=== PATIENT | male | born 1990 | race Caucasian/White ===

== ENCOUNTER 2017-05-20 14:39 | Emergency (ER) | payer OTHER, SELFPAY ==
--- NOTE | 2017-05-20 10:00 | XR_ITS ---
XR chest 2V HISTORY: ITS.REASON: COUGH, CONGESTION X COUPLE OF DAYS ORDERING PHYSICIAN: Patrick Gerardo MD PATIENT AGE: 26 years COMPARISON: 06/05/2008 FINDINGS: The cardiomediastinal silhouette and pulmonary vascularity are within normal limits. No lobar consolidation or collapse. There is a vague 6 mm nodular opacity overlying the left midlung at the third rib anteriorly and may be due to summation artifact. Cannot exclude developing nodule. Density is also present in the posterior costophrenic sulcus measuring 6 mm. The remaining lungs are clear.. No acute bony abnormalities. IMPRESSION: Nonspecific left upper lobe and posterior basilar nodular opacities. Developing nodules are consideration versus summation artifact. Follow-up suggested. If this persists then CT may be of further value.
[2017-05-20 14:40] VITALS: BP 138/74; PULSE 108; RESP 18; TEMP 37.9; O2SAT 97; BMI 28.3
[2017-05-20 17:00] VITALS: BP 135/76; PULSE 78; RESP 20; TEMP 37.3; O2SAT 97
[2017-05-20 22:16] LABS: Adenovirus,PCR Not Detected (NotDetected); Coronavirus 229E Not Detected (NotDetected); Coronavirus NL63 Not Detected (NotDetected); Coronavirus OC43 Not Detected (NotDetected); Coronovirus HKU1,PCR Not Detected (NotDetected); Human Metapneumovirus Not Detected (NotDetected); Influenza A, PCR Not Detected (NotDetected); Influenza AH1, 2009 Not Detected (NotDetected); Influenza AH1, PCR Not Detected (NotDetected); Influenza B, PCR Not Detected (NotDetected); Microscopic, Urine URINE MICROSCOPIC (MICROSCOPIC); Parainfluenza 1, PCR Not Detected (NotDetected); Parainfluenza 2, PCR Not Detected (NotDetected); Parainfluenza 3, PCR Not Detected (NotDetected); Parainfluenza 4, PCR Not Detected (NotDetected); Respiratory Syncytial Virus Not Detected (NotDetected); Rhinovirus/Enterovirus Not Detected (NotDetected)
[2017-05-20 23:31] LABS: Appearance,Urine CLEAR (Clear); Blood, Urine Negative (Negative); Color,Urine YELLOW (Yellow); Glucose,Urine (UA) Negative (Negative); Ketones,Urine TRACE (Negative); Leukocyte Esterase,Urine Negative (Negative); Nitrate,Urine Negative (Negative); PH,Urine 5.5 (5.0-8.5); Protein,Urine Negative (Negative); Specific Gravity, Urine >= 1.030 (1.005-1.030); Urobilinogen,Urine 0.2 EU/dl (0.2)
[2017-05-20 23:36] LABS: Bilirubin,Urine Negative (Negative)
[2017-05-20 23:40] LABS: Amorphous Sediment,Urine 1+ /lpf; Mucus,Urine 2+ /lpf; Squamous Epithelial Cell,Urine Occasional #/hpf (0-5)
[2017-05-20 23:42] VITALS: BP 138/81; PULSE 89; RESP 20; TEMP 37.1; O2SAT 97
[2017-05-20 23:57] LABS: Influenza AH3,PCR Detected (NotDetected)
[2017-05-21] LABS: Alanine Aminotransferase 64 U/L (12-78); Albumin Level 3.4 gm/dL (3.4-5.0); Alkaline Phosphatase 106 U/L (46-116); Anion Gap 11.4 mEq/L (5-15); Aspartate Amino Transferase 30 U/L (15-37); Bilirubin,Total 0.8 mg/dL (0.2-1.0); Blood Urea Nitrogen 10 mg/dL (7-18); Calcium 8.2 mg/dL (8.5-10.1); Carbon Dioxide 26 mmol/L (21.0-32.0); Chloride 105 mmol/L (98-107); Creatinine,Serum 1.03 mg/dL (0.70-1.30); Estimated Glomerular Filt Rate > 60 ml/min (>60); GFR (African American) > 60 ML/MIN (>60); Globulin 3.4 gm/dl (1.3-3.2); Glucose 113 mg/dL (74-106); Potassium 3.4 mmoL/L (3.5-5.1); Sodium 139 mmol/L (136-145); Total Protein,Serum 6.8 gm/dL (6.4-8.2)
[2017-05-21 00:55] LABS: Basophils % 0.3 % (0.1-2.0); Eosinophils % 0.7 % (0.1-12.0); Hematocrit 42.6 % (42.0-52.0); Hemoglobin 14.2 g/dL (14.1-18.0); Lymphocytes # 0.3 K/mm3 (0.7-4.5); Lymphocytes % 4.9 K/mm3 (10-50); Mean Corpuscular HGB Conc 33.4 g/dL (31.8-35.4); Mean Corpuscular Volume 86.7 fl (80-94); Mean Platelet Volume 7.4 fl (7.4-10.4); Monocytes # 0.3 K/mm3 (0.1-1.0); Monocytes % 5.3 % (1.7-9.3); Neutrophils # 5.5 K/mm3 (1.8-7.8); Neutrophils % 88.9 % (37.0-80.0); Platelet Count 195 K/mm3 (142-424); Red Blood Count 4.91 M/mm3 (4.60-6.20); Red Cell Distribution Width 12.9 % (11.5-17.5); White Blood Count 6.2 K/mm3 (4.8-10.8)
[2017-05-21 00:56] LABS: MANUAL DIFFERENTIAL MANUAL DIFFERENTIAL (MANUAL DIFF)
[2017-05-21 01:12] LABS: Platelet Estimate Normal; RBC Morphology Normal
[2017-05-21 01:13] LABS: Band Neutrophils % 14 (0-8); Lymphocytes % 8 % (10-50); Monocytes % 5 % (2-9); Neutrophils % 73 % (42-76); Toxic Granulation 1+
[2017-05-21 01:14] LABS: Total Cells Counted 100
[2017-05-21 15:33] LABS: Bordetella Pertussis Not Detected (NotDetected); Chlamydophila Pneumoniae, PCR Not Detected (NotDetected); Mycoplasma Pneumoniae, PCR Not Detected (NotDected)
== END 2017-05-20 17:50 | disposition home or self-care (01) ==
LOC: ER 22:14
PROVIDERS: Emergency Provider Emergency Medicine; Family Provider Family Medicine
DX: J10.1 Influenza due to other identified influenza virus with other respiratory manifestations (principal); J20.9 Acute bronchitis, unspecified; N39.0 Urinary tract infection, site not specified
CPT/HCPCS: 71046; 80053; 81001; 85007; 85025; 87486; 87581; 87633; 87798; 96360; 96365; 96372; 96375; 99282; 99284

== ENCOUNTER → 2018-04-24 14:59 | Outpatient (CLI) | payer OTHER, SELFPAY ==
--- NOTE | 2018-04-24 15:10 | MR_ITS ---
MR head/brain wo con HISTORY: None disintegrating remaining extremities with dizziness and headache ITS.REASON: DECREASED SENSATION, DIZZINESS, PRIMARY STABBING HEADACHE ORDERING PHYSICIAN: Chantelle Perez PATIENT AGE: 27 years Comparison: 04/23/2018, 09/01/2010 TECHNIQUE: Standard multiplanar multiecho sequences are performed without contrast. FINDINGS: No evidence of acute infarction. The cerebellopontine angles, cerebellum, and brainstem are unremarkable. No midline shift, mass effect, intracranial hemorrhage, or hydrocephalus is evident. There is normal lal-white matter differentiation with no abnormal white matter signal intensity apparent. No pituitary enlargement. The corpus callosum, cerebral peduncles, and optic diazepam are unremarkable. The hippocampal gyri are unremarkable and the temporal horns are symmetric. No mastoid effusion or sinus air-fluid level. IMPRESSION: Negative MRI of the brain without contrast No evidence of acute infarction or other acute anomaly
== END ==
PROVIDERS: PCP Nurse Practitioner; Visit Provider Nurse Practitioner
DX: F32.9 Major depressive disorder, single episode, unspecified (principal); F20.81 Schizophreniform disorder; R42 Dizziness and giddiness; G44.85 Primary stabbing headache; Z82.0 Family history of epilepsy and other diseases of the nervous system
CPT/HCPCS: 70551

== ENCOUNTER → 2018-05-17 14:55 | Outpatient (CLI) | payer OTHER, SELFPAY ==
--- NOTE | 2018-05-17 17:11 | CT_ITS ---
CT abdomen pelvis w con CLINICAL INDICATION: ITS.REASON: LUQ PAIN, ABDOMINAL DISTENSION, FEVER AND CHILLS ORDERING PHYSICIAN: Lilian Gabriel PATIENT AGE: 27 years COMPARISON: 02/10/2011 TECHNIQUE: Axial images obtained with sagittal and coronal reformats. All CT scans at the facility use one or more dose reduction, viz: automated exposure control, ma/kV adjustment per patient size (including targeted exams where dose is matched to indication, i.e. head), or iterative reconstruction technique. PROCEDURE: Oral Contrast: Redicat IV Contrast: 75 mL of Isovue-370. FINDINGS: The lung bases are clear. Probable fatty infiltration along the fissure for the ligamentum teres within the left lobe of the liver. Unremarkable appearing spleen. The pancreas and adrenal glands are unremarkable. No renal or ureteral calculi. 5 mm cortical cyst noted in the lower pole the left kidney. No hydronephrosis. No intestinal obstruction or free air. Prior appendectomy. No pelvic mass abnormal fluid collection or focal inflammatory change of the pelvis. No evidence of diverticulitis. No acute bony anomalies. IMPRESSION: No acute abdominal or pelvic findings
== END ==
PROVIDERS: PCP Nurse Practitioner Family; Visit Provider Nurse Practitioner Family
DX: R10.12 Left upper quadrant pain (principal); R50.9 Fever, unspecified; R14.0 Abdominal distension (gaseous)
CPT/HCPCS: 74177; Q9967

== ENCOUNTER 2019-10-06 17:46 | Emergency (ER) | payer OTHER, SELFPAY ==
[2019-10-06 17:48] VITALS: BP 137/69; PULSE 78; RESP 12; TEMP 36.6; O2SAT 100; BMI 29.0
[2019-10-06 18:09] LABS: Microscopic, Urine URINE MICROSCOPIC (MICROSCOPIC)
[2019-10-06 18:11] LABS: Appearance,Urine CLEAR (Clear); Bilirubin,Urine Negative (Negative); Blood, Urine Negative (Negative); Color,Urine YELLOW (Yellow); Glucose,Urine (UA) Negative (Negative); Ketones,Urine Negative (Negative); Leukocyte Esterase,Urine Negative (Negative); Nitrate,Urine Negative (Negative); PH,Urine 5.5 (5.0-8.5); Protein,Urine Negative (Negative); Specific Gravity, Urine >= 1.030 (1.005-1.030); Urobilinogen,Urine 0.2 EU/dl (0.2)
[2019-10-06 18:18] LABS: Basophils % 0.5 % (0.1-2.0); Eosinophils # 0.1 K/mm3 (0.0-0.4); Eosinophils % 1.6 % (0.1-12.0); Hematocrit 44.1 % (42.0-52.0); Hemoglobin 15.3 g/dL (14.1-18.0); Lymphocytes # 1.5 K/mm3 (0.7-4.5); Lymphocytes % 19.1 % (10-50); Mean Corpuscular HGB Conc 34.6 g/dL (31.8-35.4); Mean Corpuscular Hemoglobin 29.2 pg (27.0-31.2); Mean Corpuscular Volume 84.4 fl (80-94); Mean Platelet Volume 7.6 fl (7.4-10.4); Monocytes # 0.3 K/mm3 (0.1-1.0); Monocytes % 3.5 % (1.7-9.3); Neutrophils % 75.4 % (37.0-80.0); Platelet Count 241 K/mm3 (142-424); Red Blood Count 5.23 M/mm3 (4.60-6.20); Red Cell Distribution Width 14.2 % (11.5-17.5)
[2019-10-06 18:21] LABS: Bacteria,Urine Trace /lpf; WBC,Urine Occasional #/hpf (0-3)
[2019-10-06 18:21] LABS: Chloride 103 mmol/L (98-107)
[2019-10-06 18:22] LABS: Potassium 3.6 mmoL/L (3.5-5.1); Sodium 140 mmol/L (136-145)
[2019-10-06 18:24] LABS: Alanine Aminotransferase 32 U/L (12-78); Alkaline Phosphatase 99 U/L (38-126); Anion Gap 13.6 mEq/L (5-15); Aspartate Amino Transferase 27 U/L (17-59); Blood Urea Nitrogen 15 mg/dl (9-20); Carbon Dioxide 27 mmol/L (22.0-30.0); Creatinine Clearance Estimated 172 mL/min (50-200); Estimated Glomerular Filt Rate 100 ml/min (>60); GFR (African American) 122 ML/MIN (>60)
[2019-10-06 18:25] LABS: Albumin Level 4.7 g/dl (3.5-5.0); Albumin/Globulin Ratio 1.5 (1.1-1.8); Calcium 9.6 mg/dl (8.4-10.2); Globulin 3.1 g/dL (1.3-3.2); Glucose 120 mg/dl (74-100); Total Protein,Serum 7.8 g/dl (6.3-8.2)
--- NOTE | 2019-10-06 18:58 | CT_ITS ---
PROCEDURE: CT ABDOMEN PELVIS WO CON CLINICAL INDICATION: abd pain COMPARISON: ABDPELW CT abdomen pelvis w con from 05/17/2018 TECHNIQUE: Axial images obtained with sagittal and coronal reformats. All CT scans at the facility use one or more dose reduction, viz: automated exposure control, ma/kV adjustment per patient size (including targeted exams where dose is matched to indication, i.e. head), or iterative reconstruction technique. FINDINGS: Lower thorax: The lower lung roque are clear and there is no pleural fluid. ABDOMEN: Liver: The liver is normal size, there is mild stable fatty infiltration involving the ligamentum teres and left lobe of the liver. There are no focal lesions. Gallbladder: Nondistended. No radio opaque stones. Pancreas: No masses or peripancreatic fluid collections. Spleen: unremarkable Adrenals: unremarkable Kidneys/ureters: The kidneys are normal in size and no calculi and there is no obstructive uropathy. ABDOMEN & PELVIS: Stomach bowel: The stomach is moderately distended with ingested food particles but otherwise appears normal. The duodenal sweep and small bowel appear normal. There has been a previous appendectomy. There is large amount stool in the cecum and ascending colon and hepatic flexure. There is scattered stool and gas seen through the remainder of the colon. Peritoneum: No abnormal fluid collections. No obvious inflammatory changes. No free air. Lymph nodes: No enlarged lymph nodes apparent. Vasculature: No evidence of abdominal aortic aneurysm. No retroperitoneal hemorrhage evident. Bones: No acute fracture, lower thoracic and lumbar spine appearing entirely normal. PELVIS: Reproductive: unremarkable Bladder: Mildly distended with urine and appearing normal. Prostate is normal in size. Appendix: Surgical clips adjacent to the cecum from prior appendectomy IMPRESSION: Large amount right-sided stool, no acute abdominal or pelvic pathology identified Dictated by: Dr. Jean Pierre Morton MD 10/06/2019 19:[address] Jean Pierre Morton MD in [place] 10/06/2019 19:47
[2019-10-06 19:14] LABS: Amylase 87 U/L (30-110); Lipase 34 U/L (23-300)
--- NOTE | 2019-10-06 19:15 | PC.NURSE ---
RECEIVED REPORT FROM ALBERT YOUNG AND ALBERT RIZZO
[2019-10-06 19:22] VITALS: BP 132/75; PULSE 72; RESP 19; O2SAT 98
--- NOTE | 2019-10-06 19:42 | HMH.EDDIZZ ---
ED Disposition Clinical Impression: Dizziness, Hypertension, Constipation Disposition: Still a Patient Condition on Discharge: Good Instructions: Dizziness, Nonvertigo Prescriptions: Losartan Potassium 50 mg PO DAILY 30 Days #30 tab Transmission Status: Sent to [facility] #[id number] Ondansetron [Zofran 4mg ODT] 4 mg PO TID PRN 4 Days #15 tab.rapdis PRN Reason: Nausea Transmission Status: Pending to [facility] #[id number] Referrals: Lilian Gabriel APRN [Primary Care Provider] - - Critical Care Critical Care Time: No Attestation: On 10/06/19, the high probability of a clinically significant, sudden or life threatening deterioration of the following system(s) required my full and direct attention, intervention and personal management. The time I documented below is in addition to time spent performing reported procedures but includes the following listed in this critical care notation. Medical Decision Making - Medical Records Medical records reviewed: Yes: I reviewed the patient's medical records. - Yordy Inquiry Pt receiving controlled substance: No Vital Signs: 10/06/19 17:48 Temperature 98 F Temperature Source Oral Pulse Rate [Right] 78 Respiratory Rate 12 Blood Pressure [Right Arm] 137/69 Blood Pressure Mean [Right Arm] 91 02 Sat by Pulse Oximetry 100 - Lab Data Lab results reviewed: Yes: I reviewed the patient's lab results. Lab Results 10/06/19 18:01: Urine Color Yellow, Urine Appearance Clear, Urine pH 5.5, Ur Specific [place] >= 1.030, Urine Protein Negative, Urine Glucose (UA) Negative, Urine Ketones Negative, Urine Blood Negative, Urine Nitrate Negative, Urine Bilirubin Negative, Urine Urobilinogen 0.2, Ur Leukocyte Esterase Negative, Urine WBC Occasional, Urine Bacteria Trace 10/06/19 18:10: WBC 8.0, RBC 5.23, Hgb 15.3, Hct 44.1, MCV 84.4, MCH 29.2, MCHC 34.6, RDW 14.2, Plt Count 241, MPV 7.6, Neut % (Auto) 75.4, Lymph % (Auto) 19.1, [place] % (Auto) 3.5, Eos % (Auto) 1.6, Baso % (Auto) 0.5, Neut # (Auto) 6.0, Lymph # (Auto) 1.5, [place] # (Auto) 0.3, Eos # (Auto) 0.1, Baso # (Auto) 0.0 10/06/19 18:10: Sodium 140, Potassium 3.6, Chloride 103, Carbon Dioxide 27, Anion Gap 13.6, BUN 15, Creatinine 0.90, Estimated Creat Clear 172, Estimated GFR 100, Est GFR ( Amer) 122, Glucose 120 H, Calcium 9.6, Total Bilirubin 1.0, AST 27, ALT 32, Alkaline Phosphatase 99, Total Protein 7.8, Albumin 4.7, Globulin 3.1, Albumin/Globulin Ratio 1.5 10/06/19 18:10: Amylase 87 10/06/19 18:10: Lipase 34 Result diagrams: 10/06/19 18:10 10/06/19 18:10 - CT Data CT Scan: Abdomen, Pelvis Time Received: 19:[address] Reviewed: Yes: I have viewed the radiologist's interpretation Preliminary Findings: Abnormal (Large amount of stool at the hepatic flexure) Dizzy HPI - General Chief Complaint: Dizziness Stated Complaint: BP/R Shoulder Pain,Feels bad Time Seen by Provider: 10/06/19 19:20 Mode of Arrival: Ambulatory Source of Information: Patient Limitations: No Limitations Description of Symptoms (Recalled from ER Triage Doc. by RN): C/O dizziness and nausea with right shoulder pain after he eats. Pt also states he has htn and hus bp has been high today with a ROSAS and lightheadedness. - History of Present Illness HPI Narrative: 21-year-old male presents the ED complaining of some lightheadedness dizziness and pain in his right shoulder after he eats meals. He also states his blood pressure has been elevated at home. He also states that he thinks his stated that it could be his gallbladder. Patient does not complain of any abdominal pain. Patient stated that his blood pressure at home was 183/101. Here in the ED it is within normal limits and he takes lisinopril daily. Otherwise patient denies any recent fever shakes or chills. Patient denies any vomiting but does have nausea. Patient denies any subjective or objective fevers. Patient denies any cough or shortness of breath. - Related
[2019-10-06 20:01] VITALS: BP 152/74; PULSE 71; RESP 16; O2SAT 99
[2019-10-06 20:29] VITALS: BP 128/62; PULSE 72; RESP 12; TEMP 36.7; O2SAT 100
== END 2019-10-06 20:30 | disposition home or self-care (01) ==
PROVIDERS: Emergency Provider Family Medicine; PCP Nurse Practitioner Family
DX: R42 Dizziness and giddiness (principal); I10 Essential (primary) hypertension; K59.00 Constipation, unspecified; F41.9 Anxiety disorder, unspecified; F12.10 Cannabis abuse, uncomplicated; Z90.09 Acquired absence of other part of head and neck; Z90.49 Acquired absence of other specified parts of digestive tract
CPT/HCPCS: 74176; 80053; 81001; 82150; 83690; 85025; 99284

== ENCOUNTER → 2019-10-13 08:47 | Outpatient (CLI) | payer OTHER, SELFPAY ==
--- NOTE | 2019-10-13 08:54 | US_ITS ---
PROCEDURE: US ABDOMEN LIMITED CLINICAL INDICATION: ABD PAIN Right upper quadrant pain COMPARISON: RUQ US RUQ-(ABD LTD)1ORGAN/QUAD/FU from 11/07/2012 FINDINGS: PANCREAS: Unremarkable. No obvious mass or abnormal fluid collection. No ductal dilatation LIVER: No focal liver lesions demonstrated. Homogeneous echogenicity. No intrahepatic biliary ductal dilatation evident. There is appropriate direction of blood flow within a non dilated portal vein RIGHT KIDNEY: Unremarkable. Normal size and echogenicity. No hydronephrosis GALLBLADDER: No gallstones, gallbladder wall thickening, pericholecystic fluid, or biliary dilatation. IMPRESSION: Unremarkable limited abdominal ultrasound as detailed above disc Dictated by: Harpreet Del Rosario MD 10/13/2019 14:33 Electronically signed by Harpreet Del Rosario MD in [place] 10/13/2019 14:33
== END ==
PROVIDERS: PCP Nurse Practitioner Family; Visit Provider Nurse Practitioner Family
DX: R10.11 Right upper quadrant pain (principal)
CPT/HCPCS: 76705

== ENCOUNTER → 2019-11-06 09:16 | Outpatient (CLI) | payer OTHER, SELFPAY ==
--- NOTE | 2019-11-06 09:20 | NM_ITS ---
PROCEDURE: NM HEPATOBILIARY W PHARM CLINICAL INDICATION: RUQ PAIN COMPARISON: Ultrasound 10/13/2019 TECHNIQUE: 8.48 mCi technetium Choletec 2 mcg of CCK FINDINGS: Homogeneous activity is present within the hepatic parenchyma. Activity is present in the gallbladder by 7 minutes. Activity is present in the small bowel by 23 minutes. The gallbladder ejection fraction is calculated to be 92 percent. CCK-The patient did not report pain or other symptoms during CCK infusion. IMPRESSION: Unremarkable hepatobiliary scan and normal gallbladder ejection fraction Dictated by: Harpreet Del Rosario MD 11/07/2019 09:39 Electronically signed by Harpreet Del Rosario MD in [place] 11/07/2019 09:39
--- NOTE | 2019-11-06 10:12 | HMH.ITSHM ---
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 [] zoloft losartan
== END ==
PROVIDERS: PCP Nurse Practitioner Family; Visit Provider Nurse Practitioner Family
DX: R10.11 Right upper quadrant pain (principal)
CPT/HCPCS: 78227; A9537; J2805

== ENCOUNTER → 2019-11-26 19:24 | Outpatient (CLI) | payer OTHER, SELFPAY | PROVIDERS: PCP Family Medicine; Visit Provider Family Medicine | DX: R29.818 Other symptoms and signs involving the nervous system (principal) | CPT/HCPCS: G0399 ==

== ENCOUNTER → 2020-04-15 15:24 | Outpatient (CLI) | payer OTHER, SELFPAY ==
[2020-04-17 17:52] LABS: Covid-19 Nasal PCR Sendout Lex Not Detected
== END ==
PROVIDERS: PCP Nurse Practitioner Family; Visit Provider Nurse Practitioner Family
DX: Z03.818 Encounter for observation for suspected exposure to other biological agents ruled out (principal)
CPT/HCPCS: U0004

== ENCOUNTER → 2020-04-23 15:29 | Outpatient (CLI) | payer OTHER, SELFPAY ==
[2020-04-26 08:26] LABS: Covid-19 Nasal PCR Sendout UK DETECTED
== END ==
PROVIDERS: PCP Nurse Practitioner Family; Visit Provider Nurse Practitioner Family
DX: Z20.828 Contact with and (suspected) exposure to other viral communicable diseases (principal); U07.1 COVID-19
CPT/HCPCS: U0003

== ENCOUNTER → 2020-06-19 09:38 | Outpatient (CLI) | payer OTHER, SELFPAY ==
[2020-06-19 09:51] LABS: Basophils % 0.4 % (0.1-2.0); Eosinophils # 0.1 K/mm3 (0.0-0.4); Eosinophils % 1.1 % (0.1-12.0); Hematocrit 50.1 % (42.0-52.0); Hemoglobin 16.5 g/dL (14.1-18.0); Lymphocytes # 1.5 K/mm3 (0.7-4.5); Lymphocytes % 26.1 % (10-50); Mean Corpuscular HGB Conc 32.9 g/dL (31.8-35.4); Mean Corpuscular Hemoglobin 27.7 pg (27.0-31.2); Mean Corpuscular Volume 84.2 fl (80-94); Mean Platelet Volume 7.5 fl (7.4-10.4); Monocytes # 0.2 K/mm3 (0.1-1.0); Neutrophils # 3.8 K/mm3 (1.8-7.8); Neutrophils % 68.4 % (37.0-80.0); Platelet Count 283 K/mm3 (142-424); Red Blood Count 5.95 M/mm3 (4.60-6.20); Red Cell Distribution Width 14.4 % (11.5-17.5); White Blood Count 5.6 K/mm3 (4.8-10.8)
[2020-06-19 10:29] LABS: Alanine Aminotransferase 52 U/L (12-78); Albumin Level 4.4 g/dl (3.5-5.0); Albumin/Globulin Ratio 1.6 (1.1-1.8); Alkaline Phosphatase 97 U/L (38-126); Anion Gap 11.1 mEq/L (5-15); Aspartate Amino Transferase 37 U/L (17-59); Bilirubin,Total 0.7 mg/dl (0.2-1.3); Blood Urea Nitrogen 13 mg/dl (9-20); Calcium 9.5 mg/dl (8.4-10.2); Carbon Dioxide 29 mmol/L (22.0-30.0); Chloride 107 mmol/L (98-107); Estimated Glomerular Filt Rate 100 ml/min (>60); GFR (African American) 122 ML/MIN (>60); Globulin 2.8 g/dL (1.3-3.2); Glucose 103 mg/dl (74-100); Magnesium 1.9 mg/dl (1.6-2.3); Potassium 4.1 mmoL/L (3.5-5.1); Sodium 143 mmol/L (136-145); Total Protein,Serum 7.2 g/dl (6.3-8.2)
[2020-06-19 10:43] LABS: Free T4 (Free Thyroxine) 0.69 ng/dl (0.78-2.19)
[2020-06-19 10:58] LABS: Thyroid Stimulating Hormone 3.77 uIU/mL (0.465-4.68)
[2020-06-26 15:55] LABS: Testosterone, Total, LC/MS 311.4 ng/dL (264.0-916.0); Testosterone,Free 8.2 pg/mL (9.3-26.5)
== END ==
PROVIDERS: Visit Provider Nurse Practitioner Family
DX: Z79.899 Other long term (current) drug therapy (principal)
CPT/HCPCS: 36415; 80053; 83735; 84402; 84403; 84439; 84443; 85025; 86140

== ENCOUNTER → 2020-06-19 09:51 | Outpatient (CLI) | payer OTHER, SELFPAY ==
--- NOTE | 2020-06-19 09:59 | XR_ITS ---
PROCEDURE: XR CERVICAL SPINE 5V CLINICAL INDICATION: CERVICALGIA COMPARISON: No exams were available for comparison FINDINGS: No fracture or dislocation. No lytic or blastic change. There is normal mineralization. There is normal alignment. The C7 vertebral body is not well delineated on the lateral view. A faint outline is noted and appears to be normal and alignment. The foramina are widely patent. The disc spaces are well-preserved. No significant degenerative/arthritic changes. No erosive changes evident. Other findings:There is straightening/reversal of the normal lordosis which may be due to patient positioning or muscle spasm. IMPRESSION: Straightening of cervical lordosis which could be due to patient positioning or muscle spasm. Incomplete visualization of C7. Dictated by: Harpreet Del Rosario MD 06/19/2020 10:25 Harpreet Del Rosario MD in [place] 06/19/2020 10:25
== END ==
PROVIDERS: PCP Nurse Practitioner Family; Visit Provider Nurse Practitioner Family
DX: M54.2 Cervicalgia (principal)
CPT/HCPCS: 72050

== ENCOUNTER 2020-06-21 18:20 | Emergency (ER) | payer OTHER, SELFPAY ==
[2020-06-21 18:21] VITALS: BP 133/74; PULSE 65; RESP 16; TEMP 36.6; O2SAT 99; BMI 32.3
--- NOTE | 2020-06-21 18:21 | HMH.EDGENADL ---
ED Disposition Clinical Impression: Headache Qualifiers: Headache type: unspecified Headache chronicity pattern: unspecified pattern Intractability: not intractable Qualified Code(s): R51.9 - Headache, unspecified Disposition: Home, Self-Care Condition on Discharge: Good Additional Instructions: Please continue taking yhvx-nos-vengyrm medications such as Tylenol/ibuprofen and other prescribed medications by her PCP as prescribed. Return immediately if any change in quality/character of headache, neurologic symptoms, fever/chills, neck pain/stiffness, or other new concerning symptoms. - Critical Care Critical Care Time: No Attestation: On , the high probability of a clinically significant, sudden or life threatening deterioration of the following system(s) required my full and direct attention, intervention and personal management. The time I documented below is in addition to time spent performing reported procedures but includes the following listed in this critical care notation. Medical Decision Making - Medical Records Medical records reviewed: Yes: I reviewed the patient's medical records. - Yordy Inquiry Pt receiving controlled substance: No Vital Signs: 06/21/20 18:21 Temperature 98 F Temperature Source Oral Pulse Rate [Radial] 65 Respiratory Rate 16 Blood Pressure [Right Arm] 133/74 Blood Pressure Mean [Right Arm] 93 Blood Pressure Position [Right Arm] Sitting 02 Sat by Pulse Oximetry 99 Oxygen Delivery Method Room Air - Lab Data Lab Results 06/21/20 18:50: WBC 7.9 D, RBC 5.77, Hgb 16.0, Hct 48.9, MCV 84.8, MCH 27.8, MCHC 32.8, RDW 14.2, Plt Count 310, MPV 7.5, Neut % (Auto) 65.1, Lymph % (Auto) 29.1, [place] % (Auto) 4.5, Eos % (Auto) 0.9, Baso % (Auto) 0.4, Neut # (Auto) 5.1, Lymph # (Auto) 2.3, [place] # (Auto) 0.4, Eos # (Auto) 0.1, Baso # (Auto) 0.0 06/21/20 18:50: Sodium 140, Potassium 4.1, Chloride 101, Carbon Dioxide 31 H, Anion Gap 12.1, BUN 13, Creatinine 0.90, Estimated Creat Clear 192, Estimated GFR 100, Est GFR ( Amer) 122, Glucose 133 H, Calcium 9.8 Result diagrams: 06/21/20 18:50 06/21/20 18:50 Orders (Tests/Meds): ED MEDICATIONS Generic Name Dose Route Start Last Admin Trade Name Justyn PRN Reason Stop Dose Admin Lactated Ringer's 1,000 mls @ 999 mls/hr 06/21/20 18:45 06/21/20 18:39 Lactated Ringer's 1000 Ml Bag IV 06/21/20 19:45 999 mls/hr .Q1H1M PHYLLIS Administration Discontinued Medications Generic Name Dose Route Start Last Admin Trade Name Justyn PRN Reason Stop Dose Admin Diphenhydramine HCl 25 mg 06/21/20 18:35 06/21/20 18:40 Diphenhydramine 50mg/Ml Vial IV 06/21/20 18:36 25 mg ONCE ONE Administration Ketorolac Tromethamine 15 mg 06/21/20 19:25 Ketorolac 30mg/Ml Vial IV 06/21/20 19:26 ONCE ONE Prochlorperazine Edisylate 10 mg 06/21/20 18:35 06/21/20 18:40 Prochlorperazine 10mg/2ml Vial IV 06/21/20 18:36 10 mg ONCE ONE Administration ORDERS Category Date Time Status CT head/brain wo con Stat Cat Scan 06/21/20 18:35 Taken Medical Decision Narrative: Patient 29-year-old male presenting with headache. On arrival, he ambulates without difficulty with no focal neurologic deficits. Neck is supple without meningismus with normal vital signs on examination. At this time, differential diagnosis does include ICH/mass versus cluster headache versus migraine with aura versus tension headache. Compazine, Benadryl, and IV fluid bolus given basic lab work will be checked. I do believe CT head is indicated as this is a change in patient's usual headache with frontal pressure he describes. No specific morning/night pain or constitutional symptoms. Labs unremarkable. I personally reviewed CT imaging and also uremarkable. Patient given IV toradol. Headache resolved. Pt ambulates w/o difficulty. Discharged home with strict return precautions and close followup. Assessment: headache hypertension Disposition:
--- NOTE | 2020-06-21 18:35 | CT_ITS ---
PROCEDURE: CT HEAD/BRAIN WO CON CLINICAL INDICATION: new onset frontal headache Headache with blurred vision COMPARISON: CT HEADWO CT head/brain wo con from 04/23/2018 TECHNIQUE: Axial images obtained. All CT scans at the facility use one or more dose reduction, viz: automated exposure control, ma/kV adjustment per patient size (including targeted exams where dose is matched to indication, i.e. head), or iterative reconstruction technique. FINDINGS: No midline shift, mass effect, intracranial hemorrhage, hydrocephalus, or extra-axial fluid collection is evident. The calvarium has an unremarkable appearance. No mastoid effusion. No sinus air-fluid level. IMPRESSION: No acute intracranial finding Dictated by: Harpreet Del Rosario MD 06/22/2020 06:20 Harpreet Del Rosario MD in [place] 06/22/2020 06:20
[2020-06-21 19:02] LABS: Basophils % 0.4 % (0.1-2.0); Eosinophils # 0.1 K/mm3 (0.0-0.4); Eosinophils % 0.9 % (0.1-12.0); Hematocrit 48.9 % (42.0-52.0); Lymphocytes # 2.3 K/mm3 (0.7-4.5); Lymphocytes % 29.1 % (10-50); Mean Corpuscular HGB Conc 32.8 g/dL (31.8-35.4); Mean Corpuscular Hemoglobin 27.8 pg (27.0-31.2); Mean Corpuscular Volume 84.8 fl (80-94); Mean Platelet Volume 7.5 fl (7.4-10.4); Monocytes # 0.4 K/mm3 (0.1-1.0); Monocytes % 4.5 % (1.7-9.3); Neutrophils # 5.1 K/mm3 (1.8-7.8); Neutrophils % 65.1 % (37.0-80.0); Platelet Count 310 K/mm3 (142-424); Red Blood Count 5.77 M/mm3 (4.60-6.20); Red Cell Distribution Width 14.2 % (11.5-17.5); White Blood Count 7.9 K/mm3 (4.8-10.8)
[2020-06-21 19:03] LABS: Chloride 101 mmol/L (98-107); Potassium 4.1 mmoL/L (3.5-5.1); Sodium 140 mmol/L (136-145)
[2020-06-21 19:06] LABS: Anion Gap 12.1 mEq/L (5-15); Blood Urea Nitrogen 13 mg/dl (9-20); Calcium 9.8 mg/dl (8.4-10.2); Carbon Dioxide 31 mmol/L (22.0-30.0); Creatinine Clearance Estimated 192 mL/min (50-200); Estimated Glomerular Filt Rate 100 ml/min (>60); GFR (African American) 122 ML/MIN (>60); Glucose 133 mg/dl (74-100)
[2020-06-21 20:14] VITALS: BP 101/54; PULSE 62; RESP 14; TEMP 36.6; O2SAT 98
== END 2020-06-21 20:17 | disposition home or self-care (01) ==
PROVIDERS: Emergency Provider Emergency Medicine; PCP Nurse Practitioner Family
DX: G43.109 Migraine with aura, not intractable, without status migrainosus (principal); I10 Essential (primary) hypertension; F41.9 Anxiety disorder, unspecified
CPT/HCPCS: 70450; 80048; 85025; 96365; 96375; 99282

== ENCOUNTER → 2020-06-25 10:16 | Outpatient (CLI) | payer OTHER, SELFPAY ==
--- NOTE | 2020-06-25 10:22 | MR_ITS ---
PROCEDURE: MR HEAD/BRAIN WO CON CLINICAL INDICATION: HEADACHES Severe frontal headaches progressing COMPARISON: CT CT HEAD/BRAIN WO CON from 06/21/2020 TECHNIQUE: Routine multiplanar multi echo sequences are performed without gadolinium enhancement. FINDINGS: No midline shift or mass effect. No evidence acute infarction. The cerebellopontine angles, cerebellum, and brainstem and mid brain have an unremarkable appearance. The basal ganglia and deep white matter appears unremarkable. No evidence of intracranial hemorrhage. The pituitary, optic chiasm, corpus callosum, and craniocervical junction have an unremarkable appearance. No mastoid effusion or sinus air-fluid level. IMPRESSION: Negative MRI of the brain without contrast, no acute intracranial findings. Dictated by: Harpreet Del Rosario MD 06/25/2020 12:13 Harpreet Del Rosario MD in [place] 06/25/2020 12:13
== END ==
PROVIDERS: PCP Nurse Practitioner Family; Visit Provider Nurse Practitioner Family
DX: R51.9 Headache, unspecified (principal)
CPT/HCPCS: 70551

== ENCOUNTER → 2020-08-11 15:53 | Outpatient (CLI) | payer OTHER, SELFPAY | PROVIDERS: PCP Family Medicine; Visit Provider Family Medicine | DX: Z20.822 Contact with and (suspected) exposure to COVID-19 (principal) | CPT/HCPCS: U0003 ==

== ENCOUNTER 2020-11-01 20:02 | Emergency (ER) | payer OTHER, SELFPAY ==
[2020-11-01 20:05] VITALS: BP 137/76; PULSE 63; RESP 18; TEMP 36.8; O2SAT 98; BMI 33.0
--- NOTE | 2020-11-01 20:07 | XR_ITS ---
PROCEDURE INFORMATION: Exam: XR Left Ankle Exam date and time: 11/01/2020 8:07 PM Age: 30 years old Clinical indication: Patient HX: Left ankle pain no new injury TECHNIQUE: Imaging protocol: XR Left ankle. Views: 3 or more views. COMPARISON: No relevant prior studies available. FINDINGS: Bones/joints: Normal. Soft tissues: Normal. IMPRESSION: No acute findings.
--- NOTE | 2020-11-01 20:07 | XR_ITS ---
PROCEDURE INFORMATION: Exam: XR Left Foot Exam date and time: 11/01/2020 8:07 PM Age: 30 years old Clinical indication: Patient HX: Left foot pain no new injury TECHNIQUE: Imaging protocol: XR Left foot. Views: 3 or more views. COMPARISON: No relevant prior studies available. FINDINGS: Bones/joints: Normal. Soft tissues: Normal. IMPRESSION: No acute findings.
--- NOTE | 2020-11-01 20:21 | HMH.EDUTC ---
[facility] [place] Disposition Clinical Impression: Foot pain, left Disposition: Home, Self-Care Condition on Discharge: Good Instructions: DI for Pseudogout, DI for Foot Pain Additional Instructions: *weight bearing as tolerated *RICE, Rest the extremity, Ice 15-20 minutes 3-4 times daily, Compress- wear the [place] wrap as discussed as much as possible to help reduce swelling and pain, Elevate the extremity when at rest *[place] wrap is for support and help control swelling, use it except in the shower. Be sure that is not to tight but not to loose either *Elevate when resting *Ibuprofen 600-800mg every 6-8 hours as needed for pain an inflammation. If need something more can take Tylenol in between doses of Ibuprofen to help Immediately follow up with your family doctor for new or worsening of symptoms, or no noticeable improvement over the next 3-5 days Call back to the [facility] tomorrow for the official reading of your xray Follow up with Family Doctor or Dr Bruno if no improvement or any worsening of symptoms Referrals: Lilian Gabriel APRN [Primary Care Provider] - As needed Forms: Work/School Release Time of Disposition: 21:22 Medical Decision Making - Yordy Inquiry Pt receiving controlled substance: No Yordy was queried for this patient: No Vital Signs: 11/01/20 20:05 11/01/20 21:36 Temperature 98.2 F 98.2 F Temperature Source Oral Pulse Rate 63 Pulse Rate [Right Brachial] 63 Respiratory Rate 18 18 Blood Pressure 137/76 Blood Pressure [Right Arm] 137/76 Blood Pressure Mean [Right Arm] 96 Blood Pressure Source [Right Arm] Automatic Cuff Blood Pressure Position [Right Arm] Sitting 02 Sat by Pulse Oximetry 98 Oxygen Delivery Method Room Air - Lab Data Lab Results 11/01/20 20:25: Uric Acid 6.1 Orders (Tests/Meds): ED MEDICATIONS Discontinued Medications Generic Name Dose Route Start Last Admin Trade Name Freq PRN Reason Stop Dose Admin Methylprednisolone Sodium Succinate 125 mg 11/01/20 21:25 11/01/20 21:28 Methylprednisolone Sod Succ 125mg Vial IM 11/01/20 21:26 125 mg ONCE ONE Administration - Radiology Data #1 Image(s): Foot/Toes Image Reviewed: Yes I reviewed the patient's radiology image Preliminary Findings: No Fracture Seen #2 Image(s): Ankle Image Reviewed: Yes I reviewed the patient's radiology image Preliminary Findings: No Fracture Seen [facility] [place] HPI - General Stated complaint: lt ankle and foot injury Time Seen by Provider: 11/01/20 20:22 Mode of Arrival: Ambulatory Source of Information: Patient, Spouse Limitations: No Limitations Description of Symptoms (Recalled from Triage Doc. by RN): PATIENT C/O PAIN AND SWELLING TO LEFT FOOT AND ANKLE FOR APPROX 2 WEEKS. STATES HE INJURED IT ABOUT 5 YEARS AGO, BUT NEVER GOT IT CHECKED AND HAS NEVER HAD PROBLEMS WITH IT UNTIL RECENTLY. NO KNOWN RECENT INJURY HEENT Symptoms (Recalled from RN notes): No Resp Symptoms (Recalled from RN notes): No Skin Symptoms (Recalled from RN notes): No MS Symptoms (Recalled from RN notes): Yes Functional Status (Recalled from RN notes): WNL - History of Present Illness Provider Complaint: Patient state that he injuried his left foot about 5yrs ago when he dropped something on it State that he never got it checked States that for the last 2 weeks on and off he has been having pain in top of his left foot and ankle with some swelling on and off but for last couple of days it has hurt worse State that he doesnt recall doing anything to hurt it but unsure so he came in to get it checked - Related Data Home Medications Medication Instructions Recorded Confirmed Sertraline HCl [Zoloft 50mg tablet] 100 mg PO DAILY 03/23/18 11/01/20 Cariprazine HCl [Vraylar] 1.5 mg PO DAILY 11/01/20 11/01/20 Losartan Potassium 50 mg PO DAILY 11/01/20 11/01/20 Allergies Allergy/AdvReac Type Severity Reaction Status Date / Time No Known Allergies Allergy Verified 07/13/19 15:31 - Worker'
[2020-11-01 20:50] LABS: Uric Acid 6.1 mg/dl (3.5-8.5)
[2020-11-01 21:36] VITALS: BP 137/76; PULSE 63; RESP 18; TEMP 36.8; O2SAT 98
== END 2020-11-01 21:41 | disposition home or self-care (01) ==
PROVIDERS: Emergency Provider Nurse Practitioner; PCP Nurse Practitioner Family
DX: M79.672 Pain in left foot (principal); F41.9 Anxiety disorder, unspecified; F12.10 Cannabis abuse, uncomplicated; Z79.899 Other long term (current) drug therapy
CPT/HCPCS: 73610; 73630; 84550; 96372; 99202; G0463

== ENCOUNTER → 2020-11-03 09:37 | Outpatient (CLI) | payer OTHER, SELFPAY ==
[2020-11-03 10:13] LABS: Erythrocyte Sedimentation Rate 1 mm/hr (0-15)
[2020-11-03 10:48] LABS: Basophils % 0.3 % (0.1-2.0); Eosinophils % 0.2 % (0.1-12.0); Hematocrit 43.2 % (42.0-52.0); Hemoglobin 14.8 g/dL (14.1-18.0); Lymphocytes # 2.4 K/mm3 (0.7-4.5); Lymphocytes % 23.8 % (10-50); Mean Corpuscular HGB Conc 34.2 g/dL (31.8-35.4); Mean Corpuscular Hemoglobin 28.1 pg (27.0-31.2); Mean Corpuscular Volume 82.3 fl (80-94); Mean Platelet Volume 7.6 fl (7.4-10.4); Monocytes # 0.4 K/mm3 (0.1-1.0); Neutrophils # 7.1 K/mm3 (1.8-7.8); Neutrophils % 71.8 % (37.0-80.0); Platelet Count 259 K/mm3 (142-424); Red Blood Count 5.24 M/mm3 (4.60-6.20); Red Cell Distribution Width 14.4 % (11.5-17.5); White Blood Count 9.9 K/mm3 (4.8-10.8)
[2020-11-03 10:49] LABS: C-Reactive Protein 1.2 mg/L (0-4)
[2020-11-03 11:02] LABS: Chol/HDL Ratio 5.8 (1-3.5); Cholesterol 207 mg/dl (140-200); HDL Cholesterol 36 mg/dl (40-60); Triglycerides 128 mg/dl (30-150); VLDL Cholesterol 26 mg/dL (0-40)
[2020-11-03 11:13] LABS: Direct LDL Cholesterol 150.98 mg/dL (100-129)
[2020-11-04 08:32] LABS: RA Latex Turbid. <10.0 IU/mL (0.0-13.9)
[2020-11-05 15:59] LABS: Antinuclear Antibodies, IFA Negative (.)
== END ==
PROVIDERS: Visit Provider Nurse Practitioner Family
DX: M79.89 Other specified soft tissue disorders (principal); E78.5 Hyperlipidemia, unspecified
CPT/HCPCS: 36415; 80061; 84550; 85025; 85651; 86038; 86140; 86431

== ENCOUNTER 2021-05-12 15:57 | Emergency (ER) | payer OTHER, SELFPAY ==
[2021-05-12 15:58] VITALS: BP 148/86; PULSE 61; RESP 16; TEMP 36.8; O2SAT 98; BMI 33.2
[2021-05-12 16:09] VITALS: BP 135/81; PULSE 63; RESP 16; O2SAT 100; BMI 25.7
[2021-05-12 16:29] LABS: Microscopic, Urine URINE MICROSCOPIC (MICROSCOPIC)
[2021-05-12 16:49] LABS: Appearance,Urine CLEAR (Clear); Bilirubin,Urine Negative (Negative); Blood, Urine Negative (Negative); Color,Urine YELLOW (Yellow); Glucose,Urine (UA) Negative (Negative); Ketones,Urine Negative (Negative); Leukocyte Esterase,Urine Negative (Negative); Nitrate,Urine Negative (Negative); Protein,Urine Negative (Negative); Urobilinogen,Urine 0.2 EU/dl (0.2)
--- NOTE | 2021-05-12 16:53 | CT_ITS ---
PROCEDURE INFORMATION: Exam: CT Abdomen And Pelvis Without Contrast Exam date and time: 05/12/2021 4:53 PM Age: 30 years old Clinical indication: Abdominal pain; Flank; Left; Additional info: Stone protocol TECHNIQUE: Imaging protocol: Computed tomography of the abdomen and pelvis without contrast. Radiation optimization: All CT scans at this facility use at least one of these dose optimization techniques: automated exposure control; mA and/or kV adjustment per patient size (includes targeted exams where dose is matched to clinical indication); or iterative reconstruction. COMPARISON: CT ABDOMEN PELVIS WO CON 10/06/2019 7:19 PM FINDINGS: Liver: Normal. No mass. Gallbladder and bile ducts: Normal. No calcified stones. No ductal dilation. Pancreas: Normal. No ductal dilation. Spleen: Normal. No splenomegaly. Adrenal glands: Normal. No mass. Kidneys and ureters: No stones. No hydronephrosis. The left collecting system may be partially duplicated. Stomach and bowel: Unremarkable. No obstruction. No mucosal thickening. Appendix: No evidence of appendicitis. Intraperitoneal space: Unremarkable. No free air. No significant fluid collection. Vasculature: Unremarkable. No abdominal aortic aneurysm. Lymph nodes: Unremarkable. No enlarged lymph nodes. Urinary bladder: Unremarkable as visualized. Reproductive: Unremarkable as visualized. Bones/joints: Unremarkable. No acute fracture. Soft tissues: Unremarkable. IMPRESSION: No stones or hydronephrosis. No acute disease.
[2021-05-12 17:13] LABS: Basophils # 0.1 K/mm3 (0-0.2); Basophils % 1.1 % (0.1-2.0); Eosinophils # 0.1 K/mm3 (0.0-0.4); Eosinophils % 0.9 % (0.1-12.0); Hematocrit 44.5 % (42.0-52.0); Hemoglobin 14.6 g/dL (14.1-18.0); Lymphocytes # 2.2 K/mm3 (0.7-4.5); Lymphocytes % 26.1 % (10-50); Mean Corpuscular HGB Conc 32.8 g/dL (31.8-35.4); Mean Corpuscular Hemoglobin 27.9 pg (27.0-31.2); Mean Platelet Volume 8.1 fl (7.4-10.4); Monocytes # 0.4 K/mm3 (0.1-1.0); Monocytes % 4.7 % (1.7-9.3); Neutrophils # 5.6 K/mm3 (1.8-7.8); Neutrophils % 67.2 % (37.0-80.0); Platelet Count 277 K/mm3 (142-424); Red Blood Count 5.24 M/mm3 (4.60-6.20); Red Cell Distribution Width 14.5 % (11.5-17.5); White Blood Count 8.3 K/mm3 (4.8-10.8)
[2021-05-12 17:16] LABS: Chloride 104 mmol/L (98-107); Potassium 4.1 mmoL/L (3.5-5.1); Sodium 142 mmol/L (136-145)
[2021-05-12 17:18] LABS: Alanine Aminotransferase 53 U/L (12-78); Alkaline Phosphatase 115 U/L (38-126); Aspartate Amino Transferase 41 U/L (17-59); Bilirubin,Total 0.3 mg/dl (0.2-1.3); Blood Urea Nitrogen 17 mg/dl (9-20); Creatinine Clearance Estimated 133 mL/min (50-200); Estimated Glomerular Filt Rate 88 ml/min (>60); GFR (African American) 107 ML/MIN (>60)
[2021-05-12 17:19] LABS: Albumin Level 4.5 g/dl (3.5-5.0); Albumin/Globulin Ratio 1.6 (1.1-1.8); Anion Gap 13.1 mEq/L (5-15); Calcium 9.3 mg/dl (8.4-10.2); Carbon Dioxide 29 mmol/L (22.0-30.0); Globulin 2.8 g/dL (1.3-3.2); Glucose 102 mg/dl (74-100); Lactic Acid 0.8 mmol/L (0.7-2.1); Lipase 50 U/L (23-300); Total Protein,Serum 7.3 g/dl (6.3-8.2)
--- NOTE | 2021-05-12 18:35 | HMH.EDGENADL ---
ED Disposition Clinical Impression: Abdominal pain Disposition: Home, Self-Care Condition on Discharge: Good Instructions: Acute Abdominal Pain Additional Instructions: Please follow up with your primary care physician in 2-3 days for further management. Please continue to take tylenol and ibuprofen for pain control. Please return for worsening symptoms such as difficulty breathing, chest pain, or any other concerning symptoms. Prescriptions: Ketorolac Tromethamine [Toradol 10mg tablet] 10 mg PO Q4HP PRN #14 tab MDD 40mg/day PRN Reason: Severe Pain Transmission Status: Received by [facility] #[id number] Referrals: Lilian Gabriel APRN [Primary Care Provider] - Time of Disposition: 19:50 - Critical Care Critical Care Time: No Attestation: On 05/12/21, the high probability of a clinically significant, sudden or life threatening deterioration of the following system(s) required my full and direct attention, intervention and personal management. The time I documented below is in addition to time spent performing reported procedures but includes the following listed in this critical care notation. Medical Decision Making - Medical Records Medical records reviewed: Yes: I reviewed the patient's medical records. - Yordy Inquiry Pt receiving controlled substance: No Vital Signs: 05/12/21 15:58 05/12/21 16:09 05/12/21 18:58 Temperature 98.3 F 98.3 F Temperature Source Oral Oral Pulse Rate 66 Pulse Rate [Left] 61 63 Respiratory Rate 16 16 16 Blood Pressure 150/75 H Blood Pressure [Right Arm] 148/86 H 135/81 Blood Pressure Mean [Right Arm] 106 99 Blood Pressure Source [Right Arm] Automatic Cuff Blood Pressure Position [Right Arm] Sitting 02 Sat by Pulse Oximetry 98 100 Oxygen Delivery Method Room Air Room Air - Lab Data Lab results reviewed: Yes: I reviewed the patient's lab results. Lab Results 05/12/21 16:23: Urine Color Yellow, Urine Appearance Clear, Urine pH 7.0, Ur Specific [place] 1.020, Urine Protein Negative, Urine Glucose (UA) Negative, Urine Ketones Negative, Urine Blood Negative, Urine Nitrate Negative, Urine Bilirubin Negative, Urine Urobilinogen 0.2, Ur Leukocyte Esterase Negative, Urine RBC None, Urine WBC None, Ur Squamous Epith Cells None, Urine Bacteria None 05/12/21 17:00: WBC 8.3, RBC 5.24, Hgb 14.6, Hct 44.5, MCV 85.0, MCH 27.9, MCHC 32.8, RDW 14.5, Plt Count 277, MPV 8.1, Neut % (Auto) 67.2, Lymph % (Auto) 26.1, [place] % (Auto) 4.7, Eos % (Auto) 0.9, Baso % (Auto) 1.1, Neut # (Auto) 5.6, Lymph # (Auto) 2.2, [place] # (Auto) 0.4, Eos # (Auto) 0.1, Baso # (Auto) 0.1 05/12/21 17:00: Sodium 142, Potassium 4.1, Chloride 104, Carbon Dioxide 29, Anion Gap 13.1, BUN 17, Creatinine 1.00, Estimated Creat Clear 133, Estimated GFR 88, Est GFR ( Amer) 107, Glucose 102 H, Calcium 9.3, Total Bilirubin 0.3, AST 41, ALT 53, Alkaline Phosphatase 115, Total Protein 7.3, Albumin 4.5, Globulin 2.8, Albumin/Globulin Ratio 1.6, Lipase 50 05/12/21 17:00: Lactate 0.8 Result diagrams: 05/12/21 17:00 05/12/21 17:00 Orders (Tests/Meds): ED MEDICATIONS Discontinued Medications Generic Name Dose Route Start Last Admin Trade Name Freq PRN Reason Stop Dose Admin Ketorolac Tromethamine 30 mg 05/12/21 18:38 05/12/21 18:40 Ketorolac 30mg/Ml Vial IV 05/12/21 18:39 30 mg ONCE ONE Administration Medical Decision Narrative: Mr. Orellana is a 30 yo male w/ no significant PMH who presents to the ED for (L) flank pain for 1 d. Patient is afebrile and hemodynamically stable on arrival, non toxic appearing. Abdomen non tender on exam. Patient denies any penile discharge or testicular pain. No urinary sx or bowel changes. No blood in urine or stool. Differentials to consider but not limited to include: UTI/pyelonephritis, nephrolithiasis, MSK. Patient is given toradol for symptomatic relief IV 30mg. Basic labs, UA, CT stone are obtained for further evaluation results are non action
[2021-05-12 18:58] VITALS: BP 150/75; PULSE 66; RESP 16; TEMP 36.8; O2SAT 97
== END 2021-05-12 19:01 | disposition home or self-care (01) ==
PROVIDERS: Emergency Provider Student in an Organized Health Care Education/Training Program; PCP Nurse Practitioner Family
DX: R10.32 Left lower quadrant pain (principal); F41.9 Anxiety disorder, unspecified
CPT/HCPCS: 74176; 80053; 81001; 83605; 83690; 85025; 96375; 99282

== ENCOUNTER → 2021-05-16 16:20 | Outpatient (CLI) | payer BC, SELFPAY ==
--- NOTE | 2021-05-16 16:26 | XR_ITS ---
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 Views: 4 or 5 views. COMPARISON: CT ABDOMEN PELVIS WO CON 05/12/2021 5:02 PM FINDINGS: Bones/joints: Normal anatomic alignment. Vertebral body heights are well preserved. There is no significant disc space narrowing. No aggressive osseous lesions. The spinal canal is patent. No pars interarticularis defects are appreciated. Soft tissues: There is no significant soft tissue swelling. Intraperitoneal space: Surgical clips in the right lower quadrant. Gastrointestinal tract: Nonobstructive bowel gas pattern. Other findings: There is no evidence of acutely displaced fractures. There is no evidence of joint dislocation. IMPRESSION: 1. No discrete findings to explain the patient's symptoms. 2. Unremarkable lumbar spine films.
[2021-05-18 14:31] LABS: H. pylori Breath Test Positive (Negative)
== END ==
PROVIDERS: PCP Nurse Practitioner Family; Visit Provider Nurse Practitioner Family
DX: M54.50 Low back pain, unspecified (principal); A04.8 Other specified bacterial intestinal infections
CPT/HCPCS: 72110; 83013

== ENCOUNTER → 2021-06-15 13:55 | Outpatient (CLI) | payer BC, SELFPAY ==
--- NOTE | 2021-06-15 14:11 | CA_ITS ---
FINAL REPORT TECHNIQUE: Grayscale, color Doppler and duplex Doppler ultrasound of the kidneys, aorta and renal arteries was performed. Multiple velocities were measured. CLINICAL HISTORY: .HTN, Lt flank pain FINDINGS: Aorta velocity: 166 cm/sec Right kidney: 11.9 cm. No evidence of hydronephrosis or mass. Right intrarenal RI: 0.64 Right renal artery velocity: 202 cm/sec. Right RAR (Renal artery-Aortic Ratio): 1.2 Left Kidney: 11.9 cm. No evidence of hydronephrosis or mass. Left intrarenal RI: 0.69 Left renal artery velocity: 266 cm/sec. Left RAR (Renal Artery-Aortic Ratio): 1.6 IMPRESSION: Less than 60% bilateral renal artery stenosis. CT angiogram or postcontrast MR angiogram would be more sensitive for evaluation of possible renal artery stenosis. Reviewed, Interpreted and Dictated by Geraldo Fontaine III, MD Transcribed by Bo Ventura Authenticated by Geraldo Fontaine III, MD on 06/15/2021 04:06:48 PM [facility]
== END ==
PROVIDERS: PCP Nurse Practitioner Family; Visit Provider Nurse Practitioner Family
DX: I10 Essential (primary) hypertension (principal)
CPT/HCPCS: 93976

== ENCOUNTER 2021-07-10 09:53 | Emergency (ER) | payer BC, SELFPAY ==
[2021-07-10 10:02] VITALS: BP 142/92; PULSE 112; RESP 19; TEMP 36.7; O2SAT 97; BMI 33.0
--- NOTE | 2021-07-10 10:26 | HMH.EDUTC ---
[facility] [place] Clinical Impression: Strep throat Disposition: Home, Self-Care Condition on Discharge: Good Instructions: Strep Throat, DI for Strep Throat Additional Instructions: Drink plenty of fluids. Take tylenol or ibuprofen for pain or fever. Take the medications as directed. Follow up with your regular doctor. GO TO THE ER FOR ANY WORSENING SYMPTOMS Throw your tooth brush away and get a new one. Don't start the oral steroids until tomorrow, since you had the shot here today. Prescriptions: Amoxicillin/Potassium Clav [Augmentin 875-125 Tablet] 1 tab PO Q12H 10 Days #20 tab Transmission Status: Received by [facility] # methylPREDNISolone [Medrol] 4 mg PO DIRECTED 6 Days #21 packet Transmission Status: Received by [facility] # Referrals: Lilian Gabriel APRN [Primary Care Provider] - Time of Disposition: 12:00 Medical Decision Making - Medical Records Medical records reviewed: No: I reviewed the patient's medical records. - Yordy Inquiry Pt receiving controlled substance: No Vital Signs: 07/10/21 10:02 07/10/21 12:03 Temperature 98.1 F 98.1 F Temperature Source Temporal Artery Scan Pulse Rate 112 H Pulse Rate [Left] 112 H Respiratory Rate 19 19 Blood Pressure 142/92 H Blood Pressure [Right Arm] 142/92 H Blood Pressure Mean [Right Arm] 108 02 Sat by Pulse Oximetry 97 - Lab Data Lab Results 07/10/21 11:19: Influenza Type A Ag Negative, Influenza Type B Ag Negative 07/10/21 11:19: Strep Scn Rapid [facility] Positive A Orders (Tests/Meds): ED MEDICATIONS Discontinued Medications Generic Name Dose Route Start Last Admin Trade Name Ulicesq PRN Reason Stop Dose Admin Ceftriaxone Sodium 1 gm 07/10/21 11:41 07/10/21 11:51 Ceftriaxone 1gm Vial IM 07/10/21 11:42 1 gm ONCE ONE Administration Lidocaine HCl 0 ml 07/10/21 11:41 07/10/21 11:51 Lidocaine 1% 5ml Pf Vial IM 07/10/21 11:42 2 ml ONCE ONE Administration Methylprednisolone Sodium Succinate 125 mg 07/10/21 11:41 07/10/21 11:50 Methylprednisolone Sod Succ 125mg Vial IM 07/10/21 11:42 125 mg ONCE ONE Administration [facility] [place] - General Stated complaint: sinus pressure and congestion Time Seen by Provider: 07/10/21 10:26 Mode of Arrival: Ambulatory Source of Information: Patient Limitations: No Limitations Description of Symptoms (Recalled from Triage Doc. by RN): pt c/o sinus pressure/congestion and bilateral ear aches. HEENT Symptoms (Recalled from RN notes): Yes Resp Symptoms (Recalled from RN notes): No Skin Symptoms (Recalled from RN notes): No MS Symptoms (Recalled from RN notes): No Functional Status (Recalled from RN notes): wnl - History of Present Illness Provider Complaint: He c/o bilateral ear pain and sinus congestion for the past 2 day. - Related Data Home Medications Medication Instructions Recorded Confirmed Sertraline HCl [Zoloft 50mg tablet] 100 mg PO DAILY 03/23/18 11/01/20 Cariprazine HCl [Vraylar] 1.5 mg PO DAILY 11/01/20 11/01/20 Losartan Potassium 50 mg PO DAILY 11/01/20 11/01/20 Previous Rx's Medication Instructions Recorded Ketorolac Tromethamine [Toradol 10 mg PO Q4HP PRN #14 tab MDD 05/12/21 10mg tablet] 40mg/day Amoxicillin/Potassium Clav 1 tab PO Q12H 10 Days #20 tab 07/10/21 [Augmentin 875-125 Tablet] methylPREDNISolone [Medrol] 4 mg PO DIRECTED 6 Days #21 07/10/21 packet Allergies Allergy/AdvReac Type Severity Reaction Status Date / Time No Known Allergies Allergy Verified 07/13/19 15:31 - Worker's Comp Is this a Worker's Comp case?: No [facility] History - Hepatitis A Screen Drug use history?: No High risk sexual behaviors?: No History of sexually transmitted infection?: No Currently employed?: No Childcare worker?: No Do you have indoor plumbing?: Yes Do you have electricity?: Yes Attestation statement:: This patient has been screened for Hepatitis A
[2021-07-10 11:44] LABS: UTC Influenza A Antigen Negative (Negative); UTC Strep Screen (Rapid) Positive (Negative)
[2021-07-10 11:45] LABS: UTC Influenza B Antigen Negative (Negative)
[2021-07-10 12:03] VITALS: BP 142/92; PULSE 112; RESP 19; TEMP 36.7
== END 2021-07-10 12:06 | disposition home or self-care (01) ==
PROVIDERS: Emergency Provider Nurse Practitioner Family; PCP Nurse Practitioner Family
DX: J02.0 Streptococcal pharyngitis (principal); F41.9 Anxiety disorder, unspecified
CPT/HCPCS: 87804; 87880; 96372; 99202; C9803; G0463; J0696; U0003; U0005

== ENCOUNTER 2022-02-21 17:19 | Emergency (ER) | payer BC, SELFPAY ==
[2022-02-21 18:30] VITALS: BP 128/72; PULSE 78; RESP 18; TEMP 36.9; O2SAT 98; BMI 34.2
[2022-02-21 18:51] LABS: UTC Strep Screen (Rapid) Positive (Negative)
[2022-02-21 18:52] VITALS: BP 128/72; PULSE 78; RESP 18; TEMP 36.9; O2SAT 98
--- NOTE | 2022-02-21 19:29 | EXP.UTC ---
Discharge Plan Disposition Patient Disposition: Home, Self-Care Condition: Good Prescriptions Prescriptions: New amoxicillin 875 mg tablet 875 mg PO BID 10 Days Qty: 20 0RF No Action sertraline 50 MG tablet 100 mg PO DAILY losartan 50 mg tablet 50 mg PO DAILY Label Comments: TAKE ONE TABLET BY MOUTH EVERY DAY famotidine 40 mg tablet 40 mg PO DAILY Label Comments: TAKE ONE TABLET BY MOUTH EVERY DAY Vraylar 1.5 mg capsule 1.5 mg PO DAILY Referrals Follow up/Referrals: Lilian Gabriel APRN [Primary Care Provider] - See instructions Clinical Impressions Clinical Impression: Acute streptococcal pharyngitis Instructions Patient Instructions: DI for Strep Throat Discharge ED Provider: Anabelle Rodriguez [facility] [place] HPI General Stated complaint: sore throat Mode of Arrival: Ambulatory Source of Information: Patient Limitations: No Limitations Time Seen by Provider: 02/21/22 19:29 Description of Symptoms (Recalled from Triage Doc. by RN): PATIENT C/O SORE THROAT SINCE YESTERDAY HEENT Symptoms (Recalled from RN notes): Yes Resp Symptoms (Recalled from RN notes): No Skin Symptoms (Recalled from RN notes): No MS Symptoms (Recalled from RN notes): No Functional Status (Recalled from RN notes): WNL Related Data Home Medications Medication Instructions Recorded Confirmed sertraline 50 mg tablet 100 mg PO DAILY Anxiety 03/23/18 02/21/22 cariprazine 1.5 mg capsule 1.5 mg PO DAILY Anxiety 02/21/22 02/21/22 (Vraylar) famotidine 40 mg tablet 40 mg PO DAILY GERD 02/21/22 02/21/22 losartan 50 mg tablet 50 mg PO DAILY Hypertension 02/21/22 02/21/22 Previous Rx's Medication Instructions Recorded amoxicillin 875 mg tablet 875 mg PO BID 10 days #20 tabs 02/21/22 Allergies Allergy/AdvReac Type Severity Reaction Status Date / Time No Known Allergies Allergy Verified 01/17/22 10:08 Worker's Comp Is this a Worker's Comp case?: No PFSH PFS Medical History (Updated 02/21/22 @ 19:35 by Anabelle Rodriguez APRN) Anxiety Bipolar II disorder Depression Hyperlipidemia Hypertension Surgical History (Updated 02/21/22 @ 18:39 by Kenna Rodríguez RN) History of appendectomy Social History (Updated 02/21/22 @ 18:39 by Kenna Rodríguez RN) Smoking Status: Never smoker alcohol intake: never substance use type: denies use current occupational status: unemployed and other Travel in the last 8 weeks: None number of children: 1 ROS Obtained: Yes All systems reviewed & no additional complaints except as documented Constitutional Constitutional: Reports as per HPI and Reports fever(s) Eyes Eyes: Reports system reviewed and no additional complaints, except as documented ENT Ears, Nose, Mouth, and Throat: Reports as per HPI, Reports odynophagia and Reports sore throat Cardiovascular Cardiovascular: Reports system reviewed and no additional complaints, except as documented Respiratory Respiratory: Reports system reviewed and no additional complaints, except as documented Gastrointestinal Gastrointestingal: Reports odynophagia Genitourinary Male Genitourinary: Reports system reviewed and no additional complaints, except as documented Musculoskeletal Musculoskeletal: Reports system reviewed and no additional complaints, except as documented Integumentary/Breasts Skin/Breast: Reports system reviewed and no additional complaints, except as documented Neurologic Neurologic: Reports system reviewed and no additional complaints, except as documented Endocrine Endocrine: Reports system reviewed and no additional complaints, except as documented Hematologic/Lymphatic Henatologic/Lymphatic: Reports system reviewed and no additional complaints, except as documented Allergic/Immunologic Allergic/Immunologic: Reports system reviewed and no additional complaints, except as documented Physical Exam General General appearance: alert and in no apparent distress Head
== END 2022-02-21 19:41 | disposition home or self-care (01) ==
PROVIDERS: Emergency Provider Nurse Practitioner Family; PCP Nurse Practitioner Family
DX: J02.0 Streptococcal pharyngitis (principal)
CPT/HCPCS: 87880; 99212; G0463

== ENCOUNTER → 2022-05-01 15:46 | Outpatient (CLI) | payer BC, SELFPAY ==
--- NOTE | 2022-05-01 15:50 | XR_ITS ---
FINAL REPORT CLINICAL HISTORY: CERVICALGIA COMPARISON: 06/19/2020 FINDINGS: CERVICAL SPINE 5 views were obtained. There is no acute fracture. There is straightening of the normal cervical curvature which could be due to positioning or muscle spasm. The disc spaces are preserved. There is no soft tissue abnormality. IMPRESSION: No acute bony abnormality. Straightening of the normal cervical curvature which could be due to positioning or muscle spasm. Reviewed, Interpreted and Dictated by Geraldo Fontaine III, MD Transcribed by Melania Ramirez Authenticated and [facility]
--- NOTE | 2022-05-01 15:50 | XR_ITS ---
FINAL REPORT CLINICAL HISTORY: Right shoulder pain FINDINGS: RIGHT SHOULDER Two views demonstrate no acute fracture or dislocation. The joint spaces appear normal. The visualized bony structures are well aligned. No soft tissue abnormality is seen. IMPRESSION: No acute process. Reviewed, Interpreted and Dictated by Geraldo Fontaine III, MD Transcribed by Melania Ramirez Authenticated and [facility]
== END ==
PROVIDERS: PCP Nurse Practitioner Family; Visit Provider Nurse Practitioner Family
DX: M54.2 Cervicalgia (principal); M25.511 Pain in right shoulder
CPT/HCPCS: 72050; 73030

== ENCOUNTER → 2022-05-09 13:27 | Outpatient (CLI) | payer BC, SELFPAY ==
--- NOTE | 2022-05-09 13:34 | MR_ITS ---
FINAL REPORT CLINICAL HISTORY: acute right shoulder pain numbness and tingling in right arm x 2-3 weeks FINDINGS: Multiplanar MR imaging of the right shoulder was performed without contrast. There is a very small intrasubstance tear of the distal supraspinatus tendon involving less than 50% of tendon thickness. There is no full-thickness rotator cuff tendon tear. There is mild AC joint degenerative change. A small amount of fluid is seen in the subacromial/subdeltoid bursa. The glenoid labrum is intact. The long head of the biceps tendon is intact. A small glenohumeral joint effusion is seen. There are small subchondral cysts in the posterior humeral head. There is no evidence of fracture or dislocation. The musculature is intact. There is no evidence of soft tissue mass. IMPRESSION: Very small intrasubstance tear of the supraspinatus tendon, less than 50%. Mild AC joint degenerative change. Small joint effusion. Reviewed, Interpreted and Dictated by Geraldo Fontaine III, MD Transcribed by Bo Ventura Authenticated and [facility]
--- NOTE | 2022-05-09 13:34 | MR_ITS ---
FINAL REPORT CLINICAL HISTORY: CERVICALGIA FINDINGS: Multiplanar MR imaging of the cervical spine was performed without contrast. On the sagittal T2-weighted images, disc degeneration is seen at several levels. There is no evidence of fracture. The vertebral alignment is normal. The cervical spinal cord has an unremarkable appearance without evidence of mass, edema or syrinx. The cervicomedullary junction is normal. C2-3: There is no significant canal stenosis or neural foraminal narrowing. C3-4: Small central disc protrusion is present. There is no significant canal stenosis or neural foraminal narrowing. C4-5: There is no significant canal stenosis or neural foraminal narrowing. C5-6: Central disc protrusion is present which indents the thecal sac. There is mild central canal stenosis with an AP diameter of the thecal sac of 8 mm. C6-7: An annular bulge is present. There is a small central disc protrusion. There is no significant canal stenosis or neural foraminal narrowing. C7-T1: There is no significant canal stenosis or neural foraminal narrowing. IMPRESSION: Central disc protrusions at C3-4, C5-6, and C6-7 with mild central canal stenosis at C5-6. Reviewed, Interpreted and Dictated by Geraldo Fontaine III, MD Transcribed by Tyra Newby Authenticated and [facility]
== END ==
PROVIDERS: PCP Nurse Practitioner Family; Visit Provider Nurse Practitioner Family
DX: M54.2 Cervicalgia (principal); M25.511 Pain in right shoulder
CPT/HCPCS: 72141; 73221; 76376

== ENCOUNTER 2022-09-27 18:26 | Emergency (ER) | payer BC, SELFPAY ==
[2022-09-27 18:43] VITALS: BP 128/78; PULSE 78; RESP 18; TEMP 36.9; O2SAT 98; BMI 32.7
--- NOTE | 2022-09-27 19:23 | EXP.UTC ---
Discharge Plan Disposition Patient Disposition: Home, Self-Care Condition: Good Prescriptions Prescriptions: New erythromycin 5 mg/gram (0.5 %) ointment 0.5 inch ophthalmic (eye) QID 7 Days Qty: 7 0RF Rx Instructions: apply 1cm ribbon to left eye every 6hrs for 7 days No Action sertraline 50 MG tablet 100 mg PO DAILY losartan 50 mg tablet 50 mg PO DAILY Label Comments: TAKE ONE TABLET BY MOUTH EVERY DAY famotidine 40 mg tablet 40 mg PO DAILY Label Comments: TAKE ONE TABLET BY MOUTH EVERY DAY Vraylar 1.5 mg capsule 1.5 mg PO DAILY amoxicillin 875 mg tablet 875 mg PO BID 10 Days Qty: 20 0RF Referrals Follow up/Referrals: Lilian Gabriel APRN [Primary Care Provider] - See instructions Activity Restrictions/Add. Instructions Additional Instructions/Restrictions: Use Erythromycin as prescribed apply to eye every 4hrs tonight and as directed for the next 7 days Follow up with Eye Doctor if no improvment or any worsening of symptoms Return if needed Straight to ER if any life threatening symptoms Clinical Impressions Clinical Impression: Corneal abrasion Stand Alone Forms Stand Alone Forms: Work/School Release Instructions Patient Instructions: Corneal Abrasion, DI for Corneal Abrasion, Erythromycin Ophthalmic Discharge ED Provider: Tuyet Rogers [facility] [place] HPI General Stated complaint: LT eye irritated Mode of Arrival: Ambulatory Source of Information: Patient Limitations: No Limitations Time Seen by Provider: 09/27/22 19:23 Description of Symptoms (Recalled from Triage Doc. by RN): pt states his toddler accidentally scratched his L eye a few hours ago HEENT Symptoms (Recalled from RN notes): Yes Resp Symptoms (Recalled from RN notes): No Skin Symptoms (Recalled from RN notes): No MS Symptoms (Recalled from RN notes): No Functional Status (Recalled from RN notes): wnl History of Present Illness Provider Complaint: Patient states that he was playing with his child earlier and child accidently poked him in the eye States that his eye has been watery and hurts when he blinks thinks child may have scratched his eye Related Data Home Medications Medication Instructions Recorded Confirmed sertraline 50 mg tablet 100 mg PO DAILY Anxiety 03/23/18 02/21/22 cariprazine 1.5 mg capsule 1.5 mg PO DAILY Anxiety 10/11/22 10/11/22 (Vraylar) famotidine 40 mg tablet 40 mg PO DAILY GERD 02/21/22 02/21/22 losartan 50 mg tablet 50 mg PO DAILY Hypertension 02/21/22 02/21/22 Previous Rx's Medication Instructions Recorded amoxicillin 875 mg tablet 875 mg PO BID 10 days #20 tabs 02/21/22 erythromycin 5 mg/gram (0.5 %) eye 0.5 inch ophthalmic (eye) QID 7 09/27/22 ointment days #7 grams Allergies Allergy/AdvReac Type Severity Reaction Status Date / Time No Known Allergies Allergy Verified 09/27/22 18:45 Worker's Comp Is this a Worker's Comp case?: No [facility] Disclaimer: The information contained in this section may have been updated after the patient was seen, as this information can be updated by other users. Medical History (Updated 09/27/22 @ 20:05 by Tuyet Rogers APRN) Anxiety Bipolar II disorder Depression Hyperlipidemia Hypertension Surgical History (Updated 02/21/22 @ 18:39 by Kenna oRdríguez RN) History of appendectomy Social History (Updated 02/21/22 @ 18:39 by Kenna Rodríguez RN) Smoking Status: Never smoker alcohol intake: never substance use type: denies use current occupational status: unemployed and other Travel in the last 8 weeks: None number of children: 1 ROS Obtained: Yes All systems reviewed & no additional complaints except as documented and Yes Systems reviewed as appropriate & no additional complaints except as documented Constitutional Constitutional: Reports system reviewed and no additional complaints, except as documented and Reports as per HPI Eyes Eyes: Reports system reviewed a
[2022-09-27 20:12] VITALS: BP 128/78; PULSE 78; RESP 18; TEMP 36.9
== END 2022-09-27 20:13 | disposition home or self-care (01) ==
PROVIDERS: Emergency Provider Nurse Practitioner; PCP Nurse Practitioner Family
DX: S05.02XA Injury of conjunctiva and corneal abrasion without foreign body, left eye, initial encounter (principal); I10 Essential (primary) hypertension; E78.5 Hyperlipidemia, unspecified; F41.9 Anxiety disorder, unspecified; W50.4XXA Accidental scratch by another person, initial encounter; F31.81 Bipolar II disorder; K21.9 Gastro-esophageal reflux disease without esophagitis
CPT/HCPCS: 65222; 99212; 99214; G0463

== ENCOUNTER 2022-10-13 19:53 | Emergency (ER) | payer BC, SELFPAY ==
[2022-10-13 19:55] VITALS: BP 123/72; PULSE 62; RESP 22; TEMP 36.6; O2SAT 98; BMI 35.2
--- NOTE | 2022-10-13 20:08 | EXP.UTC ---
Discharge Plan Disposition Patient Disposition: Home, Self-Care Condition: Good Prescriptions Prescriptions: New benzonatate 100 mg capsule 100 mg PO TID PRN (Reason: cough) Qty: 30 0RF No Action sertraline 50 MG tablet 100 mg PO DAILY losartan 50 mg tablet 50 mg PO DAILY Label Comments: TAKE ONE TABLET BY MOUTH EVERY DAY famotidine 40 mg tablet 40 mg PO DAILY Label Comments: TAKE ONE TABLET BY MOUTH EVERY DAY Vraylar 1.5 mg capsule 1.5 mg PO DAILY levothyroxine [Synthroid] 125 mcg Tablet 125 mcg PO DAILY Referrals Follow up/Referrals: Lilian Gabriel APRN [Primary Care Provider] - See instructions Clinical Impressions Clinical Impression: URI (upper respiratory infection) Instructions Patient Instructions: DI for Cough -- Adult Discharge ED Provider: Anabelle Rodriguez [facility] General Stated complaint: cough Mode of Arrival: Ambulatory Source of Information: Patient and Significant Other Limitations: No Limitations Time Seen by Provider: 10/13/22 20:07 Description of Symptoms (Recalled from Triage Doc. by RN): PATIENT C/O COUGH X 2 WEEKS HEENT Symptoms (Recalled from RN notes): No Resp Symptoms (Recalled from RN notes): Yes Skin Symptoms (Recalled from RN notes): No MS Symptoms (Recalled from RN notes): No Functional Status (Recalled from RN notes): WNL History of Present Illness Provider Complaint: Pt states that he has been coughing for 2 weeks. He has had a round of steroids and a round of Augmentin. He states that he has been taking Promethazine DM for the cough but he is running out and it is not working for him. He reports that after he finished his antibiotic his symptoms started back even worse. Related Data Home Medications Medication Instructions Recorded Confirmed sertraline 50 mg tablet 100 mg PO DAILY Anxiety 03/23/18 10/13/22 cariprazine 1.5 mg capsule 1.5 mg PO DAILY Anxiety 02/21/22 10/13/22 (Vraylar) famotidine 40 mg tablet 40 mg PO DAILY GERD 02/21/22 10/13/22 losartan 50 mg tablet 50 mg PO DAILY Hypertension 02/21/22 10/13/22 levothyroxine 125 mcg tablet 125 mcg PO DAILY Supplement 10/13/22 10/13/22 (Synthroid) Previous Rx's Medication Instructions Recorded benzonatate 100 mg capsule 100 mg PO TID PRN cough #30 caps 10/13/22 Allergies Allergy/AdvReac Type Severity Reaction Status Date / Time No Known Allergies Allergy Verified 09/27/22 18:45 Worker's Comp Is this a Worker's Comp case?: No [facility] Disclaimer: The information contained in this section may have been updated after the patient was seen, as this information can be updated by other users. Medical History (Updated 10/13/22 @ 20:09 by Anabelle Rodriguez APRN) Anxiety Bipolar II disorder Depression Hyperlipidemia Hypertension Surgical History (Updated 02/21/22 @ 18:39 by Kenna Rodríguez RN) History of appendectomy Social History (Updated 02/21/22 @ 18:39 by Kenna Rodríguez RN) Smoking Status: Never smoker alcohol intake: never substance use type: denies use current occupational status: unemployed and other Travel in the last 8 weeks: None number of children: 1 ROS Obtained: Yes All systems reviewed & no additional complaints except as documented Constitutional Constitutional: Reports system reviewed and no additional complaints, except as documented and Reports malaise Eyes Eyes: Reports system reviewed and no additional complaints, except as documented ENT Ears, Nose, Mouth, and Throat: Reports system reviewed and no additional complaints, except as documented and Reports nasal discharge Cardiovascular Cardiovascular: Reports system reviewed and no additional complaints, except as documented Respiratory Respiratory: Reports system reviewed and no additional complaints, except as documented and Reports non-productive cough Gastrointestinal Gastrointestingal: Reports system reviewed and no additional compl
[2022-10-13 20:11] VITALS: BP 123/72; PULSE 62; RESP 22; TEMP 36.6; O2SAT 98
== END 2022-10-13 20:14 | disposition home or self-care (01) ==
PROVIDERS: Emergency Provider Nurse Practitioner Family; PCP Nurse Practitioner Family
DX: J06.9 Acute upper respiratory infection, unspecified; I10 Essential (primary) hypertension; E78.5 Hyperlipidemia, unspecified; F41.9 Anxiety disorder, unspecified; F31.81 Bipolar II disorder
CPT/HCPCS: 99212; 99214; G0463

== ENCOUNTER 2022-12-11 19:47 | Emergency (ER) | payer BC, SELFPAY ==
[2022-12-11 19:50] VITALS: BP 126/78; PULSE 104; RESP 22; TEMP 37.6; O2SAT 100; BMI 37.8
[2022-12-11 20:08] LABS: UTC Influenza A Antigen Negative (Negative)
--- NOTE | 2022-12-11 20:08 | EXP.UTC ---
Discharge Plan Disposition Patient Disposition: Home, Self-Care Condition: Good Prescriptions Prescriptions: New meclizine 25 mg tablet 25 mg PO TID PRN (Reason: dizziness) Qty: 12 0RF No Action sertraline 50 MG tablet 100 mg PO DAILY losartan 50 mg tablet 50 mg PO DAILY Patient Comments: TAKE ONE TABLET BY MOUTH EVERY DAY famotidine 40 mg tablet 40 mg PO DAILY Patient Comments: TAKE ONE TABLET BY MOUTH EVERY DAY Vraylar 1.5 mg capsule 1.5 mg PO DAILY levothyroxine [Synthroid] 125 mcg Tablet 125 mcg PO DAILY benzonatate 100 mg capsule 100 mg PO TID PRN (Reason: cough) Qty: 30 0RF Referrals Follow up/Referrals: Lilian Gabriel APRN [Primary Care Provider] - See instructions Activity Restrictions/Add. Instructions Additional Instructions/Restrictions: *Monitor Temp, Over the counter Motrin or Tylenol as directed/as needed Tylenol every 4 hours and Motrin every 6 hours (as long as your family doctor has told you that you can take it) for fever or pain. and straight to ER if unable to lower temp less than 101.0 after medication given *Warm salt water gargles may help to soothe the throat *Throat Lozenges? *Warm fluids like tea with honey may help to soothe the throat? *Sleep elevated *Humidifier/Vaporizer *Flonase 2 sprays in each nostril daily but be aware that it may take 2-3 days before you notice improvement *Bromfed may cause drowsiness. Know how it effects you (your child) before driving, caring for small child, or sending your child to school. Not other antihistamines/allergy medications while taking bromfed Your throat swab was sent for culture. Those results are typically sent to your primary care. Be sure to follow up in 2-3 days with your family doctor/primary care physician if no improvement so they can review those result and treat if necessary. If you don?t have a primary care doctor, I recommend you get one but in the mean time, you will have to return to a walk in clinic Follow up IMMEDIATELY for new or worsening symptoms or no Noticeable improvement over the next 48-72 hours. 911 for difficulty breathing or swallowing You were tested for today for ?Upper Respiratory Panel with COVID19 your test result should be back in the next 24 You may check your results on the [facility] My Health Portal Clinical Impressions Clinical Impression: Viral syndrome Stand Alone Forms Stand Alone Forms: Work/School Release Instructions Patient Instructions: DI for Fever (Symptom) -- Adult, DI for Viral Syndrome, DI for Headache, DI for COVID-19 (Suspected or Confirmed ) Discharge ED Provider: Tuyet Rogers [facility] HPI General Stated complaint: fever, ROSAS Mode of Arrival: Ambulatory Source of Information: Patient Limitations: No Limitations Time Seen by Provider: 12/11/22 20:09 Description of Symptoms (Recalled from Triage Doc. by RN): PATIENT C/O NAUSEA, STOMACH ACHE, HEADACHE, FEVER, BODY ACHES, FEVER AND CHILLS THAT STARTED TODAY HEENT Symptoms (Recalled from RN notes): Yes Resp Symptoms (Recalled from RN notes): No Skin Symptoms (Recalled from RN notes): No MS Symptoms (Recalled from RN notes): No Functional Status (Recalled from RN notes): WNL History of Present Illness Provider Complaint: Patient states that he started feeling bad this morning States that he was having headache, sinus congestion, body aches, fever, chills and dizzy at times when he moves that makes him feel nauseous States that he feels like he did when he had COVID States that this evening when he got home his fever was 101.0 so he came in wanting to get tested Related Data Home Medications Medication Instructions Recorded Confirmed sertraline 50 mg tablet 100 mg PO DAILY Anxiety 03/23/18 10/13/22 cariprazine 1.5 mg capsule 1.5 mg PO DAILY Anxiety 02/21/22 10/13/22 (Vraylar) famotidine 40 mg tablet 40 mg PO DAILY GERD 02/21/22 10/13/22 lo
[2022-12-11 20:09] LABS: UTC Influenza B Antigen Negative (Negative)
[2022-12-11 20:11] VITALS: BP 126/78; PULSE 104; RESP 22; TEMP 37.6; O2SAT 100
== END 2022-12-11 20:48 | disposition home or self-care (01) ==
PROVIDERS: Emergency Provider Nurse Practitioner; PCP Nurse Practitioner Family
DX: B34.9 Viral infection, unspecified (principal); R50.9 Fever, unspecified; R51.9 Headache, unspecified; R42 Dizziness and giddiness; R11.0 Nausea; I10 Essential (primary) hypertension; E78.5 Hyperlipidemia, unspecified; F31.81 Bipolar II disorder; F41.9 Anxiety disorder, unspecified
CPT/HCPCS: 87804; 99212; 99214; G0463

== ENCOUNTER 2023-04-04 13:01 | Emergency (ER) | payer BC, SELFPAY ==
[2023-04-04 13:02] VITALS: BP 125/77; PULSE 99; RESP 18; TEMP 37.2; O2SAT 97; BMI 34.9
--- NOTE | 2023-04-04 13:26 | EXP.UTC ---
Discharge Plan Disposition Patient Disposition: Home, Self-Care Condition: Good Prescriptions Prescriptions: New azithromycin [Zithromax] 250 mg tablet 250 mg PO UD DOSE PK Qty: 6 0RF Rx Instructions: Take two (2) tablets today, then one (1) tablet days #2 thru #5 methylprednisolone 4 mg Tablets,Dose Pack 4 mg PO DIRECTED Qty: 21 0RF [id number] [Bromfed DM] 2-30-10 mg/5 mL Syrup 5 ml PO Q6H PRN (Reason: Cough) Qty: 240 0RF ondansetron 4 mg Tablet,Disintegrating 4 mg PO Q8H PRN (Reason: Nausea) Qty: 12 0RF No Action sertraline 100 mg tablet 100 mg PO DAILY Patient Comments: TAKE ONE TABLET BY MOUTH EVERY DAY Vraylar 3 mg capsule 3 mg PO ONCE levothyroxine 50 mcg tablet 50 mcg PO DAILY gabapentin 300 mg capsule 300 mg PO TID 30 Days Qty: 90 0RF losartan-hydrochlorothiazide 50-12.5 mg tablet 1 tab PO DAILY Qty: 30 2RF famotidine 40 mg tablet 40 mg PO DAILY Patient Comments: TAKE ONE TABLET BY MOUTH EVERY DAY Referrals Follow up/Referrals: Lilian Gabriel APRN [Primary Care Provider] - See instructions Activity Restrictions/Add. Instructions Additional Instructions/Restrictions: Drink plenty of fluids. Take tylenol or ibuprofen for pain or fever. Take the medications as directed. Follow up with your regular doctor. GO TO THE ER FOR ANY WORSENING SYMPTOMS Clinical Impressions Clinical Impression: Acute viral syndrome, Bronchitis Instructions Patient Instructions: DI for Viral Syndrome Discharge ED Provider: Julio Cesar Mckee [facility] General Stated complaint: FLU LIKE SYMPTOMS Time Seen by Provider: 04/04/23 13:26 History of Present Illness Provider Complaint: He states that for the past 1 day he has had cough, fever, body aches and fever up to 102. Related Data Home Medications Medication Instructions Recorded Confirmed famotidine 40 mg tablet 40 mg PO DAILY GERD 02/21/22 03/12/23 cariprazine 3 mg capsule (Vraylar) 3 mg PO ONCE 02/05/23 03/12/23 levothyroxine 50 mcg tablet 50 mcg PO DAILY 02/05/23 03/12/23 sertraline 100 mg tablet 100 mg PO DAILY 02/05/23 03/12/23 Previous Rx's Medication Instructions Recorded gabapentin 300 mg capsule 300 mg PO TID 30 days #90 caps 03/12/23 losartan 50 mg-hydrochlorothiazide 1 tab PO DAILY #30 tabs 03/12/23 12.5 mg tablet azithromycin 250 mg tablet 250 mg PO UD DOSE PK #6 tabs 04/04/23 (Zithromax) [id number] 5 ml PO Q6H PRN Cough #240 mL 04/04/23 2 mg-30 mg-10 mg/5 mL oral syrup (Bromfed DM) methylprednisolone 4 mg tablets in 4 mg PO DIRECTED #21 tabs 04/04/23 a dose pack ondansetron 4 mg disintegrating 4 mg PO Q8H PRN Nausea #12 tabs 04/04/23 tablet Allergies Allergy/AdvReac Type Severity Reaction Status Date / Time No Known Allergies Allergy Verified 03/12/23 08:29 [facility] Disclaimer: The information contained in this section may have been updated after the patient was seen, as this information can be updated by other users. Medical History Anxiety Bipolar II disorder Depression Hyperlipidemia Hypertension Surgical History H/O hernia repair History of appendectomy Family History Father Cancer Social History Smoking Status: Never smoker alcohol intake: never substance use type: denies use current occupational status: unemployed and other Travel in the last 8 weeks: None number of children: 1 ROS Obtained: Yes All systems reviewed & no additional complaints except as documented Constitutional Constitutional: Reports chills and Reports fever(s) Eyes Eyes: Denies eye discharge ENT Ears, Nose, Mouth, and Throat: Reports as per HPI Cardiovascular Card
[2023-04-04 13:28] LABS: UTC Influenza A Antigen Negative (Negative); UTC Influenza B Antigen Negative (Negative); UTC Strep Screen (Rapid) Negative (Negative)
[2023-04-04 14:10] VITALS: BP 125/77; PULSE 99; RESP 15; TEMP 37.2; O2SAT 97
== END 2023-04-04 14:17 | disposition home or self-care (01) ==
PROVIDERS: Emergency Provider Nurse Practitioner Family; PCP Nurse Practitioner Family
DX: J20.9 Acute bronchitis, unspecified (principal); B34.9 Viral infection, unspecified; R50.9 Fever, unspecified; R05.9 Cough, unspecified; I10 Essential (primary) hypertension; E78.5 Hyperlipidemia, unspecified
CPT/HCPCS: 87635; 87804; 87880; 99212; 99214; G0463

== ENCOUNTER 2023-04-07 15:26 | Emergency (ER) | payer BC, SELFPAY ==
[2023-04-07 15:50] VITALS: BP 127/70; PULSE 88; RESP 21; TEMP 37.2; O2SAT 100; BMI 33.5
--- NOTE | 2023-04-07 16:22 | EXP.UTC ---
Discharge Plan Disposition Patient Disposition: Home, Self-Care Condition: Good Prescriptions Prescriptions: New albuterol sulfate [Proventil HFA] 90 mcg/actuation HFA aerosol inhaler 1 - 2 inh inhalation Q6H PRN (Reason: shortness of breath or wheezing) Qty: 8.5 0RF fluticasone propionate [Flonase Allergy Relief] 50 mcg/actuation spray,suspension 1 spray intranasal DAILY Qty: 16 0RF Rx Instructions: administer into each nostril daily guaifenesin [Mucinex] 600 mg tablet extended release 12hr 1,200 mg PO BID PRN (Reason: cough) Qty: 20 0RF meclizine 12.5 mg tablet 12.5 mg PO TID PRN (Reason: dizziness) Qty: 12 0RF No Action sertraline 100 mg tablet 100 mg PO DAILY Patient Comments: TAKE ONE TABLET BY MOUTH EVERY DAY Vraylar 3 mg capsule 3 mg PO ONCE levothyroxine 50 mcg tablet 50 mcg PO DAILY gabapentin 300 mg capsule 300 mg PO TID 30 Days Qty: 90 0RF losartan-hydrochlorothiazide 50-12.5 mg tablet 1 tab PO DAILY Qty: 30 2RF famotidine 40 mg tablet 40 mg PO DAILY Patient Comments: TAKE ONE TABLET BY MOUTH EVERY DAY Referrals Follow up/Referrals: Lilian Gabriel APRN [Primary Care Provider] - See instructions Activity Restrictions/Add. Instructions Additional Instructions/Restrictions: *Monitor Temp, Over the counter Motrin or Tylenol as directed/as needed Tylenol every 4 hours and Motrin every 6 hours (as long as your family doctor has told you that you can take it) for fever or pain. and straight to ER if unable to lower temp less than 101.0 after medication given *Warm salt water gargles may help to soothe the throat *Throat Lozenges? *Warm fluids like tea with honey may help to soothe the throat? *Sleep elevated *Humidifier/Vaporizer *Flonase 2 sprays in each nostril daily but be aware that it may take 2-3 days before you notice improvement Follow up IMMEDIATELY for new or worsening symptoms or no Noticeable improvement over the next 48-72 hours. 911 for difficulty breathing or swallowing You were tested for today for Upper Respiratory Panel with COVID19 your test result should be back in the next 24hours you may check your results on the [facility]? My Health Portal if you are positive you must Quarantine for 5 days Clinical Impressions Clinical Impression: Bronchitis Instructions Patient Instructions: Cough, Vertigo Discharge ED Provider: Tuyet Rogers [facility] [place] General Stated complaint: SOA Mode of Arrival: Ambulatory Source of Information: Patient Limitations: No Limitations Time Seen by Provider: 04/07/23 16:22 Description of Symptoms (Recalled from Triage Doc. by RN): PATIENT C/O TROUBLE BREATHING AND DIZZINESS X 3 DAYS HEENT Symptoms (Recalled from RN notes): Yes Resp Symptoms (Recalled from RN notes): Yes Skin Symptoms (Recalled from RN notes): No MS Symptoms (Recalled from RN notes): No Functional Status (Recalled from RN notes): WNL History of Present Illness Provider Complaint: Patient states that he has been sick since Sun States that he was seen and started on azithromycin and Medrol but states that he isnt feeling any better States that his lungs will burn and hurt when he coughs, and makes him feel SOA worried he may have pneumonia States that his flu and COVID was negative that day States that also his ears feel full Related Data Home Medications Medication Instructions Recorded Confirmed famotidine 40 mg tablet 40 mg PO DAILY GERD 02/21/22 04/07/23 cariprazine 3 mg capsule (Vraylar) 3 mg PO ONCE 02/05/23 04/07/23 levothyroxine 50 mcg tablet 50 mcg PO DAILY 02/05/23 04/07/23 sertraline 100 mg tablet 100 mg PO DAILY 02/05/23 04/07/23 Previous Rx's Medication Instructions Recorded gabapentin 300 mg capsule 300 mg PO TID 30 days #90 caps 03/12/23 losartan 50 mg-hydrochlorothiazide 1 tab PO DAILY #30 tabs 03/12/23 12.5 mg tablet albuterol sulfate 90 mcg/actuati
--- NOTE | 2023-04-07 16:26 | XR_ITS ---
PROCEDURE INFORMATION: Exam: XR Chest Exam date and time: 04/07/2023 4:35 PM Age: 32 years old Clinical indication: Cough; Additional info: Cough, congestion, SOA TECHNIQUE: Imaging protocol: Radiologic exam of the chest. Views: 2 views. COMPARISON: CR CXR2V XR chest 2V 03/23/2018 11:46 PM FINDINGS: Lungs: No lobar consolidation, pleural effusion or pulmonary edema. Pleural spaces: See Lungs finding. Heart/Mediastinum: Unremarkable. No cardiomegaly. Bones/joints: Unremarkable. IMPRESSION: No lobar consolidation, pleural effusion or pulmonary edema.
[2023-04-07 17:24] VITALS: BP 127/70; PULSE 88; RESP 21; TEMP 37.2; O2SAT 100
[2023-04-07 17:52] LABS: Adenovirus,PCR Not Detected (NotDetected); Coronavirus 19, PCR Not Detected (NotDetected); Coronavirus 229E Not Detected (NotDetected); Coronavirus NL63 Not Detected (NotDetected); Coronavirus OC43 Not Detected (NotDetected); Coronovirus HKU1,PCR Not Detected (NotDetected); Human Metapneumovirus Not Detected (NotDetected); Influenza A, PCR Not Detected (NotDetected); Influenza AH1, 2009 Not Detected (NotDetected); Influenza AH1, PCR Not Detected (NotDetected); Influenza B, PCR Not Detected (NotDetected); Parainfluenza 1, PCR Not Detected (NotDetected); Parainfluenza 2, PCR Not Detected (NotDetected); Parainfluenza 3, PCR Not Detected (NotDetected); Parainfluenza 4, PCR Not Detected (NotDetected); Respiratory Syncytial Virus Not Detected (NotDetected); Rhinovirus/Enterovirus Not Detected (NotDetected)
[2023-04-07 19:19] LABS: Influenza AH3,PCR Detected (NotDetected)
== END 2023-04-07 17:37 | disposition home or self-care (01) ==
PROVIDERS: Emergency Provider Nurse Practitioner; PCP Nurse Practitioner Family
DX: J10.1 Influenza due to other identified influenza virus with other respiratory manifestations (principal); R06.02 Shortness of breath; J20.9 Acute bronchitis, unspecified; R05.9 Cough, unspecified; H92.03 Otalgia, bilateral; R51.9 Headache, unspecified; R09.81 Nasal congestion; R42 Dizziness and giddiness; I10 Essential (primary) hypertension; E78.5 Hyperlipidemia, unspecified
CPT/HCPCS: 71046; 87632; 87635; 99212; 99214; G0463

== ENCOUNTER → 2023-04-13 16:49 | Outpatient (CLI) | payer BC, SELFPAY ==
[2023-04-13 17:15] LABS: Chloride 101 mmol/L (98-107); Potassium 4.3 mmoL/L (3.5-5.1); Sodium 140 mmol/L (136-145)
[2023-04-13 17:18] LABS: Alanine Aminotransferase 59 U/L (12-78); Albumin Level 4.8 g/dl (3.5-5.0); Albumin/Globulin Ratio 1.5 (1.1-1.8); Alkaline Phosphatase 131 U/L (38-126); Anion Gap 14.3 mEq/L (5-15); Aspartate Amino Transferase 43 U/L (17-59); Bilirubin,Total 0.5 mg/dl (0.2-1.3); Blood Urea Nitrogen 16 mg/dl (9-20); Carbon Dioxide 29 mmol/L (22.0-30.0); Estimated Glomerular Filt Rate 87 ml/min (>60); GFR (African American) 105 ML/MIN (>60); Globulin 3.1 g/dL (1.3-3.2); Total Protein,Serum 7.9 g/dl (6.3-8.2)
[2023-04-13 17:19] LABS: Calcium 8.9 mg/dl (8.4-10.2); Glucose 87 mg/dl (74-100)
== END ==
PROVIDERS: PCP Nurse Practitioner Family; Visit Provider Nurse Practitioner Family
DX: R10.9 Unspecified abdominal pain (principal); R74.8 Abnormal levels of other serum enzymes
CPT/HCPCS: 80053

== ENCOUNTER 2023-05-15 13:50 | Outpatient (CLI) | payer OTHER, SELFPAY ==
[2023-05-15 14:04] LABS: Alanine Aminotransferase 59 U/L (12-78); Albumin Level 4.1 g/dl (3.5-5.0); Albumin/Globulin Ratio 1.5 (1.1-1.8); Alkaline Phosphatase 112 U/L (38-126); Aspartate Amino Transferase 44 U/L (17-59); Bilirubin,Total 0.6 mg/dl (0.2-1.3); Blood Urea Nitrogen 13 mg/dl (9-20); Calcium 8.2 mg/dl (8.4-10.2); Chloride 104 mmol/L (98-107); Cholesterol 206 mg/dl (140-200); Estimated Glomerular Filt Rate 98 ml/min (>60); GFR (African American) 119 ML/MIN (>60); Globulin 2.8 g/dL (1.3-3.2); Glucose 81 mg/dl (74-100); Total Protein,Serum 6.9 g/dl (6.3-8.2); Triglycerides 225 mg/dl (30-150); VLDL Cholesterol 45 mg/dL (0-40)
[2023-05-15 14:09] LABS: HDL Cholesterol 24 mg/dl (40-60); Sodium 137 mmol/L (136-145)
[2023-05-15 14:12] LABS: Chol/HDL Ratio 8.6 (1-3.5)
[2023-05-15 14:35] LABS: Thyroid Stimulating Hormone 2.25 uIU/mL (0.465-4.68)
[2023-05-15 14:57] LABS: Vitamin B12 313 pg/mL (239-931)
[2023-05-15 16:32] LABS: Carbon Dioxide 28 mmol/L (22.0-30.0)
[2023-05-15 16:58] LABS: 25-OH Vitamin D, Total 30.5 ng/mL (30-100)
[2023-05-16 07:11] LABS: Triiodothyronine (T3) Free 3.5 pg/mL (2.0-4.4)
[2023-05-16 14:19] LABS: Alkaline Phosphatase 115 IU/L (44-121); Bone Fraction: 34 % (12-68); Intestinal Frac.: 9 % (0-18); Liver Fraction: 57 % (13-88)
== END 2023-05-15 23:59 ==
LOC: LAB.DROPOF 13:51
PROVIDERS: PCP Nurse Practitioner Family; Visit Provider Nurse Practitioner Family
DX: E03.9 Hypothyroidism, unspecified (principal); R79.89 Other specified abnormal findings of blood chemistry; R74.8 Abnormal levels of other serum enzymes; E78.5 Hyperlipidemia, unspecified; I10 Essential (primary) hypertension; E66.9 Obesity, unspecified; Z68.34 Body mass index [BMI] 34.0-34.9, adult; Z13.0 Encounter for screening for diseases of the blood and blood-forming organs and certain disorders involving the immune mechanism; Z79.899 Other long term (current) drug therapy
CPT/HCPCS: 80053; 80061; 82306; 82607; 84075; 84080; 84436; 84443; 84481

== ENCOUNTER 2023-07-17 18:45 | Emergency (ER) | payer OTHER, SELFPAY ==
[2023-07-17 18:55] VITALS: BP 117/72; PULSE 61; RESP 18; TEMP 36.8; O2SAT 97; BMI 35.2
--- NOTE | 2023-07-17 18:57 | XR_ITS ---
PROCEDURE INFORMATION: Exam: XR Ribs with PA Chest Exam date and time: 07/17/2023 7:00 PM Age: 32 years old Clinical indication: Chest wall pain; Left TECHNIQUE: Imaging protocol: Radiologic exam of the bilateral ribs with PA chest. Views: 4 views COMPARISON: CR XR CHEST 2V 04/07/2023 4:35 PM FINDINGS: Lungs: Normal. Pleural spaces: Normal No pleural effusion. No pneumothorax. Heart/Mediastinum: Normal. No cardiomegaly. Bones/joints: Unremarkable. IMPRESSION: No acute findings.
--- NOTE | 2023-07-17 19:16 | ED_ITS ---
Discharge Plan Disposition Patient Disposition: Home, Self-Care Condition: Good Prescriptions Prescriptions: New ibuprofen [IBU] 800 mg tablet 800 mg PO Q8HP PRN (Reason: Moderate Pain) Qty: 30 0RF cyclobenzaprine 10 mg Tablet 10 mg PO BID PRN (Reason: Muscle Spasm) Qty: 20 0RF No Action Vraylar 3 mg capsule 3 mg PO ONCE 30 Days Qty: 30 2RF gabapentin 300 mg capsule 300 mg PO TID 30 Days Qty: 90 2RF sertraline 100 mg tablet 100 mg PO DAILY Patient Comments: TAKE ONE TABLET BY MOUTH EVERY DAY levothyroxine 50 mcg tablet 50 mcg PO DAILY pravastatin 10 mg tablet 10 mg PO DAILY Qty: 30 2RF losartan-hydrochlorothiazide 50-12.5 mg tablet See Rx Instructions .ROUTE .COMPLEX Qty: 30 2RF Dose Instruction: TAKE ONE TABLET BY MOUTH EVERY DAY Rx Instructions: TAKE ONE TABLET BY MOUTH EVERY DAY famotidine 40 mg tablet 40 mg PO DAILY Patient Comments: TAKE ONE TABLET BY MOUTH EVERY DAY albuterol sulfate [Proventil HFA] 90 mcg/actuation HFA aerosol inhaler 1 - 2 inh inhalation Q6H PRN (Reason: shortness of breath or wheezing) Qty: 8.5 0RF fluticasone propionate [Flonase Allergy Relief] 50 mcg/actuation spray,suspension 1 spray intranasal DAILY Qty: 16 0RF Rx Instructions: administer into each nostril daily Referrals Follow up/Referrals: Lilian Gabriel APRN [Primary Care Provider] - See instructions Activity Restrictions/Add. Instructions Additional Instructions/Restrictions: Go home and rest. It would be best if you rested tomorrow too. No heavy lifting. No twisting for the next few days. Take ibuprofen for pain if you can take this. I sent in a prescription for ibuprofen 800 mg to your pharmacy. The muscle relaxer (cyclobenzaprine--Flexeril) won't help much with the rib pain, but it might help you get comfortable to sleep. It will make you drowsy, so don't drive or operate heavy machinery after taking it. Follow up with your regular doctor. GO TO THE ER FOR ANY WORSENING SYMPTOMS OR CONCERN, ESPECIALLY BOWEL OR BLADDER ISSUES, SADDLE AREA NUMBNESS, FEVER, ETC Clinical Impressions Clinical Impression: Contusion of rib on left side Instructions Patient Instructions: DI for Rib Contusion Discharge ED Provider: Julio Cesar Mckee [facility] [place] General Stated complaint: AO03/01 LT side rib inj Mode of Arrival: Ambulatory Source of Information: Patient Limitations: No Limitations Time Seen by Provider: 07/17/23 19:16 Description of Symptoms (Recalled from Triage Doc. by RN): Pt was holding a tray and ran into a door on sunday. He is complaing of left rib pain. HEENT Symptoms (Recalled from RN notes): No Resp Symptoms (Recalled from RN notes): No Skin Symptoms (Recalled from RN notes): No MS Symptoms (Recalled from RN notes): Yes Functional Status (Recalled from RN notes): n/a History of Present Illness Provider Complaint: He states that 5 days ago he was moving stuff in his mother's kitchen to paint the wall when he ran into the wall while carrying a large cooking pain. This caused the cooking rich to jab him in his left ribs area. Since then he has had left rib pain that is worse with coughing, deep breathing and moving. He denies any other injury. He denies shortness of breath. Related Data Home Medications Medication Instructions Recorded Confirmed famotidine 40 mg tablet 40 mg PO DAILY GERD 02/21/22 07/17/23 levothyroxine 50 mcg tablet 50 mcg PO DAILY 02/05/23 07/17/23 sertraline 100 mg tablet 100 mg PO DAILY 02/05/23 07/17/23 Previous Rx's Medication Instructions Recorded albuterol sulfate 90 mcg/actuation 1 - 2 inh inhalation Q6H PRN 04/07/23 aerosol inhaler (Proventil HFA) shortness of breath or wheezing #8.5 grams fluticasone propionate 50 1 spray intranasal DAILY #16 grams 04/07/23 mcg/actuation nasal spray,suspension (Flonase Allergy Relief) cariprazine 3 mg capsule (Vraylar) 3 mg PO ONCE 30 days #30 caps 05/15/23 gabapentin 300 mg capsule 300 mg PO TID 30 days #90 caps 05/15/23 pravastatin 10 mg tablet 10 mg PO DAILY #30 tabs 05/21/23 losartan 50 mg-hydrochlorothiazide See Rx Instructions .Route 06/06/23 12.5 mg tablet .COMPLEX #30 tabs cyclobenzaprine 10 mg tablet 10 mg PO BID PRN Muscle Spasm #20 03/05/24 tabs ibuprofen 800 mg tablet (IBU) 800 mg PO Q8HP PRN Moderate Pain 07/17/23 #30 tabs Allergies Allergy/AdvReac Type Severity Reaction Status Date / Time No Known Allergies Allergy Verified 07/17/23 19:04 Worker's Comp Is this a Worker's Comp case?: No [facility] Disclaimer: The information contained in this section may have been updated after the patient was seen, as this information can be updated by other users. Medical History (Updated 07/17/23 @ 19:34 by Julio Cesar Mckee APRN) Depression Anxiety Hyperlipidemia Hypertension Bipolar II disorder Surgical History H/O hernia repair History of appendectomy Family History Father Cancer Social History Smoking Status: Never smoker alcohol intake: never substance use type: denies use current occupational status: unemployed and other Travel in the last 8 weeks: None number of children: 1 ROS Obtained: Yes All systems reviewed & no additional complaints except as documented Constitutional Constitutional: Denies chills and Denies fever(s) Eyes Eyes: Denies eye discharge ENT Ears, Nose, Mouth, and Throat: Denies dizziness, Denies otalgia and Denies sore throat Cardiovascular Cardiovascular: Reports as per HPI, Reports chest pain, Denies chest pain at rest and Denies dyspnea Respiratory Respiratory: Reports as per HPI, Denies shortness of breath, Denies chest congestion, Denies cough, Denies dyspnea, Denies stridor and Denies wheezing Gastrointestinal Gastrointestingal: Denies nausea or vomiting Musculoskeletal Musculoskeletal: Reports system reviewed and no additional complaints, except as documented, Reports as per HPI and Denies arthralgias Integumentary/Breasts Skin/Breast: Denies rash Neurologic Neurologic: Denies dizziness and Denies paresthesias Allergic/Immunologic Allergic/Immunologic: Denies wheezing Physical Exam General General appearance: alert and in no apparent distress Head Head exam: atraumatic, normocephalic and normal inspection Eye Eye exam: Present normal appearance, PERRL and EOMI ENT ENT exam: Present normal exam, normal oropharynx, mucous membranes moist, TM's normal bilaterally and normal external ear exam Neck Neck exam: Present normal inspection, full ROM and trachea midline; Absent meningismus or lymphadenopathy Chest Chest inspection: Present symmetric chest wall rise and tenderness Respiratory Respiratory exam: Present normal lung sounds bilaterally; Absent respiratory distress Cardiovascular Cardiovascular exam: Present regular rate and normal rhythm; Absent bradycardia, tachycardia or JVD Abdominal Exam Abdominal exam: Present soft and normal bowel sounds; Absent distention, tenderness or guarding Extremities Exam Extremities exam: Present normal inspection, full ROM and normal capillary refill; Absent calf tenderness Back Exam Back exam: Present normal inspection; Absent tenderness Neurological Exam Neurological exam: Present alert and oriented X3 Psychiatric Psychiatric exam: Present normal affect and normal mood Skin Skin exam: Present warm, dry, intact and normal color Lymphatic Lymphatic Findings: no adenopathy Medical Decision Making Medical Records Medical records reviewed: No I reviewed the patient's medical records. Yordy Inquiry Pt receiving controlled substance: No Vital Signs: 07/17/23 18:55 Temperature 98.3 F Temperature Source Oral Pulse Rate [Right Radial] 61 Respiratory Rate 18 Blood Pressure [Right Arm] 117/72 Blood Pressure Mean [Right Arm] 87 Blood Pressure Source [Right Arm] Automatic Cuff Blood Pressure Position [Right Arm] Sitting 02 Sat by Pulse Oximetry 97 Oxygen Delivery Method Room Air Orders (Tests/Meds): ORDERS Category Date Time Status XR ribs BI min 4V w CXR1V Stat Exams 07/17/23 18:57 Ordered Radiology Data #1: Image(s): Chest Image Reviewed: Yes I reviewed the patient's radiology image and Yes I have reviewed radiologist's interpretation Preliminary Findings: No Fracture Seen Ordering Physician: Julio Cesar Mckee APRN Date of Service: 07/17/23 Procedure(s): XR ribs BI min 4V w CXR1V Accession Number(s): [id number] cc: Lilian Gabreil APRN; Fito Mccarty MD~ PROCEDURE INFORMATION: Exam: XR Ribs with PA Chest Exam date and time: 07/17/2023 7:00 PM Age: 32 years old Clinical indication: Chest wall pain; Left TECHNIQUE: Imaging protocol: Radiologic exam of the bilateral ribs with PA chest. Views: 4 views COMPARISON: CR XR CHEST 2V 04/07/2023 4:35 PM FINDINGS: Lungs: Normal. Pleural spaces: Normal No pleural effusion. No pneumothorax. Heart/Mediastinum: Normal. No cardiomegaly. Bones/joints: Unremarkable. IMPRESSION: No acute findings.
[2023-07-17 20:02] VITALS: BP 117/72; PULSE 61; RESP 18; TEMP 36.8; O2SAT 97
== END 2023-07-17 20:02 | disposition home or self-care (01) ==
PROVIDERS: Emergency Provider Nurse Practitioner Family; PCP Nurse Practitioner Family
DX: S20.212A Contusion of left front wall of thorax, initial encounter (principal); R07.1 Chest pain on breathing; E78.5 Hyperlipidemia, unspecified; I10 Essential (primary) hypertension; W22.8XXA Striking against or struck by other objects, initial encounter
CPT/HCPCS: 71111; 99212; 99214; G0463

== ENCOUNTER 2023-08-07 15:01 | Outpatient (CLI) | payer OTHER, SELFPAY ==
[2023-08-07 19:04] LABS: Chloride 100 mmol/L (98-107); Potassium 3.9 mmoL/L (3.5-5.1); Sodium 139 mmol/L (136-145)
[2023-08-07 19:06] LABS: Alanine Aminotransferase 71 U/L (12-78); Alkaline Phosphatase 134 U/L (38-126); Anion Gap 12.9 mEq/L (5-15); Aspartate Amino Transferase 47 U/L (17-59); Bilirubin,Total 0.4 mg/dl (0.2-1.3); Blood Urea Nitrogen 13 mg/dl (9-20); Carbon Dioxide 30 mmol/L (22.0-30.0); Estimated Glomerular Filt Rate 98 ml/min (>60); GFR (African American) 119 ML/MIN (>60)
[2023-08-07 19:07] LABS: Albumin Level 4.6 g/dl (3.5-5.0); Albumin/Globulin Ratio 1.7 (1.1-1.8); Calcium 9.6 mg/dl (8.4-10.2); Chol/HDL Ratio 6.5 (1-3.5); Cholesterol 213 mg/dl (140-200); Globulin 2.7 g/dL (1.3-3.2); Glucose 83 mg/dl (74-100); HDL Cholesterol 33 mg/dl (40-60); Magnesium 2.1 mg/dl (1.6-2.3); Total Protein,Serum 7.3 g/dl (6.3-8.2); Triglycerides 218 mg/dl (30-150); VLDL Cholesterol 44 mg/dL (0-40)
[2023-08-07 19:18] LABS: Direct LDL Cholesterol 121.67 mg/dL (100-129)
[2023-08-07 19:37] LABS: Thyroid Stimulating Hormone 2.75 uIU/mL (0.465-4.68)
[2023-08-07 19:42] LABS: Hemoglobin A1C 5.5 % (4.0-6.0)
== END 2023-08-07 23:59 ==
LOC: RT 15:02
PROVIDERS: PCP Nurse Practitioner Family; Visit Provider Nurse Practitioner Family
DX: R00.2 Palpitations (principal); R35.0 Frequency of micturition; E03.9 Hypothyroidism, unspecified; E78.5 Hyperlipidemia, unspecified; I10 Essential (primary) hypertension
CPT/HCPCS: 80053; 80061; 83036; 83735; 84443; 93225

== ENCOUNTER 2023-08-29 07:16 | Emergency (ER) | payer OTHER, SELFPAY ==
--- NOTE | 2023-08-29 07:15 | ECG_ITS ---
APPROVED REPORT Exam: Resting ECG HR:71 bpm ECG Measurements Heart Rate 71 AXES VA 138 P 28 QRSd 102 QRS 37 QT 389 T 48 QTc 411 Conclusion SINUS RHYTHM WITH SINUS ARRHYTHMIA POSSIBLE RIGHT VENTRICULAR CONDUCTION DELAY [RSR (QR) IN V1/V2] Electronically signed by : LULU CAR, 08/29/2023 14:47:09
[2023-08-29 07:17] VITALS: BP 143/92; PULSE 78; RESP 16; TEMP 36.6; O2SAT 99; BMI 35.2
--- NOTE | 2023-08-29 07:29 | XR_ITS ---
FINAL REPORT CLINICAL HISTORY: chest pain COMPARISON: 07/17/2023 FINDINGS: SINGLE-VIEW CHEST The heart size is normal. The mediastinum is normal. The lungs are clear. There is no pneumothorax. IMPRESSION: No acute cardiopulmonary process. Reviewed, Interpreted and Dictated by Alan Oscar MD Transcribed by Tyra Newby Authenticated and [facility]
[2023-08-29 07:37] LABS: MANUAL DIFFERENTIAL MANUAL DIFFERENTIAL (MANUAL DIFF)
--- NOTE | 2023-08-29 07:42 | HMH.EDCP ---
Discharge Plan Disposition Patient Disposition: Home, Self-Care Condition: Good Prescriptions Prescriptions: New ondansetron 4 mg tablet,disintegrating 4 mg PO Q8H PRN (Reason: nausea and vomiting) 4 Days Qty: 12 0RF No Action Vraylar 3 mg capsule 3 mg PO ONCE 30 Days Qty: 30 2RF losartan 50 mg tablet 50 mg PO BID 90 Days Qty: 180 3RF levothyroxine 50 mcg tablet 50 mcg PO DAILY pravastatin 10 mg tablet 10 mg PO DAILY Qty: 30 2RF gabapentin 300 mg capsule See Rx Instructions .ROUTE .COMPLEX Qty: 90 0RF Dose Instruction: TAKE ONE CAPSULE BY MOUTH THREE TIMES DAILY MAY CAUSE DROWSINESS Rx Instructions: TAKE ONE CAPSULE BY MOUTH THREE TIMES DAILY MAY CAUSE DROWSINESS sertraline 100 mg tablet See Rx Instructions .ROUTE .COMPLEX Qty: 30 5RF Dose Instruction: TAKE ONE TABLET BY MOUTH EVERY DAY Rx Instructions: TAKE ONE TABLET BY MOUTH EVERY DAY famotidine 40 mg tablet 40 mg PO DAILY Patient Comments: TAKE ONE TABLET BY MOUTH EVERY DAY ibuprofen [IBU] 800 mg tablet 800 mg PO Q8HP PRN (Reason: Moderate Pain) Qty: 30 0RF Referrals Follow up/Referrals: John Schulte MD [Staff Physician] - See instructions Provider,MD Rosita [Referring] - See instructions Sammy Reyes MD [Staff Physician] - See instructions Activity Restrictions/Add. Instructions Additional Instructions/Restrictions: You were evaluated in the emergency department today. 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 Continue taking your omeprazole and Pepcid at home. Please follow-up very closely with cardiology. Contact their office to schedule an appointment. We have provided you with information for Dr. Schulte and Dr. Reyes. Return to the emergency department for new or worsening symptoms. Clinical Impressions Clinical Impression: Chest pain Stand Alone Forms Stand Alone Forms: Work/School Release Instructions Patient Instructions: DI for Atypical Chest Pain, DI for Chest Pain Discharge ED Provider: Mena Pepper General Chief Complaint: Chest Pain Stated Complaint: cp Time Seen by Provider: 08/29/23 07:20 Mode of Arrival: Ambulatory Source of Information: Patient and Spouse Limitations: No Limitations Description of Symptoms (Recalled from ER Triage Doc. by RN): Patient reports left sided chest pain that radiates down his left arm with nausea for a couple of days. States he has had some extra stress with his dad passing away and having to take care of a bunch of things. History of Present Illness HPI narrative: This patient is a 33-year-old male with a history of hypertension, hyperlipidemia, and bipolar 1 disorder presenting to the emergency department for evaluation with concern for intermittent chest pains. He states is been going on for the last couple of days, but his significant other notes that it has been going on for weeks. She notes that they started him on omeprazole as well as Pepcid and GI cocktails. He notes that despite these medications, he has still had symptoms. He does state that he has forgotten to take them for the last several days. He describes the chest pain as being a burning fire in the middle of his chest, but is started going down his left arm for the last couple of days. He does not have any history of cardiac disorders himself, however he does have extensive past family history of early cardiac . Nothing seems to trigger or bring it on, and nothing seems to truly make it go away. He notes that on the way to work this morning, he experienced this pain as well as significant nausea. He called into work given the severity of his symptoms, and decision was made to come to the ED at that time. He states the right now, he is feeling a little bit better and is not as nauseated, but he is still having some pain that goes across his left chest. No history of blood clots, clotting disorders, or calf pain or swelling. Related Data Home Medications Medication Instructions Recorded Confirmed famotidine 40 mg tablet 40 mg PO DAILY GERD 02/21/22 08/07/23 levothyroxine 50 mcg tablet 50 mcg PO DAILY 02/05/23 08/07/23 Previous Rx's Medication Instructions Recorded cariprazine 3 mg capsule (Vraylar) 3 mg PO ONCE 30 days #30 caps 05/15/23 pravastatin 10 mg tablet 10 mg PO DAILY #30 tabs 05/21/23 ibuprofen 800 mg tablet (IBU) 800 mg PO Q8HP PRN Moderate Pain 07/17/23 #30 tabs losartan 50 mg tablet 50 mg PO BID 90 days #180 tabs 08/07/23 gabapentin 300 mg capsule See Rx Instructions .Route 08/11/23 .COMPLEX #90 caps sertraline 100 mg tablet See Rx Instructions .Route 08/13/23 .COMPLEX #30 tabs ondansetron 4 mg disintegrating 4 mg PO Q8H PRN nausea and 08/29/23 tablet vomiting 4 days #12 tabs Allergies Allergy/AdvReac Type Severity Reaction Status Date / Time No Known Allergies Allergy Verified 08/07/23 13:54 [facility] Disclaimer: The information contained in this section may have been updated after the patient was seen, as this information can be updated by other users. Medical History Depression Anxiety Hyperlipidemia Hypertension Bipolar II disorder Surgical History H/O hernia repair History of appendectomy Family History Father Cancer Social History Smoking Status: Unknown if ever smoked alcohol intake: never substance use type: denies use current occupational status: unemployed and other Travel in the last 8 weeks: None number of children: 1 ROS Obtained: Yes All systems reviewed & no additional complaints except as documented Physical Exam General General appearance: alert, in no apparent distress and obese Head Head exam: atraumatic and normocephalic Eye Eye exam: Present normal appearance, PERRL and EOMI ENT ENT exam: Present normal exam, normal oropharynx, mucous membranes moist and normal external ear exam Neck Neck exam: Present normal inspection, full ROM and trachea midline; Absent tenderness Chest Chest inspection: Present normal inspection and symmetric chest wall rise; Absent tenderness Respiratory Respiratory exam: Present normal lung sounds bilaterally; Absent respiratory distress, wheezes, stridor or accessory muscle use Cardiovascular Cardiovascular exam: Present regular rate, normal rhythm, normal heart sounds and other (2+ radial pulses bilaterally) Abdominal Exam Abdominal exam: Present soft, tenderness (Epigastric, mild) and normal bowel sounds; Absent distention, guarding, rebound or rigidity Extremities Exam Extremities exam: Present normal inspection, full ROM and normal capillary refill; Absent tenderness or edema Back Exam Back exam: Present normal inspection and full ROM; Absent tenderness Neurological Exam Neurological exam: Present alert, oriented X3, CN II-XII intact and normal gait; Absent motor sensory deficit Psychiatric Psychiatric exam: Present normal affect and normal mood Skin Skin exam: Present warm and dry HEART Score HEART Score HEART Score assessment performed?: Yes History (anamnesis): Moderately suspicious ECG: Normal Age: <45 years Risk factors: 1-2 risk factors Troponin: </= normal limit HEART Score: 2 Procedures Limited Ultrasound Findings:: Limited cardiac ultrasound Indication: chest pain Identified cardiac views: [-Cardiac parasternal long axis] [-Cardiac parasternal short axis] [-Cardiac apical four-chamber] Findings: [-Cardiac activity present -Gross wall motion normal -Pericardial effusion absent -Right heart strain absent] Impression: -[From above] Images [were saved] to permanent archive The study [was] technically adequate CPT: 21475 This study was performed by me, and I personally interpreted all images/videos. Based on my clinical judgement, these images were [adequate] and [did not] necessitate further imaging. Critical Care Critical Care Time Critical Care Time: No Medical Decision Making Medical Records Medical records reviewed: Yes I reviewed the patient's medical records. Yordy Inquiry Pt receiving controlled substance: No Vital Signs Vital Signs: 08/29/23 07:17 08/29/23 08:00 08/29/23 08:30 Temperature 97.9 F Temperature Source Oral Pulse Rate 86 79 Pulse Rate [Radial] 78 Respiratory Rate 16 15 13 Blood Pressure 135/80 134/81 Blood Pressure [Right Arm] 143/92 H Blood Pressure Mean [Right Arm] 109 Blood Pressure Source [Right Arm] Automatic Cuff Blood Pressure Position [Right Arm] Sitting 02 Sat by Pulse Oximetry 99 98 98 Oxygen Delivery Method Room Air Room Air Room Air 08/29/23 09:00 08/29/23 09:30 Temperature Temperature Source Pulse Rate 67 69 Pulse Rate [Radial] Respiratory Rate 12 13 Blood Pressure 132/78 132/84 Blood Pressure [Right Arm] Blood Pressure Mean [Right Arm] Blood Pressure Source [Right Arm] Blood Pressure Position [Right Arm] 02 Sat by Pulse Oximetry 99 98 Oxygen Delivery Method Room Air Room Air Lab Data Labs: Lab Results 08/29/23 07:26: WBC 7.5, RBC 5.41, Hgb 15.6, Hct 47.1, MCV 87.1, MCH 28.9, MCHC 33.1, RDW 14.2, Plt Count 256, MPV 7.7, Neut % (Auto) 63.9, Lymph % (Auto) 28.1, Granite % (Auto) 6.3, Eos % (Auto) 1.1, Baso % (Auto) 0.6, Neut # (Auto) 4.8, Lymph # (Auto) 2.1, Granite # (Auto) 0.5, Eos # (Auto) 0.1, Baso # (Auto) 0.1, Total Counted 100, Neutrophils % (Manual) 62, Band Neutrophils % 2.0, Lymphocytes % (Manual) 27, Monocytes % (Manual) 9, Platelet Estimate Normal, RBC Morphology Normal, Sodium 142, Potassium 3.8, Chloride 109 H, Carbon Dioxide 29, Anion Gap 7.8, BUN 12, Creatinine 0.90, Estimated Creat Clear 197, Estimated GFR 98, Est GFR ( Amer) 118, Glucose 102 H, Calcium 9.4, Total Bilirubin 0.5, AST 41, ALT 71, Alkaline Phosphatase 105, Troponin I < 0.01, Total Protein 7.0, Albumin 4.2, Globulin 2.8, Albumin/Globulin Ratio 1.5, Lipase 57 08/29/23 09:10: Troponin I < 0.01 08/29/23 07:26 08/29/23 07:26 Response Orders (Tests/Meds): ED MEDICATIONS Generic Name Dose Route Start Last Admin Trade Name Freq PRN Reason Stop Dose Admin Sodium Chloride 10 ml 08/29/23 07:29 Sodium Chloride 0.9% 10ml Flush Syringe IV 09/28/23 07:28 NEEDED PRN Maintain IV Site ORDERS Category Date Time Status POCUS Point of Care (ER Only) Stat Exams 08/29/23 07:41 Completed XR chest portable Stat Exams 08/29/23 07:29 Completed Complete Blood Count Man Dif Stat Lab 08/29/23 07:26 Completed Comprehensive Metabolic Panel Stat Lab 08/29/23 07:26 Completed Lipase Stat Lab 08/29/23 07:26 Completed Troponin I Q3H Lab 08/29/23 09:10 Completed Troponin I Q3H Lab 08/29/23 13:30 Ordered Troponin I Stat Lab 08/29/23 07:26 Completed ECG Data Tracing #1: Attestation: I reviewed this ECG and interpreted as documented below: ECG Narrative: Normal sinus rhythm with sinus arrhythmia. No acute ST changes concerning for ischemia. Normal axis. Possible right ventricular conduction delay. ECG initial impression date: 08/29/23 ECG initial impression time: 07:17 MDM Narrative Medical Decision Narrative: In summary, this patient is a 33-year-old male presenting to the Emergency Department for evaluation of intermittent chest pains. Differential diagnoses considered include but are not limited to ACS, unstable angina, GERD, esophagitis, pancreatitis, pleurisy. Ruling out the most morbid conditions drove assessment. On exam, the patient is well-appearing with reassuring vital signs on cardiac telemetry. He is PERC negative for pulmonary embolus. He has equal pulses and no significant hypertension or tachycardia, so I feel aortic dissection is unlikely. Workup included CBC, CMP, lipase, troponin chest x-ray, EKG, and bedside cardiac ultrasound. Patient declines need for medications at this time. I independently interpreted x-ray prior to the radiologist read and noted no focal consolidation, pneumothorax, or cardiomegaly. Please see their read for final interpretation. Labs were obtained that demonstrated no acutely concerning abnormalities, including negative initial troponin. At 0820, patient was placed in ED observation status pending second troponin to determine whether or not the patient would be appropriate for discharge versus admission. The patient was provided serial reevaluations and cardiac monitoring while awaiting ultimate disposition. Second troponin resulted and came back undetectable as well. Labs are overall reassuring. On multiple subsequent reassessments, patient is feeling better and has no significant concerns or complaints. Vitals are reassuring on cardiac telemetry. Given reassuring workup and exam, it is felt that the patient is appropriate for discharge at 10 AM. Total ED observation time was 1 hour and 40 minutes. Patient was given instructions for close follow-up with cardiology given his extensive family history, strict return precautions, and instructions for supportive management. Patient was discharged after all questions were answered.
[2023-08-29 07:43] LABS: Basophils # 0.1 K/mm3 (0-0.2); Basophils % 0.6 % (0.1-2.0); Eosinophils # 0.1 K/mm3 (0.0-0.4); Eosinophils % 1.1 % (0.1-12.0); Hematocrit 47.1 % (42.0-52.0); Hemoglobin 15.6 g/dL (14.1-18.0); Lymphocytes # 2.1 K/mm3 (0.7-4.5); Lymphocytes % 28.1 % (10-50); Mean Corpuscular HGB Conc 33.1 g/dL (31.8-35.4); Mean Corpuscular Hemoglobin 28.9 pg (27.0-31.2); Mean Corpuscular Volume 87.1 fl (80-94); Mean Platelet Volume 7.7 fl (7.4-10.4); Monocytes # 0.5 K/mm3 (0.1-1.0); Monocytes % 6.3 % (1.7-9.3); Neutrophils # 4.8 K/mm3 (1.8-7.8); Neutrophils % 63.9 % (37.0-80.0); Platelet Count 256 K/mm3 (142-424); Red Blood Count 5.41 M/mm3 (4.60-6.20); Red Cell Distribution Width 14.2 % (11.5-17.5); White Blood Count 7.5 K/mm3 (4.8-10.8)
[2023-08-29 07:45] LABS: Chloride 109 mmol/L (98-107)
[2023-08-29 07:46] LABS: Potassium 3.8 mmoL/L (3.5-5.1); Sodium 142 mmol/L (136-145)
[2023-08-29 07:48] LABS: Alanine Aminotransferase 71 U/L (12-78); Aspartate Amino Transferase 41 U/L (17-59); Blood Urea Nitrogen 12 mg/dl (9-20); Creatinine Clearance Estimated 197 mL/min (50-200); Estimated Glomerular Filt Rate 98 ml/min (>60); GFR (African American) 118 ML/MIN (>60)
[2023-08-29 07:49] LABS: Albumin Level 4.2 g/dl (3.5-5.0); Albumin/Globulin Ratio 1.5 (1.1-1.8); Alkaline Phosphatase 105 U/L (38-126); Anion Gap 7.8 mEq/L (5-15); Bilirubin,Total 0.5 mg/dl (0.2-1.3); Calcium 9.4 mg/dl (8.4-10.2); Carbon Dioxide 29 mmol/L (22.0-30.0); Globulin 2.8 g/dL (1.3-3.2); Glucose 102 mg/dl (74-100)
[2023-08-29 08:00] VITALS: BP 135/80; PULSE 86; RESP 15; O2SAT 98
--- NOTE | 2023-08-29 08:03 | PC.NURSE ---
at bedside with US at this time.
[2023-08-29 08:07] LABS: Troponin I < 0.01 ng/ml (0.00-0.034)
[2023-08-29 08:30] VITALS: BP 134/81; PULSE 79; RESP 13; O2SAT 98
[2023-08-29 08:52] LABS: Lipase 57 U/L (23-300)
[2023-08-29 08:58] LABS: Lymphocytes % 27 % (10-50); Monocytes % 9 % (2-9); Neutrophils % 62 % (42-76); Total Cells Counted 100
[2023-08-29 09:00] VITALS: BP 132/78; PULSE 67; RESP 12; O2SAT 99
[2023-08-29 09:00] LABS: Platelet Estimate Normal; RBC Morphology Normal
[2023-08-29 09:30] VITALS: BP 132/84; PULSE 69; RESP 13; O2SAT 98
--- NOTE | 2023-08-29 09:52 | PC.NURSE ---
ROUNDED ON PT, UPDATED ON POC. NO NEEDS AT THIS TIME. CALL LIGHT WITHIN REACH
[2023-08-29 09:54] LABS: Troponin I < 0.01 ng/ml (0.00-0.034)
--- NOTE | 2023-08-29 09:59 | PC.NURSE ---
DR CAR AT BEDSIDE TO UPDATE PT AND FAMILY
[2023-08-29 10:12] VITALS: BP 139/86; PULSE 89; RESP 16; TEMP 36.6; O2SAT 97
== END 2023-08-29 10:13 | disposition home or self-care (01) ==
PROVIDERS: Emergency Provider Emergency Medicine; PCP Nurse Practitioner Family
DX: R07.9 Chest pain, unspecified (principal); I49.9 Cardiac arrhythmia, unspecified; R11.0 Nausea; E78.5 Hyperlipidemia, unspecified; I10 Essential (primary) hypertension
CPT/HCPCS: 71045; 80053; 83690; 84484; 85007; 85014; 85018; 85048; 85049; 93005; 99285

== ENCOUNTER 2023-08-29 11:31 | Observation (INO) | payer OTHER, SELFPAY ==
[2023-08-29] VITALS (14 sets, daily range): BP systolic 108–146; BP diastolic 55–84; PULSE 66–93; RESP 14–20; TEMP 36.1–36.7; O2SAT 91–99; BMI 34.9
--- NOTE | 2023-08-29 11:41 | PC.NURSE ---
patient arrived by w/c from cardiology office
--- NOTE | 2023-08-29 11:43 | HMH.PHAINT1 ---
Pharmacy Intervention Comments: HOME MEDICATION LIST VERIFIED VIA OUTSIDE PHARMACY AND PHYSICAN NOTE
--- NOTE | 2023-08-29 11:46 | IR_ITS ---
APPROVED REPORT Patient Location: Inpatient Multimedia Programmer: WILLY Ghotra RT (R) PROCEDURES Left heart catheterization Left ventriculogram Selective coronary angiogram INDICATION Unstable angina Informed consent was obtained prior to the procedure. COMPLICATIONS NONE Estimated Blood Loss: LESS THAN 10 ML TECHNIQUE One percent lidocaine used to anesthetize the right anterior aspect of the wrist. The right radial artery was accessed via the Seldinger technique. A 6 [place] sheath was placed in the right radial artery. 2.5 mg of Verapamil, 800 mcg of nitroglycerin, 1mg Lidocaine and 5000 U Heparin were given through the arterial sheath. The papa catheter was also used to perform left heart catheterization, left ventriculogram and selective coronary angiogram. At the end of the procedure the sheath was removed good hemostasis was achieved using Traclet band, patient was transferred to the postop holding area in stable condition. ANGIOGRAPHIC RESULTS The left main artery Normal The left anterior descending artery Proximally normal and has a mid vessel 20% systolic myocardial bridge The circumflex artery Normal The right coronary artery Dominant normal The LEIVA ventriculogram reveals Normal 65% The left ventricular end-diastolic pressure 15 mmHg IMPRESSION Normal coronary arteries Inconsequential mid LAD myocardial bridge Normal ejection fraction Normal left ventricular end-diastolic pressure PLAN 1. Recommend additional workup for chest pain 2. Consider CAT scan with contrast 3. Beta-blockers for tachycardia 4. Check thyroid function tests Electronically signed by : John Schulte MD 08/30/2023 15:22:41
[2023-08-29 11:56] LABS: Basophils # 0.1 K/mm3 (0-0.2); Basophils % 0.7 % (0.1-2.0); Eosinophils # 0.1 K/mm3 (0.0-0.4); Eosinophils % 0.7 % (0.1-12.0); Hematocrit 49.6 % (42.0-52.0); Hemoglobin 16.1 g/dL (14.1-18.0); Lymphocytes # 1.7 K/mm3 (0.7-4.5); Lymphocytes % 22.8 % (10-50); Mean Corpuscular HGB Conc 32.5 g/dL (31.8-35.4); Mean Corpuscular Volume 86.2 fl (80-94); Mean Platelet Volume 7.9 fl (7.4-10.4); Monocytes # 0.3 K/mm3 (0.1-1.0); Neutrophils # 5.4 K/mm3 (1.8-7.8); Neutrophils % 71.7 % (37.0-80.0); Platelet Count 279 K/mm3 (142-424); Red Blood Count 5.76 M/mm3 (4.60-6.20); Red Cell Distribution Width 14.1 % (11.5-17.5); White Blood Count 7.5 K/mm3 (4.8-10.8)
[2023-08-29 12:14] LABS: Chloride 107 mmol/L (98-107); Sodium 142 mmol/L (136-145)
[2023-08-29] MEDS: HEPARIN 1,000 UNITS/500ML NS (CATH LAB) 3000 UNIT IV (12:14)
[2023-08-29] MEDS: HEPARIN 1,000 UNITS/ML 10ML VIAL (CATH LAB) 10000 UNIT IV (12:14)
[2023-08-29] MEDS: LIDOCAINE 1% 10ML MDV 20 ML IJ (12:14)
[2023-08-29] MEDS: VERAPAMIL 2.5MG/ML 2ML VIAL 2.5 MG IV (12:14)
[2023-08-29] MEDS: NITROGLYCERIN 800MCG/8ML SYR (CATH LAB) 800 MCG IA (12:14)
[2023-08-29] MEDS: 0.9 % SODIUM CHLORIDE 500 ML 25 ML IV (12:14)
[2023-08-29] MEDS: diphenhydrAMINE 50MG/ML VIAL 50 MG IV (12:14)
[2023-08-29 12:17] LABS: Blood Urea Nitrogen 12 mg/dl (9-20); Creatinine Clearance Estimated 219 mL/min (50-200); Estimated Glomerular Filt Rate 112 ml/min (>60); GFR (African American) 136 ML/MIN (>60)
[2023-08-29 12:18] LABS: Calcium 9.6 mg/dl (8.4-10.2); Glucose 115 mg/dl (74-100)
[2023-08-29] MEDS: METOPROLOL TARTRATE 5MG/5ML VIAL 5 MG IV ×2 (12:51→12:59)
[2023-08-29] MEDS: MIDAZOLAM HCL 1MG/1ML 5ML VIAL 1 MG IV (12:51)
[2023-08-29] MEDS: FENTANYL 100MCG/2ML VIAL 50 MCG IV (12:51)
--- NOTE | 2023-08-29 13:07 | CT_ITS ---
PROCEDURE INFORMATION: Exam: CTA Chest With Contrast Exam date and time: 08/29/2023 3:22 PM Age: 33 years old Clinical indication: Chest wall pain; Additional info: Chest pain, tachycardia TECHNIQUE: Imaging protocol: Computed tomographic angiography of the chest with contrast. Exam focused on the arteries. 3D rendering (Not supervised by radiologist): MIP and/or 3D reconstructed images were created by the technologist. Radiation optimization: All CT scans at this facility use at least one of these dose optimization techniques: automated exposure control; mA and/or kV adjustment per patient size (includes targeted exams where dose is matched to clinical indication); or iterative reconstruction. Contrast material: ISOVUE; Contrast volume: 100 ml; Contrast route: INTRAVENOUS (IV); COMPARISON: 1. CR XR CHEST PORTABLE 08/29/2023 7:35 AM 2. CR XR RIBS BI MIN 4V W CXR1V 07/17/2023 7:00 PM 3. CR XR CHEST 2V 04/07/2023 4:35 PM FINDINGS: Pulmonary arteries: There is fair opacification of the pulmonary arterial tree. No central pulmonary arterial filling defect is seen. Aorta: Unremarkable. No aortic aneurysm. No aortic dissection. Other arteries: Subsegmental vessels are not well evaluated due to technical factors. Lungs: Scattered areas of bronchial wall thickening which are likely chronic inflammatory. A few areas of subpleural reticulation are noted, nonspecific. Pleural spaces: Unremarkable. No pneumothorax. No pleural effusion. Heart: Trace pericardial fluid which is likely physiologic. Lymph nodes: There are mildly prominent mediastinal lymph nodes which are nonenlarged. Bones/joints: Unremarkable. No acute fracture. Soft tissues: Unremarkable. IMPRESSION: 1. No central pulmonary arterial filling defect is seen. Subsegmental vessels are not well evaluated due to technical factors. 2. No dense parenchymal consolidation, pleural effusion, or pneumothorax.
--- NOTE | 2023-08-29 13:07 | CA_ITS ---
APPROVED REPORT EXAM: Comprehensive 2D, Doppler, and color-flow Echocardiogram Data Processing Control Clerk: Patricia Gallegos RVT Ht: 6 ft 0 in Wt: 257lbs BSA: 2.37 BP: 128/69 mmHg Indications: ANGINA,ABN EKG,HTN,HLD M-Mode Dimensions RVDd 2.33 cm (0.9-2.6) LA Diam 3.96 cm (1.9-4.0) LVDd 4.01 cm (3.5-5.7) LVDs 2.97 cm (3.5-5.7) IVSd 1.00 cm (0.6-1.1) PWd 0.60 cm (0.6-1.1) EF (Teich) 51.40% FS 25.90% EDV (Teich) 70.40 mL ESV (Teich) 34.20 mL LV Diastology E Decel Time 267 (160-240 msec) E/A Ratio 1.5 Aortic Valve AO Peak GR. 3.00 mmHg Mitral Valve MV E Max Nishant. 73.0 (40-130 cm/s) MV A Velocity 50.0 (40-130 cm/s) E/A Ratio 1.46 MV PHT 78.0 ms Pulmonary Valve PV Peak Velocity 79.0 (50-150 cm/s) Tricuspid Valve TR P. Velocity 200.00 cm/s RAP Estimate 10.00 mmHg RVSP 25.90 mmHg Left Ventricle The left ventricle is normal size. The left ventricular systolic function is normal. The left ventricular ejection fraction is within the normal range. There is increased LV wall thickness. There is normal LV segmental wall motion. The left ventricular diastolic function is normal. LVEF is 55%. Right Ventricle Right ventricle is moderately dilated. Right ventricle is mildly to moderately hypokinetic. Atria The left atrium size is normal. The right atrium size is normal. There is no Doppler evidence of interatrial shunt. Aortic Valve The aortic valve opens well. Trace aortic regurgitation. There is no aortic valvular stenosis. Mitral Valve The mitral valve is normal in structure. No evidence of mitral valve stenosis. Trace mitral regurgitation. Tricuspid Valve The tricuspid valve leaflets are thin and pliable. Trace tricuspid regurgitation. There is insufficient TR jet to estimate RVSP. Pulmonic Valve The pulmonary valve is normal in structure. Trace pulmonic regurgitation. Great Vessels The aortic root is normal in size. The ascending aorta is normal in size. The IVC is not well-visualized. Pericardium There is no pericardial effusion. Other Information Study Quality: Technically Difficult Conclusion Difficult study due to poor acoustic windows. Normal LV systolic function. Moderate RV dilation with mild to moderate reduction in RV function. No significant valvular stenosis or regurgitation. Further evaluation for RV dilation with outpatient cardiac MRI ([facility] protocol) is recommended. Electronically signed by : Joan Reyes MD 08/31/2023 01:40:33
[2023-08-29 13:29] LABS: Free Thyroxine Index 2.4 ug/dL (5.93-13.13); T4 (Thyroxine) 7.5 ug/dl (5.53-11.0); Triiodothryronine (T3) Uptake 32 % (23.5-40.5)
[2023-08-29] MEDS: IOPAMIDOL-370 (76%);100ML BOTTLE 50 ML IV (13:36)
[2023-08-29 13:43] LABS: Thyroid Stimulating Hormone 3.43 uIU/mL (0.465-4.68)
--- NOTE | 2023-08-29 14:39 | P.HP_ITS ---
History of Present Illness *Admission Date: 08/29/23 *Reason for visit:: Chest pain *History of present illness: Patient is a 33-year-old male with past medical history of family history of early CAD, chest pains, hypertension hyperlipidemia hypothyroidism who presents to the hospital from cardiology office for possible unstable angina. Patient mentions he is concerned about his heart given his family history of heart disease. He has been having recurrent chest pains associated with exertion, his EKG was fine negative for acute AL. He was admitted for cardiac cath. Patient otherwise denies chest pain at time of my evaluation, nausea vomiting diarrhea constipation dysuria fevers chills. [facility] Disclaimer: The information contained in this section may have been updated after the patient was seen, as this information can be updated by other users. Medical History Depression Anxiety Hyperlipidemia Hypertension Bipolar II disorder Surgical History H/O hernia repair History of appendectomy Family History (Updated 08/29/23 @ 10:32 by Michelle Willis) Father Cancer Other Coronary artery disease Heart attack Social History (Updated 08/29/23 @ 10:33 by Michelle Willis) Smoking Status: Never smoker alcohol intake: never substance use type: denies use current occupational status: employed and other Travel in the last 8 weeks: None number of children: 1 Review of Systems Review of Systems Review of systems:: pertinent systems reviewed and negative unless documented below Meds Home Medications and Allergies Home Medications Medication Instructions Recorded Confirmed Type famotidine 40 mg tablet 40 mg PO DAILY 02/21/22 08/29/23 History levothyroxine 50 mcg tablet 50 mcg PO DAILY 02/05/23 08/29/23 History pravastatin 10 mg tablet 10 mg PO DAILY #30 tabs 05/21/23 08/29/23 Rx ibuprofen 800 mg tablet (IBU) 800 mg PO Q8HP PRN Moderate Pain 07/17/23 08/29/23 Rx #30 tabs losartan 50 mg tablet 50 mg PO BID 90 days #180 tabs 08/07/23 08/29/23 Rx cariprazine 3 mg capsule (Vraylar) 3 mg PO DAILY 08/29/23 08/29/23 History gabapentin 300 mg capsule 300 mg PO TID 08/29/23 08/29/23 History omega 8-xer-max-fish oil 100 1,000 cap PO DAILY 08/29/23 08/29/23 History mg-160 mg-1,000 mg capsule (Fish Oil) omeprazole 40 mg capsule,delayed 40 mg PO DAILY 08/29/23 08/29/23 History release ondansetron 4 mg disintegrating 4 mg PO Q8H PRN nausea and 08/29/23 08/29/23 Rx tablet vomiting 4 days #12 tabs sertraline 100 mg tablet 100 mg PO DAILY 08/29/23 08/29/23 History New Prescriptions to Start Prescriptions: Allergies Allergy/AdvReac Type Severity Reaction Status Date / Time No Known Allergies Allergy Verified 08/29/23 10:30 Exam Data for Last 24 hours Vital signs and Labs for Last 24 Hours: Pulse Resp BP Pulse Ox O2 Del Method 77 20 133/71 95 Room Air 08/29/23 13:28 08/29/23 13:28 08/29/23 13:28 08/29/23 13:28 08/29/23 13:28 Laboratory Results - last 24 hr 08/29/23 11:45: WBC 7.5, RBC 5.76, Hgb 16.1, Hct 49.6, MCV 86.2, MCH 28.0, MCHC 32.5, RDW 14.1, Plt Count 279, MPV 7.9, Neut % (Auto) 71.7, Lymph % (Auto) 22.8, [place] % (Auto) 4.0, Eos % (Auto) 0.7, Baso % (Auto) 0.7, Neut # (Auto) 5.4, Lymph # (Auto) 1.7, [place] # (Auto) 0.3, Eos # (Auto) 0.1, Baso # (Auto) 0.1, Sodium 142, Potassium 4.0, Chloride 107, Carbon Dioxide 28, BUN 12, Creatinine 0.80, Estimated Creat Clear 219, Estimated GFR 112, Est GFR ( Amer) 136, Glucose 115 H, Calcium 9.6, TSH 3.43, Free T4 Index 2.4 L, Thyroxine (T4) 7.5, T3 Uptake 32 I & O for Last 24 hours: Intake & Output 08/26/23 08/27/23 08/28/23 08/29/23 23:59 23:59 23:59 23:59 Weight 117.1 kg Constitutional Constitutional: no acute distress *Routine HEENT Exam Head: Present normocephalic Eye: Present EOMI and PERRL ENT: Present mucous membranes moist *Routine Neck Exam Neck: Present supple; Absent lymphadenopathy *Routine Respiratory Exam Respiratory: Present CTA bilaterally *Routine Cardiovascular Exam Cardiovascular: Present RRR *Routine Abdominal Exam Abdominal: Present soft and normoactive bowel sounds; Absent tenderness *Routine Rectal Exam Rectal:: deferred *Routine Genitalia Exam Genitalia:: deferred *Routine Extremities Exam Extremities: Absent cyanosis, clubbing or edema *Routine Skin Exam Skin: Present warm; Absent rash *Routine Neurological Exam Neurological: Present alert and oriented X3 Assessment and Plan *Assessment and plan (1) Unstable angina: Status: Acute Category: Medical Code(s): I20.0 - Unstable angina (2) Chest pain: Status: Acute Qualifiers: Chest pain type: unspecified Qualified Code(s): R07.9 - Chest pain, unspecified Category: Medical Code(s): R07.9 - Chest pain, unspecified (3) Hypertension: Status: Acute Qualifiers: Hypertension type: unspecified Qualified Code(s): I10 - Essential (primary) hypertension Category: Medical Code(s): I10 - Essential (primary) hypertension (4) Hyperlipidemia: Status: Acute Qualifiers: Hyperlipidemia type: unspecified Qualified Code(s): E78.5 - Hyperlipidemia, unspecified Category: Medical Code(s): E78.5 - Hyperlipidemia, unspecified (5) Hypothyroidism: Status: Acute Category: Medical Code(s): E03.9 - Hypothyroidism, unspecified Plan Patient is a 33-year-old male with past medical history of family history of early CAD, chest pains, hypertension hyperlipidemia hypothyroidism who presents to the hospital from cardiology office for possible unstable angina. Patient mentions he is concerned about his heart given his family history of heart disease. He has been having recurrent chest pains associated with exertion, his EKG was fine negative for acute AL. He was admitted for cardiac cath. Patient otherwise denies chest pain at time of my evaluation, nausea vomiting diarrhea constipation dysuria fevers chills. Assessment and plan Chest pain suspected unstable angina S/p cardiac cath, no coronary artery stenosis noticed, no stenting performed CTA chest has been ordered Echocardiogram Monitor on cardiac telemetry Tachycardia during cardiac cath Check TSH Continue home levothyroxine Chronic medical conditions Hypertension Hyperlipidemia Hypothyroidism -Continue home levothyroxine, metoprolol, statin, sertraline DVT prophylaxis- Lovenox
[2023-08-29 15:06] LABS: Carbon Dioxide 28 mmol/L (22.0-30.0)
[2023-08-29] MEDS: 0.9 % SODIUM CHLORIDE 50 ML VIAL IV (15:42)
[2023-08-29] MEDS: SODIUM CHLORIDE 0.9% 10ML SYR (RAD ONLY) 10 ML IV (15:42)
[2023-08-29] MEDS: IOPAMIDOL-370 (76%);100ML BOTTLE 100 ML IV (15:42)
[2023-08-29] MEDS: ACETAMINOPHEN 325MG TAB 650 MG PO (16:35)
[2023-08-29] MEDS: GABAPENTIN 300MG CAPSULE 300 MG PO (20:11)
[2023-08-29] MEDS: PANTOPRAZOLE 40MG TABLET 40 MG PO (20:11)
[2023-08-29] MEDS: PRAVASTATIN 20MG TAB 10 MG PO (21:00)
[2023-08-29] MEDS: CARIPRAZINE 3 MG 3 EACH PO (21:04)
[2023-08-30] VITALS: BP 121/59; PULSE 61; PULSE 76; RESP 16; TEMP 36.6; O2SAT 94
[2023-08-30 04:00] VITALS: BP 109/56; PULSE 56; PULSE 73; RESP 16; TEMP 36.6; O2SAT 98; BMI 34.9
--- NOTE | 2023-08-30 05:15 | PC.NURSE ---
Pt has rested well through the night. No complaints. Right radial site drsg c/d/i. No bleeding noted. VSS.
[2023-08-30] MEDS: LEVOTHYROXINE 50MCG (0.05MG) TAB 50 MCG PO (06:01)
[2023-08-30 06:02] LABS: Basophils % 0.6 % (0.1-2.0); Eosinophils # 0.1 K/mm3 (0.0-0.4); Eosinophils % 0.8 % (0.1-12.0); Hematocrit 44.4 % (42.0-52.0); Hemoglobin 14.5 g/dL (14.1-18.0); Lymphocytes # 1.7 K/mm3 (0.7-4.5); Lymphocytes % 26.6 % (10-50); Mean Corpuscular HGB Conc 32.6 g/dL (31.8-35.4); Mean Corpuscular Volume 85.8 fl (80-94); Mean Platelet Volume 8.1 fl (7.4-10.4); Monocytes # 0.3 K/mm3 (0.1-1.0); Monocytes % 4.7 % (1.7-9.3); Neutrophils # 4.2 K/mm3 (1.8-7.8); Neutrophils % 67.4 % (37.0-80.0); Platelet Count 242 K/mm3 (142-424); Red Blood Count 5.18 M/mm3 (4.60-6.20); Red Cell Distribution Width 14.7 % (11.5-17.5); White Blood Count 6.3 K/mm3 (4.8-10.8)
[2023-08-30 06:06] LABS: Chloride 110 mmol/L (98-107); Sodium 140 mmol/L (136-145)
[2023-08-30 06:07] LABS: Potassium 4.1 mmoL/L (3.5-5.1)
[2023-08-30 06:09] LABS: Blood Urea Nitrogen 13 mg/dl (9-20); Creatinine Clearance Estimated 220 mL/min (50-200); Estimated Glomerular Filt Rate 112 ml/min (>60); GFR (African American) 136 ML/MIN (>60)
[2023-08-30 06:10] LABS: Anion Gap 7.1 mEq/L (5-15); Calcium 8.8 mg/dl (8.4-10.2); Carbon Dioxide 27 mmol/L (22.0-30.0); Glucose 109 mg/dl (74-100)
[2023-08-30 08:00] VITALS: BP 130/81; PULSE 60; RESP 18; TEMP 36.9; O2SAT 97
[2023-08-30] MEDS: SERTRALINE 100MG TABLET 100 MG PO (08:36)
[2023-08-30] MEDS: FAMOTIDINE 20MG TABLET 40 MG PO (08:36)
[2023-08-30] MEDS: IRBESARTAN 75MG TABLET 75 MG PO (08:37)
[2023-08-30] MEDS: GABAPENTIN 300MG CAPSULE 300 MG PO (08:37)
--- NOTE | 2023-08-30 10:10 | EXP.DC.SUM ---
General Admission date:: 08/29/23 Discharge date: 08/30/23 HPI HPI HPI: Patient is a 33-year-old male with past medical history of family history of early CAD, chest pains, hypertension hyperlipidemia hypothyroidism who presents to the hospital from cardiology office for possible unstable angina. Patient mentions he is concerned about his heart given his family history of heart disease. He has been having recurrent chest pains associated with exertion, his EKG was fine negative for acute NV. He was admitted for cardiac cath. Patient otherwise denies chest pain at time of my evaluation, nausea vomiting diarrhea constipation dysuria fevers chills. Hospital Course Hospital Course Hospital Course: Patient was seen and evaluated at the bedside on the day of discharge. Patient wishes to be discharged. All patient questions were answered and patient was given time to ask questions. Patient was discharged in stable condition. Patient understands that she can return to ER in case of any sudden changes in health. Total time spent on DC - 38 mins Patient is a 33-year-old male with past medical history of family history of early CAD, chest pains, hypertension hyperlipidemia hypothyroidism who presents to the hospital from cardiology office for possible unstable angina. Patient mentions he is concerned about his heart given his family history of heart disease. He has been having recurrent chest pains associated with exertion, his EKG was fine negative for acute NV. He was admitted for cardiac cath. Patient otherwise denies chest pain at time of my evaluation, nausea vomiting diarrhea constipation dysuria fevers chills. Assessment and plan Chest pain suspected unstable angina - ACS ruled out S/p cardiac cath, no coronary artery stenosis noticed, no stenting performed CTA chest has been ordered - negative for acute pathology, Echocardiogram - pending result, caardiology to follow up, stable for discharge per cardiology, discussed Tachycardia during cardiac cath - resolved, likely due to anxiety Check TSH - WNL Continue home levothyroxine Chronic medical conditions Hypertension Hyperlipidemia Hypothyroidism -Continue home levothyroxine, metoprolol, statin, sertraline Exam Data for Last 24 hours Vital signs and Labs for Last 24 Hours: Temp Pulse Resp BP Pulse Ox O2 Del Method 98.4 F 60 18 130/81 97 Room Air 08/30/23 08:00 08/30/23 08:00 08/30/23 08:00 08/30/23 08:00 08/30/23 08:00 08/30/23 09:00 Laboratory Results - last 24 hr 08/29/23 11:45: WBC 7.5, RBC 5.76, Hgb 16.1, Hct 49.6, MCV 86.2, MCH 28.0, MCHC 32.5, RDW 14.1, Plt Count 279, MPV 7.9, Neut % (Auto) 71.7, Lymph % (Auto) 22.8, [place] % (Auto) 4.0, Eos % (Auto) 0.7, Baso % (Auto) 0.7, Neut # (Auto) 5.4, Lymph # (Auto) 1.7, [place] # (Auto) 0.3, Eos # (Auto) 0.1, Baso # (Auto) 0.1, Sodium 142, Potassium 4.0, Chloride 107, Carbon Dioxide 28, Anion Gap 11.0, BUN 12, Creatinine 0.80, Estimated Creat Clear 219, Estimated GFR 112, Est GFR ( Amer) 136, Glucose 115 H, Calcium 9.6, TSH 3.43, Free T4 Index 2.4 L, Thyroxine (T4) 7.5, T3 Uptake 32 08/30/23 05:27: WBC 6.3, RBC 5.18, Hgb 14.5, Hct 44.4, MCV 85.8, MCH 28.0, MCHC 32.6, RDW 14.7, Plt Count 242, MPV 8.1, Neut % (Auto) 67.4, Lymph % (Auto) 26.6, [place] % (Auto) 4.7, Eos % (Auto) 0.8, Baso % (Auto) 0.6, Neut # (Auto) 4.2, Lymph # (Auto) 1.7, [place] # (Auto) 0.3, Eos # (Auto) 0.1, Baso # (Auto) 0.0, Sodium 140, Potassium 4.1, Chloride 110 H, Carbon Dioxide 27, Anion Gap 7.1, BUN 13, Creatinine 0.80, Estimated Creat Clear 220, Estimated GFR 112, Est GFR ( Amer) 136, Glucose 109 H, Calcium 8.8 I & O for Last 24 hours: Intake & Output 08/27/23 08/28/23 08/29/23 08/30/23 23:59 23:59 23:59 23:59 Intake Total 480 / 780 1212 / 1212 Output Total 0 / 0 Balance 480 / 780 1211 / 1212 Weight 117.1 kg 117.1 kg Constitutional Constitutional: no acute distress *Routine HEENT Exam Head: Present normocephalic Eye: Present EOMI and PERRL ENT: Present mucous membranes moist *Routine Neck Exam Neck: Present supple; Absent lymphadenopathy *Routine Respiratory Exam Respiratory: Present CTA bilaterally *Routine Cardiovascular Exam Cardiovascular: Present RRR *Routine Abdominal Exam Abdominal: Present soft and normoactive bowel sounds; Absent tenderness *Routine Extremities Exam Extremities: Absent cyanosis, clubbing or edema *Routine Skin Exam Skin: Present warm; Absent rash *Routine Neurological Exam Neurological: Present alert and oriented X3 Results Data Completed and Pending Labs on day of discharge: Labs from last 24 hours 08/30/23 08/29/23 05:27 11:45 WBC 6.3 7.5 RBC 5.18 5.76 Hgb 14.5 16.1 Hct 44.4 49.6 MCV 85.8 86.2 MCH 28.0 28.0 MCHC 32.6 32.5 RDW 14.7 14.1 Plt Count 242 279 MPV 8.1 7.9 Neut % (Auto) 67.4 71.7 Lymph % (Auto) 26.6 22.8 [place] % (Auto) 4.7 4.0 Eos % (Auto) 0.8 0.7 Baso % (Auto) 0.6 0.7 Neut # (Auto) 4.2 5.4 Lymph # (Auto) 1.7 1.7 [place] # (Auto) 0.3 0.3 Eos # (Auto) 0.1 0.1 Baso # (Auto) 0.0 0.1 Sodium 140 142 Potassium 4.1 4.0 Chloride 110 H 107 Carbon Dioxide 27 28 Anion Gap 7.1 11.0 BUN 13 12 Creatinine 0.80 0.80 Estimated Creat Clear 220 219 Estimated GFR 112 112 Est GFR ( Amer) 136 136 Glucose 109 H 115 H Calcium 8.8 9.6 TSH 3.43 Free T4 Index 2.4 L Thyroxine (T4) 7.5 T3 Uptake 32 DS: Diagnosis Discharge Diagnosis (1) Unstable angina: Status: Acute Code(s): I20.0 - Unstable angina (2) Chest pain: Status: Acute Code(s): R07.9 - Chest pain, unspecified Qualifiers: Chest pain type: unspecified Qualified Code(s): R07.9 - Chest pain, unspecified (3) Hypertension: Status: Acute Code(s): I10 - Essential (primary) hypertension Qualifiers: Hypertension type: unspecified Qualified Code(s): I10 - Essential (primary) hypertension (4) Hyperlipidemia: Status: Acute Code(s): E78.5 - Hyperlipidemia, unspecified Qualifiers: Hyperlipidemia type: unspecified Qualified Code(s): E78.5 - Hyperlipidemia, unspecified (5) Hypothyroidism: Status: Acute Code(s): E03.9 - Hypothyroidism, unspecified Meds Home Medications and Allergies Home Medications Medication Instructions Recorded Confirmed Type famotidine 40 mg tablet 40 mg PO DAILY 02/21/22 08/29/23 History levothyroxine 50 mcg tablet 50 mcg PO DAILY 02/05/23 08/29/23 History pravastatin 10 mg tablet 10 mg PO DAILY #30 tabs 05/21/23 08/29/23 Rx ibuprofen 800 mg tablet (IBU) 800 mg PO Q8HP PRN Moderate Pain 07/17/23 08/29/23 Rx #30 tabs losartan 50 mg tablet 50 mg PO BID 90 days #180 tabs 08/07/23 08/29/23 Rx cariprazine 3 mg capsule (Vraylar) 3 mg PO DAILY 08/29/23 08/29/23 History gabapentin 300 mg capsule 300 mg PO TID 08/29/23 08/29/23 History omega 6-msc-lxv-fish oil 100 1,000 cap PO DAILY 08/29/23 08/29/23 History mg-160 mg-1,000 mg capsule (Fish Oil) omeprazole 40 mg capsule,delayed 40 mg PO DAILY 08/29/23 08/29/23 History release ondansetron 4 mg disintegrating 4 mg PO Q8H PRN nausea and 08/29/23 08/29/23 Rx tablet vomiting 4 days #12 tabs sertraline 100 mg tablet 100 mg PO DAILY 08/29/23 08/29/23 History New Prescriptions to Start Prescriptions: Allergies Allergy/AdvReac Type Severity Reaction Status Date / Time No Known Allergies Allergy Verified 08/29/23 10:30 Discharge Plan Disposition Patient Disposition: Home, Self-Care Condition: Good Follow up Plan Follow up with: Lilian Gabriel APRN [Primary Care Provider] - 09/05/23 11:00 am John Schulte MD [Staff Physician] - 09/05/23 9:30 am Prescriptions/Medication Reconciliation: Continued losartan 50 mg tablet 50 mg PO BID 90 Days Qty: 180 3RF omeprazole 40 mg capsule,delayed release(DR/EC) 40 mg PO DAILY levothyroxine 50 mcg tablet 50 mcg PO DAILY pravastatin 10 mg tablet 10 mg PO DAILY Qty: 30 2RF famotidine 40 mg tablet 40 mg PO DAILY Patient Comments: TAKE ONE TABLET BY MOUTH EVERY DAY sertraline 100 mg tablet 100 mg PO DAILY gabapentin 300 mg capsule 300 mg PO TID Vraylar 3 mg capsule 3 mg PO DAILY Fish Oil 100-160-1,000 mg Capsule 1,000 cap PO DAILY ibuprofen [IBU] 800 mg tablet 800 mg PO Q8HP PRN (Reason: Moderate Pain) Qty: 30 0RF ondansetron 4 mg tablet,disintegrating 4 mg PO Q8H PRN (Reason: nausea and vomiting) 4 Days Qty: 12 0RF Problem Reconciliation Problems Reviewed?: Yes Patient Discharge Instructions ACTIVITY: Ambulate as tolerated DIET: continue same diet Patient Instructions: Cardiac Catheterization, DI for Chest Pain, Surgical Site Infection Providers Primary Care Provider: Lilian Gabriel Admit Provider: Emmanuelle Earl Attending Provider: Emmanuelle Earl
--- NOTE | 2023-08-30 10:25 | P.CONCA_ITS ---
History of Present Illness History of Present Illness Consult date: 08/30/23 Requesting physician: Emmanuelle Earl Consult reason: chest pain Chief complaint: Chest pain History of present illness: 33-year-old white male without known cardiovascular disease. Has had several weeks of episodic chest discomfort which seems to be worse after eating. 2 days ago ate [employer] and developed severe chest and epigastric discomfort radiating to his left arm associated with nausea. He was seen in the emergency room with ACS ruled out but referred to our office for evaluation. He and his girlfriend reports symptoms were worsening and they are very concerned. We discussed the option of outpatient testing versus admission with heart cath and they preferred admission with heart cath. Left heart cath performed yesterday showed normal coronaries. While sedated his heart rate was still 130s that he was kept overnight for further workup. CTA negative, 2D echo is pending. His labs are largely unremarkable and vitals are normal. Reports he has seen GI in the past but has had little improvement with Pepcid and omeprazole. States he has history of H. pylori in the past and his GI tract has not been the same sin ce. 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 [facility] Disclaimer: The information contained in this section may have been updated after the patient was seen, as this information can be updated by other users. Medical History Depression Anxiety Hyperlipidemia Hypertension Bipolar II disorder Surgical History H/O hernia repair History of appendectomy Family History Father Cancer Other Coronary artery disease Heart attack Social History Smoking Status: Never smoker alcohol intake: never substance use type: denies use current occupational status: employed and other Travel in the last 8 weeks: None number of children: 1 Review of Systems Constitutional Constitutional: Denies fatigue and Denies weakness Eyes Eyes: Denies loss of vision ENT Ears, Nose, Mouth, and Throat: Denies hearing loss and Denies vertigo *Cardiovascular Cardiovascular: Reports chest pain, Denies dyspnea and Denies syncope *Respiratory Respiratory: Denies cough and Denies dyspnea *Gastrointestinal Gastrointestinal: Reports abdominal pain, Denies change in stool character, Reports nausea and Denies vomiting *Genitourinary Genitourinary: Denies difficulty urinating *Musculoskeletal Musculoskeletal: Denies muscle weakness Integumentary/Breasts Skin/Breast: Denies changing lesions *Neurologic Neurologic: Denies loss of vision, Denies syncope, Denies vertigo and Denies weakness Endocrine Endocrine: Denies fatigue Exam Data for Last 24 hours Vital signs and Labs for Last 24 Hours: Temp Pulse Resp BP Pulse Ox O2 Del Method 98.4 F 60 18 130/81 97 Room Air 08/30/23 08:00 08/30/23 08:00 08/30/23 08:00 08/30/23 08:00 08/30/23 08:00 08/30/23 09:00 Laboratory Results - last 24 hr 08/29/23 11:45: WBC 7.5, RBC 5.76, Hgb 16.1, Hct 49.6, MCV 86.2, MCH 28.0, MCHC 32.5, RDW 14.1, Plt Count 279, MPV 7.9, Neut % (Auto) 71.7, Lymph % (Auto) 22.8, [place] % (Auto) 4.0, Eos % (Auto) 0.7, Baso % (Auto) 0.7, Neut # (Auto) 5.4, Lymph # (Auto) 1.7, [place] # (Auto) 0.3, Eos # (Auto) 0.1, Baso # (Auto) 0.1, Sodium 142, Potassium 4.0, Chloride 107, Carbon Dioxide 28, Anion Gap 11.0, BUN 12, Creatinine 0.80, Estimated Creat Clear 219, Estimated GFR 112, Est GFR ( Amer) 136, Glucose 115 H, Calcium 9.6, TSH 3.43, Free T4 Index 2.4 L, Thyroxine (T4) 7.5, T3 Uptake 32 08/30/23 05:27: WBC 6.3, RBC 5.18, Hgb 14.5, Hct 44.4, MCV 85.8, MCH 28.0, MCHC 32.6, RDW 14.7, Plt Count 242, MPV 8.1, Neut % (Auto) 67.4, Lymph % (Auto) 26.6, [place] % (Auto) 4.7, Eos % (Auto) 0.8, Baso % (Auto) 0.6, Neut # (Auto) 4.2, Lymph # (Auto) 1.7, [place] # (Auto) 0.3, Eos # (Auto) 0.1, Baso # (Auto) 0.0, Sodium 140, Potassium 4.1, Chloride 110 H, Carbon Dioxide 27, Anion Gap 7.1, BUN 13, Creatinine 0.80, Estimated Creat Clear 220, Estimated GFR 112, Est GFR ( Amer) 136, Glucose 109 H, Calcium 8.8 I & O for Last 24 hours: Intake & Output 08/27/23 08/28/23 08/29/23 08/30/23 23:59 23:59 23:59 23:59 Intake Total 480 / 780 1212 / 1212 Output Total 0 / 0 Balance 480 / 780 1212 / 1212 Weight 258 lb 2.581 oz 258 lb 2.581 oz Constitutional Constitutional: no acute distress and cooperative *Routine HEENT Exam Eye: Present PERRL *Routine Respiratory Exam Respiratory: Present CTA bilaterally; Absent accessory muscle use, wheezes or crackles *Routine Cardiovascular Exam Cardiovascular: Present RRR, Normal S1 and Normal S2; Absent murmur, gallop or rubs *Routine Abdominal Exam Abdominal: Present soft; Absent tenderness Comments: Mild right upper quadrant pain on palpation *Routine Extremities Exam Extremities: Present pulses intact; Absent cyanosis or edema *Routine Skin Exam Skin: Present intact; Absent erythema or wounds *Routine Neurological Exam Neurological: Present alert and oriented X3 Routine Psychiatric Exam Psychiatric: Present cooperative Meds Home Medications and Allergies Home Medications Medication Instructions Recorded Confirmed Type famotidine 40 mg tablet 40 mg PO DAILY 02/21/22 08/29/23 History levothyroxine 50 mcg tablet 50 mcg PO DAILY 02/05/23 08/29/23 History pravastatin 10 mg tablet 10 mg PO DAILY #30 tabs 05/21/23 08/29/23 Rx ibuprofen 800 mg tablet (IBU) 800 mg PO Q8HP PRN Moderate Pain 07/17/23 08/29/23 Rx #30 tabs losartan 50 mg tablet 50 mg PO BID 90 days #180 tabs 08/07/23 08/29/23 Rx cariprazine 3 mg capsule (Vraylar) 3 mg PO DAILY 08/29/23 08/29/23 History gabapentin 300 mg capsule 300 mg PO TID 08/29/23 08/29/23 History omega 6-xqe-lfi-fish oil 100 1,000 cap PO DAILY 08/29/23 08/29/23 History mg-160 mg-1,000 mg capsule (Fish Oil) omeprazole 40 mg capsule,delayed 40 mg PO DAILY 08/29/23 08/29/23 History release ondansetron 4 mg disintegrating 4 mg PO Q8H PRN nausea and 08/29/23 08/29/23 Rx tablet vomiting 4 days #12 tabs sertraline 100 mg tablet 100 mg PO DAILY 08/29/23 08/29/23 History New Prescriptions to Start Prescriptions: Allergies Allergy/AdvReac Type Severity Reaction Status Date / Time No Known Allergies Allergy Verified 08/29/23 10:30 Assessment and Plan *Assessment and plan (1) Chest pain: Status: Acute Qualifiers: Chest pain type: unspecified Qualified Code(s): R07.9 - Chest pain, unspecified Category: Medical Code(s): R07.9 - Chest pain, unspecified (2) GERD (gastroesophageal reflux disease): Status: Acute Category: Medical Code(s): K21.9 - Gastro-esophageal reflux disease without esophagitis (3) History of Helicobacter pylori infection: Status: Acute Category: Medical Code(s): Z86.19 - Personal history of other infectious and parasitic diseases Plan Noncardiac chest pain -LHC revealed normal coronaries -CTA negative -Echo pending -Symptoms most consistent with GI issue. He has right upper quadrant pain and history of H. pylori, symptoms worse after eating. I recommend follow-up with GI. JOSHUA -untreated per pt, we discussed home sleep study again in the future Obesity -discussed diet/exercise Hx of GERD and H. Pylori -cont PPI, propbiotics -they are willing to f/u with GI outpatient Htn -cont losartan HLD -cont pravastatin Anxiety -on sertraline and vraylar Will await 2D ECHO results then likely ok for DC later today.
--- NOTE | 2023-08-31 11:21 | CARE MANAGER ---
Spoke with patient related to hospital discharge. Patient states that he is doing well. he did not have any new medications and is aware of follow up appointments. Denies questions or concerns. ALBERT Montague
== END 2023-08-30 10:40 | disposition home or self-care (01) ==
LOC: 2ND 11:32
PROVIDERS: Internal Medicine; Admitting Provider Internal Medicine; PCP Nurse Practitioner Family; Visit Provider Internal Medicine
DX: I25.110 Atherosclerotic heart disease of native coronary artery with unstable angina pectoris (principal); I10 Essential (primary) hypertension; Z82.49 Family history of ischemic heart disease and other diseases of the circulatory system; E78.5 Hyperlipidemia, unspecified; E03.9 Hypothyroidism, unspecified; Z79.899 Other long term (current) drug therapy
CPT/HCPCS: 36415; 71275; 80048; 84436; 84443; 84479; 85025; 93306; 93458; 99152; C1725; C1769; G0378; J1644; Q9967

== ENCOUNTER 2023-09-24 14:29 | Outpatient (CLI) | payer OTHER, SELFPAY ==
[2023-09-24 13:55] LABS: Adenovirus,PCR Not Detected (NotDetected); Bordetella Pertussis Not Detected (NotDetected); Chlamydophila Pneumoniae, PCR Not Detected (NotDetected); Coronavirus 19, PCR Not Detected (NotDetected); Coronavirus 229E Not Detected (NotDetected); Coronavirus NL63 Not Detected (NotDetected); Coronavirus OC43 Not Detected (NotDetected); Coronovirus HKU1,PCR Not Detected (NotDetected); Human Metapneumovirus Not Detected (NotDetected); Influenza A, PCR Not Detected (NotDetected); Influenza AH1, 2009 Not Detected (NotDetected); Influenza AH1, PCR Not Detected (NotDetected); Influenza AH3,PCR Not Detected (NotDetected); Influenza B, PCR Not Detected (NotDetected); Mycoplasma Pneumoniae, PCR Not Detected (NotDetected); Parainfluenza 1, PCR Not Detected (NotDetected); Parainfluenza 2, PCR Not Detected (NotDetected); Parainfluenza 3, PCR Not Detected (NotDetected); Parainfluenza 4, PCR Not Detected (NotDetected); Respiratory Syncytial Virus Not Detected (NotDetected)
[2023-09-24 15:59] LABS: Rhinovirus/Enterovirus Detected (NotDetected)
== END 2023-09-24 23:59 | disposition home or self-care (01) ==
LOC: LAB.DROPOF 14:29
PROVIDERS: PCP Nurse Practitioner Family; Visit Provider Nurse Practitioner Family
DX: R50.9 Fever, unspecified (principal); J02.9 Acute pharyngitis, unspecified; R05.8 Other specified cough; Z20.828 Contact with and (suspected) exposure to other viral communicable diseases; B34.1 Enterovirus infection, unspecified
CPT/HCPCS: 87581; 87632; 87635; 87798

== ENCOUNTER 2023-10-01 07:26 | Outpatient (CLI) | payer OTHER, SELFPAY ==
--- NOTE | 2023-10-01 07:27 | US_ITS ---
FINAL REPORT CLINICAL HISTORY: RUQ abd pain FINDINGS: Sonographic images of the right upper quadrant were obtained. The pancreas is partially obscured. The liver is fatty infiltrated. There is sludge in the gallbladder. There is no evidence of biliary ductal dilatation.The common duct measures 3mm. Limited images of the right kidney are unremarkable. IMPRESSION: Fatty infiltration of the liver. Sludge in the gallbladder. Normal common duct. Reviewed, Interpreted and Dictated by Alan Oscar MD Transcribed by Mary Grace Little Authenticated and [facility]
== END 2023-10-01 23:59 | disposition home or self-care (01) ==
LOC: RAD 07:27
PROVIDERS: PCP Nurse Practitioner Family; Visit Provider Nurse Practitioner Family
DX: R10.11 Right upper quadrant pain (principal)
CPT/HCPCS: 76705

== ENCOUNTER 2024-01-18 17:57 | Emergency (ER) | payer OTHER, SELFPAY ==
--- NOTE | 2024-01-18 18:07 | EXP.UTC ---
Discharge Plan Disposition Patient Disposition: Home, Self-Care Condition: Good Prescriptions Prescriptions: New methylprednisolone 4 mg Tablets,Dose Pack 4 mg PO DIRECTED 6 Days Qty: 21 0RF Rx Instructions: Take 1 pack as directed for 6 days yenxzxypvkwxhux-svjeptejg-FB [Bromfed DM] 2-30-10 mg/5 mL Syrup 5 ml PO Q6H PRN (Reason: Cough) Qty: 240 0RF amoxicillin-pot clavulanate 875-125 mg Tablet 1 tab PO Q12H Qty: 20 0RF ondansetron 4 mg Tablet,Disintegrating 4 mg PO Q8H PRN (Reason: Nausea) Qty: 12 0RF No Action omeprazole 40 mg capsule,delayed release(DR/EC) 40 mg PO DAILY triamcinolone acetonide 0.1 % cream 1 applic topical QID 10 Days Qty: 80 0RF prednisone 20 mg tablet 20 mg PO BID 5 Days Qty: 10 0RF losartan 50 mg tablet 50 mg PO DAILY Qty: 30 2RF pravastatin 10 mg tablet See Rx Instructions .ROUTE .COMPLEX Qty: 30 2RF Dose Instruction: TAKE ONE TABLET BY MOUTH EVERY DAY Rx Instructions: TAKE ONE TABLET BY MOUTH EVERY DAY levothyroxine 50 mcg tablet 50 mcg PO DAILY Qty: 30 2RF sertraline 100 mg tablet 100 mg PO DAILY Qty: 30 2RF Vraylar 3 mg capsule See Rx Instructions .ROUTE .COMPLEX Qty: 30 2RF Dose Instruction: TAKE ONE CAPSULE BY MOUTH EVERY DAY Rx Instructions: TAKE ONE CAPSULE BY MOUTH EVERY DAY gabapentin 300 mg capsule See Rx Instructions .ROUTE .COMPLEX Qty: 90 0RF Dose Instruction: TAKE ONE CAPSULE BY MOUTH THREE TIMES DAILY MAY CAUSE DROWSINESS Rx Instructions: TAKE ONE CAPSULE BY MOUTH THREE TIMES DAILY MAY CAUSE DROWSINESS famotidine 40 mg tablet 40 mg PO DAILY Patient Comments: TAKE ONE TABLET BY MOUTH EVERY DAY Fish Oil 100-160-1,000 mg Capsule 1,000 cap PO DAILY ibuprofen [IBU] 800 mg tablet 800 mg PO Q8HP PRN (Reason: Moderate Pain) Qty: 30 0RF Referrals Follow up/Referrals: Lilian Gabriel APRN [Primary Care Provider] - See instructions Activity Restrictions/Add. Instructions Additional Instructions/Restrictions: Drink plenty of fluids. Take tylenol or ibuprofen for pain or fever. Take the medications as directed. Follow up with your regular doctor. GO TO THE ER FOR ANY WORSENING SYMPTOMS Clinical Impressions Clinical Impression: Otitis media Instructions Patient Instructions: Middle Ear Infection, Methylprednisolone, Amoxicillin and Clavulanic Acid Print Language Print Language: Romansh Discharge ED Provider: Julio Cesar Mckee [facility] [place] HPI General Stated complaint: Left earache Time Seen by Provider: 01/18/24 18:06 Related Data Home Medications ?Medication ?Instructions ?Recorded ?Confirmed famotidine 40 mg tablet 40 mg PO DAILY 02/21/22 12/05/23 omega 4-olg-xkz-fish oil 100 1,000 cap PO DAILY 08/29/23 12/05/23 mg-160 mg-1,000 mg capsule (Fish Oil) omeprazole 40 mg capsule,delayed 40 mg PO DAILY 08/29/23 12/05/23 release Previous Rx's ?Medication ?Instructions ?Recorded ibuprofen 800 mg tablet (IBU) 800 mg PO Q8HP PRN Moderate Pain 07/17/23 #30 tabs pravastatin 10 mg tablet See Rx Instructions .Route 09/07/23 .COMPLEX #30 tabs losartan 50 mg tablet 50 mg PO DAILY #30 tabs 09/24/23 prednisone 20 mg tablet 20 mg PO BID 5 days #10 tabs 11/19/23 triamcinolone acetonide 0.1 % 1 applic topical QID 10 days #80 11/19/23 topical cream grams levothyroxine 50 mcg tablet 50 mcg PO DAILY #30 tabs 12/07/23 sertraline 100 mg tablet 100 mg PO DAILY #30 tabs 12/07/23 cariprazine 3 mg capsule (Vraylar) See Rx Instructions .Route 12/17/23 .COMPLEX #30 caps gabapentin 300 mg capsule See Rx Instructions .Route 01/09/24 .COMPLEX #90 caps amoxicillin 875 mg-potassium 1 tab PO Q12H #20 tabs 01/18/24 clavulanate 125 mg tablet nlrakmmwrdtoszu-ureitwdgaemmdiy-KQ 5 ml PO Q6H PRN Cough #240 mL 01/18/24 2 mg-30 mg-10 mg/5 mL oral syrup (Bromfed DM) methylprednisolone 4 mg tablets in 4 mg PO DIRECTED 6 days #21 tabs 01/18/24 a dose pack ondansetron 4 mg disintegrating 4 mg PO Q8H PRN Nausea #12 tabs 01/18/24 tablet Allergies Allergy/AdvReac Type Severity Reaction Status Date / Time No Known Allergies Allergy Verified 12/05/23 15:04 [facility] Disclaimer: The information contained in this section may have been updated after the patient was seen, as this information can be updated by other users. Medical History Depression Anxiety Hyperlipidemia Hypertension Bipolar II disorder Surgical History H/O hernia repair History of appendectomy Family History Father Cancer Other Coronary artery disease Heart attack Social History Smoking Status: Never smoker alcohol intake: never substance use type: denies use current occupational status: employed and other Travel in the last 8 weeks: None number of children: 1 ROS Obtained: Yes All systems reviewed & no additional complaints except as documented Constitutional Constitutional: Denies chills, Reports fever(s) and Reports poor appetite Eyes Eyes: Denies eye discharge ENT Ears, Nose, Mouth, and Throat: Denies ear discharge, Reports otalgia, Denies hearing loss, Denies sinus pain and Reports sore throat Cardiovascular Cardiovascular: Denies chest pain and Denies dyspnea Respiratory Respiratory: Denies chest congestion, Reports cough and Denies dyspnea Gastrointestinal Gastrointestingal: Denies abdominal pain, diarrhea, nausea or vomiting Musculoskeletal Musculoskeletal: Denies arthralgias Integumentary/Breasts Skin/Breast: Denies rash Physical Exam General General appearance: alert and in no apparent distress Head Head exam: atraumatic, normocephalic and normal inspection Eye Eye exam: Present normal appearance; Absent PERRL or EOMI ENT ENT exam: Present mucous membranes moist and normal external ear exam Expanded ENT Exam TM/Canal exam: Bilateral TM: erythema, bulging and effusion Nose exam: Absent sinus tenderness Nasal speculum exam: Bilateral: normal Mouth exam: Present normal external inspection and other; Absent drooling Teeth exam: Present normal inspection Throat exam: Present tonsillar erythema and tonsillomegaly Neck Neck exam: Present normal inspection, full ROM and trachea midline; Absent tenderness, meningismus or lymphadenopathy Chest Chest inspection: Present normal inspection and symmetric chest wall rise; Absent tenderness Respiratory Respiratory exam: Present normal lung sounds bilaterally; Absent respiratory distress, wheezes or stridor Cardiovascular Cardiovascular exam: Present regular rate, normal rhythm and normal heart sounds; Absent tachycardia or irregular rhythm Abdominal Exam Abdominal exam: Present soft and normal bowel sounds; Absent distention, tenderness, guarding, rebound or rigidity Extremities Exam Extremities exam: Present normal inspection and normal capillary refill; Absent tenderness, joint swelling or calf tenderness Back Exam Back exam: Present normal inspection and full ROM; Absent tenderness, CVA tenderness (R) or CVA tenderness (L) Neurological Exam Neurological exam: Present alert, oriented X3, CN II-XII intact, normal gait and reflexes normal; Absent motor sensory deficit Psychiatric Psychiatric exam: Present normal affect and normal mood Skin Skin exam: Present warm, dry, intact and normal color Lymphatic Lymphatic Findings: no adenopathy Medical Decision Making Medical Records Medical records reviewed: No I reviewed the patient's medical records. Yordy Inquiry Pt receiving controlled substance: No
[2024-01-18 18:08] VITALS: BP 129/73; PULSE 71; RESP 16; TEMP 36.6; O2SAT 97; BMI 34.9
[2024-01-18 18:31] VITALS: BP 129/73; PULSE 71; RESP 16; TEMP 36.6; O2SAT 97
== END 2024-01-18 18:33 | disposition home or self-care (01) ==
PROVIDERS: Emergency Provider Nurse Practitioner Family; PCP Nurse Practitioner Family
DX: H66.92 Otitis media, unspecified, left ear (principal); H92.02 Otalgia, left ear
CPT/HCPCS: 99212; 99214; G0463

== ENCOUNTER 2024-01-21 15:47 | Emergency (ER) | payer OTHER, SELFPAY ==
[2024-01-21 16:05] VITALS: BP 133/78; PULSE 57; RESP 20; TEMP 36.7; O2SAT 97; BMI 35.6
--- NOTE | 2024-01-21 16:33 | ED_ITS ---
Discharge Plan Disposition Patient Disposition: Home, Self-Care Condition: Good Prescriptions Prescriptions: New fluticasone propionate [Flonase Allergy Relief] 50 mcg/actuation spray,suspension 2 spray intranasal DAILY Qty: 16 0RF Rx Instructions: administer into each nostril daily ciprofloxacin-dexamethasone 0.3-0.1 % drops,suspension 4 drp otic (ear) BID 7 Days Qty: 7.5 0RF Rx Instructions: apply to left ear as directed No Action gabapentin 300 mg capsule 300 mg PO TID Patient Comments: TAKE ONE CAPSULE BY MOUTH THREE TIMES DAILY MAY CAUSE DROWSINESS Vraylar 3 mg capsule 3 mg PO DAILY Referrals Follow up/Referrals: Lilian Gabriel APRN [Primary Care Provider] - See instructions Activity Restrictions/Add. Instructions Additional Instructions/Restrictions: *Monitor Temp, Over the counter Motrin or Tylenol as directed/as needed Tylenol every 4 hours and Motrin every 6 hours (as long as your family doctor has told you that you can take it) for fever or pain. and straight to ER if unable to lower temp less than 101.0 after medication given *Warm salt water gargles may help to soothe the throat *Throat Lozenges? *Warm fluids like tea with honey may help to soothe the throat? *Sleep elevated *Humidifier/Vaporizer *Flonase 2 sprays in each nostril daily but be aware that it may take 2-3 days before you notice improvement Use ear drops as prescribed Your throat swab was sent for culture. Those results are typically sent to your primary care. Be sure to follow up in 2-3 days with your family doctor/primary care physician if no improvement so they can review those result and treat if necessary. If you don?t have a primary care doctor, I recommend you get one but in the mean time, you will have to return to a walk in clinic Follow up IMMEDIATELY for new or worsening symptoms or no Noticeable improvement over the next 48-72 hours. 911 for difficulty breathing or swallowing Clinical Impressions Clinical Impression: Bilateral otitis media Instructions Patient Instructions: Middle Ear Infection, Ciprofloxacin and Dexamethasone Otic Print Language Print Language: Thai Discharge ED Provider: Tuyet Rogers [facility] [place] HPI General Stated complaint: Left earache,sore thoar Mode of Arrival: Ambulatory Source of Information: Patient Limitations: No Limitations Time Seen by Provider: 01/21/24 16:15 Description of Symptoms (Recalled from Triage Doc. by RN): PATIENT C/O SORE THROAT AND LEFT EAR PAIN SINCE SUNDAY HEENT Symptoms (Recalled from RN notes): Yes Resp Symptoms (Recalled from RN notes): No Skin Symptoms (Recalled from RN notes): No MS Symptoms (Recalled from RN notes): No Functional Status (Recalled from RN notes): WNL History of Present Illness Provider Complaint: Patient state that he has been having pain in his ears, sore throat and headache since Sunday States he was seen and started on medication but doesnt seem to be helping much so today when it was still bothering him he came in to get checked worried that the medication may not be helping Related Data Home Medications ?Medication ?Instructions ?Recorded ?Confirmed cariprazine 3 mg capsule (Vraylar) 3 mg PO DAILY 01/21/24 01/21/24 gabapentin 300 mg capsule 300 mg PO TID 01/21/24 01/21/24 Previous Rx's ?Medication ?Instructions ?Recorded ciprofloxacin 0.3 %-dexamethasone 4 drp otic (ear) BID 7 days #7.5 mL 01/21/24 0.1 % ear drops,suspension fluticasone propionate 50 2 spray intranasal DAILY #16 grams 01/21/24 mcg/actuation nasal spray,suspension (Flonase Allergy Relief) Allergies Allergy/AdvReac Type Severity Reaction Status Date / Time No Known Allergies Allergy Verified 12/05/23 15:04 Worker's Comp Is this a Worker's Comp case?: No [facility] Disclaimer: The information contained in this section may have been updated after the patient was seen, as this information can be updated by other users. Medical History Depression Anxiety Hyperlipidemia Hypertension Bipolar II disorder Surgical History H/O hernia repair History of appendectomy Family History Father Cancer Other Coronary artery disease Heart attack Social History Smoking Status: Never smoker alcohol intake: never substance use type: denies use current occupational status: employed and other Travel in the last 8 weeks: None number of children: 1 ROS Obtained: Yes All systems reviewed & no additional complaints except as documented and Yes Systems reviewed as appropriate & no additional complaints except as documented Constitutional Constitutional: Reports system reviewed and no additional complaints, except as documented and Reports as per HPI ENT Ears, Nose, Mouth, and Throat: Reports system reviewed and no additional complaints, except as documented, Reports as per HPI, Reports otalgia, Reports nasal congestion and Reports sore throat Cardiovascular Cardiovascular: Reports system reviewed and no additional complaints, except as documented and Reports as per HPI Gastrointestinal Gastrointestingal: Reports system reviewed and no additional complaints, except as documented and as per HPI Genitourinary Male Genitourinary: Reports system reviewed and no additional complaints, except as documented and Reports as per HPI Physical Exam General General appearance: alert and in no apparent distress ENT ENT exam: Present mucous membranes moist Expanded ENT Exam TM/Canal exam: Bilateral TM: erythema (mild swelling noted in left canal) and bulging Throat exam: Present other (Pharyngeal erythema noted with PND) Respiratory Respiratory exam: Present normal lung sounds bilaterally; Absent respiratory distress or wheezes Cardiovascular Cardiovascular exam: Present regular rate, normal rhythm and normal heart sounds Neurological Exam Neurological exam: Present alert, oriented X3 and normal gait Medical Decision Making Yordy Inquiry Pt receiving controlled substance: No Yordy was queried for this patient: No Vital Signs: 01/21/24 16:05 Temperature 98.1 F Temperature Source Oral Pulse Rate [Left Brachial] 57 L Respiratory Rate 20 Blood Pressure [Left Arm] 133/78 Blood Pressure Mean [Left Arm] 96 Blood Pressure Source [Left Arm] Automatic Cuff Blood Pressure Position [Left Arm] Sitting 02 Sat by Pulse Oximetry 97 Oxygen Delivery Method Room Air Lab Data Lab results reviewed: Yes I reviewed the patient's lab results.
[2024-01-21 16:38] LABS: UTC Strep Screen (Rapid) Negative (Negative)
[2024-01-21 16:41] VITALS: BP 133/78; PULSE 57; RESP 20; TEMP 36.7; O2SAT 97
== END 2024-01-21 16:47 | disposition home or self-care (01) ==
PROVIDERS: Emergency Provider Nurse Practitioner; PCP Nurse Practitioner Family
DX: H66.93 Otitis media, unspecified, bilateral (principal); R07.0 Pain in throat; R51.9 Headache, unspecified
CPT/HCPCS: 87880; 99212; 99214; G0463

== ENCOUNTER 2024-02-05 14:12 | Outpatient (CLI) | payer OTHER, SELFPAY ==
[2024-02-05 13:28] LABS: Albumin Level 4.7 g/dl (3.5-5.0); Chloride 108 mmol/L (98-107); Sodium 140 mmol/L (136-145)
[2024-02-05 13:29] LABS: Potassium 4.5 mmoL/L (3.5-5.1)
[2024-02-05 13:31] LABS: Alanine Aminotransferase 82 U/L (12-78); Albumin/Globulin Ratio 1.8 (1.1-1.8); Anion Gap 10.5 mEq/L (5-15); Aspartate Amino Transferase 55 U/L (17-59); Blood Urea Nitrogen 12 mg/dl (9-20); Carbon Dioxide 26 mmol/L (22.0-30.0); Cholesterol 258 mg/dl (140-200); Estimated Glomerular Filt Rate 98 ml/min (>60); GFR (African American) 118 ML/MIN (>60); Globulin 2.6 g/dL (1.3-3.2); Total Protein,Serum 7.3 g/dl (6.3-8.2); Triglycerides 183 mg/dl (30-150); VLDL Cholesterol 37 mg/dL (0-40)
[2024-02-05 13:32] LABS: Alkaline Phosphatase 103 U/L (38-126); Bilirubin,Total 1.1 mg/dl (0.2-1.3); Chol/HDL Ratio 7.4 (1-3.5); Glucose 85 mg/dl (74-100); HDL Cholesterol 35 mg/dl (40-60)
[2024-02-05 13:43] LABS: Direct LDL Cholesterol 164.88 mg/dL (100-129)
[2024-02-05 14:03] LABS: Thyroid Stimulating Hormone 2.07 uIU/mL (0.465-4.68)
[2024-02-05 14:21] LABS: 25-OH Vitamin D, Total 37.2 ng/mL (30-100)
[2024-02-05 14:53] LABS: Vitamin B12 319 pg/mL (239-931)
[2024-02-05 15:49] LABS: Hemoglobin A1C 5.6 % (4.0-6.0)
[2024-02-06 14:14] LABS: Triiodothyronine (T3) Free 3.9 pg/mL (2.0-4.4)
== END 2024-02-05 23:59 | disposition home or self-care (01) ==
LOC: LAB.DROPOF 14:12
PROVIDERS: PCP Nurse Practitioner Family; Visit Provider Nurse Practitioner Family
DX: E03.9 Hypothyroidism, unspecified (principal); I10 Essential (primary) hypertension; R63.5 Abnormal weight gain; Z13.1 Encounter for screening for diabetes mellitus; E78.5 Hyperlipidemia, unspecified; R79.89 Other specified abnormal findings of blood chemistry; Z68.36 Body mass index [BMI] 36.0-36.9, adult
CPT/HCPCS: 80053; 80061; 82306; 82607; 83036; 83735; 84436; 84439; 84443; 84481

== ENCOUNTER → 2024-03-31 08:58 | Outpatient (CLI) | payer OTHER, SELFPAY | LOC: SL 08:59 | PROVIDERS: PCP Nurse Practitioner Family; Visit Provider Nurse Practitioner Family | DX: R06.81 Apnea, not elsewhere classified (principal) | CPT/HCPCS: G0399 ==

== ENCOUNTER 2024-04-23 15:48 | Emergency (ER) | payer OTHER, SELFPAY ==
[2024-04-23 15:59] VITALS: BP 125/81; PULSE 104; RESP 16; TEMP 37.1; O2SAT 96; BMI 35.3
--- NOTE | 2024-04-23 16:34 | ED_ITS ---
Discharge Plan Disposition Patient Disposition: Home, Self-Care Condition: Good Prescriptions Prescriptions: New ondansetron 4 mg tablet,disintegrating 4 mg PO Q6H PRN (Reason: nausea and vomiting) Qty: 10 0RF No Action sertraline 100 mg tablet 100 mg PO DAILY Patient Comments: TAKE ONE TABLET BY MOUTH EVERY DAY losartan 50 mg tablet 50 mg PO DAILY Patient Comments: TAKE ONE TABLET BY MOUTH DAILY pravastatin 20 mg tablet 20 mg PO DAILY Qty: 30 2RF Contrave 8-90 mg tablet extended release See Rx Instructions PO .COMPLEX Qty: 70 2RF Rx Instructions: orally As directed per starter kit; Vraylar 3 mg capsule 3 mg PO DAILY Qty: 30 2RF gabapentin 300 mg capsule 300 mg PO TID Qty: 90 0RF levothyroxine 50 mcg tablet 50 mcg PO DAILY Qty: 30 2RF famotidine [Pepcid] 20 mg Tablet 20 mg PO DAILY tirzepatide (weight loss) 12.5 mg/0.5 mL Pen Injector 12.5 mg SQ WEEKLY Referrals Follow up/Referrals: Lilian Gabriel APRN [Primary Care Provider] - See instructions Activity Restrictions/Add. Instructions Additional Instructions/Restrictions: Return to the emergency department for any worsening signs or symptoms any worsening abdominal pain unable to tolerate p.o. intake, take Zofran as needed for nausea, follow-up with family doctor. Clinical Impressions Clinical Impression: Nausea vomiting and diarrhea Stand Alone Forms Stand Alone Forms: Work/School Release Instructions Patient Instructions: DI for Diarrhea and Traveler's Diarrhea -- Adult, DI for Nausea -- Adult Print Language Print Language: Serbian Discharge ED Provider: Delfino Lund Adult HPI <TATY Hackett - Last Filed: 04/23/24 18:59> General Chief complaint: Nausea/Vomiting/Diarrhea Stated complaint: vomiting/diarrhea [place] Time Seen by Provider: 04/23/24 16:32 Mode of Arrival: Ambulatory Source of Information: Patient Limitations: No Limitations Description of Symptoms (Recalled from ER Triage Doc. by RN): Pt. presents to the ED nausea, vomiting, headache, and diarrhea x2 days. Denies fever. History of Present Illness HPI narrative: 33-year-old male presents emergency department with headache nausea vomiting diarrhea and episodes of vomiting for 2 days, she denies any recent sick contacts, admits to subjective fever and chills denies chest pain denies shortness of breath, denies melena hematemesis hematochezia, has been concerns of diarrhea and poor p.o. intake. Other past medical history consistent with GERD, hypothyroidism, hypertension, hyperlipidemia, anxiety/depression, bipolar,, on GLP-1 agonist for weight loss, dates has been on this medication for several months. Denies any history of substance abuse. Triage vitals notable for tachycardia otherwise unremarkable. Onset (ago): day(s) Related Data Home Medications ?Medication ?Instructions ?Recorded ?Confirmed losartan 50 mg tablet 50 mg PO DAILY 02/05/24 04/23/24 sertraline 100 mg tablet 100 mg PO DAILY 02/05/24 04/23/24 famotidine 20 mg tablet (Pepcid) 20 mg PO DAILY 04/23/24 04/23/24 tirzepatide (weight loss) 12.5 12.5 mg SQ WEEKLY 04/23/24 04/23/24 mg/0.5 mL subcutaneous pen injector Previous Rx's ?Medication ?Instructions ?Recorded pravastatin 20 mg tablet 20 mg PO DAILY #30 tabs 02/11/24 naltrexone 8 mg-bupropion 90 mg See Rx Instructions PO .COMPLEX 02/27/24 tablet,extended release (Contrave) #70 tabs cariprazine 3 mg capsule (Vraylar) 3 mg PO DAILY #30 caps 04/07/24 gabapentin 300 mg capsule 300 mg PO TID #90 caps 04/07/24 levothyroxine 50 mcg tablet 50 mcg PO DAILY #30 tabs 04/07/24 ondansetron 4 mg disintegrating 4 mg PO Q6H PRN nausea and 04/23/24 tablet vomiting #10 tabs Allergies Allergy/AdvReac Type Severity Reaction Status Date / Time No Known Allergies Allergy Verified 04/23/24 16:11 [facility] <TATY Hackett - Last Filed: 04/23/24 18:59> [facility] Disclaimer: The information contained in this section may have been updated after the patient was seen, as this information can be updated by other users. Medical History (Updated 04/23/24 @ 18:59 by TATY Hackett) Depression Anxiety Hyperlipidemia Hypertension Bipolar II disorder Surgical History Hx of cholecystectomy H/O hernia repair History of appendectomy Family History Father Cancer Other Coronary artery disease Heart attack Social History Smoking Status: Never smoker alcohol intake: never substance use type: denies use current occupational status: employed and other Travel in the last 8 weeks: None number of children: 1 Have you lived/traveled outside US in past 30 days?: No Contact w/someone who lives/traveled outside US past 30 days?: No Exposure to someone with infectious disease in past 14 days?: No Do you have a fever (greater than 100.4 F or 38 C)?: No Have you tested positive for COVID-19: No Exposed to someone with COVID-19 in past 14 days?: No Do you have a sore throat?: No Do you have a cough?: No Do you have any weakness?: No Do you have any diarrhea?: Yes Are you experiencing any unusual bleeding?: No Do you have any muscle aches/pain?: No Do you have any abdominal pain?: No Are you experiencing loss of taste or smell?: No Other Medical History Have you received the Flu Vaccine for this season: No Have you received the Pneumonia Vaccine: No <TATY Hackett - Last Filed: 04/23/24 18:59> ROS Obtained: Yes All systems reviewed & no additional complaints except as documented Physical Exam <TATY Hackett - Last Filed: 04/23/24 18:59> General General appearance: alert and in no apparent distress Head Head exam: atraumatic and normocephalic Eye Eye exam: Present PERRL and EOMI ENT ENT exam: Present mucous membranes moist Neck Neck exam: Present normal inspection Chest Chest inspection: Present normal inspection and symmetric chest wall rise Respiratory Respiratory exam: Present normal lung sounds bilaterally; Absent respiratory distress Cardiovascular Cardiovascular exam: Present regular rate and normal rhythm Abdominal Exam Abdominal exam: Present soft; Absent tenderness, guarding, rebound or rigidity Extremities Exam Extremities exam: Present normal inspection Neurological Exam Neurological exam: Present alert and oriented X3 Psychiatric Psychiatric exam: Present normal affect Skin Skin exam: Present warm and dry Medical Decision Making <TATY Hackett - Last Filed: 12/11/24 18:59> Medical Records Medical records reviewed: Yes I reviewed the patient's medical records. Screening: Per USPSTF and CDC recommendations, given the prevalence of disease in our region, it is our hospital?s policy to screen for HIV and viral Hepatitis for all patients aged 18 and over and those with ongoing risk factors. Yordy Inquiry Pt receiving controlled substance: No Yordy was queried for this patient: No Vital Signs: 04/23/24 15:59 04/23/24 19:22 Temperature 98.8 F 98.2 F Temperature Source Oral Oral Pulse Rate 80 Pulse Rate [Right Brachial] 104 H Respiratory Rate 16 18 Blood Pressure 125/78 Blood Pressure [Right Arm] 125/81 Blood Pressure Mean [Right Arm] 95 Blood Pressure Source Automatic Cuff Blood Pressure Source [Right Arm] Automatic Cuff Blood Pressure Position [Right Arm] Sitting 02 Sat by Pulse Oximetry 96 Oxygen Delivery Method Room Air Room Air Lab Data Lab Results 04/23/24 16:55: WBC 6.0, RBC 5.82, Hgb 16.2, Hct 49.2, MCV 84.5, MCH 27.9, MCHC 33.0, RDW 13.8, Plt Count 215, MPV 7.8, Neut % (Auto) 79.1, Lymph % (Auto) 14.0, [place] % (Auto) 5.3, Eos % (Auto) 1.1, Baso % (Auto) 0.4, Neut # (Auto) 4.7, Lymph # (Auto) 0.8, [place] # (Auto) 0.3, Eos # (Auto) 0.1, Baso # (Auto) 0.0, Sodium 138, Potassium 3.8, Chloride 107, Carbon Dioxide 27, Anion Gap 7.8, BUN 13, Creatinine 1.10, Estimated Creat Clear 161, Estimated GFR 78, Est GFR ( Amer) 94, Glucose 96, Calcium 8.5, Total Bilirubin 1.1, AST 58, ALT 79 H, Alkaline Phosphatase 92, Total Protein 7.2, Albumin 4.5, Globulin 2.7, Albumin/Globulin Ratio 1.7, Lipase 23 04/23/24 18:00: Urine Color Dark yellow, Urine Appearance Clear, Urine pH 5.5, Ur Specific [place] >= 1.030, Urine Protein Negative, Urine Glucose (UA) Negative, Urine Ketones Negative, Urine Blood Negative, Urine Nitrate Negative, Urine Bilirubin 2+ A, Urine Urobilinogen 0.2, Ur Leukocyte Esterase Negative, Urine RBC Occasional, Urine WBC 3-5, Ur Squamous Epith Cells None, Urine Bacteria Trace, Urine Mucus 1+, SARS-CoV-2 (PCR) Not detected, Influenza A Untype (PCR) Not detected, Influenza Type B (PCR) Not detected 04/23/24 16:55 04/23/24 16:55 Orders (Tests/Meds): ED MEDICATIONS Discontinued Medications Generic Name Dose Route Start Last Admin Trade Name Freq PRN Reason Stop Dose Admin Sodium Chloride 1,000 mls @ 500 mls/hr 04/23/24 16:20 04/23/24 17:01 Sod Chlor 0.9% 1000ml Bag IV 04/23/24 18:19 500 mls/hr .Q2H ONE Administration Ondansetron HCl 4 mg 04/23/24 16:32 04/23/24 17:01 Ondansetron 4mg/2ml Vial IV 04/23/24 16:33 4 mg ONCE ONE Administration ORDERS Category Date Time Status Complete Blood Count Auto Diff Stat Lab 04/23/24 16:55 Completed Comprehensive Metabolic Panel Stat Lab 04/23/24 16:55 Completed Lipase Stat Lab 04/23/24 16:55 Completed Rapid PCR Covid and Flu A/B Stat Lab 04/23/24 18:00 Completed Urinalysis and Microscopic Stat Lab 04/23/24 18:00 Completed Medical Decision Narrative: 33-year-old male presents emergency department with vomiting diarrhea nausea headache, for 2 days, differential diagnose include not limited to, gastroenteritis, URI, COVID-19, influenza, lecture disturbance, acute UTI. I discussed patient case with attending physician Obtain basic laboratory studies, urinalysis, lipase, obtain rapid PCR antigens for COVID-19 and flu will give 4 mg IV Zofran for nausea, and will give 500 mL IV NS. CBC unremarkable ALT is minimally elevated at 79 COVID 19, influenza A and influenza B are negative I reviewed the patient is urinalysis, 2+ urine bilirubin otherwise unremarkable. Lipase is within normal limits. I discussed these results with the patient at the bedside reexamination of the patient at 6:55 PM, patient's symptomatology has improved, recommend discharge home to self-care, recommend strict ED return precautions return to the emergency department with unable to tolerate p.o. intake any abdominal pain, or any other worsening signs or symptoms, I will prescribe p.o. Zofran 4 mg as needed for nausea, follow-up with primary care provider. Patient voiced understanding of the current treatment plan/discharge plan. <Delfino Lund MD - Last Filed: 04/24/24 16:24> Vital Signs: 04/23/24 15:59 04/23/24 19:22 Temperature 98.8 F 98.2 F Temperature Source Oral Oral Pulse Rate 80 Pulse Rate [Right Brachial] 104 H Respiratory Rate 16 18 Blood Pressure 125/78 Blood Pressure [Right Arm] 125/81 Blood Pressure Mean [Right Arm] 95 Blood Pressure Source Automatic Cuff Blood Pressure Source [Right Arm] Automatic Cuff Blood Pressure Position [Right Arm] Sitting 02 Sat by Pulse Oximetry 96 Oxygen Delivery Method Room Air Room Air Lab Data Lab Results 04/23/24 16:55: WBC 6.0, RBC 5.82, Hgb 16.2, Hct 49.2, MCV 84.5, MCH 27.9, MCHC 33.0, RDW 13.8, Plt Count 215, MPV 7.8, Neut % (Auto) 79.1, Lymph % (Auto) 14.0, [place] % (Auto) 5.3, Eos % (Auto) 1.1, Baso % (Auto) 0.4, Neut # (Auto) 4.7, Lymph # (Auto) 0.8, [place] # (Auto) 0.3, Eos # (Auto) 0.1, Baso # (Auto) 0.0, Sodium 138, Potassium 3.8, Chloride 107, Carbon Dioxide 27, Anion Gap 7.8, BUN 13, Creatinine 1.10, Estimated Creat Clear 161, Estimated GFR 78, Est GFR ( Amer) 94, Glucose 96, Calcium 8.5, Total Bilirubin 1.1, AST 58, ALT 79 H, Alkaline Phosphatase 92, Total Protein 7.2, Albumin 4.5, Globulin 2.7, Albumin/Globulin Ratio 1.7, Lipase 23 04/23/24 18:00: Urine Color Dark yellow, Urine Appearance Clear, Urine pH 5.5, Ur Specific [place] >= 1.030, Urine Protein Negative, Urine Glucose (UA) Negative, Urine Ketones Negative, Urine Blood Negative, Urine Nitrate Negative, Urine Bilirubin 2+ A, Urine Urobilinogen 0.2, Ur Leukocyte Esterase Negative, Urine RBC Occasional, Urine WBC 3-5, Ur Squamous Epith Cells None, Urine Bacteria Trace, Urine Mucus 1+, SARS-CoV-2 (PCR) Not detected, Influenza A Untype (PCR) Not detected, Influenza Type B (PCR) Not detected Orders (Tests/Meds): ED MEDICATIONS Discontinued Medications Generic Name Dose Route Start Last Admin Trade Name Freq PRN Reason Stop Dose Admin Sodium Chloride 1,000 mls @ 500 mls/hr 04/23/24 16:20 04/23/24 17:01 Sod Chlor 0.9% 1000ml Bag IV 04/23/24 18:19 500 mls/hr .Q2H ONE Administration Ondansetron HCl 4 mg 04/23/24 16:32 04/23/24 17:01 Ondansetron 4mg/2ml Vial IV 04/23/24 16:33 4 mg ONCE ONE Administration ORDERS Category Date Time Status Complete Blood Count Auto Diff Stat Lab 04/23/24 16:55 Completed Comprehensive Metabolic Panel Stat Lab 04/23/24 16:55 Completed Lipase Stat Lab 04/23/24 16:55 Completed Rapid PCR Covid and Flu A/B Stat Lab 04/23/24 18:00 Completed Urinalysis and Microscopic Stat Lab 04/23/24 18:00 Completed Medical Decision Narrative: 33-year-old male presents emergency department with vomiting diarrhea nausea headache, for 2 days, differential diagnose include not limited to, gastroenteritis, URI, COVID-19, influenza, lecture disturbance, acute UTI. I discussed patient case with attending physician Obtain basic laboratory studies, urinalysis, lipase, obtain rapid PCR antigens for COVID-19 and flu will give 4 mg IV Zofran for nausea, and will give 500 mL IV NS. CBC unremarkable ALT is minimally elevated at 79 COVID 19, influenza A and influenza B are negative I reviewed the patient is urinalysis, 2+ urine bilirubin otherwise unremarkable. Lipase is within normal limits. I discussed these results with the patient at the bedside reexamination of the patient at 6:55 PM, patient's symptomatology has improved, recommend discharge home to self-care, recommend strict ED return precautions return to the emergency department with unable to tolerate p.o. intake any abdominal pain, or any other worsening signs or symptoms, I will prescribe p.o. Zofran 4 mg as needed for nausea, follow-up with primary care provider. Patient voiced understanding of the current treatment plan/discharge plan. I was consulted by the AMA, and we discussed the complexity of the problems being addressed.I approved the treatment and management plan for this patient?s care in the Emergency Department, thus performing a substantive portion of the medical decision making.Signed, Delfino Lund MD Critical Care <TATY Hackett - Last Filed: 04/23/24 18:59> Critical Care Time Critical Care Time: No
[2024-04-23] MEDS: ONDANSETRON 4MG/2ML VIAL 4 MG IV (17:01)
[2024-04-23] MEDS: 0.9 % SODIUM CHLORIDE 1000ML 1,000 ML 500 ML IV (17:01)
[2024-04-23 17:07] LABS: Basophils % 0.4 % (0.1-2.0); Eosinophils # 0.1 K/mm3 (0.0-0.4); Eosinophils % 1.1 % (0.1-12.0); Hematocrit 49.2 % (42.0-52.0); Hemoglobin 16.2 g/dL (14.1-18.0); Lymphocytes # 0.8 K/mm3 (0.7-4.5); Mean Corpuscular Hemoglobin 27.9 pg (27.0-31.2); Mean Corpuscular Volume 84.5 fl (80-94); Mean Platelet Volume 7.8 fl (7.4-10.4); Monocytes # 0.3 K/mm3 (0.1-1.0); Monocytes % 5.3 % (1.7-9.3); Neutrophils # 4.7 K/mm3 (1.8-7.8); Neutrophils % 79.1 % (37.0-80.0); Platelet Count 215 K/mm3 (142-424); Red Blood Count 5.82 M/mm3 (4.60-6.20); Red Cell Distribution Width 13.8 % (11.5-17.5)
[2024-04-23 17:14] LABS: Albumin Level 4.5 g/dl (3.5-5.0); Chloride 107 mmol/L (98-107)
[2024-04-23 17:15] LABS: Potassium 3.8 mmoL/L (3.5-5.1); Sodium 138 mmol/L (136-145)
[2024-04-23 17:17] LABS: Alanine Aminotransferase 79 U/L (12-78); Anion Gap 7.8 mEq/L (5-15); Aspartate Amino Transferase 58 U/L (17-59); Blood Urea Nitrogen 13 mg/dl (9-20); Carbon Dioxide 27 mmol/L (22.0-30.0); Creatinine Clearance Estimated 161 mL/min (50-200); Estimated Glomerular Filt Rate 78 ml/min (>60); GFR (African American) 94 ML/MIN (>60)
[2024-04-23 17:18] LABS: Albumin/Globulin Ratio 1.7 (1.1-1.8); Alkaline Phosphatase 92 U/L (38-126); Bilirubin,Total 1.1 mg/dl (0.2-1.3); Calcium 8.5 mg/dl (8.4-10.2); Globulin 2.7 g/dL (1.3-3.2); Glucose 96 mg/dl (74-100); Total Protein,Serum 7.2 g/dl (6.3-8.2)
[2024-04-23 18:05] LABS: Coronavirus 19, PCR Not Detected (NotDetected); Influenza A, PCR Not Detected (NotDetected); Influenza B, PCR Not Detected (NotDetected); Microscopic, Urine URINE MICROSCOPIC (MICROSCOPIC)
[2024-04-23 18:20] LABS: Appearance,Urine CLEAR (Clear); Blood, Urine Negative (Negative); Glucose,Urine (UA) Negative (Negative); Ketones,Urine Negative (Negative); Leukocyte Esterase,Urine Negative (Negative); Nitrate,Urine Negative (Negative); PH,Urine 5.5 (5.0-8.5); Protein,Urine Negative (Negative); Specific Gravity, Urine >= 1.030 (1.005-1.030); Urobilinogen,Urine 0.2 EU/dl (0.2)
[2024-04-23 18:35] LABS: Bilirubin,Urine 2+ (Negative); Color,Urine Dark Yellow (Yellow)
[2024-04-23 18:44] LABS: Lipase 23 U/L (23-300)
[2024-04-23 19:22] VITALS: BP 125/78; PULSE 80; RESP 18; TEMP 36.8; O2SAT 98
[2024-04-23 19:46] LABS: Bacteria,Urine Trace /lpf; Mucus,Urine 1+ /lpf; RBC,Urine Occasional #/hpf (0-3)
== END 2024-04-23 19:30 | disposition home or self-care (01) ==
PROVIDERS: Physician Assistant; Emergency Provider Emergency Medicine; PCP Nurse Practitioner Family
DX: R11.2 Nausea with vomiting, unspecified (principal); R51.9 Headache, unspecified; R19.7 Diarrhea, unspecified
CPT/HCPCS: 80053; 81001; 83690; 85025; 87636; 96361; 96374; 99283; J2405; J7030

== ENCOUNTER 2024-04-29 16:46 | Emergency (ER) | payer OTHER, SELFPAY ==
[2024-04-29 17:00] VITALS: BP 121/61; PULSE 91; RESP 19; TEMP 36.9; O2SAT 98; BMI 36.8
[2024-04-29 17:18] LABS: UTC Influenza A Antigen Negative (Negative); UTC Influenza B Antigen Negative (Negative); UTC Strep Screen (Rapid) Negative (Negative)
--- NOTE | 2024-04-29 17:29 | EXP.UTC ---
Discharge Plan Disposition Patient Disposition: Home, Self-Care Condition: Good Prescriptions Prescriptions: New methylprednisolone [Medrol (Dhaval)] 4 mg tablets,dose pack See Rx Instructions .Route .COMPLEX 6 Days Qty: 21 0RF Rx Instructions: taper pack; amoxicillin-pot clavulanate 875-125 mg Tablet 1 tab PO Q12H Qty: 20 0RF No Action sertraline 100 mg tablet 100 mg PO DAILY Patient Comments: TAKE ONE TABLET BY MOUTH EVERY DAY losartan 50 mg tablet 50 mg PO DAILY Patient Comments: TAKE ONE TABLET BY MOUTH DAILY pravastatin 20 mg tablet 20 mg PO DAILY Qty: 30 2RF Vraylar 3 mg capsule 3 mg PO DAILY Qty: 30 2RF levothyroxine 50 mcg tablet 50 mcg PO DAILY Qty: 30 2RF Referrals Follow up/Referrals: Lilian Gabriel APRN [Primary Care Provider] - See instructions Activity Restrictions/Add. Instructions Additional Instructions/Restrictions: *Monitor Temp, Over the counter Motrin or Tylenol as directed/as needed Tylenol every 4 hours and Motrin every 6 hours (as long as your family doctor has told you that you can take it) for fever or pain. and straight to ER if unable to lower temp less than 101.0 after medication given *Warm salt water gargles may help to soothe the throat *Throat Lozenges? *Warm fluids like tea with honey may help to soothe the throat? *Sleep elevated *Humidifier/Vaporizer Take medication as prescribed Your throat swab was sent for culture. Those results are typically sent to your primary care. Be sure to follow up in 2-3 days with your family doctor/primary care physician if no improvement so they can review those result and treat if necessary. If you don?t have a primary care doctor, I recommend you get one but in the mean time, you will have to return to a walk in clinic Follow up IMMEDIATELY for new or worsening symptoms or no Noticeable improvement over the next 48-72 hours. 911 for difficulty breathing or swallowing Clinical Impressions Clinical Impression: Otitis media Stand Alone Forms Stand Alone Forms: Work/School Release Instructions Patient Instructions: DI for Sinusitis, Middle Ear Infection Print Language Print Language: Indonesian Discharge ED Provider: Tuyet Rogers [facility] HPI General Stated complaint: sore throat,ear hurt,cough,fever,headache Mode of Arrival: Ambulatory Source of Information: Patient Limitations: No Limitations Time Seen by Provider: 04/29/24 17:29 Description of Symptoms (Recalled from Triage Doc. by RN): PATIENT C/O COUGH, FEVER, AND SORE THROAT SINCE YESTERDAY HEENT Symptoms (Recalled from RN notes): Yes Resp Symptoms (Recalled from RN notes): Yes Skin Symptoms (Recalled from RN notes): No MS Symptoms (Recalled from RN notes): No Functional Status (Recalled from RN notes): WNL History of Present Illness Provider Complaint: Patient states that he started feeling bad yesterday with sore throat, body aches, headache and fever States today he wasnt feeling any better worried he may have flu or Strep since he wasnt feeling any better today Related Data Home Medications ?Medication ?Instructions ?Recorded ?Confirmed losartan 50 mg tablet 50 mg PO DAILY 02/05/24 04/29/24 sertraline 100 mg tablet 100 mg PO DAILY 02/05/24 04/29/24 Previous Rx's ?Medication ?Instructions ?Recorded pravastatin 20 mg tablet 20 mg PO DAILY #30 tabs 02/11/24 cariprazine 3 mg capsule (Vraylar) 3 mg PO DAILY #30 caps 04/07/24 levothyroxine 50 mcg tablet 50 mcg PO DAILY #30 tabs 04/07/24 amoxicillin 875 mg-potassium 1 tab PO Q12H #20 tabs 04/29/24 clavulanate 125 mg tablet methylprednisolone 4 mg tablets in See Rx Instructions .Route 04/29/24 a dose pack (Medrol (Dhaval)) .COMPLEX 6 days #21 tabs Allergies Allergy/AdvReac Type Severity Reaction Status Date / Time No Known Allergies Allergy Verified 04/23/24 16:11 Worker's Comp Is this a Worker's Comp case?: No [facility] Disclaimer: The information contained in this section may have been updated after the patient was seen, as this information can be updated by other users. Medical History (Updated 04/29/24 @ 17:45 by Tuyet Rogers APRN) Depression Anxiety Hyperlipidemia Hypertension Bipolar II disorder Surgical History Hx of cholecystectomy H/O hernia repair History of appendectomy Family History Father Cancer Other Coronary artery disease Heart attack Social History Smoking Status: Never smoker alcohol intake: never substance use type: denies use current occupational status: employed and other Travel in the last 8 weeks: None number of children: 1 Have you lived/traveled outside US in past 30 days?: No Contact w/someone who lives/traveled outside US past 30 days?: No Exposure to someone with infectious disease in past 14 days?: No Do you have a fever (greater than 100.4 F or 38 C)?: No Have you tested positive for COVID-19: No Exposed to someone with COVID-19 in past 14 days?: No Do you have a sore throat?: Yes Do you have a cough?: Yes Do you have any weakness?: No Do you have any diarrhea?: No Are you experiencing any unusual bleeding?: No Do you have any muscle aches/pain?: Yes Do you have any abdominal pain?: No Are you experiencing loss of taste or smell?: No ROS Obtained: Yes All systems reviewed & no additional complaints except as documented and Yes Systems reviewed as appropriate & no additional complaints except as documented Constitutional Constitutional: Reports system reviewed and no additional complaints, except as documented, Reports as per HPI, Reports body ache, Reports chills, Reports fever(s) and Reports headache(s) ENT Ears, Nose, Mouth, and Throat: Reports system reviewed and no additional complaints, except as documented, Reports as per HPI, Reports otalgia, Reports headache(s), Reports nasal congestion, Reports nasal discharge and Reports sore throat Cardiovascular Cardiovascular: Reports system reviewed and no additional complaints, except as documented and Reports as per HPI Respiratory Respiratory: Reports system reviewed and no additional complaints, except as documented and Reports as per HPI Gastrointestinal Gastrointestingal: Reports system reviewed and no additional complaints, except as documented and as per HPI Genitourinary Male Genitourinary: Reports system reviewed and no additional complaints, except as documented and Reports as per HPI Musculoskeletal Musculoskeletal: Reports system reviewed and no additional complaints, except as documented and Reports as per HPI Neurologic Neurologic: Reports headache(s) Physical Exam General General appearance: alert and in no apparent distress ENT ENT exam: Present mucous membranes moist Expanded ENT Exam TM/Canal exam: Left TM: erythema and Bilateral TM: bulging Nose exam: Present sinus tenderness Throat exam: Present tonsillar erythema; Absent tonsillomegaly or tonsillar exudate Respiratory Respiratory exam: Present normal lung sounds bilaterally; Absent respiratory distress or wheezes Cardiovascular Cardiovascular exam: Present regular rate, normal rhythm and normal heart sounds Abdominal Exam Abdominal exam: Present soft and normal bowel sounds; Absent distention or tenderness Neurological Exam Neurological exam: Present alert, oriented X3 and normal gait Medical Decision Making Medical Records Screening: Per USPSTF and CDC recommendations, given the prevalence of disease in our region, it is our hospital?s policy to screen for HIV and viral Hepatitis for all patients aged 18 and over and those with ongoing risk factors. Yordy Inquiry Pt receiving controlled substance: No Yordy was queried for this patient: No Vital Signs: 04/29/24 17:00 Temperature 98.5 F Temperature Source Oral Pulse Rate [Left Brachial] 91 H Respiratory Rate 19 Blood Pressure [Left Arm] 121/61 Blood Pressure Mean [Left Arm] 81 Blood Pressure Source [Left Arm] Automatic Cuff Blood Pressure Position [Left Arm] Sitting 02 Sat by Pulse Oximetry 98 Oxygen Delivery Method Room Air Lab Data Lab results reviewed: Yes I reviewed the patient's lab results. Lab Results 04/29/24 17:03: Influenza Type A Ag Negative, Influenza Type B Ag Negative, Strep Scn Rapid Clinic Negative Orders (Tests/Meds): ORDERS Category Date Time Status Strep Screen Confirmation Stat Micro 04/29/24 17:03 Received
[2024-04-29 17:47] VITALS: BP 121/61; PULSE 91; RESP 19; TEMP 36.9; O2SAT 98
== END 2024-04-29 17:49 | disposition home or self-care (01) ==
PROVIDERS: Emergency Provider Nurse Practitioner; PCP Nurse Practitioner Family
DX: H66.93 Otitis media, unspecified, bilateral (principal)
CPT/HCPCS: 87635; 87804; 87880; 99213; G0381

== ENCOUNTER 2024-06-21 11:36 | Emergency (ER) | payer OTHER, SELFPAY ==
[2024-06-21 13:09] VITALS: BP 131/66; PULSE 67; RESP 18; TEMP 36.7; O2SAT 96; BMI 35.9
[2024-06-21 13:14] LABS: UTC Influenza A Antigen Negative (Negative); UTC Influenza B Antigen Negative (Negative)
--- NOTE | 2024-06-21 13:16 | EXP.UTC ---
Discharge Plan Disposition Patient Disposition: Home, Self-Care Condition: Good Prescriptions Prescriptions: New cefdinir 300 mg capsule 300 mg PO BID Qty: 20 0RF fluticasone propionate 50 mcg/actuation spray,suspension 1 spray intranasal DAILY Qty: 16 0RF No Action losartan 50 mg tablet 50 mg PO DAILY Patient Comments: TAKE ONE TABLET BY MOUTH DAILY pravastatin 20 mg tablet 20 mg PO DAILY Qty: 30 2RF Vraylar 3 mg capsule 3 mg PO DAILY Qty: 30 2RF levothyroxine 50 mcg tablet 50 mcg PO DAILY Qty: 30 2RF sertraline 100 mg tablet See Rx Instructions .ROUTE .COMPLEX Qty: 30 2RF Dose Instruction: TAKE ONE TABLET BY MOUTH EVERY DAY Rx Instructions: TAKE ONE TABLET BY MOUTH EVERY DAY gabapentin 300 mg capsule 300 mg PO TID Qty: 90 0RF methylprednisolone [Medrol (Dhaval)] 4 mg tablets,dose pack See Rx Instructions .Route .COMPLEX 6 Days Qty: 21 0RF Rx Instructions: taper pack; amoxicillin-pot clavulanate 875-125 mg Tablet 1 tab PO Q12H Qty: 20 0RF Referrals Follow up/Referrals: Lilian Gabriel APRN [Primary Care Provider] - See instructions Activity Restrictions/Add. Instructions Additional Instructions/Restrictions: Start antibiotic patient to take as ordered for a full length of time even if you feel better. Sinus infections do not get better overnight. It may take 2-3 days to notice much improvement so be sure to use conservative measures as discussed for symptoms. Flonase 1 spray each nostril daily to help with nasal congestion, sinus and ear pressure/information Increase fluids Humidifier/vaporizer as needed Tylenol and ibuprofen as needed for fever or pain. If symptoms do not improve or get worse return or be seen in the ER Follow-up with primary care this week Clinical Impressions Clinical Impression: Acute maxillary sinusitis Qualifiers: Recurrence: non-recurrent Qualified Code(s): J01.00 - Acute maxillary sinusitis, unspecified Instructions Patient Instructions: DI for Sinusitis Print Language Print Language: Spanish Discharge ED Provider: [place] ([facility]el [facility] [place] General Stated complaint: bradford cough congestion Mode of Arrival: Ambulatory Source of Information: Patient Time Seen by Provider: 06/21/24 13:16 Description of Symptoms (Recalled from Triage Doc. by RN): COUGH, CONGESTED, CHILLS, SINUS PRESSURE, GREEN DRAINAGE HEENT Symptoms (Recalled from RN notes): Yes Resp Symptoms (Recalled from RN notes): Yes Skin Symptoms (Recalled from RN notes): No MS Symptoms (Recalled from RN notes): No Functional Status (Recalled from RN notes): WNL History of Present Illness Provider Complaint: 33-year-old male presents for complaints of cough, congestion, chills, sinus pressure, sinus tenderness, pressure behind eyes, and green drainage for 3 days. Patient states symptoms are worsening instead of improving. Related Data Home Medications ?Medication ?Instructions ?Recorded ?Confirmed losartan 50 mg tablet 50 mg PO DAILY 02/05/24 04/29/24 Previous Rx's ?Medication ?Instructions ?Recorded pravastatin 20 mg tablet 20 mg PO DAILY #30 tabs 02/11/24 cariprazine 3 mg capsule (Vraylar) 3 mg PO DAILY #30 caps 04/07/24 levothyroxine 50 mcg tablet 50 mcg PO DAILY #30 tabs 04/07/24 amoxicillin 875 mg-potassium 1 tab PO Q12H #20 tabs 04/29/24 clavulanate 125 mg tablet methylprednisolone 4 mg tablets in See Rx Instructions .Route 04/29/24 a dose pack (Medrol (Dhaval)) .COMPLEX 6 days #21 tabs gabapentin 300 mg capsule 300 mg PO TID #90 caps 05/09/24 sertraline 100 mg tablet See Rx Instructions .Route 05/09/24 .COMPLEX #30 tabs cefdinir 300 mg capsule 300 mg PO BID #20 caps 06/21/24 fluticasone propionate 50 1 spray intranasal DAILY #16 grams 06/21/24 mcg/actuation nasal spray,suspension Allergies Allergy/AdvReac Type Severity Reaction Status Date / Time No Known Allergies Allergy Verified 04/23/24 16:11 Worker's Comp Is this a Worker's Comp case?: No [facility] Disclaimer: The information contained in this section may have been updated after the patient was seen, as this information can be updated by other users. Medical History , [employer]) Depression Anxiety Hyperlipidemia Hypertension Bipolar II disorder Surgical History , [employer]) Hx of cholecystectomy H/O hernia repair History of appendectomy Family History , [employer]) Coronary artery disease Heart attack Cancer Father Social History , [employer]) Smoking Status: Never smoker alcohol intake: never substance use type: denies use current occupational status: employed and other Travel in the last 8 weeks: None number of children: 1 Have you lived/traveled outside [place] in past 30 days?: No Contact w/someone who lives/traveled outside [place] past 30 days?: No Exposure to someone with infectious disease in past 14 days?: No Do you have a fever (greater than 100.4 F or 38 C)?: No Have you tested positive for COVID-19: No Exposed to someone with COVID-19 in past 14 days?: No Do you have a sore throat?: No Do you have a cough?: Yes Do you have any weakness?: No Do you have any diarrhea?: No Are you experiencing any unusual bleeding?: No Do you have any muscle aches/pain?: No Do you have any abdominal pain?: No Are you experiencing loss of taste or smell?: No ROS Obtained: Yes Systems reviewed as appropriate & no additional complaints except as documented Physical Exam General General appearance: alert and in no apparent distress Eye Eye exam: Present normal appearance ENT ENT exam: Present normal oropharynx, mucous membranes moist and TM's normal bilaterally Expanded ENT Exam Nose exam: Present sinus tenderness Respiratory Respiratory exam: Present normal lung sounds bilaterally Cardiovascular Cardiovascular exam: Present regular rate and normal rhythm Neurological Exam Neurological exam: Present alert and oriented X3 Psychiatric Psychiatric exam: Present normal affect Medical Decision Making Medical Records Medical records reviewed: Yes I reviewed the patient's medical records. Screening: Per USPSTF and CDC recommendations, given the prevalence of disease in our region, it is our hospital?s policy to screen for HIV and viral Hepatitis for all patients aged 18 and over and those with ongoing risk factors. [place] Inquiry Pt receiving controlled substance: No Vital Signs: 06/21/24 13:09 Temperature 98.1 F Temperature Source Oral Pulse Rate [Left Radial] 67 Respiratory Rate 18 Blood Pressure [Left Arm] 131/66 Blood Pressure Mean [Left Arm] 87 02 Sat by Pulse Oximetry 96 Lab Data Lab results reviewed: Yes I reviewed the patient's lab results. Lab Results 06/21/24 13:13: Influenza Type A Ag Negative, Influenza Type B Ag Negative
[2024-06-21 13:37] VITALS: BP 131/66; PULSE 67; RESP 18; TEMP 36.7
== END 2024-06-21 13:38 | disposition home or self-care (01) ==
PROVIDERS: Emergency Provider Nurse Practitioner Family; PCP Nurse Practitioner Family
DX: J01.00 Acute maxillary sinusitis, unspecified (principal)
CPT/HCPCS: 87804; 99213; G0381

== ENCOUNTER 2024-06-28 08:07 | Outpatient (CLI) | payer OTHER, SELFPAY ==
[2024-06-28 08:26] LABS: Basophils % 0.4 % (0.1-2.0); Eosinophils # 0.1 K/mm3 (0.0-0.4); Eosinophils % 1.2 % (0.1-12.0); Hematocrit 46.7 % (42.0-52.0); Hemoglobin 15.4 g/dL (14.1-18.0); Lymphocytes # 2.2 K/mm3 (0.7-4.5); Lymphocytes % 26.6 % (10-50); Mean Corpuscular Hemoglobin 27.4 pg (27.0-31.2); Mean Corpuscular Volume 82.9 fl (80-94); Mean Platelet Volume 9.5 fl (7.4-10.4); Monocytes # 0.5 K/mm3 (0.1-1.0); Monocytes % 5.5 % (1.7-9.3); Neutrophils # 5.5 K/mm3 (1.8-7.8); Neutrophils % 65.6 % (37.0-80.0); Platelet Count 280 K/mm3 (142-424); Red Blood Count 5.63 M/mm3 (4.60-6.20); Red Cell Distribution Width 13.9 % (11.5-17.5); White Blood Count 8.4 K/mm3 (4.8-10.8)
[2024-06-28 09:17] LABS: Albumin Level 4.4 g/dl (3.5-5.0); Chloride 105 mmol/L (98-107); Potassium 4.2 mmoL/L (3.5-5.1); Sodium 140 mmol/L (136-145)
[2024-06-28 09:19] LABS: Blood Urea Nitrogen 12 mg/dl (9-20); Estimated Glomerular Filt Rate 98 ml/min (>60); GFR (African American) 118 ML/MIN (>60)
[2024-06-28 09:20] LABS: Alanine Aminotransferase 61 U/L (12-78); Alkaline Phosphatase 123 U/L (38-126); Anion Gap 12.2 mEq/L (5-15); Aspartate Amino Transferase 42 U/L (17-59); Bilirubin,Total 0.9 mg/dl (0.2-1.3); Calcium 8.9 mg/dl (8.4-10.2); Carbon Dioxide 27 mmol/L (22.0-30.0); Cholesterol 179 mg/dl (140-200); Globulin 2.2 g/dL (1.3-3.2); Glucose 90 mg/dl (74-100); Magnesium 2.1 mg/dl (1.6-2.3); Total Protein,Serum 6.6 g/dl (6.3-8.2); Triglycerides 160 mg/dl (30-150); VLDL Cholesterol 32 mg/dL (0-40)
[2024-06-28 09:21] LABS: Chol/HDL Ratio 6.2 (1-3.5); HDL Cholesterol 29 mg/dl (40-60)
[2024-06-28 09:26] LABS: Hemoglobin A1C 5.4 % (4.0-6.0)
[2024-06-28 09:32] LABS: Direct LDL Cholesterol 111.74 mg/dL (100-129)
[2024-06-28 09:36] LABS: 25-OH Vitamin D, Total 27.4 ng/mL (30-100); Free T4 (Free Thyroxine) 0.95 ng/dl (0.78-2.19)
[2024-06-28 09:40] LABS: T4 (Thyroxine) 8.1 ug/dl (5.53-11.0)
[2024-06-28 09:52] LABS: Thyroid Stimulating Hormone 2.67 uIU/mL (0.465-4.68)
[2024-06-28 09:56] LABS: Ferritin 132 ng/ml (17.9-464)
[2024-06-28 10:31] LABS: Vitamin B12 342 pg/mL (239-931)
[2024-06-29 08:09] LABS: Triiodothyronine (T3) Free 3.5 pg/mL (2.0-4.4)
[2024-06-29 11:18] LABS: C-Peptide 4.3 ng/mL (1.1-4.4); Insulin Level Total 27.6 uIU/mL (2.6-24.9)
[2024-07-05 19:09] LABS: Testosterone, Total, LC/MS 253.7 ng/dL (264.0-916.0)
== END 2024-06-28 23:59 | disposition home or self-care (01) ==
LOC: LAB 08:08
PROVIDERS: PCP Nurse Practitioner Family; Visit Provider Nurse Practitioner Family
DX: R53.83 Other fatigue (principal); E03.9 Hypothyroidism, unspecified; I10 Essential (primary) hypertension; R51.9 Headache, unspecified; E78.5 Hyperlipidemia, unspecified; R79.89 Other specified abnormal findings of blood chemistry; K76.0 Fatty (change of) liver, not elsewhere classified; R63.5 Abnormal weight gain; Z68.36 Body mass index [BMI] 36.0-36.9, adult; Z13.0 Encounter for screening for diseases of the blood and blood-forming organs and certain disorders involving the immune mechanism
CPT/HCPCS: 36415; 80053; 80061; 82306; 82607; 82728; 83036; 83525; 83735; 84402; 84403; 84436; 84439; 84443; 84481; 84681; 85025

== ENCOUNTER 2024-08-29 19:02 | Emergency (ER) | payer OTHER, SELFPAY ==
[2024-08-29] VITALS (11 sets, daily range): BP systolic 102–137; BP diastolic 71–88; PULSE 64–87; RESP 16–20; TEMP 36.6–36.7; O2SAT 96–100; BMI 33.6
--- NOTE | 2024-08-29 19:13 | ECG_ITS ---
APPROVED REPORT Exam: Resting ECG HR:70 bpm ECG Measurements Heart Rate 70 AXES AR 138 P 27 QRSd 106 QRS 21 QT 399 T 50 QTc 420 Conclusion SINUS RHYTHM WITH SINUS ARRHYTHMIA POSSIBLE RIGHT VENTRICULAR CONDUCTION DELAY [RSR (QR) IN V1/V2] No STEMI Electronically signed by : ORLIN TELLES, 08/30/2024 00:14:24
[2024-08-29 20:21] LABS: Basophils % 0.4 % (0.1-2.0); Eosinophils # 0.1 Kmm3 (0.0-0.4); Eosinophils % 0.6 % (0.1-12.0); Hemoglobin 14.9 g/dL (14.1-18.0); Lymphocytes # 2.7 K/mm3 (0.7-4.5); Lymphocytes % 31.7 % (10-50); Mean Corpuscular HGB Conc 33.1 g/dL (31.8-35.4); Mean Corpuscular Hemoglobin 27.9 pg (27.0-31.2); Mean Corpuscular Volume 84.3 fl (80-94); Mean Platelet Volume 10.4 fl (7.4-10.4); Monocytes # 0.6 K/mm3 (0.1-1.0); Monocytes % 6.8 % (1.7-9.3); Neutrophils # 5.1 K/mm3 (1.8-7.8); Neutrophils % 60.3 % (37.0-80.0); Nucleated Red Blood Cells # 0 10^3/uL; Nucleated Red Blood Cells % 0 %; Platelet Count 277 K/mm3 (142-424); Red Blood Count 5.34 M/mm3 (4.60-6.20); Red Cell Distribution Width-SD 39.7 fL; White Blood Count 8.4 K/mm3 (4.8-10.8)
--- NOTE | 2024-08-29 20:24 | ED_ITS ---
Discharge Plan Disposition Patient Disposition: Home, Self-Care Condition: Good Prescriptions Prescriptions: No Action tirzepatide 2.5 mg/0.5 mL pen injector 2.5 mg SQ WEEKLY Rx Instructions: for 4 weeks gabapentin 300 mg capsule 300 mg PO TID Qty: 90 2RF escitalopram oxalate 10 mg tablet 10 mg PO DAILY Qty: 30 2RF benzonatate 100 mg capsule 100 mg PO TID PRN (Reason: cough) Qty: 30 0RF methylprednisolone [Medrol (Dhaval)] 4 mg tablets,dose pack See Rx Instructions PO PER PKG DIR Qty: 21 0RF Rx Instructions: PO PER PKG DIR for 6 days azithromycin 250 mg tablet See Rx Instructions PO .COMPLEX Qty: 6 0RF Rx Instructions: For 250 mg dose pack: take 500 mg today (day 1), then 250 mg for 4 days (days 2-5) PO pravastatin 20 mg tablet See Rx Instructions .ROUTE .COMPLEX Qty: 30 2RF Dose Instruction: TAKE ONE TABLET BY MOUTH EVERY DAY Rx Instructions: TAKE ONE TABLET BY MOUTH EVERY DAY losartan 50 mg tablet See Rx Instructions .ROUTE .COMPLEX Qty: 180 2RF Dose Instruction: TAKE ONE TABLET BY MOUTH TWICE DAILY Rx Instructions: TAKE ONE TABLET BY MOUTH TWICE DAILY levothyroxine 50 mcg tablet See Rx Instructions .ROUTE .COMPLEX Qty: 30 2RF Dose Instruction: TAKE ONE TABLET BY MOUTH EVERY DAY Rx Instructions: TAKE ONE TABLET BY MOUTH EVERY DAY Vraylar 3 mg capsule See Rx Instructions .ROUTE .COMPLEX Qty: 30 2RF Dose Instruction: TAKE ONE CAPSULE BY MOUTH EVERY DAY Rx Instructions: TAKE ONE CAPSULE BY MOUTH EVERY DAY Referrals Follow up/Referrals: Lilian Gabriel APRN [Primary Care Provider] - See instructions Activity Restrictions/Add. Instructions Additional Instructions/Restrictions: You were evaluated in the emergency department today. At this time, your imaging and labs are reassuring. It is very important that you follow-up closely with your primary care provider right away, as we feel you would benefit from referral to neurology for further evaluation. We also feel he would benefit from referral for sleep study. Return to the Emergency Department right away for new or worsening symptoms. Clinical Impressions Clinical Impression: Headache Instructions Patient Instructions: DI for Migraine, DI for Headache Print Language Print Language: Estonian Discharge ED Provider: Mena Pepper General Adult HPI <TATY Lopez - Last Filed: 08/29/24 21:37> General Chief complaint: Altered Mental Status Stated complaint: forgetting,ROSAS,confused,heart palpitations Time Seen by Provider: 08/29/24 20:24 Mode of Arrival: Ambulatory Source of Information: Patient and Significant Other Description of Symptoms (Recalled from ER Triage Doc. by RN): Patient reports having a headache and brain fog as well as palpitations. States he has been more tired than usual. States this started around 2 weeks ago. Has been falling asleep driving. Was checked for sleep apnea and it was negative. Is on Trizepitide for weight loss and states he has had no appetite and has been having nausea. Has lost 10 lbs in last two weeks. History of Present Illness HPI narrative: Patient presents for evaluation of 3 weeks of headache and brain fog . Patient has had 3 weeks of daily headache that is nonfocal diffuse and changing in location. He denies any focal neurologic symptoms but reports that he has brain fog that seems to be getting worse over the last 3 weeks. Additionally patient has had increasing fatigue and can fall asleep the minute that he sits down however he never feels rested. He reports that he gets 8 to 10 hours of sleep at night and still feels tired. He has seen his PCP for this and they have done a generalized PEREZ and he took a home sleep study test that did not show sleep apnea. However patient's is adamant that the patient snores and has apneic spells. He has lost about 10 pounds last 2 weeks intentionally but otherwise denies any chest pain shortness of breath fever chills hemoptysis hematochezia melena nausea vomiting diarrhea. He has no focal neurologic deficits or complaints. He has no neck tenderness. Related Data Home Medications ?Medication ?Instructions ?Recorded ?Confirmed tirzepatide 2.5 mg/0.5 mL 2.5 mg SQ WEEKLY 06/27/24 06/29/24 subcutaneous pen injector Previous Rx's ?Medication ?Instructions ?Recorded escitalopram oxalate 10 mg tablet 10 mg PO DAILY #30 tabs 06/27/24 gabapentin 300 mg capsule 300 mg PO TID #90 caps 06/27/24 azithromycin 250 mg tablet See Rx Instructions PO .COMPLEX #6 06/29/24 tabs benzonatate 100 mg capsule 100 mg PO TID PRN cough #30 caps 06/29/24 methylprednisolone 4 mg tablets in See Rx Instructions PO PER PKG DIR 06/29/24 a dose pack (Medrol (Dhaval)) #21 tabs losartan 50 mg tablet See Rx Instructions .Route 07/07/24 .COMPLEX #180 tabs pravastatin 20 mg tablet See Rx Instructions .Route 07/07/24 .COMPLEX #30 tabs cariprazine 3 mg capsule (Vraylar) See Rx Instructions .Route 08/01/24 .COMPLEX #30 caps levothyroxine 50 mcg tablet See Rx Instructions .Route 08/01/24 .COMPLEX #30 tabs Allergies Allergy/AdvReac Type Severity Reaction Status Date / Time No Known Allergies Allergy Verified 06/29/24 12:37 [facility] <TATY Lopez - Last Filed: 08/29/24 21:37> [facility] Disclaimer: The information contained in this section may have been updated after the patient was seen, as this information can be updated by other users. Medical History (Updated 08/29/24 @ 23:16 by Mena Pepper DO) Sinusitis Depression Anxiety Hyperlipidemia Hypertension Bipolar II disorder Surgical History Hx of cholecystectomy H/O hernia repair History of appendectomy Family History Father Cancer Other Coronary artery disease Heart attack Social History Smoking Status: Never smoker alcohol intake: never substance use type: denies use current occupational status: employed and other Travel in the last 8 weeks: None number of children: 1 Have you lived/traveled outside [place] in past 30 days?: No Contact w/someone who lives/traveled outside US past 30 days?: No Exposure to someone with infectious disease in past 14 days?: No Do you have a fever (greater than 100.4 F or 38 C)?: No Have you tested positive for COVID-19: No Exposed to someone with COVID-19 in past 14 days?: No Do you have a sore throat?: No Do you have a cough?: No Do you have any weakness?: No Do you have any diarrhea?: No Are you experiencing any unusual bleeding?: No Do you have any muscle aches/pain?: No Do you have any abdominal pain?: No Are you experiencing loss of taste or smell?: No Other Medical History Have you received the Flu Vaccine for this season: No Have you received the Pneumonia Vaccine: No <TATY Lopez - Last Filed: 08/29/24 21:37> ROS Obtained: Yes Systems reviewed as appropriate & no additional complaints except as documented Physical Exam <TATY Lopez - Last Filed: 08/29/24 21:37> General General appearance: alert and in no apparent distress Respiratory Respiratory exam: Present normal lung sounds bilaterally Cardiovascular Cardiovascular exam: Present regular rate Neurological Exam Neurological exam: Present alert and oriented X3 Medical Decision Making <TATY Lopez - Last Filed: 08/29/24 21:37> Medical Records Medical records reviewed: Yes I reviewed the patient's medical records. Screening: Per USPSTF and CDC recommendations, given the prevalence of disease in our region, it is our hospital?s policy to screen for HIV and viral Hepatitis for all patients aged 18 and over and those with ongoing risk factors. [place] Inquiry Pt receiving controlled substance: No Vital Signs: 08/29/24 19:18 08/29/24 20:09 08/29/24 20:15 Temperature 97.9 F Temperature Source Oral Pulse Rate 75 71 Pulse Rate [Right Radial] 64 Respiratory Rate 16 Blood Pressure 118/73 136/76 Blood Pressure [Right Arm] 131/78 Blood Pressure Mean [Right Arm] 95 Blood Pressure Source Blood Pressure Source [Right Arm] Automatic Cuff Blood Pressure Position Blood Pressure Position [Right Arm] Supine 02 Sat by Pulse Oximetry 98 99 98 Oxygen Delivery Method Room Air Room Air Room Air 08/29/24 20:30 08/29/24 20:45 08/29/24 21:01 Temperature Temperature Source Pulse Rate 69 68 64 Pulse Rate [Right Radial] Respiratory Rate Blood Pressure 129/83 125/75 128/74 Blood Pressure [Right Arm] Blood Pressure Mean [Right Arm] Blood Pressure Source Blood Pressure Source [Right Arm] Blood Pressure Position Blood Pressure Position [Right Arm] 02 Sat by Pulse Oximetry 98 97 100 Oxygen Delivery Method Room Air 08/29/24 21:15 08/29/24 21:45 08/29/24 22:00 Temperature Temperature Source Pulse Rate 68 79 70 Pulse Rate [Right Radial] Respiratory Rate Blood Pressure 125/74 109/72 L 116/71 Blood Pressure [Right Arm] Blood Pressure Mean [Right Arm] Blood Pressure Source Blood Pressure Source [Right Arm] Blood Pressure Position Blood Pressure Position [Right Arm] 02 Sat by Pulse Oximetry 96 96 97 Oxygen Delivery Method 08/29/24 23:24 08/29/24 23:27 Temperature 98.1 F 97.9 F Temperature Source Oral Pulse Rate 69 87 Pulse Rate [Right Radial] Respiratory Rate 20 18 Blood Pressure 102/72 L 137/88 Blood Pressure [Right Arm] Blood Pressure Mean [Right Arm] Blood Pressure Source Automatic Cuff Blood Pressure Source [Right Arm] Blood Pressure Position Sitting Blood Pressure Position [Right Arm] 02 Sat by Pulse Oximetry Oxygen Delivery Method Room Air Lab Data Lab results reviewed: Yes I reviewed the patient's lab results. Lab Results 08/29/24 19:23: WBC 8.4, RBC 5.34, Hgb 14.9, Hct 45.0, MCV 84.3, MCH 27.9, MCHC 33.1, RDW 13.0, Plt Count 277, MPV 10.4, Neut % (Auto) 60.3, Lymph % (Auto) 31.7, [place] % (Auto) 6.8, Eos % (Auto) 0.6, Baso % (Auto) 0.4, Neut # (Auto) 5.1, Lymph # (Auto) 2.7, [place] # (Auto) 0.6, Eos # (Auto) 0.1, Baso # (Auto) 0.0, Sodium 141, Potassium 3.8, Chloride 102, Carbon Dioxide 29, Anion Gap 13.8, BUN 11, Creatinine 1.00, Estimated Creat Clear 172, Estimated GFR 86, Est GFR ( Amer) 104, Glucose 87, Calcium 9.2, Total Bilirubin 0.7, AST 44, ALT 84 H, Alkaline Phosphatase 92, Troponin I < 0.01, NT-Pro-B Natriuret Pep < 20.0, Total Protein 7.4, Albumin 4.5, Globulin 2.9, Albumin/Globulin Ratio 1.6, TSH 5.36 H, Free T4 Index 2.8 L, Thyroxine (T4) 8.6, T3 Uptake 32, Urine Color Yellow, Urine Appearance Clear, Urine pH 5.5, Ur Specific Adams 1.028, Urine Protein Negative, Urine Glucose (UA) Negative, Urine Ketones Negative, Urine Blood Negative, Urine Nitrate Negative, Urine Bilirubin Negative, Urine Urobilinogen 0.2, Ur Leukocyte Esterase Negative 08/29/24 20:09: Urine Opiates Screen Negative, Urine Methadone Screen Negative, Ur Barbituates Screen Negative, Ur Phencyclidine Scrn Negative, Ur Amphetamines Screen Negative, U Benzodiazepines Scrn Negative, Urine Cocaine Screen Negative, U Marijuana (THC) Screen Negative 08/29/24 19:23 08/29/24 19:23 Orders (Tests/Meds): ED MEDICATIONS Discontinued Medications Generic Name Dose Route Start Last Admin Trade Name Freq PRN Reason Stop Dose Admin Acetaminophen 1,000 mg 08/29/24 20:37 08/29/24 20:44 Acetaminophen 1,000mg/100ml Vial IV 08/29/24 20:38 1,000 mg ONCE ONE Administration Dexamethasone Sodium Phosphate 10 mg 08/29/24 20:37 08/29/24 20:44 Dexamethasone 4mg/Ml 5ml Mdv IV 08/29/24 20:38 10 mg ONCE ONE Administration Diphenhydramine HCl 50 mg 08/29/24 20:37 08/29/24 20:44 Diphenhydramine 50mg/Ml Vial IV 08/29/24 20:38 50 mg ONCE ONE Administration Iopamidol 80 ml 08/29/24 21:29 08/29/24 21:31 Iopamidol-370 (76%);100ml Bottle IV 08/29/24 21:30 80 ml ONCE ONE Administration Ketorolac Tromethamine 30 mg 08/29/24 23:11 08/29/24 23:18 Ketorolac 30mg/Ml Vial IV 08/29/24 23:12 30 mg ONCE ONE Administration Methocarbamol 500 mg 08/29/24 20:37 08/29/24 20:45 Methocarbamol 500mg Tablet PO 08/29/24 20:38 500 mg ONCE ONE Administration Ondansetron HCl 4 mg 08/29/24 20:37 08/29/24 20:45 Ondansetron 4mg/2ml Vial IV 08/29/24 20:38 4 mg ONCE ONE Administration Sodium Chloride 50 ml 08/29/24 21:29 08/29/24 21:31 0.9 % Sodium Chloride 50 Ml Vial IV 08/29/24 21:30 50 ml ONCE ONE Administration Sodium Chloride 10 ml 08/29/24 21:29 08/29/24 21:31 Sodium Chloride 0.9% 10ml Syr (Rad Only) IV 08/29/24 21:30 10 ml ONCE ONE Administration ORDERS Category Date Time Status CT angio head Stat Cat Scan 08/29/24 20:[address] angio neck Stat Cat Scan 08/29/24 20:[address] head/brain wo con Stat Cat Scan 08/29/24 20:36 Completed BNP [NT Pro Brain Natriuretic Pep.] Stat Lab 08/29/24 19:23 Completed Complete Blood Count Auto Diff Stat Lab 08/29/24 19:23 Completed Comprehensive Metabolic Panel Stat Lab 08/29/24 19:23 Completed Drug Screen,Urine Stat Lab 08/29/24 20:09 Completed Thyroid Panel Stat Lab 08/29/24 19:23 Completed Trop I [Troponin I] Stat Lab 08/29/24 19:23 Completed UA/RFX Microscopic Stat Lab 08/29/24 19:23 Completed Medical Decision Narrative: In summary patient is a 34-year-old male who presents to the emergency department for evaluation of 3 weeks of headache fatigue and brain fog .. Patient is hemodynamically stable with a blood pressure 131/78 pulse 64 with normal sinus rhythm on the bedside monitor breathing 16 times a minute satting at 98% on room air upon arrival, afebrile at 97.9. Physical exam reveals a well-nourished well-developed 34-year-old gentleman who is otherwise in no acute distress. Patient is awake alert and oriented to person place and circumstance Crosby Coma Score is 15 cranial nerves II through XII are intact grossly to exam. Patient has no posterior cervical tenderness no nuchal rigidity patient has full range of motion of the C-spine. Pupils equal round reactive to light extraocular movements are intact without pain. Neck is supple without JVD or lymphadenopathy no carotid bruits heard. Evidence of chest feels clear breath sounds in all 4 roque with heart sounds S1-S2 regular rate rhythm without murmurs gallops rubs or thrills. Abdomen soft nontender rebound or guarding or rigidity. Patient moves all 4 extremities grossly to exam is ambulating without any gait abnormalities. He has no focal neurologic deficits.. Differential diagnosis includes migraine versus sleep apnea versus intracranial lesion versus stroke etc. Initial workup will be conducted with hematologic labs twelve-lead EKG CT of the head without contrast CTA of the head and neck urinalysis urine drug screen.. Initial interventions include headache cocktail with exception of Toradol which includes crystalloid bolus Tylenol Decadron Robaxin and Zofran. Initial workup ordered and pending at the time of handoff to Dr. Pepper at 2200 hrs. <Mena Pepper, DO - Last Filed: 08/30/24 00:21> Vital Signs: 08/29/24 19:18 08/29/24 20:09 08/29/24 20:15 Temperature 97.9 F Temperature Source Oral Pulse Rate 75 71 Pulse Rate [Right Radial] 64 Respiratory Rate 16 Blood Pressure 118/73 136/76 Blood Pressure [Right Arm] 131/78 Blood Pressure Mean [Right Arm] 95 Blood Pressure Source Blood Pressure Source [Right Arm] Automatic Cuff Blood Pressure Position Blood Pressure Position [Right Arm] Supine 02 Sat by Pulse Oximetry 98 99 98 Oxygen Delivery Method Room Air Room Air Room Air 08/29/24 20:30 08/29/24 20:45 08/29/24 21:01 Temperature Temperature Source Pulse Rate 69 68 64 Pulse Rate [Right Radial] Respiratory Rate Blood Pressure 129/83 125/75 128/74 Blood Pressure [Right Arm] Blood Pressure Mean [Right Arm] Blood Pressure Source Blood Pressure Source [Right Arm] Blood Pressure Position Blood Pressure Position [Right Arm] 02 Sat by Pulse Oximetry 98 97 100 Oxygen Delivery Method Room Air 08/29/24 21:15 08/29/24 21:45 08/29/24 22:00 Temperature Temperature Source Pulse Rate 68 79 70 Pulse Rate [Right Radial] Respiratory Rate Blood Pressure 125/74 109/72 L 116/71 Blood Pressure [Right Arm] Blood Pressure Mean [Right Arm] Blood Pressure Source Blood Pressure Source [Right Arm] Blood Pressure Position Blood Pressure Position [Right Arm] 02 Sat by Pulse Oximetry 96 96 97 Oxygen Delivery Method 08/29/24 23:24 08/29/24 23:27 Temperature 98.1 F 97.9 F Temperature Source Oral Pulse Rate 69 87 Pulse Rate [Right Radial] Respiratory Rate 20 18 Blood Pressure 102/72 L 137/88 Blood Pressure [Right Arm] Blood Pressure Mean [Right Arm] Blood Pressure Source Automatic Cuff Blood Pressure Source [Right Arm] Blood Pressure Position Sitting Blood Pressure Position [Right Arm] 02 Sat by Pulse Oximetry Oxygen Delivery Method Room Air Lab Data Lab Results 08/29/24 19:23: WBC 8.4, RBC 5.34, Hgb 14.9, Hct 45.0, MCV 84.3, MCH 27.9, MCHC 33.1, RDW 13.0, Plt Count 277, MPV 10.4, Neut % (Auto) 60.3, Lymph % (Auto) 31.7, [place] % (Auto) 6.8, Eos % (Auto) 0.6, Baso % (Auto) 0.4, Neut # (Auto) 5.1, Lymph # (Auto) 2.7, [place] # (Auto) 0.6, Eos # (Auto) 0.1, Baso # (Auto) 0.0, Sodium 141, Potassium 3.8, Chloride 102, Carbon Dioxide 29, Anion Gap 13.8, BUN 11, Creatinine 1.00, Estimated Creat Clear 172, Estimated GFR 86, Est GFR ( Amer) 104, Glucose 87, Calcium 9.2, Total Bilirubin 0.7, AST 44, ALT 84 H, Alkaline Phosphatase 92, Troponin I < 0.01, NT-Pro-B Natriuret Pep < 20.0, Total Protein 7.4, Albumin 4.5, Globulin 2.9, Albumin/Globulin Ratio 1.6, TSH 5.36 H, Free T4 Index 2.8 L, Thyroxine (T4) 8.6, T3 Uptake 32, Urine Color Yellow, Urine Appearance Clear, Urine pH 5.5, Ur Specific Adams 1.028, Urine Protein Negative, Urine Glucose (UA) Negative, Urine Ketones Negative, Urine Blood Negative, Urine Nitrate Negative, Urine Bilirubin Negative, Urine Urobilinogen 0.2, Ur Leukocyte Esterase Negative 08/29/24 20:09: Urine Opiates Screen Negative, Urine Methadone Screen Negative, Ur Barbituates Screen Negative, Ur Phencyclidine Scrn Negative, Ur Amphetamines Screen Negative, U Benzodiazepines Scrn Negative, Urine Cocaine Screen Negative, U Marijuana (THC) Screen Negative Orders (Tests/Meds): ED MEDICATIONS Discontinued Medications Generic Name Dose Route Start Last Admin Trade Name Freq PRN Reason Stop Dose Admin Acetaminophen 1,000 mg 08/29/24 20:37 08/29/24 20:44 Acetaminophen 1,000mg/100ml Vial IV 08/29/24 20:38 1,000 mg ONCE ONE Administration Dexamethasone Sodium Phosphate 10 mg 08/29/24 20:37 08/29/24 20:44 Dexamethasone 4mg/Ml 5ml Mdv IV 08/29/24 20:38 10 mg ONCE ONE Administration Diphenhydramine HCl 50 mg 08/29/24 20:37 08/29/24 20:44 Diphenhydramine 50mg/Ml Vial IV 08/29/24 20:38 50 mg ONCE ONE Administration Iopamidol 80 ml 08/29/24 21:29 08/29/24 21:31 Iopamidol-370 (76%);100ml Bottle IV 08/29/24 21:30 80 ml ONCE ONE Administration Ketorolac Tromethamine 30 mg 08/29/24 23:11 08/29/24 23:18 Ketorolac 30mg/Ml Vial IV 08/29/24 23:12 30 mg ONCE ONE Administration Methocarbamol 500 mg 08/29/24 20:37 08/29/24 20:45 Methocarbamol 500mg Tablet PO 08/29/24 20:38 500 mg ONCE ONE Administration Ondansetron HCl 4 mg 08/29/24 20:37 08/29/24 20:45 Ondansetron 4mg/2ml Vial IV 08/29/24 20:38 4 mg ONCE ONE Administration Sodium Chloride 50 ml 08/29/24 21:29 08/29/24 21:31 0.9 % Sodium Chloride 50 Ml Vial IV 08/29/24 21:30 50 ml ONCE ONE Administration Sodium Chloride 10 ml 08/29/24 21:29 08/29/24 21:31 Sodium Chloride 0.9% 10ml Syr (Rad Only) IV 08/29/24 21:30 10 ml ONCE ONE Administration ORDERS Category Date Time Status CT angio head Stat Cat Scan 08/29/24 20:[address] angio neck Stat Cat Scan 08/29/24 20:[address] head/brain wo con Stat Cat Scan 08/29/24 20:36 Completed BNP [NT Pro Brain Natriuretic Pep.] Stat Lab 08/29/24 19:23 Completed Complete Blood Count Auto Diff Stat Lab 08/29/24 19:23 Completed Comprehensive Metabolic Panel Stat Lab 08/29/24 19:23 Completed Drug Screen,Urine Stat Lab 08/29/24 20:09 Completed Thyroid Panel Stat Lab 08/29/24 19:23 Completed Trop I [Troponin I] Stat Lab 08/29/24 19:23 Completed UA/RFX Microscopic Stat Lab 08/29/24 19:23 Completed ECG Data Tracing #1: I reviewed this ECG and interpreted as documented below: Normal sinus rhythm with sinus rhythm with a ventricular to [address] changes concerning for ischemia. Normal intervals ECG initial impression date: 08/30/24 ECG initial impression time: 19:15 Medical Decision Narrative: In summary patient is a 34-year-old male who presents to the emergency department for evaluation of 3 weeks of headache fatigue and brain fog .. Patient is hemodynamically stable with a blood pressure 131/78 pulse 64 with normal sinus rhythm on the bedside monitor breathing 16 times a minute satting at 98% on room air upon arrival, afebrile at 97.9. Physical exam reveals a well-nourished well-developed 34-year-old gentleman who is otherwise in no acute distress. Patient is awake alert and oriented to person place and circumstance Crosby Coma Score is 15 cranial nerves II through XII are intact grossly to exam. Patient has no posterior cervical tenderness no nuchal rigidity patient has full range of motion of the C-spine. Pupils equal round reactive to light extraocular movements are intact without pain. Neck is supple without JVD or lymphadenopathy no carotid bruits heard. Evidence of chest feels clear breath sounds in all 4 roque with heart sounds S1-S2 regular rate rhythm without murmurs gallops rubs or thrills. Abdomen soft nontender rebound or guarding or rigidity. Patient moves all 4 extremities grossly to exam is ambulating without any gait abnormalities. He has no focal neurologic deficits.. Differential diagnosis includes migraine versus sleep apnea versus intracranial lesion versus stroke etc. Initial workup will be conducted with hematologic labs twelve-lead EKG CT of the head without contrast CTA of the head and neck urinalysis urine drug screen.. Initial interventions include headache cocktail with exception of Toradol which includes crystalloid bolus Tylenol Decadron Robaxin and Zofran. Initial workup ordered and pending at the time of handoff to Dr. Pepper at 2200 hrs. DO Evgeny: I was consulted by the AMA, and we discussed the complexity of the problems being addressed. I approved the treatment and management plan for this patient's care in the emergency department, thus performing a substantive portion of the medical decision making. On my assessment, the patient states he is feeling better and is neurologically intact. I independently turbid CT scans prior to radiology read and noted no mass or intracranial hemorrhage, patient has reassuring lab evaluation. At this time, I feel that there is nothing life- threatening or emergent that we need to admit him to the hospital for, but I do feel he would benefit from very close follow-up with neurology for possible outpatient MRI and further workup of migraines versus headache from JOSHUA versus other cause of his recurrent chronic headaches. Strict return precautions were given and he was discharged after all questions were answered Mena Pepper DO Critical Care <TATY Lopez - Last Filed: 08/29/24 21:37> Critical Care Time Critical Care Time: Yes Attestation: On 08/29/24, the high probability of a clinically significant, sudden or life threatening deterioration of the following system(s) required my full and direct attention, intervention and personal management. The time I documented below is in addition to time spent performing reported procedures but includes the following listed in this critical care notation. Total Time Total Critical Care Time: 35
[2024-08-29 20:30] LABS: Alanine Aminotransferase 84 U/L (12-78); Albumin Level 4.5 g/dl (3.5-5.0); Albumin/Globulin Ratio 1.6 (1.1-1.8); Alkaline Phosphatase 92 U/L (38-126); Anion Gap 13.8 mEq/L (5-15); Aspartate Amino Transferase 44 U/L (17-59); Bilirubin,Total 0.7 mg/dl (0.2-1.3); Blood Urea Nitrogen 11 mg/dl (9-20); Calcium 9.2 mg/dl (8.4-10.2); Carbon Dioxide 29 mmol/L (22.0-30.0); Chloride 102 mmol/L (98-107); Creatinine Clearance Estimated 172 mL/min (50-200); Estimated Glomerular Filt Rate 86 ml/min (>60); GFR (African American) 104 ML/MIN (>60); Globulin 2.9 g/dL (1.3-3.2); Glucose 87 mg/dl (74-100); Potassium 3.8 mmoL/L (3.5-5.1); Sodium 141 mmol/L (136-145); Total Protein,Serum 7.4 g/dl (6.3-8.2)
--- NOTE | 2024-08-29 20:36 | CT_ITS ---
PROCEDURE INFORMATION: Exam: CTA Head With Contrast, Arteriography Exam date and time: 08/29/2024 9:30 PM Age: 34 years old Clinical indication: Headache; Additional info: 3 weeks of headache TECHNIQUE: Imaging protocol: Computed tomographic angiography of the head with contrast. Exam focused on the arteries. 3D rendering (Not supervised by radiologist): MIP and/or 3D reconstructed images were created by the technologist. Radiation optimization: All CT scans at this facility use at least one of these dose optimization techniques: automated exposure control; mA and/or kV adjustment per patient size (includes targeted exams where dose is matched to clinical indication); or iterative reconstruction. Contrast material: ISO 370; Contrast volume: 80 ml; Contrast route: INTRAVENOUS (IV); COMPARISON: CT HEAD/BRAIN WO CON 08/29/2024 9:28 PM FINDINGS: ANTERIOR CIRCULATION: Right internal carotid artery: Intracranial segment is patent with no significant stenosis. No aneurysm. Right middle cerebral artery: No occlusion or significant stenosis. No aneurysm. Right anterior cerebral artery: No occlusion or significant stenosis. No aneurysm. Left internal carotid artery: Intracranial segment is patent with no significant stenosis. No aneurysm. Left middle cerebral artery: No occlusion or significant stenosis. No aneurysm. Left anterior cerebral artery: No occlusion or significant stenosis. No aneurysm. POSTERIOR CIRCULATION: Right vertebral artery: No occlusion or significant stenosis. No aneurysm. Left vertebral artery: No occlusion or significant stenosis. No aneurysm. Basilar artery: No occlusion or significant stenosis. No aneurysm. Right posterior cerebral artery: No occlusion or significant stenosis. No aneurysm. Left posterior cerebral artery: No occlusion or significant stenosis. No aneurysm. Veins: Dural venous sinuses are intact. Brain: No definite mass, mass effect, or midline shift. Cerebral ventricles: No ventriculomegaly. Bones/joints: Unremarkable. No acute fracture. Soft tissues: Unremarkable. IMPRESSION: No acute findings.
--- NOTE | 2024-08-29 20:36 | CT_ITS ---
PROCEDURE INFORMATION: Exam: CT Head Without Contrast Exam date and time: 08/29/2024 9:28 PM Age: 34 years old Clinical indication: Other: 3 weeks of headache TECHNIQUE: Imaging protocol: Computed tomography of the head without contrast. Radiation optimization: All CT scans at this facility use at least one of these dose optimization techniques: automated exposure control; mA and/or kV adjustment per patient size (includes targeted exams where dose is matched to clinical indication); or iterative reconstruction. COMPARISON: No relevant prior studies available. FINDINGS: Brain: Normal. No hemorrhage. Unremarkable white matter. No mass effect. Cerebral ventricles: No ventriculomegaly. Paranasal sinuses: Visualized sinuses are unremarkable. No fluid levels. Mastoid air cells: Visualized mastoid air cells are well aerated. Bones: Unremarkable. No acute fracture. Soft tissues: Unremarkable. IMPRESSION: No acute intracranial abnormality.
--- NOTE | 2024-08-29 20:36 | CT_ITS ---
PROCEDURE INFORMATION: Exam: CTA Neck With Contrast Exam date and time: 08/29/2024 9:30 PM Age: 34 years old Clinical indication: Headache; Additional info: 3 weeks of headache TECHNIQUE: Imaging protocol: Computed tomographic angiography of the neck with contrast. Exam focused on the cervical segments of the vasculature. 3D rendering (Not supervised by radiologist): MIP and/or 3D reconstructed images were created by the technologist. Radiation optimization: All CT scans at this facility use at least one of these dose optimization techniques: automated exposure control; mA and/or kV adjustment per patient size (includes targeted exams where dose is matched to clinical indication); or iterative reconstruction. Contrast material: ISO 370; Contrast volume: 80 ml; Contrast route: INTRAVENOUS (IV); COMPARISON: CT HEAD/BRAIN WO CON 08/29/2024 9:28 PM FINDINGS: Right common carotid artery: No stenosis. No dissection or occlusion. Right internal carotid artery: No stenosis of the extracranial segment. No dissection or occlusion. Right external carotid artery: No occlusion or stenosis of the origin. Left common carotid artery: No stenosis. No dissection or occlusion. Left internal carotid artery: No stenosis of the extracranial segment. No dissection or occlusion. Left external carotid artery: No occlusion or stenosis of the origin. Right vertebral artery: No stenosis. No dissection or occlusion. Left vertebral artery: No stenosis. No dissection or occlusion. Soft tissues: Normal. No significant soft tissue swelling. Bones/joints: No acute fracture. IMPRESSION: No stenosis or occlusion. REFERENCES: NASCET CRITERIA. The degree of stenosis in the cervical segment of the internal carotid artery is based on NASCET criteria. Normal is no stenosis. Mild is less than 50% stenosis. Moderate is 50-69% stenosis. Severe is 70% to 99% stenosis. Total occlusion is no detectable patent lumen.
[2024-08-29 20:38] LABS: Barbiturates Screen,Urine Negative ng/ml (<200); Benzodiazepines Screen,Urine Negative ng/ml (<200)
[2024-08-29 20:39] LABS: Amphetamine/Metha Screen,Urine Negative ng/ml (<1000)
[2024-08-29 20:40] LABS: Cocaine Screen,Urine Negative ng/ml (<300); Methadone Screen,Urine Negative ng/ml (<300)
[2024-08-29 20:41] LABS: Cannabinoid Screen,Urine Negative ng/ml (<50)
[2024-08-29 20:42] LABS: Appearance,Urine CLEAR (Clear); Bilirubin,Urine Negative (Negative); Blood, Urine NEGATIVE (Negative); Color,Urine YELLOW (Yellow); Glucose,Urine (UA) Negative (Negative); Ketones,Urine Negative (Negative); Leukocyte Esterase,Urine NEGATIVE (Negative); Nitrate,Urine NEGATIVE (Negative); PH,Urine 5.5 (5.0-8.5); Protein,Urine NEGATIVE (Negative); Urobilinogen,Urine 0.2 EU/dl (0.2)
[2024-08-29 20:42] LABS: Opiate Screen,Urine Negative ng/ml (<300)
[2024-08-29] MEDS: diphenhydrAMINE 50MG/ML VIAL 50 MG IV (20:44)
[2024-08-29] MEDS: DEXAMETHASONE 4MG/ML 5ML MDV 10 MG IV (20:44)
[2024-08-29] MEDS: ACETAMINOPHEN 1,000MG/100ML VIAL 1000 MG IV (20:44)
[2024-08-29 20:45] LABS: Specific Gravity, Urine 1.028 (1.005-1.030)
[2024-08-29] MEDS: METHOCARBAMOL 500MG TABLET 500 MG PO (20:45)
[2024-08-29] MEDS: ONDANSETRON 4MG/2ML VIAL 4 MG IV (20:45)
[2024-08-29 21:00] LABS: NT Pro Brain Natriuretic Pep. < 20.0 pg/mL (0-125)
[2024-08-29 21:02] LABS: Troponin I < 0.01 ng/ml (0.00-0.034)
[2024-08-29 21:08] LABS: Triiodothryronine (T3) Uptake 32 % (23.5-40.5)
[2024-08-29 21:09] LABS: Free Thyroxine Index 2.8 ug/dL (5.93-13.13); T4 (Thyroxine) 8.6 ug/dl (5.53-11.0)
[2024-08-29 21:18] LABS: Phencyclidine Screen,Urine Negative ng/ml (<25)
[2024-08-29 21:22] LABS: Thyroid Stimulating Hormone 5.36 uIU/mL (0.465-4.68)
[2024-08-29] MEDS: 0.9 % SODIUM CHLORIDE 50 ML VIAL IV (21:31)
[2024-08-29] MEDS: SODIUM CHLORIDE 0.9% 10ML SYR (RAD ONLY) 10 ML IV (21:31)
[2024-08-29] MEDS: IOPAMIDOL-370 (76%);100ML BOTTLE 80 ML IV (21:31)
--- NOTE | 2024-08-29 22:10 | PC.NURSE ---
Unhooked patient to go to bathroom. Pt said feels better, able to stand to dizziness
[2024-08-29] MEDS: KETOROLAC 30MG/ML VIAL 30 MG IV (23:18)
--- NOTE | 2024-08-29 23:28 | PC.NURSE ---
IV discontinued. IV catheter tip intact. bleeding controlled
== END 2024-08-29 23:28 | disposition home or self-care (01) ==
PROVIDERS: Physician Assistant; Emergency Provider Emergency Medicine; PCP Nurse Practitioner Family
DX: R51.9 Headache, unspecified (principal); R41.0 Disorientation, unspecified; R00.2 Palpitations; R53.83 Other fatigue
CPT/HCPCS: 70450; 70496; 70498; 80053; 80307; 81003; 83880; 84436; 84443; 84479; 84484; 85025; 93005; 96374; 96375; 99291; J0131; J1100; J1200; J1885; J2405; Q9967

== ENCOUNTER 2024-09-13 08:33 | Outpatient (CLI) | payer OTHER, SELFPAY ==
[2024-09-13 08:51] LABS: Anti-Centromere B Antibodies ND; Anti-DNA (DS) Ab Qn ND; Anti-Jo-1 ND; Antichromatin Antibodies ND; Antiscleroderma-70 Antibodies ND; RNP Antibodies ND; Sjogren's Anti-SS-A ND; Sjogren's Anti-SS-B ND
[2024-09-13 09:25] LABS: Basophils % 0.2 % (0.1-2.0); Eosinophils # 0.1 Kmm3 (0.0-0.4); Eosinophils % 0.6 % (0.1-12.0); Hematocrit 46.7 % (42.0-52.0); Hemoglobin 15.4 g/dL (14.1-18.0); Lymphocytes # 1.6 K/mm3 (0.7-4.5); Lymphocytes % 18.8 % (10-50); Mean Corpuscular Hemoglobin 28.1 pg (27.0-31.2); Mean Corpuscular Volume 85.1 fl (80-94); Mean Platelet Volume 9.8 fl (7.4-10.4); Monocytes # 0.4 K/mm3 (0.1-1.0); Monocytes % 5.1 % (1.7-9.3); Neutrophils # 6.5 K/mm3 (1.8-7.8); Neutrophils % 75.1 % (37.0-80.0); Nucleated Red Blood Cells # 0 10^3/uL; Nucleated Red Blood Cells % 0 %; Platelet Count 272 K/mm3 (142-424); Red Blood Count 5.49 M/mm3 (4.60-6.20); Red Cell Distribution Width 12.7 % (11.5-17.5); Red Cell Distribution Width-SD 38.9 fL; White Blood Count 8.7 K/mm3 (4.8-10.8)
[2024-09-13 09:48] LABS: Albumin Level 4.6 g/dl (3.5-5.0); Chloride 107 mmol/L (98-107); Potassium 4.2 mmoL/L (3.5-5.1); Sodium 141 mmol/L (136-145)
[2024-09-13 09:51] LABS: Alanine Aminotransferase 65 U/L (12-78); Albumin/Globulin Ratio 2.1 (1.1-1.8); Alkaline Phosphatase 83 U/L (38-126); Anion Gap 12.2 mEq/L (5-15); Aspartate Amino Transferase 34 U/L (17-59); Bilirubin,Total 0.7 mg/dl (0.2-1.3); Blood Urea Nitrogen 14 mg/dl (9-20); Calcium 9.3 mg/dl (8.4-10.2); Carbon Dioxide 26 mmol/L (22.0-30.0); Cholesterol 178 mg/dl (140-200); Estimated Glomerular Filt Rate 97 ml/min (>60); GFR (African American) 118 ML/MIN (>60); Globulin 2.2 g/dL (1.3-3.2); Glucose 100 mg/dl (74-100); Total Protein,Serum 6.8 g/dl (6.3-8.2); Triglycerides 131 mg/dl (30-150); VLDL Cholesterol 26 mg/dL (0-40)
[2024-09-13 09:52] LABS: Chol/HDL Ratio 4.9 (1-3.5); HDL Cholesterol 36 mg/dl (40-60)
[2024-09-13 10:04] LABS: Free T4 (Free Thyroxine) 0.93 ng/dl (0.78-2.19)
[2024-09-13 10:05] LABS: 25-OH Vitamin D, Total 37.5 ng/mL (30-100); T4 (Thyroxine) 7.5 ug/dl (5.53-11.0)
[2024-09-13 10:19] LABS: Thyroid Stimulating Hormone 2.24 uIU/mL (0.465-4.68)
[2024-09-13 12:40] LABS: Vitamin B12 537 pg/mL (239-931)
[2024-09-14 07:09] LABS: Testosterone,Total 415 ng/dL (264-916); Triiodothyronine (T3) Free 3.4 pg/mL (2.0-4.4)
[2024-09-14 12:11] LABS: Insulin Level Total 30.7 uIU/mL (2.6-24.9)
[2024-09-14 15:27] LABS: Cortisol,AM 11.6 ug/dL (6.2-19.4)
[2024-09-15 12:26] LABS: Antinuclear Antibodies (ANA) Negative (Negative)
== END 2024-09-13 23:59 | disposition home or self-care (01) ==
LOC: LAB 08:34
PROVIDERS: PCP Nurse Practitioner Family; Visit Provider Nurse Practitioner Family
DX: E78.5 Hyperlipidemia, unspecified (principal); R51.9 Headache, unspecified; R53.83 Other fatigue; K76.0 Fatty (change of) liver, not elsewhere classified; E03.9 Hypothyroidism, unspecified; I10 Essential (primary) hypertension; R79.89 Other specified abnormal findings of blood chemistry; Z68.34 Body mass index [BMI] 34.0-34.9, adult; E66.9 Obesity, unspecified
CPT/HCPCS: 36415; 80053; 80061; 82306; 82533; 82607; 83525; 84403; 84436; 84439; 84443; 84481; 85025; 86664; 86665

== ENCOUNTER 2024-09-26 07:54 | Outpatient (CLI) | payer OTHER, SELFPAY ==
--- NOTE | 2024-09-26 08:00 | MR_ITS ---
FINAL REPORT TECHNIQUE: Multiplanar and multisequence imaging of the cervical spine was obtained. CLINICAL HISTORY: Cervical disc protrusion PAIN AND NUMBNESS DOWN ARMS AND BACK OF NECK COMPARISON: 05/09/2022 FINDINGS: Alignment is normal. Vertebral body height is preserved. There is mild prominence to the central canal of the spinal cord which can be a normal variant. No acute bone marrow edema. No acute paraspinal abnormality. C2/3: There is no focal disc herniation, central stenosis or neural foraminal narrowing. C3/4: There is an annular disc bulge. There is no central stenosis. There is mild bilateral neural foraminal narrowing. C4/5: There is no focal disc herniation, central stenosis or neural foraminal narrowing. C5/6: There is a central protrusion with mild mass effect on the anterior thecal sac. There is no central stenosis or neural foraminal narrowing. C6/7: There is no focal disc herniation, central stenosis or neural foraminal narrowing. C7/T1: There is no focal disc herniation. There is very mild annular bulging with mild right neuroforaminal narrowing. There is no central stenosis or left neural foraminal narrowing. IMPRESSION: Degenerative disc disease as above. Findings have not significantly changed compared to the prior exam. Reviewed, Interpreted and Dictated by Georgina Shannon MD Transcribed by Melania Ramirez Authenticated and . [facility]
--- NOTE | 2024-09-26 08:45 | CA_ITS ---
FINAL REPORT TECHNIQUE: Boone scale, color and spectral doppler images of the bilateral carotid arteries were obtained. CLINICAL HISTORY: dizziness, HTN FINDINGS: Peak systolic velocity in the right internal carotid artery is 94 cm/sec. The internal carotid to common carotid artery ratio is 1.02. There is no significant carotid artery stenosis and no significant plaque formation. The right vertebral artery is normal in direction. Peak systolic velocity in the left internal carotid artery is 99 cm/sec. The internal carotid to common carotid artery ratio is 1.20. There is no significant carotid artery stenosis and no significant plaque formation. The left vertebral artery is normal in direction. IMPRESSION: No ultrasound evidence of hemodynamically significant carotid artery stenosis. Normal peak systolic velocities and normal internal to common carotid artery ratios bilaterally. Reviewed, Interpreted and Dictated by Georgina Shannon MD Transcribed by Melania Ramirez Authenticated and [facility]
[2024-09-27 09:11] LABS: Cytomegalovirus (CMV) Ab, IgG <0.60 U/mL (0.00-0.59); Cytomegalovirus (CMV) Ab, IgM <30.0 AU/mL (0.0-29.9)
== END 2024-09-26 23:59 | disposition home or self-care (01) ==
LOC: RAD 07:55
PROVIDERS: PCP Nurse Practitioner Family; Visit Provider Nurse Practitioner Family
DX: M50.20 Other cervical disc displacement, unspecified cervical region (principal); M54.12 Radiculopathy, cervical region; R53.83 Other fatigue; R51.9 Headache, unspecified; M50.30 Other cervical disc degeneration, unspecified cervical region; R42 Dizziness and giddiness
CPT/HCPCS: 36415; 72141; 86644; 86645; 93880

== ENCOUNTER 2024-10-01 09:16 | Outpatient (CLI) | payer OTHER, SELFPAY ==
--- NOTE | 2024-10-01 09:30 | US_ITS ---
FINAL REPORT TECHNIQUE: Limited sonographic images of the left upper quadrant were obtained. CLINICAL HISTORY: Left upper abdominal pain // PT HAS MONO COMPARISON: None FINDINGS: The spleen is mildly enlarged measuring up to 13 cm in greatest dimension. The left kidney is unremarkable. There are no fluid collections in the left abdomen. IMPRESSION: Mild nonspecific splenomegaly. Reviewed, Interpreted and Dictated by Akira Arevalo MD Transcribed by Anastasiya Sinclair Authenticated and [facility]
== END 2024-10-01 23:59 | disposition home or self-care (01) ==
LOC: RAD 09:17
PROVIDERS: PCP Nurse Practitioner Family; Visit Provider Nurse Practitioner Family
DX: R16.1 Splenomegaly, not elsewhere classified (principal)
CPT/HCPCS: 76705

== ENCOUNTER 2024-10-20 15:42 | Outpatient (CLI) | payer OTHER, SELFPAY ==
[2024-10-20 14:27] LABS: Free T4 (Free Thyroxine) 0.97 ng/dl (0.78-2.19)
[2024-10-20 14:36] LABS: T4 (Thyroxine) 7.8 ug/dl (5.53-11.0)
[2024-10-20 14:49] LABS: Thyroid Stimulating Hormone 3.89 uIU/mL (0.465-4.68)
--- OUTSIDE RECORDS SUMMARY | 2024-10-20 15:57 | XMS_ITS | Referral Summary ---
Author Organization [facility] Address [address] [place] [address] Care Team Providers Care Strip Winder Name Role Phone Lilian Gabriel APRN Primary Care Provider [phone] Allergies No known active allergies Medications levothyroxine (SYNTHROID, LEVOTHROID) 50 MCG tablet 02/04/2023 Active cariprazine (Vraylar) 3 mg capsule Take 1 capsule (3 mg total) by mouth daily. Active gabapentin (NEURONTIN) 300 MG capsule Take 1 capsule (300 mg total) by mouth 3 (three) times daily. 11/06/2023 Active losartan (COZAAR) 50 MG tablet Take 1 tablet (50 mg total) by mouth daily. 08/06/2023 Active sertraline (ZOLOFT) 100 MG tablet Take 1 tablet (100 mg total) by mouth daily. 10/31/2023 Active pravastatin (PRAVACHOL) 10 MG tablet Take 1 tablet (10 mg total) by mouth daily. 09/07/2023 Active omega 6-mub-syr-fish oil capsule Take 1 capsule (1,000 mg total) by mouth daily. Active famotidine (PEPCID) 20 MG tablet Take 1 tablet (20 mg total) by mouth daily. Active pantoprazole (PROTONIX) 40 MG tablet Take 1 tablet (40 mg total) by mouth daily. Active Active Problems Problem Noted Date Diagnosed Date Anxiety 12/11/2023 12/11/2023 Overview (12/11/2023): Has done fairly well on current medications. However, worse symptoms lately. Last Assessment & Plan: Will plan to increase his buspar. Referral to psych. Will check some basic labs, r/o thyroid issues. Bipolar II disorder 12/11/2023 12/11/2023 Hypothyroidism 12/11/2023 12/11/2023 Obesity 12/11/2023 Gallbladder sludge 11/07/2023 Hyperlipidemia 08/28/2022 12/11/2023 Overview (12/11/2023): Last Assessment & Plan: Currently managed by primary care provider. Continue fish oil. Cervical spondylosis 08/21/2022 12/11/2023 GERD (gastroesophageal reflux disease) 9 12/11/2023 Overview (12/11/2023): Last Assessment & Plan: Needs to start and take his protonix. Will also add carafate for a few days. Call if symptoms persist. Discussed a better diet. Atypical chest pain 10/30/2016 12/11/2023 Overview (12/11/2023): He was evaluated in the ER in [place]. He was told to f/u w/ cardiology. Resolved Problems Problem Noted Date Diagnosed Date Resolved Date Colon cancer screening 09/17/202312/10 Social History Tobacco Use Types Packs/Day Years Used Date Smoking Tobacco: Never Smokeless Tobacco: Never Tobacco Cessation:Counseling Given: Not Answered Alcohol Use Standard Drinks/Week Comments Never 0 (1 standard drink = 0.6 oz pur e alcohol) Interpersonal Safety Answer Date Record ed Family or friends hurt you Not on file 10/15 Family or friends insult you Not on file 08/2023 Family or friends threaten you Not on file 0 10/16/2023 Family or friends scream or curse at you Not on file 10/16/2023 Food Insecurity Answer Date Recorded Food run out past 12 months Not on file 08/2023 Food did not last past 12 months Not on file 10/16/2023 Employment Answer Date Recorded Help finding and keeping a job Not on file 0 10/16/2023 Family and Community Support Answer Luis Carlos e Recorded Help with Day to Day Activities Not on file 10/16/2023 Feeling Lonely or Isolated Not on file 10/15 Educational Attainment Answer Date Antonio rded Speak language other than Italian at home Not on file 10/16/2023 Want help with school or training Not on file 10/16/2023 Depression Answer Date Recorded PHQ-2 Risk Not on file 10/16/2023 Disabilities Answer Date Recorded Difficulty concentrating Not on file 024 Difficulty doing errands alone Not on file 0 10/16/2023 Substance Use Answer Date Recorded Used prescription meds for non-medical reasons N ot on file 10/16/2023 Used illegal drugs past 12 months Not on file 10/16/2023 Sex and Gender Information Value Date Recorded Sex Assigned at Male 09/13/2023 2:06 PM CDT Legal Sex Male 1:22 PM CDT Gender Identity Male 09/13/2023 2:06 PM CDT Sexual Orientation Straight 09/13/2023 2: 06 PM CDT Last Filed Vital Signs Vital Sign Reading Time Taken Comments Blood Pressure 113/56 12/11/2023 4:15 PM EDT Pulse 64 12/11/2023 4:15 PM EDT Temperature 36.7 C (98 F) 12/20/2023 9:56 AM EDT Respiratory Rate 18 12/11/2023 4:15 PM EDT Oxygen Saturation 92% 12/11/2023 4:15 PM EDT Inhaled Oxygen Concentration - - Weight 119.7 kg (264 lb) 12/20/2023 9:56 AM EDT Height 185.4 cm (6' 1 ) 12/20/2023 9:56 AM EDT Body Mass Index 34.83 12/20/2023 9:56 AM EDT Plan of Treatment Not on file Insurance [facility] CHOICE PLUS Advance Directives For more information, please contact: [phone] * Full Code (Latest Code Status on File) Date Activated Date Inactivated Comments 12/11/2023 9:46 AM 12/11/2023 6:29 PM Care Teams Strip Winder Relationship Specialty Start Date End Date Lilian Gabriel, [employer] [address] [address] PCP - General Nurse Practitioner 10/11/23
--- OUTSIDE RECORDS SUMMARY | 2024-10-20 15:57 | XMS_ITS | Clinical Summary ---
Author Organization [facility] Address [address] [place] [address] Care Team Providers Care Tap Builder Name Role Phone Berto Frazier MD Primary Care Provider [phone] Allergies No known active allergies Medications Sertraline HCl (ZOLOFT PO) Take 200 mg by mouth daily Active busPIRone (BUSPAR) 10 MG tablet Take 5 mg by mouth 2 times daily Active Famotidine (PEPCID PO) Take by mouth In the morning Active omeprazole (PRILOSEC) 20 MG delayed release capsule Take 20 mg by mouth nightly Active lisinopril (PRINIVIL;ZESTR IL) 2.5 MG tablet Take 2 tablets by mouth daily 30 tablet 08/28/2018 Active propranolol (INDERAL) 10 MG tablet Take 10 mg by mouth daily Active Active Problems Problem Noted Date Diagnosed Date Chest pain 08/27/2018 Other chest pain 08/12/2018 Essential hypertension 08/12/2018 Tachycardia Social History Tobacco Use Types Packs/Day Years Used Date Smoking Tobacco: Never Smokeless Tobacco: Never Tobacco Cessation:Counseling Given: Yes Alcohol Use Standard Drinks/Week Comments Never 0 (1 standard drink = 0.6 oz pur e alcohol) AUDIT-C Answer Date Recorded Frequency of Alcohol Consumption Never 08/12/2018 Average Number of Drinks Not on file 019 Frequency of Binge Drinking Not on file 05/2018 Sex and Gender Information Value Date Recorded Sex Assigned at Not on file Legal Sex Male 3:38 PM EDT Gender Identity Not on file Sexual Orientation Not on file Last Filed Vital Signs Vital Sign Reading Time Taken Comments Blood Pressure 118/78 09/09/2018 10:51 AM EDT Pulse 62 09/09/2018 10:51 AM EDT Temperature 36.8 C (98.2 F) 08/28/2018 3:45 PM EDT Respiratory Rate 18 08/28/2018 3:45 PM EDT Oxygen Saturation 98% 09/09/2018 10:51 AM EDT Inhaled Oxygen Concentration - - Weight 98.4 kg (217 lb) 09/09/2018 10:51 AM EDT Height 182.9 cm (6') 09/09/2018 10:51 AM EDT Body Mass Index 29.43 09/09/2018 10:51 AM EDT Plan of Treatment Not on file Insurance [facility] Advance Directives * Full Code (Latest Code Status on File) Date Activated Date Inactivated Comments 08/27/2018 5:13 PM 08/28/2018 8:15 PM Care Teams Tap Builder Relationship Specialty Start Date End Date Berto Frazier MD [address] [facility] [address] [place] [phone] PCP - General Family Medicine 08/12/18
--- OUTSIDE RECORDS SUMMARY | 2024-10-20 15:57 | XMS_ITS | Continuity of Care Document ---
Author Organization [facility] Address [address] [place] [phone] Phone Care Team Providers Care Print Traffic Manager Name Role Phone Unavailable Primary Care Provider Unavailabl e Encounters Date Type Department Care Team Description 11/05/2018 9:15 AM EDT Office Visit [facility] Sleep Medicine [address] [address] Willie Ascencio MD Primary snoring; Obstructive sleep apnea 10/03/[address] [address] Osman Méndez MD Medication Refill (one script ) 09/09/2018 9:15 AM EDT - 09/09/2018 11:59 PM EDT Hospital Encounter [facility] [address] [place], [place] [id number] Obstructive sleep apnea (Primary Dx) Discharge Disposition: Home or Self Care 09/09/2018 9:00 AM EDT Office Visit [facility] Sleep Medicine [address] [address] Willie Ascencio MD Excessive sleepiness; Primary snoring; Obstructive sleep apnea 09/04/2018 12:07 AM EDT - 09/04/2018 11:59 PM EDT Hospital Encounter [facility] Sleep Disorder [facility] [address] [place] [id number] [place] Sleep Discharge Disposition: Home or Self Care 09/03/2018 6:45 PM EDT - 09/03/2018 11:59 PM EDT Hospital Encounter [facility] Sleep Disorder Center [place] [address] [place] [address] [place] [place] Sleep Obstructive sleep apnea (Primary Dx) Discharge Disposition: Home or Self Care 2018 Refill [facility] [address] [place] [address] Osman Méndez MD Medication Refill 08/23/2018 Orders Only [facility] Sleep [facility] [place] [address] [facility] [address] [place] [address] Willie Ascencio MD Obstructive sleep apnea (Primary Dx) 08/19/2018 8:30 AM EDT Office Visit [facility] Sleep Medicine [facility] [address] [facility] [address] [facility] [address] [place] [address] Willie Ascencio MD Restless legs syndrome (Primary Dx); Excessive sleepiness; Primary snoring; Obstructive sleep apnea 07/31/2018 Telephone [facility] [address] [place] [address] Ender Salvador MD No Show 07/25/2018 8:20 AM EDT Office Visit [facility] [address] [place] [address] Osman Méndez MD Abrasion of finger, initial encounter (Primary Dx); Need for Tdap vaccination; Gastroesophageal reflux disease, esophagitis presence not specified; Atypical chest pain; Excessive daytime sleepiness 06/10/2018 8:49 AM EST - 06/10/2018 11:59 PM EST Hospital Encounter [facility] [address] [place] [address] Anxiety; Panic attacks Discharge Disposition: Home or Self Care 06/10/2018 8:00 AM EST Office Visit [facility] [address] [place] [address] Osman Méndez MD Anxiety (Primary Dx); Panic attacks Allergies No known active allergies Medications pantoprazole (PROTONIX) 40 mg Oral Tablet, Delayed Release (E.C.) Take by mouth. 07/23/2018 Active omeprazole (PRILOSEC) 40 mg Oral Capsule, Delayed Release(E.C.) Take 40 mg by mouth daily. Active busPIRone (BUSPAR) 5 mg Oral Tablet Take 1 Tab by mouth 2 times daily. 60 Tab 1 07/25/2018 Active hydrOXYzine (ATARAX) 25 mg Oral TabletIndicatio ns:takes half of tab Take 0.5-1 Tabs by mouth daily as needed for Anxiety. 15 Tab 1 08/30/2018 Active sertraline (ZOLOFT) 100 mg Oral Tablet Take 2 Tabs by mouth daily. 60 Tab 1 09/12/2018 Active lisinopril (PRINIVIL;ZESTR IL) 5 mg Oral Tablet Take 1 Tab by mouth daily. 30 Tab 3 10/03/2018 Active propranolol (INDERAL) 10 mg Oral Tablet TAKE 1 TO 2 TABLETS BY MOUTH DAILY NEEDED 60 Tab 10/21/2018 Active sertraline (ZOLOFT) 100 mg Oral Tablet TAKE 2 TABLETS BY MOUTH DAILY 60 Tab 11/13/2018 Active Active Problems Problem Noted Date Diagnosed Date GERD (gastroesophageal reflux disease) 9 Assessment & Plan (07/25/2018 9:03 AM EDT): Needs to start and take his protonix. Will also add carafate for a few days. Call if symptoms persist. Discussed a better diet. Atypical chest pain 07/25/2018 Overview (07/25/2018): He was evaluated in the ER in [place]. He was told to f/u w/ cardiology. Panic attacks 06/10/2018 Assessment & Plan (06/10/2018 8:46 AM EST): Will plan to increase buspar and vistaril. Continue with zoloft. Discussed relaxation techniques, biofeedback, etc Referral to psych; pt is ready to discuss with them. Anxiety Overview (06/10/2018): Has done fairly well on current medications. However, worse symptoms lately. Assessment & Plan (06/10/2018 8:47 AM EST): Will plan to increase his buspar. Referral to psych. Will check some basic labs, r/o thyroid issues. Immunizations Immunization Administration Dates Next Due Tdap 07/25/2018 Family History Medical History Relation Name Comments No Known Problems Brother Cancer Father Heart Disease Maternal Grandfather Diabetes Maternal Grandmother MS Maternal Grandmother Diabetes Mother High Blood Pressure Mother Thyroid Disease Mother Heart Attack Paternal Grandfather Heart Disease Paternal Grandfather anxiety Paternal Grandmother Relation Name Status Comments Brother Alive Father Maternal Grandfather Maternal Grandmother Alive Mother Alive Paternal Grandfather Paternal Grandmother Social History Smoking Status as of 10/20/2024 Tobacco Use Types Packs/Day Years Used Date Smoking Tobacco: Never Assessed PHQ-2 Answer Date Recorded PHQ-2 Score 2 10/03/2018 Sex and Gender Information Value Date Recorded Sex Assigned at Not on file Legal Sex Male 3:17 PM EST Gender Identity Not on file Sexual Orientation Not on file Last Filed Vital Signs Vital Sign Reading Time Taken Comments Blood Pressure 122/82 07/25/2018 8:33 AM EDT Pulse 85 07/25/2018 8:33 AM EDT Temperature 36.8 C (98.2 F) 07/25/2018 8:33 AM EDT Respiratory Rate 16 07/25/2018 8:33 AM EDT Oxygen Saturation 97% 07/25/2018 8:33 AM EDT Inhaled Oxygen Concentration - - Weight 99.4 kg (219 lb 3.2 oz) 07/25/2018 8:33 A M EDT Height 182.9 cm (6') 07/25/2018 8:33 AM EDT Body Mass Index 29.73 07/25/2018 8:33 AM EDT Plan of Treatment Not on file Procedures Procedure Name Priority Date/Time Associated Diagnosis Comments TSH REFLEX TO FT4 Routine 06/10/2018 8:5 0 AM EST Panic attacks COMPREHENSIVE METABOLIC PANEL Routine 06/10/2018 8:50 AM EST Anxiety CBC Routine 06/10/2018 8:50 AM EST Anxiety Results * TSH REFLEX (06/10/2018 8:50 AM EST) TSH Reflex 2.820 0.270 - 4.200 mcIU/mL 06/10/2018 3:17 PM EST [facility] Blood VENOUS BLOOD / Unknown Venipuncture / Unknown 06/10/2018 8:50 AM EST 06/10/2018 8:50 AM EST Narrative [facility] - 06/10/2018 3:17 PM EST Ingestion of dwain doses of biotin (>5 mg/day) taken within 8 hours of drawing blood sample can interfere with this immunoassay test. us Osman Méndez MD CHEMISTRY ORDERABLES Final Res ult [facility] [address] [facility] [facility] , [place] [address] * CBC (06/10/2018 8:50 AM EST) WBC 6.3 3.7 - 10.3 x10(3)/mcL 06/10/2018 2:25 PM EST [facility] RBC 5.50 4.60 - 6.10 x10(6)/mcL 06/10/2018 2:25 PM EST [facility] Hgb 15.4 13.7 - 17.5 g/dL 06/10/2018 2:25 PM EST [facility] Hct 47.7 40.0 - 51.0 % 06/10/2018 2:25 PM EST [facility] MCV 86.7 79.0 - 98.0 fL 06/10/2018 2:25 PM EST [facility] MCH 28.0 26.0 - 32.0 pg 06/10/2018 2:25 PM EST [facility] MCHC 32.3 30.7 - 35.5 g/dL 06/10/2018 2:25 PM EST [facility] RDW 13.0 <=14.9 % 06/10/2018 2:25 PM EST [facility] Platelet 277 155 - 369 x10(3)/mcL 06/10/2018 2:25 PM EST [facility] MPV 10.2 8.8 - 12.5 fL 06/10/2018 2:25 PM EST [facility] Blood VENOUS BLOOD / Unknown Venipuncture / Unknown 06/10/2018 8:50 AM EST 06/10/2018 8:50 AM EST us Osman Méndez MD HEMATOLOGY ORDERABLES Final Re sult [facility] [address] [facility] , [address] [place] [id number] * COMPREHENSIVE METABOLIC PANEL (06/10/2018 8:50 AM EST) Sodium 141 136 - 145 mmol/L 06/10/2018 3:17 PM EST [facility] Potassium 3.9 3.5 - 5.0 mmol/L 06/10/2018 3:17 PM EST [facility] Chloride 105 98 - 107 mmol/L 06/10/2018 3:17 PM EST [facility] Total CO2 26 22 - 29 mmol/L 06/10/2018 3:17 PM EST [facility] Anion Gap 10 7 - 16 mmol/L 06/10/2018 3:17 PM EST [facility] Calcium 9.6 8.6 - 10.2 mg/dL 06/10/2018 3:17 PM EST [facility] Glucose Lvl 81 74 - 100 mg/dL 06/10/2018 3:17 PM EST [facility] BUN 13 6 - 20 mg/dL 06/10/2018 3:17 PM EST [facility] Creatinine 0.91 0.67 - 1.30 mg/dL 06/10/2018 3:17 PM EST [facility] Albumin 5.0 3.5 - 5.2 gm/dL 06/10/2018 3:17 PM EST [facility] Total Protein 7.6 6.4 - 8.3 gm/dL 06/10/2018 3:17 PM EST [facility] Bili Total 0.4 0.1 - 1.4 mg/dL 06/10/2018 3:17 PM EST [facility] ALT 22 <=41 IU/L 06/10/2018 3:17 PM EST [facility] AST 18 <=40 IU/L 06/10/2018 3:17 PM EST [facility] Alk Phos 86 40 - 129 IU/L 06/10/2018 3:17 PM EST [facility] GFR Afr Am 134 >=60 mL/min/1.7 3 m2 06/10/2018 3:17 PM EST [facility] GFR Non Afr Am 116 >=60 mL/min/1.7 3 m2 06/10/2018 3:17 PM EST [facility] Comment: This estimated GFR was calculated using CKD-EPI equation which is modified based on ethnicity for Non Americans and Americans. Both results are reported since it is not always possible to determine the patient's ethnicity. This equation should only be used for individuals 18 and older. It has not been validated for use with the elderly (>70 years), women, or in some racial or ethnic subgroups, such as Hispanics. The equation will be less accurate in people with differences in nutritional status or muscle mass. Blood VENOUS BLOOD / Unknown Venipuncture / Unknown 06/10/2018 8:50 AM EST 06/10/2018 8:50 AM EST us Osman Méndez MD CHEMISTRY ORDERABLES Final Res ult Performing Organization Address City/State/[facility] Co de Phone Number [facility] [address] , [place] [address] [facility] [address] [place] [address] Visit Diagnoses Diagnosis Start Date Anxiety Anxiety state, unspecified 06/10/2018 Panic attacks Panic disorder without agoraphobia 06/10/2018 Anxiety Anxiety state, unspecified 06/10/2018 Panic attacks Panic disorder without agoraphobia 06/10/2018 Abrasion of finger, initial encounter 07/25/2018 Need for Tdap vaccination Need for prophylactic vaccination with combined corbxezdzu-tpwkzlt-zzdysqbdg (DTP) vaccine 07/25/2018 Gastroesophageal reflux disease, esophagitis presence not specified 07/25/2018 Atypical chest pain Other chest pain 07/25/2018 Excessive daytime sleepiness 07/25/2018 Excessive sleepiness Hypersomnia, unspecified 08/19/2018 Primary snoring Other dyspnea and respiratory abnormality 08/19/2018 Obstructive sleep apnea Obstructive sleep apnea (adult) (pediatric) 08/19/2018 Restless legs syndrome Restless legs syndrome (RLS) 08/19/2018 Obstructive sleep apnea Obstructive sleep apnea (adult) (pediatric) 08/23/2018 Obstructive sleep apnea Obstructive sleep apnea (adult) (pediatric) 09/03/2018 Obstructive sleep apnea Obstructive sleep apnea (adult) (pediatric) 09/09/2018 Excessive sleepiness Hypersomnia, unspecified 09/09/2018 Primary snoring Other dyspnea and respiratory abnormality 09/09/2018 Obstructive sleep apnea Obstructive sleep apnea (adult) (pediatric) 09/09/2018 Primary snoring Other dyspnea and respiratory abnormality 11/05/2018 Obstructive sleep apnea Obstructive sleep apnea (adult) (pediatric) 11/05/2018 Goals Goal Patient Goal Type Associated Problems Recent Progress Patient-Stated? Author Maintain a healthy diet, exercise regularly and maintain an ideal body weight General No Joyce Huffman, RMA
--- OUTSIDE RECORDS SUMMARY | 2024-10-20 15:57 | XMS_ITS | Clinical Summary ---
Author Organization [facility] Address [address] [place] [address] Care Team Providers Care Compressor Station Operator Name Role Phone Lilian Gabriel APRN Primary Care Provider [phone] Allergies No known active allergies Medications levothyroxine [...] total) by mouth daily. 09/07/2023 Active omega 8-vkc-gxj-fish oil capsule Take 1 capsule (1,000 mg [...] He was evaluated in the ER in [place]. He was told to f/u w/ cardiology. Resolved Problems Problem Noted Date Diagnosed Date Resolved Date Colon cancer screening 09/17/202312/10 Family History Medical History Relation Name Comments Diabetes Mother Hypertension Mother Relation Name Status Comments Mother Social History Tobacco Use Types Packs/Day Years [...] Date Antonio rded Speak language other than [place] at home Not on file 10/16/2023 Want [...] 12/20/2023 9:56 AM EDT Plan of Treatment Health Maintenance Due Date Last Done Comments HIV Screening 08/25/2006 Hepatitis C Screening 08/25/2009 Lipid Panel 2011 COVID-19 VACCINE (2023- 5 season) 2024 12/22/2020, 12/01/2020 Tobacco Cessation Counseling and Screening (12+) 12/19/2024 12/20/2023 Influenza Vaccine (Season Ended) 2025 DTAP/TDAP/TD VACCINES (3 - T d or Tdap) 07/25/2028 07/25/2018, 08/27/1995 Pneumococcal Vaccine: 0-49 Years Aged Out No longer eligible b ased on patient's age to complete this topic Insurance [facility] CHOICE PLUS Advance Directives For more information, please contact: [phone] * Full Code (Latest Code Status on File) Date Activated Date Inactivated Comments 12/11/2023 9:46 AM 12/11/2023 6:29 PM Care Teams Compressor Station Operator Relationship Specialty Start Date End Date Lilian Gabriel APRN [address] [place] [id number] PCP - General Nurse Practitioner 10/11/23
--- OUTSIDE RECORDS SUMMARY | 2024-10-20 15:57 | XMS_ITS | Data Portability ---
Author Organization [facility] Sameera flood, DEBRAS HATHAWAY CLOSED Address [address] [place] [address] Care Team Providers Care Cloud Solutions Architect Name Role Phone GAURANG BARTHOLOMEW Referring Provider EDMUNDO JULIO Primary Care Provider Assessment Encounter Date Assessment Date Assessment LastModified by Organization Details LastModified Time 10/25/2021 10/25/2021 Rtc 4 mos jose carlos Not available 10/12 14:00:40 05/16/2022 05/16/2022 Assessment: Right shoulder scapular dyskinesis with anterior impingement and biceps medial subluxation. Plan: Recommend home exercises to work on scapular stabilization. These were demonstrated today for the patient. If his symptoms persist, recommend formal physical therapy. [email or web address] Not available 05/17/2022 09:26:06 10/09/2024 10/09/2024 34-year-old gentleman with neck pain and headaches. Perhaps he has cervicogenic headache. His MRI scans essentially normal. He would not benefit from cervical surgery. I would have him see neurology and see if he might be a candidate for medication treatment for his headaches and/or some sort of injection therapy such as trigger point injections or Botox.If neurology does not have much to add then we might have him see pain management in the future. He and his are happy with the plan. tasha Not available 10/09/2024 10:42:02 Plan of Treatment Reminders Order Date Submit Date Provider Last Modified By Organization Details Last Modified Time Details Appointments NEW PATIENT O 2024 03:00P M NORA JEAN-BAPTISTE DO Not available Not available Not available Lab H pylori urea breath test, co2 infrared 2021 [facility], [address] [place], [address], 08/20/2021 16:00:17 Referral None recorded. Procedures None recorded. Surgeries None recorded. Imaging None recorded. Medication Orders famotidin e 40 mg tablet 2021 [facility], [address] [facility] [address], [phone], 10/25/2021 14:11:17 Patient TargetsNo targets recorded. Patient InstructionsNo instructions recorded. Reason for Referral None Reported. Results Created Date Observation Date Name Description Value Unit Range Abnormal Flag Note LastModifiedBy Organization Detail LastModifiedTime 08/19/1908/20/2021 UREA BREAT H TEST urea breath test NOT DETECT ED not detect ed normal Antim icrob ials, serjio n pump inhib itors , and bismu th prepa ratio ns are known to suppr ess H. pylor i, and inges tion of these prior to H. pylor i diagn ostic testi ng may lead to false negat wolf resul ts. If clini yong indic ated, the test may be repea fidel on a new speci men obtai josé miguel two weeks after disco ntinu ing treat ment. Howev er, a posit wolf resul t is still clini yong valid . TEST PERFO RMED AT: [facility] [address] [place] [address] ROBIN Figueroa MD Not Available [facility] [address] [place] [address], [phone], 08/20/2021 16:00:17 10/02/19 25 09/26/2024 MRI, cervi norma spine , w/o contr ast No observ ation record ed. BARCODE Not Available 2024 15:57:00 Result Notes None recorded. Procedures Surgical History Date Name Laterality Status Provider Name and Address Organization Details Recorded Time 08/18/2021 UREA Breath Test completed Wayne Warner [facility] 08/18/2021 15:24:21 Imaging Results None recorded. Procedure Notes None recorded. Medical Equipment None Reported. Allergies No known drug allergies Medications Name Sig Start Date Stop Date Status Note LastModified by Organization Details LastModified Time Singulair 10 mg tablet Daily 08/18 completed Frequenc y: daily;Me dication Descript ion: monteluk ast; Dosage:1 ; Route:or al; refills: 5; Quantity :30 tablet Not Available Not Available Not Available losartan 50 mg tablet Take 1 tablet every day by oral route. active Not Available Not Available No t Available famotidin e 40 mg tablet Take 1 tablet every day by oral route. 2021 active Not Available Not Available Not Avai lable pantopraz ole 40 mg tablet,de layed release Take 1 tablet every day by oral route. 2021 active Not Available Not Available Not Avai lable Advair Diskus 250 mcg-50 mcg/dose powder for inhalatio n Two times a day 08/18 completed Duration : 30 days;Ulices quency: bid;Medi cation Descript ion: fluticas one-salm eterol; Dosage:1 inhalati on; Route:in halation ; refills: 0; Quantity :1 powder Not Available Not Available Not Available Zoloft 100 mg tablet Take 1 tablet every day by oral route. active Not Available Not Available No t Available Mucinex DM 30 mg-600 mg tablet,ex tended release 12 hr 08/18 completed Medicati on Descript ion: dextrome thorphan -guaifen esin; Route:or al; refills: 0 Not Available Not Available Not Available Asmanex Twisthale r 220 mcg/actua tion(30 doses) breath activated inhalr Two times a day 08/18 completed Instruct ions: rinse and gargle after each use; as of 09/07 reduce dose to 1 inh qd and use for 2 weeks; then d/c med altogeth er;Frequ ency: bid;Medi cation Descript ion: mometaso ne furoate; Dosage:1 inhalati on; Route:or al inhalati on; refills: 0 Not Available Not Available Not Available Fish Oil active Not Available Not Avai lable Not Available Probiotic active Not Available Not Akilah ilable Not Available Vraylar 1.5 mg capsule Take 1 capsule every day by oral route. active Not Available Not Available No t Available Pepcid AC Maximum Strength active Not Available Not Available Not Available Vitals Date Recorded Body height Body mass index (BMI) Body weight Provider Name and Address Organization Details Last Updated DateTime 05/16/2022 185.42 cm 33.5 kg/m2 580979.46 g Alfa Jones [facility] 05/16/2022 16:23:12 Date Recorded Body height Body mass index (BMI) Body weight Heart rate Respiratory rate Systolic blood pressure Diastolic blood pressure Provider Name and Address Organization Details Last Updated DateTime 2 185.42 cm 33.5 kg/m2 578828. 46 g 101 /min 16 /min 161 mm[Hg] 96 mm[Hg] Karin King [facility] 2 14:40:05 Date Recorded Body height Body mass index (BMI) Body weight Heart rate Respiratory rate Systolic blood pressure Diastolic blood pressure Provider Name and Address Organization Details Last Updated DateTime 2 185.42 cm 33.5 kg/m2 951939. 46 g 71 /min 16 /min 130 mm[Hg] 78 mm[Hg] Wayne Warner [facility] 2 13:45:41 Social History Question Answer Notes LastModified by Organizat ion Details LastModified Time Tobacco Smoking Status Never Smoker Karindanae King [facility] 08/18/2021 14:42:08 What Is Your Relationship Status? Information not available 08/18/2021 Sex: Male Functional Status Question Answer Note LastModified by Organization D etails LastModified Time Do you or have you ever used any other forms of tobacco or nicotine? No Information not available 08/18/2021 What is your level of alcohol consumption? None Information not available 08/18/2021 Mental Status None recorded. Family History Relationship Description Onset Age of this Age Resolved Age Notes LastModified by Organization Details LastModified Time Father Family history of malignant neoplasm Myleom a tshouse Not available 08/18/2021 14:41:27 Unspecified Relation Diabetes mellitus tshouse Not available 04/07/ 2022 14:41:35 Unspecified Relation Hypercholest erolemia tshouse Not available 2021 14:41:45 Unspecified Relation Sleep apnea tshouse Not available 08/18 14:41:53 Medical History Condition Response TENS Unit for current problem N Traction for current problem N Massage Therapy for current problem N Gout N Other N Hyperthyroidism N Narcotic Pain Medication for current pro blem N Emphysema N Hernia Y Hypothyroidism Y Depression Y COPD N Injections for current problem N Deep Vein Thrombosis N Anxiety Disorder Y Arthritis N Hearing Loss Y Cancer N Stroke N High Cholesterol Y Liver Disease N Fibromyalgia N Dialysis N Kidney Disease N Neuro-modulating Drugs for current probl em N Black Lung N Steroid Pack for current problem N NSAID Use N Osteoporosis/Osteopenia N Heart Attack (CO) N Mental Illness N Diabetes N Bleeding Disorder N Tuberculosis N Genetic Disorder N AIDS/HIV N Chiropractor treatment for current probl em N Kidney Failure N Asthma N Ultrasound Treatment for current problem N Epilepsy/Seizures N Sleep Apnea N Thyroid Disorder Y Physical Therapy Treatments for current problem N Pulmonary Embolism N Hypertension Y Past Encounters Encounter ID Performer Location Encounter Start Date Encounter Closed Date Diagnosis/Indication Diagnosis SNOMED-CT Code Diagnosis ICD10 Code Diagnosis Note [id number] RONAL KOCH MD [facility] [address] [place] [address] 1 08/18/2021 14:01:47 09/21/2021 07:49:02 Nonulcer dyspepsia 3789217 K30 h pylori breath testif neg 8 weeks ppi therapyrtc 8 weeksconsi piotr egd if persists [id number] RONAL KOCH MD [facility] [address] [place] [address] 1 08/18/2021 15:23:32 08/19/2021 11:14:06 Nonulcer dyspepsia 0014346 K30 [id number] RONAL KOCH MD [facility] [address] [place] [address], [place] [address] 10/25/2021 13:24:58 10/25/2021 14:48:25 Gastroesophageal reflux disease without esophagitis 024965460 K21.9 [id number] LENNY MARTINEZ MD [facility] [address] [place] [id number] 05/16/2022 15:59:00 05/16/2022 16:58:57 Impingement syndrome of right shoulder region 8440833263 88911 M75.41 Tendinitis of long head of biceps brachii of right shoulder 911356422 M75.21 [id number] HEBERT BRANDON MD [facility] [address] [place] [address] 10/09/2024 09:27:48 10/10/2024 04:30:43 Cervical spondylosis 522928256 M47.812 Health Concerns Section Related Observation LastModified by Organization Detai ls LastModified Time None Recorded Concern Status LastModified by Organization Details LastModified Time None Recorded Advance Directives Directive None Recorded Payers Insurance Date Sequence Insurance Name Policy Number Policy Segura Covered Member ID Segura Member ID Guarantor Name 10/01/2024 1 [employer]: CHRISTEN CHUN [facility] [id number] 9 Melody Orellana [id number] Julio Cesar Orellana 10/07/2024 1 [facility] [id number] Juloi Cesar Orellana [id number] Julio Cesar Orellana Notes Date Note Type Note Provider Name and Address Organization Details Recorded Time 08/18/2021 text/html burning stomach sxsdyspepsiano current therapy RONAL KOCH MD [address] [place] [address], [phone] [place] [address] 09/19/2021 22:46:58 10/25/2021 text/html Feels Much colton r on ppiLast egd many years ago -- 3 yrs agoPantop 40 mg qdPepcid 20 RONAL KOCH MD [address] [place] [address], [phone], [facility] 10/25/2021 14:00:59 05/16/2022 text/html 1.3.22PCP: Uday Stokes FOR CONSULTATION AT THE REQUEST OF:Gaurang Bartholomew MDHAND DOMINANCE: RightWHAT: Right Shoulder.WHEN: 1 month agoHOW: building a fence, was putting in post with his arms out when he first started having discomfortSYMPTOMS: Anterior pain rt harley, pain moving arm in any direction. Also having and tingling down arm and into ulnar hand. Rest has improved his symptoms. Mild instability. Occasional popping and clicking. He put his arm over his head at night and felt another pop which has helped his symptoms calm down.PAIN: 0 /10 PT: naNSAIDS:naINJECTION :na LENNY MARTINEZ MD [address] [place] [address], [phone], [facility] 05/17/2022 09:26:29 10/09/2024 text/html I saw Mr. Polina jolley. He is 34 years old. He reports about 5 years of neck pain and headaches. He has lateral neck pain. He has posterior parietal occipital headaches. He has headaches in the frontal area.He will occasionally feel twinges of pain down the upper extremities.He has had physical therapy. He has had some medications. His primary care doctor perform some sort of cervical injection. It sounds like a trigger point injection. He is taking some Lyrica which has helped. HEBERT BRANDON MD [address] [place] [address], [phone], [facility] 10/09/2024 10:42:35
[2024-10-21 08:15] LABS: Triiodothyronine (T3) Free 3.8 pg/mL (2.0-4.4)
== END 2024-10-20 23:59 | disposition home or self-care (01) ==
LOC: LAB.DROPOF 15:42
PROVIDERS: PCP Nurse Practitioner Family; Visit Provider Nurse Practitioner Family
DX: E03.9 Hypothyroidism, unspecified (principal); B27.90 Infectious mononucleosis, unspecified without complication
CPT/HCPCS: 84436; 84439; 84443; 84481; 86664; 86665

== ENCOUNTER → 2024-10-31 20:19 | Outpatient (CLI) | payer OTHER, SELFPAY ==
--- OUTSIDE RECORDS SUMMARY | 2024-10-31 20:23 | XMS_ITS | Clinical Summary ---
Author Organization [employer] Address [address] [place] [address] Care Team Providers Care Third Cook Name Role Phone Lilian Gabriel APRN Primary Care Provider [phone] Allergies No known active allergies Medications levothyroxine [...] total) by mouth daily. 09/07/2023 Active omega 4-ucz-xpe-fish oil capsule Take 1 capsule (1,000 mg [...] He was evaluated in the ER in [place]. He was told to f/u w/ cardiology. [...] Date Antonio rded Speak language other than South African at home Not on file 10/16/2023 Want [...] patient's age to complete this topic Insurance [facility] CHOICE PLUS Advance Directives For more information, please contact: [phone] * Full Code (Latest Code Status on File) Date Activated Date Inactivated Comments 12/11/2023 9:46 AM 12/11/2023 6:29 PM Care Teams Third Cook Relationship Specialty Start Date End Date Lilian Gabriel APRN [address] [place] [id number] PCP - General Nurse Practitioner 10/11/23
--- OUTSIDE RECORDS SUMMARY | 2024-10-31 20:23 | XMS_ITS | Referral Summary ---
Author Organization [employer] Address [address] [place] [address] Care Team Providers Care Ent Surgeon Name Role Phone Lilian Gabriel APRN Primary Care Provider Allergies No known active allergies Medications levothyroxine [...] total) by mouth daily. 09/07/2023 Active omega 8-fqz-qgb-fish oil capsule Take 1 capsule (1,000 mg [...] He was evaluated in the ER in [place]. He was told to f/u w/ cardiology. [...] Date Antonio rded Speak language other than Ecuadorean at home Not on file 10/16/2023 Want [...] Plan of Treatment Not on file Insurance [facility] CHOICE PLUS Advance Directives For more information, please contact: [phone] * Full Code (Latest Code Status on File) Date Activated Date Inactivated Comments 12/11/2023 9:46 AM 12/11/2023 6:29 PM Care Teams Ent Surgeon Relationship Specialty Start Date End Date Lilian Gabriel, SPACE OFFICER [address] [address] PCP - General Nurse Practitioner 10/11/23
--- OUTSIDE RECORDS SUMMARY | 2024-10-31 20:23 | XMS_ITS | Clinical Summary ---
Author Organization [facility] Address [address] [place] [address] Care Team Providers Care Stemmer Machine Name Role Phone Berto Frazier MD Primary Care Provider [phone] Allergies No known active allergies Medications Sertraline [...] Plan of Treatment Not on file Insurance [facility] Advance Directives * Full Code (Latest Code Status on File) Date Activated Date Inactivated Comments 08/27/2018 5:13 PM 08/28/2018 8:15 PM Care Teams Stemmer Machine Relationship Specialty Start Date End Date Berto Frazier MD [address] [facility] [address] [place] [id number] PCP - General Family Medicine 08/12/18
--- OUTSIDE RECORDS SUMMARY | 2024-10-31 20:23 | XMS_ITS | Continuity of Care Document ---
Author Organization [facility], NEUROSURGERY [address] [place] [address] Care Team Providers Care Truck Rental Manager Name Role Phone KAYDEN BARTHOLOMEW Referring Provider EDMUNDO JULIO Primary Care Provider Assessment Encounter Date Assessment Date Assessment LastModified by Organization Details LastModified Time 10/09/2024 10/09/2024 34-year-old gentleman with neck pain [...] Details Appointments NEW PATIENT O 2024 03:00P Harshad NORA JERILYN DO Not available Not available Not available Lab None recorded . Referral None recorded . Procedures None recorded . Surgeries None recorded . Imaging None recorded . Medication Orders None recorded . Patient TargetsNo targets recorded. Patient InstructionsNo instructions recorded. Reason for Referral None Reported. Results Created Date Observation Date Name Description Value Unit Range Abnormal Flag Note LastModifiedBy Organization Detail LastModifiedTime 10/02/1909/26/2024 MRI, cervi norma spine , w/o contr ast No observ ation record ed. BARCODE Not Available 2024 15:57:00 Result Notes None recorded. Procedures Surgical History Date Name Laterality Status Provider Name and Address Organization Details Recorded Time 08/18/2021 UREA Breath Test completed [facility] 08/18/2021 15:24:21 Imaging Results None recorded. Procedure [...] Not Available Not Available Not Available Vitals None Recorded Social History Question Answer Notes LastModified by Organizat ion Details LastModified Time Tobacco Smoking Status Never Smoker Karin King [facility] 08/18/2021 14:42:08 What Is Your Relationship Status? [...] Unspecified Relation Diabetes mellitus tshouse Not available 2021 14:41:35 Unspecified Relation Hypercholest erolemia tshouse Not available 2021 14:41:45 Unspecified Relation Sleep apnea tshouse Not available 08/18 14:41:53 Medical History Condition Response TENS Unit for current problem N Traction for current problem N Massage Therapy for current problem N Gout N Other N Hyperthyroidism N Hernia Y Emphysema N Narcotic Pain Medication for current pro blem N COPD N Depression Y Hypothyroidism Y Injections for current problem N Deep Vein Thrombosis N Anxiety Disorder Y Arthritis N Hearing Loss Y Cancer N Stroke N High Cholesterol Y Liver Disease N Dialysis N Fibromyalgia N Kidney Disease N Neuro-modulating Drugs for current probl em N Black Lung N Steroid Pack for current problem N NSAID Use N Osteoporosis/Osteopenia N Heart Attack (CT) N Mental Illness N Diabetes N Bleeding Disorder N Tuberculosis N Genetic Disorder N AIDS/HIV N Kidney Failure N Chiropractor treatment for current probl em N Ultrasound Treatment for current problem N Asthma N Epilepsy/Seizures N Sleep Apnea N Thyroid Disorder Y Physical Therapy Treatments for current problem N Pulmonary Embolism N Hypertension Y Past Encounters Encounter ID Performer Location Encounter Start Date Encounter Closed Date Diagnosis/Indication Diagnosis SNOMED-CT Code Diagnosis ICD10 Code Diagnosis Note [id number] HEBERT BRANDON MD [facility] [address] [place] [address] 10/09/2024 09:27:48 10/10/2024 04:30:43 Cervical spondylosis 509816547 M47.812 Health Concerns Section Related Observation LastModified by Organization Detai ls LastModified Time None Recorded Concern Status LastModified by Organization Details LastModified Time None Recorded Payers Encounter Date Sequence Insurance Name Policy Number Policy Segura Covered Member ID Segura Member ID Guarantor Name 10/09/2024 1 [facility] [id number] Julio Cesar Orellana [id number] Julio Cesar Orellana Notes Date Note Type Note Provider Name and Address Organization Details Recorded Time 10/09/2024 text/html I saw Mr. Polina jolley. [...] Lyrica which has helped. HEBERT BRANDON MD [facility] [place], [address], [facility] 10/09/2024 10:42:35
--- OUTSIDE RECORDS SUMMARY | 2024-10-31 20:23 | XMS_ITS | Data Portability ---
Author Organization [place] - [facility] - [facility] ADMIN Address [address] [place] [phone] Assessment Encounter Date Assessment Date Assessment LastModified by Organization Details LastModified Time 08/21/2022 08/21/2022 Mr. Orellana was a self-referral for management of chronic neck pain. Patient denies any DM, history of infection, or anti-coagulant use. Patient complains of neck pain with radiation into the base of the skull, causing frequent headaches with increased activity along with radicular symptoms to the BUE (worse on the left) with certain movements, likely associated with cervical stenosis and cervical spondylosis, as evidenced by history and physical exam. To address the patient's pain: I will proceed with scheduling a BCMBB at C2-4. If the patient receives greater than 80% pain relief for 6 hours or more, then I will repeat the block in preparation for a cervical RFA to allow more long-term pain relief. I had a detailed discussion with the patient regarding the procedure and the risks/benefits and addressed any questions/concern s today. I personally reviewed the patient's cervical MRI showing central disc protrusions at C3-4, C5-6, and C6-7 with mild central canal stenosis at C5-6. Of note, the patient has participated in PT and continues at home exercises/stretch es and other conservative measures when tolerated with minimal relief. Once I have addressed the C2-4 region, I will then discuss further MBBs to address the C3-6 region if pain persists. Regarding medication: The patient is currently taking Flexeril and Mobic with minimal relief and is inquiring about an alternative medication that can help him sleep and help with function throughout the day as he cares for his children. I will start the patient on Diclofenac 75mg Q12 prn with a dispense of 30 tablets. I advised him to take the medication as needed for pain. - Schedule a BCMBB at C2-4 - Reviewed cervical MRI today - Medication prn: Diclofenac 75mg Q12 prn #30 - Follow up 1 week post block to assess efficacy -- I have discussed in great detail our potential treatment options which would include a rehabilitative approach to care. This program would include medication management, Physical Therapy, consideration for interventional procedures as appropriate, and lifestyle modification (diet, weight loss, exercise, smoking/tobacco cessation, holistic approach including meditation and yoga). The patient understands and agrees prior to proceeding with this plan. _ __ __ __ __ __ __ __ __ __ __ __ __ __ __ __ __ __ __ __ __ __ __ __ __ __ __ __ _ RECORDS REVIEW: As per clinic policy, we will have the patient sign a release to obtain previous imaging and clinical notes. PROCEDURE: I counseled the patient extensively and informed of the risks of the procedure, including the risk of paralysis, nerve damage, respiratory arrest, arrhythmias, stroke, weakness, and infection, which although very low, could result in or disability. The patient acknowledged to me that they understand and accept these risks. RN EDUCATION Extensive coordination of care provided by RN to educate patient on upcoming procedure and to coordinate obtaining extensive incoming medical records. _ __ __ __ __ __ __ __ __ __ __ __ __ __ __ __ __ __ __ __ __ __ __ __ __ __ __ __ _ PSYCH: Pain affecting Neuro-psych behavior was discussed. Discussed about pain psychological counseling as a part of the multimodal approach to pain treatment. _ __ __ __ __ __ __ __ __ __ __ __ __ __ __ __ __ __ __ __ __ __ __ __ __ __ __ __ _ REHABILITATION: Discussed with the patient the importance of diet, daily physical activity and PT. Discussed with the patient the need to be scheduled for physical therapy since physical therapy will prolong the benefits of the procedure and interventions. _ __ __ __ __ __ __ __ __ __ __ __ __ __ __ __ __ __ __ __ __ __ __ __ __ __ __ __ _ JOSE L: [id number] I have reviewed patient's JOSE L report prior to prescribing Schedule II, III, and IV medications that require review by law. [email or web address] Not available 08/22/2022 07:36:41 Plan of Treatment Reminders Order Date Submit Date Provider Last Modified By Organization Details Last Modified Time Details Appointments New Patient Visit 30 min 2024 02:00P M Brenna delgadillo APRN Not available Not available Not available Lab None recorded . Referral None recorded . Procedures medial branch block, cervical (PROC) - 27533, 26414 bilatera l C2-C4 2022 023 [email or web address] Not available 08/25/2022 11:49:09 Surgeries None recorded . Imaging None recorded . Medication Orders diclofen ac sodium 75 mg tablet,d elayed release 2022 023 [facility], [facility] [place] [address] [place], [id number], 08/22/2022 15:03:21 Patient TargetsNo targets recorded. Patient InstructionsNo instructions recorded. Reason for Referral None Reported. Problems Name Problem SNOMED Code Status Onset Date Resolution Date Notes Provider Name and Address Organization Details Recorded Time Radicular pain 62971271 Active 2022 [place], [place] - [facility] - [facility] & Brenna 3 13:54:51 Myofascial pain 789892311 Active 2022 [place] - [facility] [place] 3 13:54:59 Spinal stenosis in cervical region 54984059 Active 2022 Ana [place], [place] - [facility] & [place] 3 13:55:04 Cervical spondylosis 007068133 Active 2022 Ana [place], [place] - [facility] & [place] 3 13:55:05 Frequent headache 985858876 Active 2022 Ana [place], [place] - [facility] & [place] 3 13:55:13 Problem Notes None recorded. Procedures Surgical History Date Name Laterality Status Provider Name and Address Organization Details Recorded Time Appendectomy completed Melania SMITH - [facility] - [place] & [place] 08/21/2022 17:21:53 Imaging Results None recorded. Procedure Notes None recorded. Medical Equipment None Reported. Medications Name Sig Start Date Stop Date Status Note LastModified by Organization Details LastModified Time losartan 50 mg tablet TAKE ONE TABLET BY MOUTH EVERY DAY active Not Available Not Available No t Available cyclobenzap rine 10 mg tablet TAKE ONE TABLET BY MOUTH EVERY DAY AT BEDTIME NEEDED active Not Available Not Available No t Available meloxicam 15 mg tablet TAKE ONE TABLET BY MOUTH EVERY DAY --TAKE WITH FOOD-- active Not Available Not Available No t Available famotidine 40 mg tablet TAKE ONE TABLET BY MOUTH EVERY DAY 08/21 completed Not Available Not Available Not Available sertraline 100 mg tablet TAKE ONE TABLET BY MOUTH EVERY DAY 08/21 completed Not Available Not Available Not Available tramadol 50 mg tablet TAKE 1/2 TO 1 TABLET BY MOUTH EVERY 4 HOURS NEEDED MAY CAUSE DROWSINES S active Not Available Not Available No t Available amoxicillin 875 mg tablet TAKE 1 TABLET BY MOUTH TWICE DAILY FOR 10 DAYS 08/21 completed Not Available Not Available Not Available levothyroxi ne 50 mcg tablet active Not Available Not Available Not Available pantoprazol e 40 mg tablet,kalyan yed release TAKE ONE TABLET BY MOUTH EVERY DAY 08/21 completed Not Available Not Available Not Available promethazin e 25 mg tablet TAKE ONE TABLET BY MOUTH EVERY 6 HOURS NEEDED 08/21 completed Not Available Not Available Not Available diclofenac sodium 75 mg tablet,kalyan yed release TAKE ONE TABLET BY MOUTH EVERY TWELVE HOURS DIRECTED active Not Available Not Available No t Available methylpredn isolone 4 mg tablets in a dose pack TAKE ACCORDING TO PACKAGE INSTRUCTI ONS --TAKE WITH FOOD-- -- FINISH ALL MEDICINE -- 08/21 completed Not Available Not Available Not Available albuterol sulfate HFA 90 mcg/actuati on aerosol inhaler INHALE 1 PUFF BY MOUTH EVERY 4 HOURS NEEDED 08/21 completed Not Available Not Available Not Available bromphenira mine-pseudo ephedrine-D M 2 mg-30 mg-10 mg/5 mL oral syrup TAKE 2 TEASPOONF UL (10 ML) BY MOUTH EVERY 4 HOURS NEEDED 08/21 completed Not Available Not Available Not Available ondansetron 4 mg disintegrat ing tablet DISSOLVE ONE TABLET BY MOUTH THREE TIMES DAILY NEEDED 08/21 completed Not Available Not Available Not Available Vraylar 1.5 mg capsule TAKE ONE CAPSULE BY MOUTH EVERY DAY 08/21 completed Not Available Not Available Not Available Vraylar 3 mg capsule TAKE ONE CAPSULE BY MOUTH EVERY DAY active Not Available Not Available No t Available Vitals Date Recorded Body weight Body mass index (BMI) Body height Body temperature Oxygen saturation Oxygen saturation in Arterial blood by Pulse oximetry Heart rate Systolic blood pressure Diastolic blood pressure Provider Name and Address Organization Details Last Updated DateTime 3 992668. 19 g 35.4 kg/m2 185.42 cm 97.8 [degF] 99 % 99 % 68 /min 130 mm[Hg] 80 mm[Hg] Melania SMITH [facility] - [place] & [place] 3 17:17:54 Social History None recorded. Functional Status None recorded. Mental Status None recorded. Family History Nothing Reported. Medical History Condition Response Anxiety Disorder Y Acid Reflux (GERD) Y Hypertension Y Depression Y Past Encounters Encounter ID Performer Location Encounter Start Date Encounter Closed Date Diagnosis/Indication Diagnosis SNOMED-CT Code Diagnosis ICD10 Code Diagnosis Note [id number] Chalo Mauricio MD [facility] [address] [facility] e [address] [place] [address] 08/21/2022 12:49:01 08/21/2022 15:10:43 Cervical spondylosis 229884736 M47.812 Spinal marcelo nosis in cervical region 77722696 M99.51 Myofascial pain 80743864 9 M79.10 Radicular pain 21923963 M54.10 Frequent headache 640385 003 R51.9 Health Concerns Section Related Observation LastModified by Organization Detai ls LastModified Time None Recorded Concern Status LastModified by Organization Details LastModified Time None Recorded Advance Directives Directive None Recorded Payers Insurance Date Sequence Insurance Name Policy Number Policy Segura Covered Member ID Segura Member ID Guarantor Name 09/16/2022 1 [place] [id number] Julio Cesar Orellana [id number] Julio Cesar Orellana 08/18/2022 1 [facility] Julio Cesar Orellana [id number] Julio Cesar Orellana Notes Date Note Type Note Provider Name and Address Organization Details Recorded Time 3 text/html Mr. Orellana was a self-referral for management of chronic neck pain. Patient denies any DM, history of infection, or anti-coagulant use. Patient complains of neck pain with radiation into the base of the skull, causing frequent headaches with increased activity. Patient also has radicular symptoms to the BLE (worse on the left) with certain movements. 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 He notes that the pain affects his quality of life. Patient has participated in PT and continues at home exercises/stretches and other conservative measures when tolerated with minimal relief. He reports taking Mobic and Flexeril which are minimally helpful. He would like to prevent medication regimen to manage his pain. Initial complaint: chronic neck painOnset: 2018Context: worsening over timeCharacter: dull, aching, throbbing, radiating, numbness/tinglingLocatio n: neck, BUEDuration: constant with fluctuationsInitial Intensity: 4/10Worse: lifting, carrying, ROM, driving, activityBetter: restAssociated symptoms: Denies saddle anaesthesia, denies acute bowel/bladder changes, denies acute power loss.ADLs: The patient's pain interferes with daily chores, exercise, sleep, relationships, and walking.Current Pain Medications: Flexeril, MeloxicamPrior Pain Medications: noneNSAIDS/OTC: mildly helpfulNon-interventiona l Tx: chiropractics - several years agoPhysical Therapy: 2020Interventional Tx: noneSurgery: noneImaging/Studies: MRI cervical spine Chalo Mauricio MD [address], [place], [address], [facility] - [facility] - [place] & [place] 08/22/2022 15:03:32
--- OUTSIDE RECORDS SUMMARY | 2024-10-31 20:23 | XMS_ITS | Continuity of Care Document ---
Author Organization [facility] Address [address] [place] [phone] Phone Care Team Providers Care Freight Representative Name Role Phone Unavailable Primary Care Provider Unavailabl e Encounters Date Type Department Care Team Description 11/05/2018 9:15 AM EDT Office Visit [facility] [address] [address] Willie Ascencio MD Primary snoring; Obstructive sleep apnea 10/03/[address] [address] Osman Méndez MD Medication Refill (one script ) 09/09/2018 9:15 AM EDT - 09/09/2018 11:59 PM EDT Hospital Encounter [facility] Sleep Disorder Center [address] [place], [place] [id number] Obstructive sleep apnea (Primary Dx) Discharge Disposition: Home or Self Care 09/09/2018 9:00 AM EDT Office Visit [facility] [address] [address] Willie Ascencio MD Excessive sleepiness; Primary snoring; Obstructive sleep apnea 09/04/2018 12:07 AM EDT - 09/04/2018 11:59 PM EDT Hospital Encounter [facility] Sleep Disorder Center [address] [place] [id number] [place] Sleep Discharge Disposition: Home or Self Care 09/03/2018 6:45 PM EDT - 09/03/2018 11:59 PM EDT Hospital Encounter [facility] Sleep Disorder Center [place] [address] [place] [address] [place] Sleep Obstructive sleep apnea (Primary Dx) Discharge Disposition: Home or Self Care [address] [facility] [address] [place] [address] Osman Méndez MD Medication Refill 08/23/2018 Orders Only [facility] Sleep Disorder [facility] [place] [address] [facility] [address] [place] [address] Willie Ascencio MD Obstructive sleep apnea (Primary Dx) 08/19/2018 8:30 AM EDT Office Visit [facility] [address] [facility] [address] [place] [address] Willie Ascencio MD Restless legs syndrome (Primary Dx); Excessive sleepiness; Primary snoring; Obstructive sleep apnea 07/31/2018 Telephone [facility] [address] [place] [address] Ender Salvador MD No Show 07/25/2018 8:20 AM EDT Office Visit [facility] [address] [place] [address] Osman Méndez MD Abrasion of finger, initial encounter (Primary Dx); Need for Tdap vaccination; Gastroesophageal reflux disease, esophagitis presence not specified; Atypical chest pain; Excessive daytime sleepiness 06/10/2018 8:49 AM EST - 06/10/2018 11:59 PM EST Hospital Encounter [facility] [address] [place] [address] Anxiety; Panic attacks Discharge Disposition: Home or Self Care 06/10/2018 8:00 AM EST Office Visit [facility] [address] [place] [address] Osman Méndez MD Anxiety (Primary [...] He was evaluated in the ER in [place]. He was told to f/u w/ cardiology. [...] Grandmother Social History Smoking Status as of 10/31/2024 Tobacco Use Types Packs/Day Years Used Date [...] 06/10/2018 3:17 PM EST [facility] Blood VENOUS BLOOD / Unknown Venipuncture / Unknown 06/10/2018 8:50 AM EST 06/10/2018 8:50 AM EST Narrative [facility] - 06/10/2018 3:17 PM EST Ingestion of dwain doses of biotin (>5 mg/day) taken within 8 hours of drawing blood sample can interfere with this immunoassay test. us Osman Méndez MD CHEMISTRY ORDERABLES Final Res ult [facility] [address] [facility] , [place] [address] * CBC (06/10/2018 8:50 AM EST) WBC [...] sult [facility] [address] [facility] , [address] [place] [id number] * COMPREHENSIVE METABOLIC PANEL (06/10/2018 8:50 AM [...] mL/min/1.7 3 m2 06/10/2018 3:17 PM EST [facility] GFR Non Afr Am 116 >=60 mL/min/1.7 3 m2 06/10/2018 3:17 PM EST [facility] Comment: This estimated GFR was calculated [...] ORDERABLES Final Res ult Performing Organization Address City/State/[facility] Co de Phone Number [facility] [address] [facility] , [place] [address] [facility] [address] [place] [address] Visit Diagnoses Diagnosis Start Date Anxiety Anxiety state, unspecified 06/10/2018 Panic attacks Panic disorder without agoraphobia 06/10/2018 Anxiety Anxiety state, unspecified 06/10/2018 Panic attacks Panic disorder without agoraphobia 06/10/2018 Abrasion of finger, initial encounter 07/25/2018 Need for Tdap vaccination Need for prophylactic vaccination with combined ajqjwyddxp-swykqtm-nthydkndi (DTP) vaccine 07/25/2018 Gastroesophageal reflux disease, esophagitis [...]
--- OUTSIDE RECORDS SUMMARY | 2024-10-31 20:23 | XMS_ITS | Data Portability ---
Author Organization [facility] Sameera flood, [place] [facility] Address [address] [place] [address] Care Team Providers Care Elevator Pilot Name Role Phone GAURANG BARTHOLOMEW Referring Provider [phone] EDMUNDO JULIO Primary Care Provider [phone] Assessment Encounter Date Assessment Date Assessment LastModified [...] pylori urea breath test, co2 infrared 2021 [facility], [address] [place], [address], 08/20/2021 16:00:17 Referral None recorded. Procedures None recorded. Surgeries None recorded. Imaging None recorded. Medication Orders famotidin e 40 mg tablet 2021 [facility], [address] [facility] [address], [phone], 10/25/2021 14:11:17 Patient TargetsNo targets recorded. Patient [...] PERFO RMED AT: [facility] [address] [place] [address] ROBIN Figueroa MD Not Available [facility] [address] [place] [address], [phone], 08/20/2021 16:00:17 10/02/19 25 09/26/2024 MRI, cervi norma spine , w/o contr ast No observ ation record ed. BARCODE Not Available 2024 15:57:00 Result Notes None recorded. Procedures Surgical History Date Name Laterality Status Provider Name and Address Organization Details Recorded Time 08/18/2021 UREA Breath Test completed Wayne Warner [facility] 08/18/2021 15:24:21 Imaging Results None recorded. Procedure [...] Updated DateTime 05/16/2022 185.42 cm 33.5 kg/m2 441075.46 g Alfa Jones [facility] 05/16/2022 16:23:12 Date Recorded Body height Body mass index (BMI) Body weight Heart rate Respiratory rate Systolic blood pressure Diastolic blood pressure Provider Name and Address Organization Details Last Updated DateTime 2 185.42 cm 33.5 kg/m2 230473. 46 g 101 /min 16 /min 161 mm[Hg] 96 mm[Hg] Karin King [facility] 2 14:40:05 Date Recorded Body height Body mass index (BMI) Body weight Heart rate Respiratory rate Systolic blood pressure Diastolic blood pressure Provider Name and Address Organization Details Last Updated DateTime 2 185.42 cm 33.5 kg/m2 789144. 46 g 71 /min 16 /min 130 mm[Hg] 78 mm[Hg] Wayne Warner [facility] 2 13:45:41 Social History Question Answer Notes LastModified by Organizat ion Details LastModified Time Tobacco Smoking Status Never Smoker Karindanae King [facility] 08/18/2021 14:42:08 What Is Your Relationship Status? [...] Response TENS Unit for current problem N Massage Therapy for current problem N Traction for current problem N Gout N Other N Hyperthyroidism N Hernia Y Narcotic Pain Medication for current pro blem N Emphysema N Depression Y COPD N Hypothyroidism Y Injections for current problem N Deep Vein Thrombosis N Anxiety Disorder Y Hearing Loss Y Arthritis N Cancer N Stroke N High Cholesterol Y Liver Disease N Dialysis N Fibromyalgia N Kidney Disease N Neuro-modulating Drugs for current probl em N Black Lung N Steroid Pack for current problem N NSAID Use N Osteoporosis/Osteopenia N Heart Attack ([place]) N Mental Illness N Diabetes N Bleeding Disorder N Tuberculosis N Genetic Disorder N AIDS/HIV N Chiropractor treatment for current probl em N Kidney Failure N Ultrasound Treatment for current problem N Asthma N Epilepsy/Seizures N Sleep Apnea N Thyroid Disorder Y Physical Therapy Treatments for current problem N Pulmonary Embolism N Hypertension Y Past Encounters Encounter ID Performer Location Encounter Start Date Encounter Closed Date Diagnosis/Indication Diagnosis SNOMED-CT Code Diagnosis ICD10 Code Diagnosis Note [id number] RONAL KOCH MD [facility] [address] [place] [address] 1 08/18/2021 14:01:47 09/21/2021 07:49:02 Nonulcer dyspepsia 6511952 K30 h pylori breath testif neg 8 weeks ppi therapyrtc 8 weeksconsi piotr egd if persists [id number] RONAL KOCH MD [facility] [address] [place] [address] 1 08/18/2021 15:23:32 08/19/2021 11:14:06 Nonulcer dyspepsia 9951056 K30 [id number] RONAL KOCH MD [facility] [address] [place] [address], [place] [address] 10/25/2021 13:24:58 10/25/2021 14:48:25 Gastroesophageal reflux disease without esophagitis 705450883 K21.9 [id number] LENNY MARTINEZ MD [facility] [address] [place] [phone] 05/16/2022 15:59:00 05/16/2022 16:58:57 Impingement syndrome of right shoulder region 6057592773 57225 M75.41 Tendinitis of long head of biceps brachii of right shoulder 129793443 M75.21 [id number] HEBERT BRANDON MD [facility] [address] [place] [address] 10/09/2024 09:27:48 10/10/2024 04:30:43 Cervical spondylosis 874056713 M47.812 Health Concerns Section Related Observation LastModified by Organization Detai ls LastModified Time None Recorded Concern Status LastModified by Organization Details LastModified Time None Recorded Advance Directives Directive None Recorded Payers Insurance Date Sequence Insurance Name Policy Number Policy Segura Covered Member ID Segura Member ID Guarantor Name 10/01/2024 1 [place] CHRISTEN CHUN [facility] [id number] Melody Orellana [id number] Julio Cesar Orellana 10/07/2024 1 [facility] [id number] Julio Cesar Orellana [id number] Julio Cesar Orellana Notes Date Note Type Note Provider Name and Address Organization Details Recorded Time 08/18/2021 text/html burning stomach sxsdyspepsiano current therapy RONAL KOCH MD [address] [place] [address], [phone] [place] [address] 09/19/2021 22:46:58 10/25/2021 text/html Feels Much colton r on ppiLast egd many years ago -- 3 yrs agoPantop 40 mg qdPepcid 20 RONAL KOCH MD [address] [place] [address], [phone], [facility] 10/25/2021 14:00:59 05/16/2022 text/html 1.3.22PCP: Uday Stokes [...] /10 PT: naNSAIDS:naINJECTION :na LENNY MARTINEZ MD [address] [place] [address], [phone], [facility] 05/17/2022 09:26:29 10/09/2024 text/html I saw Mr. [...] Lyrica which has helped. HEBERT BRANDON MD [address] [place] [address], [phone], [facility] 10/09/2024 10:42:35
== END ==
LOC: SL 20:22
PROVIDERS: PCP Nurse Practitioner Family; Visit Provider Nurse Practitioner Family
DX: R06.83 Snoring (principal); R06.81 Apnea, not elsewhere classified; R53.83 Other fatigue
CPT/HCPCS: 95810

== ENCOUNTER 2024-11-03 15:48 | Outpatient (CLI) | payer OTHER, SELFPAY ==
[2024-11-03 12:57] LABS: Basophils % 0.3 % (0.1-2.0); Eosinophils # 0.1 Kmm3 (0.0-0.4); Hematocrit 47.2 % (42.0-52.0); Hemoglobin 14.9 g/dL (14.1-18.0); Immature Granulocytes # 0.03 10^3uL; Immature Granulocytes % 0.4 %; Lymphocytes # 1.8 K/mm3 (0.7-4.5); Lymphocytes % 25.6 % (10-50); Mean Corpuscular HGB Conc 31.6 g/dL (31.8-35.4); Mean Corpuscular Hemoglobin 26.6 pg (27.0-31.2); Mean Corpuscular Volume 84.3 fl (80-94); Mean Platelet Volume 10.7 fl (7.4-10.4); Monocytes # 0.4 K/mm3 (0.1-1.0); Monocytes % 5.4 % (1.7-9.3); Neutrophils # 4.6 K/mm3 (1.8-7.8); Neutrophils % 67.3 % (37.0-80.0); Nucleated Red Blood Cells # 0 10^3/uL; Nucleated Red Blood Cells % 0 %; Platelet Count 291 K/mm3 (142-424); Red Cell Distribution Width 13.1 % (11.5-17.5); Red Cell Distribution Width-SD 39.6 fL; White Blood Count 6.8 K/mm3 (4.8-10.8)
[2024-11-03 13:19] LABS: Alanine Aminotransferase 52 U/L (12-78); Albumin Level 4.4 g/dl (3.5-5.0); Albumin/Globulin Ratio 1.7 (1.1-1.8); Alkaline Phosphatase 103 U/L (38-126); Anion Gap 8.2 mEq/L (5-15); Aspartate Amino Transferase 35 U/L (17-59); Bilirubin,Total 0.6 mg/dl (0.2-1.3); Blood Urea Nitrogen 11 mg/dl (9-20); Calcium 9.5 mg/dl (8.4-10.2); Carbon Dioxide 29 mmol/L (22.0-30.0); Chloride 106 mmol/L (98-107); Estimated Glomerular Filt Rate 97 ml/min (>60); GFR (African American) 118 ML/MIN (>60); Globulin 2.6 g/dL (1.3-3.2); Glucose 92 mg/dl (74-100); Potassium 4.2 mmoL/L (3.5-5.1); Sodium 139 mmol/L (136-145)
--- OUTSIDE RECORDS SUMMARY | 2024-11-03 15:50 | XMS_ITS | Continuity of Care Document ---
Author Organization [facility] Address [address] [place] [phone] Phone Care Team Providers Care Frame Welder Cargo Utility Trailers Name Role Phone Unavailable Primary Care Provider Unavailabl e Encounters Date Type Department Care Team Description 11/05/2018 9:15 AM EDT Office Visit [facility] Sleep Medicine [address] [address] Willie Ascencio MD Primary snoring; Obstructive sleep apnea 10/03/[address] [address] Osman Méndez MD Medication Refill (one script ) 09/09/2018 9:15 AM EDT - 09/09/2018 11:59 PM EDT Hospital Encounter [facility] Sleep Disorder Center [address] [place], [place] [id number] Obstructive sleep apnea (Primary Dx) Discharge Disposition: Home or Self Care 09/09/2018 9:00 AM EDT Office Visit [facility] Sleep Medicine [address] [address] Willie Ascencio MD Excessive sleepiness; Primary snoring; Obstructive sleep apnea 09/04/2018 12:07 AM EDT - 09/04/2018 11:59 PM EDT Hospital Encounter [facility] Sleep Disorder Center [address] [place] [id number] [place] Sleep Discharge Disposition: Home or Self Care 09/03/2018 6:45 PM EDT - 09/03/2018 11:59 PM EDT Hospital Encounter [facility] Sleep Disorder Center [place] [address] [place] [address] [place] Sleep Obstructive sleep apnea (Primary Dx) Discharge Disposition: Home or Self Care 2018 Refill [facility] [address] [place] [address] Osman Méndez MD Medication Refill 08/23/2018 Orders Only [facility] Sleep Disorder Center [place] [address] [facility] [address] [place] [address] Willie Ascencio MD Obstructive sleep apnea (Primary Dx) 08/19/2018 8:30 AM EDT Office Visit [facility] Sleep Medicine [facility] [address] [facility] [address] [place] [address] Willie Ascencio MD Restless legs syndrome (Primary Dx); Excessive sleepiness; Primary snoring; Obstructive sleep apnea 07/31/2018 Telephone [facility] [address] [place] [address] Ender Salvador MD No Show 07/25/2018 8:20 AM EDT Office Visit [facility] [address] [place] [address] Osman Méndez MD Abrasion of finger, initial encounter (Primary Dx); Need for Tdap vaccination; Gastroesophageal reflux disease, esophagitis presence not specified; Atypical chest pain; Excessive daytime sleepiness 06/10/2018 8:49 AM EST - 06/10/2018 11:59 PM EST Hospital Encounter [facility] [address] [place] [address] Anxiety; Panic attacks Discharge Disposition: Home or Self Care 06/10/2018 8:00 AM EST Office Visit [facility] [address] [place] [address] Osman Méndez MD Anxiety (Primary [...] He was evaluated in the ER in [place]. He was told to f/u w/ cardiology. [...] Grandmother Social History Smoking Status as of 11/03/2024 Tobacco Use Types Packs/Day Years Used Date [...] 06/10/2018 3:17 PM EST [facility] Blood VENOUS BLOOD / Unknown Venipuncture / Unknown 06/10/2018 8:50 AM EST 06/10/2018 8:50 AM EST Narrative [facility] - 06/10/2018 3:17 PM EST Ingestion of dwain doses of biotin (>5 mg/day) taken within 8 hours of drawing blood sample can interfere with this immunoassay test. us Osman Méndez MD CHEMISTRY ORDERABLES Final Res ult [facility] [address] [facility] [facility] , [place] [address] * CBC (06/10/2018 8:50 AM EST) WBC [...] sult [facility] [address] [facility] [facility] , [address] [place] [id number] * COMPREHENSIVE METABOLIC PANEL (06/10/2018 8:50 AM [...] mL/min/1.7 3 m2 06/10/2018 3:17 PM EST [facility] GFR Non Afr Am 116 >=60 mL/min/1.7 3 m2 06/10/2018 3:17 PM EST [facility] Comment: This estimated GFR was [...] ORDERABLES Final Res ult Performing Organization Address City/State/[facility] Co de Phone Number [facility] [address] [facility] , [place] [address] [facility] [address] [place] [address] Visit Diagnoses Diagnosis Start Date Anxiety Anxiety state, unspecified 06/10/2018 Panic attacks Panic disorder without agoraphobia 06/10/2018 Anxiety Anxiety state, unspecified 06/10/2018 Panic attacks Panic disorder without agoraphobia 06/10/2018 Abrasion of finger, initial encounter 07/25/2018 Need for Tdap vaccination Need for prophylactic vaccination with combined uytfaapflf-ernbnqq-hdkrmhomt (DTP) vaccine 07/25/2018 Gastroesophageal reflux disease, esophagitis [...]
--- OUTSIDE RECORDS SUMMARY | 2024-11-03 15:50 | XMS_ITS | Clinical Summary ---
Author Organization [facility] Address [address] [place] [address] Care Team Providers Care Electrical Controls Designer Name Role Phone Berto Frazier MD Primary Care Provider + [phone] Allergies No known active allergies Medications Sertraline [...] Plan of Treatment Not on file Insurance [facility] Advance Directives * Full Code (Latest Code Status on File) Date Activated Date Inactivated Comments 08/27/2018 5:13 PM 08/28/2018 8:15 PM Care Teams Electrical Controls Designer Relationship Specialty Start Date End Date Berto Frazier MD [address] [facility] [address] [place] [phone] PCP - General Family Medicine 08/12/18
--- OUTSIDE RECORDS SUMMARY | 2024-11-03 15:50 | XMS_ITS | Referral Summary ---
Author Organization [employer] Address [address] [place] [address] Care Team Providers Care Adult Educator Name Role Phone Lilian Gabriel APRN Primary [...] total) by mouth daily. 09/07/2023 Active omega 6-cbg-yhc-fish oil capsule Take 1 capsule (1,000 mg [...] Plan of Treatment Not on file Insurance [facility] CHOICE PLUS Advance Directives For more information, please contact: [phone] * Full Code (Latest Code Status on File) Date Activated Date Inactivated Comments 12/11/2023 9:46 AM 12/11/2023 6:29 PM Care Teams Adult Educator Relationship Specialty Start Date End Date Lilian Gabriel, ASSISTANT TO THE VICE PRESIDENT [address] [phone] PCP - General Nurse Practitioner 10/11/23
--- OUTSIDE RECORDS SUMMARY | 2024-11-03 15:50 | XMS_ITS | Clinical Summary ---
Author Organization [employer] Address [address] [place] [address] Care Team Providers Care Historic Interpreter Name Role Phone Lilian Gabriel APRN Primary [...] total) by mouth daily. 09/07/2023 Active omega 5-qpa-ymx-fish oil capsule Take 1 capsule (1,000 mg [...] He was evaluated in the ER in [place]. He was told to f/u w/ cardiology. [...] Date Antonio rded Speak language other than Liberian at home Not on file 10/16/2023 Want [...] patient's age to complete this topic Insurance [facility] CHOICE PLUS Advance Directives For more information, please contact: [phone] * Full Code (Latest Code Status on File) Date Activated Date Inactivated Comments 12/11/2023 9:46 AM 12/11/2023 6:29 PM Care Teams Historic Interpreter Relationship Specialty Start Date End Date Lilian Gabriel APRN [address] [place] [id number] PCP - General Nurse Practitioner 10/11/23
[2024-11-04 14:16] LABS: EBV Ab VCA, IgM 65.8 U/mL (0.0-35.9)
== END 2024-11-03 23:59 | disposition home or self-care (01) ==
LOC: LAB.DROPOF 15:48
PROVIDERS: PCP Nurse Practitioner Family; Visit Provider Nurse Practitioner Family
DX: B27.90 Infectious mononucleosis, unspecified without complication (principal); R16.1 Splenomegaly, not elsewhere classified
CPT/HCPCS: 80053; 85025; 86664; 86665

== ENCOUNTER 2024-11-17 14:03 | Outpatient (CLI) | payer OTHER, SELFPAY ==
--- OUTSIDE RECORDS SUMMARY | 2024-11-17 14:06 | XMS_ITS | Continuity of Care Document ---
Author Organization [facility] Address [address] [place] [phone] Phone Care Team Providers Care Hydroelectric Operator Name Role Phone Unavailable Primary Care Provider Unavailabl e Encounters Date Type Department Care Team Description 11/05/2018 9:15 AM EDT Office Visit [facility] Sleep Medicine [address] [address] Willie Ascencio MD Primary snoring; Obstructive sleep apnea 10/03/[address] [address] Osman Méndez MD Medication Refill (one script ) 09/09/2018 9:15 AM EDT - 09/09/2018 11:59 PM EDT Hospital Encounter [facility] Sleep Disorder Center [address] [place], [place] [id number] Obstructive sleep apnea (Primary Dx) Discharge Disposition: Home or Self Care 09/09/2018 9:00 AM EDT Office Visit [facility] Sleep Medicine [address] [address] Willie Ascencio MD Excessive sleepiness; Primary snoring; Obstructive sleep apnea 09/04/2018 12:07 AM EDT - 09/04/2018 11:59 PM EDT Hospital Encounter [facility] Sleep Disorder Center [address] [place] [id number] [place], [place]k Sleep Discharge Disposition: Home or Self Care 09/03/2018 6:45 PM EDT - 09/03/2018 11:59 PM EDT Hospital Encounter [facility] Sleep Disorder Center [place] [address] [place] [address] [place], [place] Sleep Obstructive sleep apnea (Primary Dx) Discharge Disposition: Home or Self Care 2018 Refill [facility] [address] [place] [address] Osman Méndez MD Medication Refill 08/23/2018 Orders Only [facility] Sleep Disorder Center [place] [address] [facility] [address] [place] [address] Willie Ascencio MD Obstructive sleep apnea (Primary Dx) 08/19/2018 8:30 AM EDT Office Visit [facility] Sleep Medicine [facility] [address] [facility] [address] [place] [address] Willie Ascencio MD Restless legs syndrome (Primary Dx); Excessive sleepiness; Primary snoring; Obstructive sleep apnea 07/31/2018 Telephone [facility] [address] [place] [address] Ender Salvador MD No Show 07/25/2018 8:20 AM EDT Office Visit [facility] [address] [place] [address] Osman Méndez MD Abrasion of finger, initial encounter (Primary Dx); Need for Tdap vaccination; Gastroesophageal reflux disease, esophagitis presence not specified; Atypical chest pain; Excessive daytime sleepiness 06/10/2018 8:49 AM EST - 06/10/2018 11:59 PM EST Hospital Encounter [facility] [address] [place] [address] Anxiety; Panic attacks Discharge Disposition: Home or Self Care 06/10/2018 8:00 AM EST Office Visit [facility] [address] [place] [address] Osman Méndez MD Anxiety (Primary [...] He was evaluated in the ER in [place]. He was told to f/u w/ cardiology. [...] Grandmother Social History Smoking Status as of 11/17/2024 Tobacco Use Types Packs/Day Years Used Date [...] 06/10/2018 3:17 PM EST [facility] Blood VENOUS BLOOD / Unknown Venipuncture / Unknown 06/10/2018 8:50 AM EST 06/10/2018 8:50 AM EST Narrative [facility] - 06/10/2018 3:17 PM EST Ingestion of dwain doses of biotin (>5 mg/day) taken within 8 hours of drawing blood sample can interfere with this immunoassay test. us Osman Méndez MD CHEMISTRY ORDERABLES Final Res ult [facility] [address] [facility] [facility] , [place] [address] * CBC (06/10/2018 8:50 AM EST) WBC [...] sult [facility] [address] [facility] , [address] [place] [phone] * COMPREHENSIVE METABOLIC PANEL (06/10/2018 8:50 AM [...] mL/min/1.7 3 m2 06/10/2018 3:17 PM EST [facility] GFR Non Afr Am 116 >=60 mL/min/1.7 3 m2 06/10/2018 3:17 PM EST [facility] Comment: This estimated GFR [...] ORDERABLES Final Res ult Performing Organization Address City/State/[facility] Co de Phone Number [facility] [address] [facility] , [place] [address] [facility] [address] [place] [address] Visit Diagnoses Diagnosis Start Date Anxiety Anxiety state, unspecified 06/10/2018 Panic attacks Panic disorder without agoraphobia 06/10/2018 Anxiety Anxiety state, unspecified 06/10/2018 Panic attacks Panic disorder without agoraphobia 06/10/2018 Abrasion of finger, initial encounter 07/25/2018 Need for Tdap vaccination Need for prophylactic vaccination with combined ctiwrmpipz-hsvwtzb-yewjwqsti (DTP) vaccine 07/25/2018 Gastroesophageal reflux disease, esophagitis [...]
--- OUTSIDE RECORDS SUMMARY | 2024-11-17 14:06 | XMS_ITS | Clinical Summary ---
Author Organization [facility] Address [address] [place] [address] Care Team Providers Care Polisher And Buffer Name Role Phone Berto Frazier MD Primary Care Provider + [phone] Allergies No known active allergies Medications Sertraline [...] Plan of Treatment Not on file Insurance [facility] Advance Directives * Full Code (Latest Code Status on File) Date Activated Date Inactivated Comments 08/27/2018 5:13 PM 08/28/2018 8:15 PM Care Teams Polisher And Buffer Relationship Specialty Start Date End Date Berto Frazier MD [address] [facility] [address] [place] [phone] PCP - General Family Medicine 08/12/18
--- OUTSIDE RECORDS SUMMARY | 2024-11-17 14:06 | XMS_ITS | Clinical Summary ---
Author Organization [employer] ([place], [place], [place], [place]) Address [address] [place] [address] Care Team Providers Care Barkeep Name Role Phone GabrielLilian KARIS Primary Care Provider [phone] Allergies No known active allergies Medications levothyroxine [...] total) by mouth daily. 09/07/2023 Active omega 6-kao-jek-fish oil capsule Take 1 capsule (1,000 mg [...] He was evaluated in the ER in [place]. He was told to f/u w/ cardiology. [...] drink = 0.6 oz pur e alcohol) Food Insecurity Answer Date Recorded Food run [...] Date Antonio rded Speak language other than Polish at home Not on file 10/16/2023 Want help with school or training Not on file 10/16/2023 Substance Use Answer Date Recorded Used [...] Screening 08/25/2009 Lipid Panel 2011 COVID-19 VACCINE ( - 2023-2 5 season) 2024 12/22/2020, 12/01/2020 Tobacco Cessation Counseling and Screening (12+) 12/19/2024 12/20/2023 Influenza Vaccine (#1) 2025 DTAP/TDAP/TD VACCINES (3 - T d or Tdap) 07/25/2028 07/25/2018, 08/27/1995 Pneumococcal Vaccine: 0-49 Years Aged Out No longer eligible b ased on patient's age to complete this topic Insurance [facility] CHOICE PLUS Advance Directives For more information, please contact: [phone] * Full Code (Latest Code Status on File) Date Activated Date Inactivated Comments 12/11/2023 9:46 AM 12/11/2023 6:29 PM Care Teams Barkeep Relationship Specialty Start Date End Date Lilian Gabriel APRN [address] [phone] PCP - General Nurse Practitioner 10/11/23
--- OUTSIDE RECORDS SUMMARY | 2024-11-17 14:06 | XMS_ITS | Referral Summary ---
Author Organization [employer] ([place], [place], [place], [place]) Address [address] [place] [address] Care Team Providers Care Occasional Babysitter Name Role Phone Gabriel Lilian KARIS Primary Care Provider Allergies No known active [...] total) by mouth daily. 09/07/2023 Active omega 3-dyq-rly-fish oil capsule Take 1 capsule (1,000 mg [...] He was evaluated in the ER in [place]. He was told to f/u w/ cardiology. [...] Date Antonio rded Speak language other than Kiswahili at home Not on file 10/16/2023 Want [...] Plan of Treatment Not on file Insurance [facility] CHOICE PLUS Advance Directives For more information, please contact: [phone] * Full Code (Latest Code Status on File) Date Activated Date Inactivated Comments 12/11/2023 9:46 AM 12/11/2023 6:29 PM Care Teams Occasional Babysitter Relationship Specialty Start Date End Date Lilian Gabriel, DIRECTOR OF DISTRICT OFFICE [address] [phone] PCP - General Nurse Practitioner 10/11/23
[2024-11-18 15:14] LABS: EBV Nuclear Antigen Ab, IgG 174.0 U/mL (0.0-17.9)
== END 2024-11-17 23:59 | disposition home or self-care (01) ==
LOC: LAB.DROPOF 14:04
PROVIDERS: PCP Nurse Practitioner Family; Visit Provider Nurse Practitioner Family
DX: B27.90 Infectious mononucleosis, unspecified without complication (principal)
CPT/HCPCS: 86664; 86665

== ENCOUNTER 2024-12-01 15:35 | Outpatient (CLI) | payer OTHER, SELFPAY ==
[2024-12-01 12:32] LABS: Hematocrit 46.4 % (42.0-52.0); Hemoglobin 15.3 g/dL (14.1-18.0); Immature Granulocytes % 0.3 %; Mean Corpuscular HGB Conc 33.0 g/dL (31.8-35.4); Mean Corpuscular Hemoglobin 27.8 pg (27.0-31.2); Mean Corpuscular Volume 84.2 fl (80-94); Nucleated Red Blood Cells % 0 %; Platelet Count 326 K/mm3 (142-424); Red Blood Count 5.51 M/mm3 (4.60-6.20); Red Cell Distribution Width-SD 40.7 fL; White Blood Count 6.9 K/mm3 (4.8-10.8)
--- OUTSIDE RECORDS SUMMARY | 2024-12-01 15:37 | XMS_ITS | Continuity of Care Document ---
Author Organization [facility] Infectious Disease -105 Address [address] [place] [address] Assessment No assessment recorded. Plan of Treatment Reminders Order Date Submit Date Provider Last Modified By Organization Details Last Modified Time Details Appointments None record ed. Lab None record ed. Referral None record ed. Procedures None record ed. Surgeries None record ed. Imaging None record ed. Medication Orders None record ed. Patient TargetsNo targets recorded. Patient InstructionsNo instructions recorded. Reason for Referral None Reported. Problems Name Problem SNOMED Code Status Onset Date Resolution Date Notes Provider Name and Address Organization Details Recorded Time Radicular pain 51535238 Active 2022 Ana faulkner, SARAH - [facility] & [place] 3 13:54:51 Myofascial pain 788859078 Active 2022 Ana faulkner, SARAH - [facility] & [place] 3 13:54:59 Spinal stenosis in cervical region 27982893 Active 2022 Ana faulkner, SARAH - [facility] & [place] 3 13:55:04 Cervical spondylosis 512873106 Active 2022 Ana faulkner, SARAH - [facility] & [place] 3 13:55:05 Frequent headache 156793473 Active 2022 Ana faulkner, [place] - [facility] & [place] 3 13:55:13 Problem Notes None recorded. Procedures Surgical History Date Name Laterality Status Provider Name and Address Organization Details Recorded Time Appendectomy completed Melania Brown [place] - [facility] - [place] & [place] 08/21/2022 17:21:53 Imaging Results None recorded. Procedure Notes None recorded. Medical Equipment None Reported. Medications Name Sig Start Date Stop Date Status Note LastModified by Organization Details LastModified Time losartan 50 mg tablet TAKE ONE TABLET BY MOUTH TWICE DAILY active Not Available Not Available No t Available cyclobenzap rine 10 mg tablet TAKE ONE TABLET BY MOUTH EVERY DAY AT BEDTIME NEEDED active Not Available Not Available No t Available azithromyci n 250 mg tablet TAKE 2 TABLETS BY MOUTH ON DAY 1, AND THEN TAKE 1 TABLET BY MOUTH ONCE A DAY ON DAY 2 THROUGH DAY 5 active Not Available Not Available No t Available meloxicam 15 mg tablet TAKE ONE TABLET BY MOUTH EVERY DAY --TAKE WITH FOOD-- active Not Available Not Available No t Available famotidine 40 mg tablet TAKE ONE TABLET BY MOUTH EVERY DAY 08/21 completed Not Available Not Available Not Available prednisone 20 mg tablet TAKE ONE TABLET BY MOUTH TWICE DAILY FOR 5 DAYS -- FINISH ALL MEDICINE -- active Not Available Not Available No t Available sertraline 100 mg tablet TAKE ONE TABLET BY MOUTH EVERY DAY active Not Available Not Available No t Available tramadol 50 mg tablet TAKE 1/2 TO 1 TABLET BY MOUTH EVERY 4 HOURS NEEDED MAY CAUSE DROWSINES S active Not Available Not Available No t Available triamcinolo ne acetonide 0.1 % topical cream APPLY TOPICALLY TO THE AFFECTED AREA(S) FOUR TIMES DAILY FOR 10 DAYS active Not Available Not Available No t Available amoxicillin 875 mg tablet TAKE 1 TABLET BY MOUTH TWICE DAILY FOR 10 DAYS 08/21 completed Not Available Not Available Not Available pravastatin 10 mg tablet TAKE ONE TABLET BY MOUTH EVERY DAY active Not Available Not Available No t Available famciclovir 500 mg tablet TAKE 1 TABLET BY MOUTH EVERY 8 HOURS FOR 7 DAYS active Not Available Not Available No t Available benzonatate 100 mg capsule TAKE 1 CAPSULE BY MOUTH THREE TIMES DAILY NEEDED FOR COUGH active Not Available Not Available No t Available levothyroxi ne 50 mcg tablet TAKE ONE TABLET BY MOUTH EVERY DAY active Not Available Not Available No t Available pantoprazol e 40 mg tablet,kalyan yed release TAKE ONE TABLET BY MOUTH EVERY DAY 08/21 completed Not Available Not Available Not Available promethazin e 25 mg tablet TAKE ONE TABLET BY MOUTH EVERY 6 HOURS NEEDED 08/21 completed Not Available Not Available Not Available gabapentin 300 mg capsule TAKE ONE CAPSULE BY MOUTH THREE TIMES DAILY active Not Available Not Available No t Available diclofenac sodium 75 mg tablet,kalyan yed release TAKE ONE TABLET BY MOUTH EVERY TWELVE HOURS DIRECTED active Not Available Not Available No t Available pravastatin 20 mg tablet TAKE ONE TABLET BY MOUTH EVERY DAY active Not Available Not Available No t Available methylpredn isolone 4 mg tablets in a dose pack TAKE BY MOUTH DIRECTED ON INSIDE OF PACKAGE active Not Available Not Available No t Available albuterol sulfate HFA 90 mcg/actuati on [...] mg disintegrat ing tablet DISSOLVE ONE TABLET in MOUTH EVERY 6 HOURS NEEDED FOR NAUSEA AND VOMITING active Not Available Not Available No t Available cefdinir 300 mg capsule TAKE ONE CAPSULE BY MOUTH TWICE DAILY -- FINISH ALL MEDICINE -- active Not Available Not Available No t Available fluticasone propionate 50 mcg/actuati on nasal spray,suspe nsion USE 1 SPRAY IN EACH NOSTRIL DAILY active Not Available Not Available No t Available amoxicillin 875 mg-potassiu m clavulanate 125 mg tablet TAKE ONE TABLET BY MOUTH EVERY TWELVE HOURS active Not Available Not Available No t Available escitalopra m 10 mg tablet TAKE ONE TABLET BY MOUTH EVERY DAY active Not Available Not Available No t Available escitalopra m 20 mg tablet TAKE ONE TABLET BY MOUTH EVERY DAY active Not Available Not Available No t Available ciprofloxac in 0.3 %-dexametha sone 0.1 % ear drops,suspe nsion INSTILL 4 DROPS INTO LEFT EAR TWICE DAILY FOR 7 DAYS DIRECTED --SHAKE WELL BEFORE USE-- active Not Available Not Available No t Available Sure Comfort Insulin Syringe 0.5 mL 31 gauge x 09/26 USE DIRECTED active Not Available Not Available No t Available pregabalin 25 mg capsule TAKE ONE CAPSULE BY MOUTH TWICE DAILY MAY CAUSE DROWSINES S active Not Available Not Available No t Available Vraylar 1.5 mg capsule TAKE ONE CAPSULE BY MOUTH EVERY DAY 08/21 completed Not Available Not Available Not Available Vraylar 3 mg capsule TAKE ONE CAPSULE BY MOUTH EVERY DAY active Not Available Not Available No t Available Vitals Date Recorded Body height Provider Name an d Address Organization Details Last Updated DateTime 11/12/2024 185.42 cm Paris Singh [place] - [facility] - [facility] & [place] 11/12/2024 11:34:21 Social History None recorded. Functional Status None recorded. Mental Status None recorded. Family History Nothing Reported. Medical History Condition Response Anxiety Disorder Y Acid Reflux (GERD) Y Hypertension Y Depression Y Past Encounters Encounter ID Performer Location Encounter Start Date Encounter Closed Date Diagnosis/Indication Diagnosis SNOMED-CT Code Diagnosis ICD10 Code Diagnosis [id number] [facility] [address] [facility] [address] [place] [address] 11/04/2024 13:27:11 11/04/2024 13:57:32 Vitamin D deficiency 61930537 E55.9 will check labs. Currently on replacemen t. Cobalamin deficiency 190 750822 E53.8 will check labs. Currently on replacemen t. Fatigue 54393175 R53.83 Will check lab work. Discussed likelihood that sleep apnea is a diagnosis. Will see patient back in 1 week telehealth to discuss lab work. Follow with PCP as scheduled. HIV screening 430981992 Z11.4 Yonathan-Ba rr virus disease 872969716 B27.90 [id number] [facility] [address] [facility] [address] [place] [address] 11/12/2024 11:33:59 11/12/2024 12:58:55 Vitamin D deficiency 70730948 E55.9 Vitamin D level is 30. Discussed optimal range levels with patient. Patient requests to follow up with PCP for replacemen t and monitoring . Cobalamin deficiency 190 850560 E53.8 Vitamin B12 level is the lower end of normal. Discussed optimal range levels with patient. Patient requests to follow up with PCP for replacemen t and monitoring . Fatigue 76205462 R53.83 Patient is awaiting sleep study results. Likely related to undiagnose d/treated sleep apnea. Vitamin D and B12 levels are also low. Counseled on importance of replacemen t. Yonathan-Ba rr virus disease 411799654 B27.90 IGG levels are positive and discussed potential for these levels to always be positive. IGM levels have decreased since lab draws. Recommend rechecking these levels in 6 months, as they can remain positive for weeks to 6 months after an acute episode. Patient did not want to make a 6 month appointmen t with our office. He states he will follow up with PCP.Follow up with ID PRN. Requires v accination against viral hepatitis 241707783 Z23 Patient does not have immunity against Hepatitis A or B. Recommend vaccinatio n against these. Patient states he will have this done with his PCP. Health Concerns Section Related Observation LastModified by Organization Detai ls LastModified Time None Recorded Concern Status LastModified by Organization Details LastModified Time None Recorded Payers Encounter Date Sequence Insurance Name Policy Number Policy Segura Covered Member ID Segura Member ID Guarantor Name 11/12/2024 1 [facility] [id number] Julio Cesar Orellana [id number] Julio Cesar Orellana Notes Date Note Type Note Provider Name and Address Organization Details Recorded Time 11/12/2024 text/html patient presents via telehealth for follow up. Video and audio visit performed via [employer]. Patient and provider present on the call and both in the [facility]. Patient consents to video. Patient denies any new concerns. He is needing to follow up on recent lab work. Patient presents to clinic for recurrent mononucleosis. He states he got mono when he was a sage in high school. He states he had it again 5 year ago and recently he had an episode of it. He has a history of high cholesterol, anxiety, depression. He states that this last episode has been ongoing for months. He states he has sore throat, fatigue, and spleen pain. He denies any abnormal bruising or bleeding. He denies any fevers. He has been treated in the past with antiviral. Brenna Mendoza, [employer] [address], [place], [address], [facility] - [facility] - [place] & [place] 11/12/2024 11:46:14
--- OUTSIDE RECORDS SUMMARY | 2024-12-01 15:37 | XMS_ITS | Continuity of Care Document ---
Author Organization [facility], NEUROSURGERY [address] [place] [address] Care Team Providers Care Import Specialist Name Role Phone KAYDEN BARTHOLOMEW Referring Provider [phone] EDMUNDO JULIO Primary Care Provider Assessment Encounter [...] and his are happy with the plan. [email or web address] Not available 10/09/2024 10:42:02 Plan of Treatment Reminders Order Date Submit Date Provider Last Modified By Organization Details Last Modified Time Details Appointments NEW PATIENT O 2024 03:00P Harshad JEAN-BAPTISTE DO Not available Not available Not [...] Recorded Time 08/18/2021 UREA Breath Test completed [facility] 08/18/2021 15:24:21 Imaging Results None recorded. Procedure [...] Time Tobacco Smoking Status Never Smoker Karin Fernando [facility] 08/18/2021 14:42:08 What Is Your Relationship Status? [...] Pain Medication for current pro blem N Hypothyroidism Y COPD N Depression Y Injections for current problem N Deep Vein Thrombosis N Anxiety Disorder Y Hearing Loss Y Arthritis N Cancer N Stroke N High Cholesterol Y Liver Disease N Dialysis N Fibromyalgia N Kidney Disease N Neuro-modulating Drugs for current probl em N Black Lung N Steroid Pack for current problem N NSAID Use N Osteoporosis/Osteopenia N Heart Attack ([place]) N Mental Illness N Diabetes N Bleeding [...] SNOMED-CT Code Diagnosis ICD10 Code Diagnosis Note [id number] HEBERT BRANDON MD [facility] [address] [place] [address] 10/09/2024 09:27:48 10/10/2024 04:30:43 Cervical spondylosis [id number] M47.812 Health Concerns Section Related Observation LastModified by Organization Detai ls LastModified Time None Recorded Concern Status LastModified by Organization Details LastModified Time None Recorded Payers Encounter Date Sequence Insurance Name Policy Number Policy Segura Covered Member ID Segura Member ID Guarantor Name 10/09/2024 1 [facility] [id number] Julio Cesar Orellana [id number] Julio Cesar Orellana Notes Date Note Type [...] Lyrica which has helped. HEBERT BRANDON MD [facility] [place], [address], [facility] 10/09/2024 10:42:35
--- OUTSIDE RECORDS SUMMARY | 2024-12-01 15:37 | XMS_ITS | Clinical Summary ---
Author Organization [employer] ([place], [place], [place], [place]) Address [address] [place] [address] Care Team Providers Care Headliner Installer Name Role Phone GabrielLilian KARIS Primary Care Provider Allergies No known [...] total) by mouth daily. 09/07/2023 Active omega 2-slx-bok-fish oil capsule Take 1 capsule (1,000 mg [...] He was evaluated in the ER in [place]. He was told to f/u w/ cardiology. [...] Date Antonio rded Speak language other than Faroese at home Not on file 10/16/2023 Want [...] patient's age to complete this topic Insurance [facility] CHOICE PLUS Advance Directives For more information, please contact: [phone] * Full Code (Latest Code Status on File) Date Activated Date Inactivated Comments 12/11/2023 9:46 AM 12/11/2023 6:29 PM Care Teams Headliner Installer Relationship Specialty Start Date End Date Lilian Gabriel APRN [address] [address] PCP - General Nurse Practitioner 10/11/23
--- OUTSIDE RECORDS SUMMARY | 2024-12-01 15:37 | XMS_ITS | Continuity of Care Document ---
Author Organization [facility] Address [address] [place] [address] Phone Care Team Providers Care Washer And Crusher Tender Name Role Phone Unavailable Primary Care Provider Unavailabl e Encounters Date Type Department Care Team Description 11/05/2018 9:15 AM EDT Office [place] [facility] [address] [address] Willie Ascencio MD Primary snoring; Obstructive sleep apnea 10/03/[address] [address] Osman Méndez MD Medication Refill (one script ) 09/09/2018 9:15 AM EDT - 09/09/2018 11:59 PM EDT Hospital Encounter [facility] [address] [place], [place] [id number] Obstructive sleep apnea (Primary Dx) Discharge Disposition: Home or Self Care 09/09/2018 9:00 AM EDT Office [place] [facility] [address] [address] Willie Ascencio MD Excessive sleepiness; Primary snoring; Obstructive sleep apnea 09/04/2018 12:07 AM EDT - 09/04/2018 11:59 PM EDT Hospital Encounter [facility] Sleep [facility] [address] [place] [id number] [facility] Discharge Disposition: Home or Self Care 09/03/2018 6:45 PM EDT - 09/03/2018 11:59 PM EDT Hospital Encounter [facility] Sleep Disorder [facility] [place] [address] [place] [address] [facility] Obstructive sleep apnea (Primary Dx) Discharge Disposition: Home or Self Care 2018 Refill [facility] [address] [place] [address] Osman Méndez MD Medication Refill 08/23/2018 Orders Only [facility] Sleep [facility] [place] [address] [facility] [address] [place] [address] Willie Ascencio MD Obstructive sleep apnea (Primary Dx) 08/19/2018 8:30 AM EDT Office [place] [facility] [place] [facility] [address] [facility] [address] [place] [address] Willie Ascencio MD Restless legs syndrome (Primary Dx); Excessive sleepiness; Primary snoring; Obstructive sleep apnea 07/31/2018 Telephone [facility] [address] [place] [address] Ender Salvador MD No Show 07/25/2018 8:20 AM EDT Office Visit [facility] [address] [place] [address] Osman Méndez MD Abrasion of finger, initial encounter (Primary Dx); Need for Tdap vaccination; Gastroesophageal reflux disease, esophagitis presence not specified; Atypical chest pain; Excessive daytime sleepiness 06/10/2018 8:49 AM EST - 06/10/2018 11:59 PM EST Hospital Encounter [facility] [address] [place] [address] Anxiety; Panic attacks Discharge Disposition: Home or Self Care 06/10/2018 8:00 AM EST Office Visit [facility] [address] [place] [address] Osman Méndez MD Anxiety (Primary [...] He was evaluated in the ER in [place]. He was told to f/u w/ cardiology. [...] Grandmother Social History Smoking Status as of 12/01/2024 Tobacco Use Types Packs/Day Years Used Date [...] 06/10/2018 3:17 PM EST [facility] Blood VENOUS BLOOD / Unknown Venipuncture / Unknown 06/10/2018 8:50 AM EST 06/10/2018 8:50 AM EST Narrative [facility] - 06/10/2018 3:17 PM EST Ingestion of dwain doses of biotin (>5 mg/day) taken within 8 hours of drawing blood sample can interfere with this immunoassay test. us Osman Méndez MD CHEMISTRY ORDERABLES Final Res ult [facility] [address] [facility] , [place] [address] * CBC (06/10/2018 8:50 AM EST) WBC [...] sult [facility] [address] , [address] [place] [id number] * COMPREHENSIVE METABOLIC PANEL (06/10/2018 8:50 AM [...] mL/min/1.7 3 m2 06/10/2018 3:17 PM EST [facility] GFR Non Afr Am 116 >=60 mL/min/1.7 3 m2 06/10/2018 3:17 PM EST [facility] Comment: This estimated GFR was calculated [...] ORDERABLES Final Res ult Performing Organization Address City/State/[facility] Co de Phone Number [facility] [address] [facility] , [place] [address] [facility] [address] [place] [address] Visit Diagnoses Diagnosis Start Date Anxiety Anxiety state, unspecified 06/10/2018 Panic attacks Panic disorder without agoraphobia 06/10/2018 Anxiety Anxiety state, unspecified 06/10/2018 Panic attacks Panic disorder without agoraphobia 06/10/2018 Abrasion of finger, initial encounter 07/25/2018 Need for Tdap vaccination Need for prophylactic vaccination with combined uxvabuphxw-xkomxai-ojretmmjh (DTP) vaccine 07/25/2018 Gastroesophageal reflux disease, esophagitis [...]
--- OUTSIDE RECORDS SUMMARY | 2024-12-01 15:37 | XMS_ITS | Referral Summary ---
Author Organization [employer] ([place], [place], [place], [place]) Address [address] [place] [address] Care Team Providers Care Battery Tester And Repairer Name Role Phone Gabriel Lilian KARIS Primary [...] total) by mouth daily. 09/07/2023 Active omega 7-rdg-ujp-fish oil capsule Take 1 capsule (1,000 mg [...] He was evaluated in the ER in [place]. He was told to f/u w/ cardiology. [...] Date Antonio rded Speak language other than Greek at home Not on file 10/16/2023 Want [...] Plan of Treatment Not on file Insurance [facility] CHOICE PLUS Advance Directives For more information, please contact: [phone] * Full Code (Latest Code Status on File) Date Activated Date Inactivated Comments 12/11/2023 9:46 AM 12/11/2023 6:29 PM Care Teams Battery Tester And Repairer Relationship Specialty Start Date End Date Lilian Gabriel, ORNAMENTAL PLASTER STICKER [address] [address] PCP - General Nurse Practitioner 10/11/23
--- OUTSIDE RECORDS SUMMARY | 2024-12-01 15:38 | XMS_ITS | Clinical Summary ---
[facility] Organization [facility] Address [address] [place] [address] Care Team Providers Care Office Helper Clerical Name Role Phone Lilian Gabriel APRN Primary Care Provider Allergies No known active allergies Medications losartan (COZAAR) 50 MG tablet Take 1 tablet by mouth Daily. Active sertraline (ZOLOFT) 100 MG tablet Take 1 tablet by mouth Daily. 07/31/2022 Active meloxicam (MOBIC) 15 MG tablet TAKE ONE TABLET BY MOUTH EVERY DAY --TAKE WITH FOOD-- 08/22/2022 Active Vraylar 3 MG capsule capsule Take 1 capsule by mouth Daily. 08/22/2022 Active famotidine (PEPCID) 40 MG tablet Take 1 tablet by mouth Daily. Active Active Problems Problem Noted Date Diagnosed Date Snoring 08/28/2022 Assessment & Plan (08/28/2022 11:30 AM EDT): Loud snoring and frequent episodes of waking up at night. In lab sleep study at [facility] for further evaluation. Excessive daytime sleepiness 08/28/2022 Assessment & Plan (08/28/2022 11:31 AM EDT): Excessive daytime sleepiness and fatigue. Patient has gained 20 pounds in the last year. He has noticed an increase in awakenings at night, snores loudly and wakes up with a headache daily. Hypertension 08/28/2022 Assessment & Plan (08/28/2022 10:42 AM EDT): Hypertension is Stable.. Continue current treatment regimen. Dietary sodium restriction. Weight loss. Regular aerobic exercise. Blood pressure will be reassessed at the next regular appointment. Hyperlipidemia 08/28/2022 Assessment & Plan (08/28/2022 10:41 AM EDT): Currently managed by primary care provider. Continue fish oil. Chest pain 10/30/2016 Dyspnea 10/30/2016 Bronchitis 10/30/2016 Palpitations 10/30/2016 Family History Medical History Relation Name Comments No Known Problems Brother Cancer Father Heart attack Maternal Grandfather Diabetes Mother Hyperlipidemia Mother Hypertension Mother Heart attack Paternal Grandfather Relation Name Status Comments Brother Father Maternal Grandfather Mother Alive Paternal Grandfather pacemak er Social History Tobacco Use Types Packs/Day Years Used Date Smoking Tobacco: Never Smokeless Tobacco: Never Alcohol Use Standard Drinks/Week Comments Yes 0 (1 standard drink = 0.6 oz pur e alcohol) social Abuse Screen Answer Date Recorded Unsafe at Home or Work/School Not on file Feels Threatened by Someone? Not on file 01/2023 Does Anyone Keep You from Co ntacting Others or Doint Things Outside the Home? Not on file 02/19/2023 Physical Sign of Abuse Present Not on file 1 Housing Stability Answer Date Recorded Current Living Arrangements Not on file 01/2023 Potentially Unsafe Housing Conditions Not on vance e 02/19/2023 Family and Community Support Answer Luis Carlos e Recorded Help with Day-to-Day Activities Not on file 02/19/2023 Lonely or Isolated Not on file 02/19/2023 Employment Answer Date Recorded Do you want help finding or keeping work or a john b? Not on file 02/19/2023 Disabilities Answer Date Recorded Concentrating, Remembering, or Making Decisions Difficulty Not on file 02/19/2023 Doing Errands Independently Difficulty Not on fi le 02/19/2023 Education Answer Date Recorded Help with school or training? Not on file Preferred Language Not on file 02/19/2023 Sex and Gender Information Value Date Recorded Sex Assigned at Not on file Legal Sex Male 1:19 PM EDT Gender Identity Not on file Sexual Orientation Not on file Last Filed Vital Signs Vital Sign Reading Time Taken Comments Blood Pressure 118/80 08/28/2022 10:08 AM EDT Pulse 77 08/28/2022 10:08 AM EDT Temperature 36.7 C (98 F) 05/13/2021 6:29 PM EST Respiratory Rate 16 05/13/2021 6:29 PM EST Oxygen Saturation 98% 08/28/2022 10:08 AM EDT Inhaled Oxygen Concentration - - Weight 120 kg (265 lb) 08/28/2022 10:08 AM EDT Height 182.9 cm (6') 08/28/2022 10:08 AM EDT Body Mass Index 35.94 08/28/2022 10:08 AM EDT Plan of Treatment Health Maintenance Due Date Last Done Comments ANNUAL PHYSICAL 10/26/2016 HEPATITIS C SCREENING 10/26/2016 LIPID PANEL 08/20/2019 08/19/2018, 10/30/2016 COVID-19 Vaccine (3 - 2023-2 5 season) 2024 12/22/2020, 12/01/2020 INFLUENZA VACCINE 02/11/2025 03/02/2016 TDAP/TD VACCINES (2 - Td or Tdap) 07/25/2028 07/25/2018 Pneumococcal Vaccine 0-49 Aged Out No longer eligible based on patient's age to complete this topic Procedures Procedure Name Priority Date/Time Associated Diagnosis Comments LIPID PANEL Routine 10/30/2016 10:57 AM EDT Chest pain, unspecified type Dyspnea, unspecified type from Last 3 Months or Most Recently Relevant to Health Maintenance Results * Lipid Panel (10/30/2016 10:57 AM EDT) Total Cholesterol 184 0 - 200 mg/dL 10/30/2016 11:40 AM EDT [facility] Triglycerides 64 0 - 150 mg/dL 10/30/2016 11:40 AM EDT [facility] HDL Cholesterol 43 40 - 60 mg/dL 10/30/2016 11:40 AM EDT [facility] LDL Cholesterol 128 0 - 130 mg/dL 10/30/2016 11:40 AM EDT [facility] Blood Venipuncture / Unknown 10/30/2016 10:57 AM EDT 10/30/2016 10:57 AM EDT Narrative [facility] - 10/30/2016 11:40 AM EDT Cholesterol Reference Ranges: Desirable < 200 mg/dL Borderline 200-239 mg/dL High Risk > 239 mg/dL Triglyceride Reference Ranges: Normal < 150 mg/dL Borderline 150-199 mg/dL High 200-499 mg/dL Very High > 499 mg/dL HDL Reference Ranges: Low < 40 mg/dL High > 59 mg/dL LDL Reference Ranges: Optimal < 100 mg/dL Near Optimal 100-129 mg/dL Borderline 130-159 mg/dL High 160-189 mg/dL Very High > 189 mg/dL Cele Perez APRN LAB BLOOD ORDERABLES Final Result [facility]
[address] [place] [address], from Last 3 Months or Most Recently Relevant to Health Maintenance [place] [address] [place] [address] Member Subscriber Plan / Payer (Ef fective 2022-Present) Name:Julio Cesar Orellana Relation to Subscriber:Spouse Name:MAVIS ORELLANA Date of :1991 (Home) Address: [address] [place] [address] Payer ID:[id number] (NAIC) Type:Not on file Address: [address] [place] [id number] Care Teams Office Helper Clerical Relationship Specialty Start Date End Date Lilian Gabriel APRN PCP - General Internal Medicine 06/21/20
--- OUTSIDE RECORDS SUMMARY | 2024-12-01 15:38 | XMS_ITS | Clinical Summary ---
Author Organization [facility] Address [address] [facility], [address] [place] [address] Care Team Providers Care Prop Sawyer Name Role Phone Berto Frazier MD Primary Care Provider + [phone] Allergies No known active allergies Medications Sertraline [...] Plan of Treatment Not on file Insurance [facility] Advance Directives * Full Code (Latest Code Status on File) Date Activated Date Inactivated Comments 08/27/2018 5:13 PM 08/28/2018 8:15 PM Care Teams Prop Sawyer Relationship Specialty Start Date End Date Berto Frazier MD [address] [facility] [address] [place] [address] PCP - General Family Medicine 08/12/18
[2024-12-02 14:12] LABS: EBV Nuclear Antigen Ab, IgG 199.0 U/mL (0.0-17.9)
== END 2024-12-01 23:59 | disposition home or self-care (01) ==
LOC: LAB.DROPOF 15:35
PROVIDERS: PCP Nurse Practitioner Family; Visit Provider Nurse Practitioner Family
DX: B27.90 Infectious mononucleosis, unspecified without complication (principal)
CPT/HCPCS: 85025; 86664; 86665

== ENCOUNTER 2025-02-04 15:24 | Outpatient (CLI) | payer OTHER, SELFPAY ==
--- OUTSIDE RECORDS SUMMARY | 2025-02-04 15:26 | XMS_ITS | Clinical Summary ---
[facility] Organization [facility] Address [address] [place] [address] Care Team Providers Care Athletic Scout Name Role Phone Lilian Gabriel APRN Primary [...] at night. In lab sleep study at [facility] for further evaluation. Excessive daytime sleepiness [...] SCREENING 10/26/2016 LIPID PANEL 08/20/2019 08/19/2018, 10/30/2016 INFLUENZA VACCINE 12/12/2024 03/02/2016 TDAP/TD VACCINES (2 - Td or [...] - 200 mg/dL 10/30/2016 11:40 AM EDT [facility] Triglycerides 64 0 - 150 mg/dL 10/30/2016 11:40 AM EDT [facility] HDL Cholesterol 43 40 - 60 mg/dL 10/30/2016 11:40 AM EDT [facility] LDL Cholesterol 128 0 - 130 mg/dL 10/30/2016 11:40 AM EDT [facility] Blood Venipuncture / Unknown 10/30/2016 10:57 AM EDT 10/30/2016 10:57 AM EDT Narrative [facility] - 10/30/2016 11:40 AM EDT Cholesterol [...] Perez APRN LAB BLOOD ORDERABLES Final Result [facility]
[address] [place] [address], from Last 3 Months or Most Recently Relevant to Health Maintenance Insurance [address] Care Teams Athletic Scout Relationship Specialty Start Date End Date Lilian Gabriel APRN PCP - General Internal Medicine 06/21/20
--- OUTSIDE RECORDS SUMMARY | 2025-02-04 15:26 | XMS_ITS | Clinical Summary ---
Author Organization [facility] Address [address] [facility] [address], [address] [place] [address] Care Team Providers Care Gas Fitter Apprentice Name Role Phone Berto Frazier MD Primary Care Provider + [phone] Allergies No known active allergies Medications Sertraline [...] Plan of Treatment Not on file Insurance [facility] Advance Directives * Full Code (Latest Code Status on File) Date Activated Date Inactivated Comments 08/27/2018 5:13 PM 08/28/2018 8:15 PM Care Teams Gas Fitter Apprentice Relationship Specialty Start Date End Date Berto Frazier MD [address] [facility] [address] [place] [address] PCP - General Family Medicine 08/12/18
--- OUTSIDE RECORDS SUMMARY | 2025-02-04 15:26 | XMS_ITS | Continuity of Care Document ---
Author Organization [facility] Address [address] [place] [phone] Phone Care Team Providers Care Set Up Mechanic Name Role Phone Unavailable Primary Care Provider Unavailabl e Encounters Date Type Department Care Team Description 11/05/2018 9:15 AM EDT Office Visit [facility] [place] [facility] [address] [address] Willie Ascencio MD Primary snoring; Obstructive sleep apnea 10/03/[address] [address] Osman Méndez MD Medication Refill (one script ) 09/09/2018 9:15 AM EDT - 09/09/2018 11:59 PM EDT Hospital Encounter [facility] Sleep Disorder Center [address] [place], [place] [id number] Obstructive sleep apnea (Primary Dx) Discharge Disposition: Home or Self Care 09/09/2018 9:00 AM EDT Office [place] [facility] [place] [facility] [address] [address] Willie Ascencio MD Excessive sleepiness; Primary snoring; Obstructive sleep apnea 09/04/2018 12:07 AM EDT - 09/04/2018 11:59 PM EDT Hospital Encounter [facility] Sleep Disorder Center [address] [place] [id number] [place] Sleep Discharge Disposition: Home or Self Care 09/03/2018 6:45 PM EDT - 09/03/2018 11:59 PM EDT Hospital Encounter [facility] Sleep Disorder Center [place] [address] [place] [address] [place] Obstructive sleep apnea (Primary Dx) Discharge Disposition: Home or Self Care 2018 Refill [facility] [address] [place] [address] Osman Méndez MD Medication Refill 08/23/2018 Orders Only [facility] Sleep Disorder Center [place] [address] [facility] [address] [place] [address] Willie Ascencio MD Obstructive sleep apnea (Primary Dx) 08/19/2018 8:30 AM EDT Office Visit [facility] [place] [facility] [address] [facility] [address] [place] [address] Willie Ascencio MD Restless legs syndrome (Primary Dx); Excessive sleepiness; Primary snoring; Obstructive sleep apnea 07/31/2018 Telephone [facility] [address] [place] [address] Ender Salvador MD No Show 07/25/2018 8:20 AM EDT Office Visit [facility] [address] [place] [address] Osman Méndez MD Abrasion of finger, initial encounter (Primary Dx); Need for Tdap vaccination; Gastroesophageal reflux disease, esophagitis presence not specified; Atypical chest pain; Excessive daytime sleepiness 06/10/2018 8:49 AM EST - 06/10/2018 11:59 PM EST Hospital Encounter [facility] [address] [place] [address] Anxiety; Panic attacks Discharge Disposition: Home or Self Care 06/10/2018 8:00 AM EST Office Visit [facility] [address] [place] [address] Osman Méndez MD Anxiety (Primary [...] He was evaluated in the ER in [place]. He was told to f/u w/ cardiology. [...] Grandmother Social History Smoking Status as of 02/04/2025 Tobacco Use Types Packs/Day Years Used Date [...] 06/10/2018 3:17 PM EST [facility] Blood VENOUS BLOOD / Unknown Venipuncture / Unknown 06/10/2018 8:50 AM EST 06/10/2018 8:50 AM EST Narrative [facility] - 06/10/2018 3:17 PM EST Ingestion of dwain doses of biotin (>5 mg/day) taken within 8 hours of drawing blood sample can interfere with this immunoassay test. us Osman Méndez MD CHEMISTRY ORDERABLES Final Res ult [facility] [address] [facility] , [place] [address] * CBC (06/10/2018 8:50 AM EST) WBC [...] sult [facility] [address] [facility] , [address] [place] [id number] * COMPREHENSIVE METABOLIC PANEL (06/10/2018 8:50 AM [...] mL/min/1.7 3 m2 06/10/2018 3:17 PM EST [facility] GFR Non Afr Am 116 >=60 mL/min/1.7 3 m2 06/10/2018 3:17 PM EST [facility] Comment: This estimated GFR was [...] ORDERABLES Final Res ult Performing Organization Address City/State/[facility] Co de Phone Number [facility] [address] [facility] [address] [place] [address] [facility] [address] [place] [address] Visit Diagnoses Diagnosis Start Date Anxiety Anxiety state, unspecified 06/10/2018 Panic attacks Panic disorder without agoraphobia 06/10/2018 Anxiety Anxiety state, unspecified 06/10/2018 Panic attacks Panic disorder without agoraphobia 06/10/2018 Abrasion of finger, initial encounter 07/25/2018 Need for Tdap vaccination Need for prophylactic vaccination with combined [id number] (DTP) vaccine 07/25/2018 Gastroesophageal reflux disease, esophagitis [...]
[2025-02-04 15:40] VITALS: PULSE 66; PULSE 67
[2025-02-04] MEDS: ALBUTEROL 0.083% 2.5 MG/3 ML NEB IH (15:40)
--- NOTE | 2025-02-04 16:07 | XR_ITS ---
FINAL REPORT CLINICAL HISTORY: shortness of breath COMPARISON: 03/23/2018 FINDINGS: PA and lateral views of the chest were obtained. The cardiac and mediastinal silhouettes are within normal limits. The lungs are clear. There is no pleural effusion or pneumothorax. No acute osseous abnormality is identified. IMPRESSION: No radiographic evidence of acute cardiac or pulmonary disease. Reviewed, Interpreted and Dictated by Georgina Shannon MD Transcribed by Cherelle Perez Authenticated and [facility]
== END 2025-02-04 23:59 | disposition home or self-care (01) ==
LOC: RT 15:24
PROVIDERS: PCP Nurse Practitioner Family; Visit Provider Nurse Practitioner Family
DX: R06.02 Shortness of breath (principal)
CPT/HCPCS: 71046; 94010; 94640

== ENCOUNTER 2025-02-25 16:22 | Outpatient (CLI) | payer OTHER, SELFPAY ==
[2025-02-25 17:06] LABS: Coronavirus 19, PCR Not Detected (NotDetected); Influenza A, PCR Not Detected (NotDetected); Influenza B, PCR Not Detected (NotDetected)
--- OUTSIDE RECORDS SUMMARY | 2025-02-26 11:14 | XMS_ITS | Data Portability ---
Author Organization [place] - [facility] [place] Address [address] [place] [id number] Assessment Encounter Date Assessment Date Assessment LastModified [...] __ __ __ __ _ JOSE L: [id number] I have reviewed patient's JOSE L report prior to prescribing Schedule II, III, and IV medications that require review by law. beatriz Not available 08/22/2022 07:36:41 Plan of Treatment Reminders Order Date Submit Date Provider Last Modified By Organization Details Last Modified Time Details Appointments None recorded. Lab yonathan-b arr virus (ebv) DNA, qualitati ve 2024 025 [facility], [address] , [place], [address], 5 15:42:44 vitamin D, 25-hydrox y, total, serum [address] [facility], [address] , [place], [address], 5 15:37:31 HIV 1 2 Ab, panel, rapid IA, serum, plasma or blood 2024 025 [email or web address] 2 [facility], [address] [place], [address], 5 15:37:32 RPR (rapid plasma reagin), serum 2024 025 [facility], [address] [place], [address], 5 08:13:56 hepatitis (A+B+C) panel, serum 2024 025 [facility], [address] [place], [address], 5 14:01:40 hepatitis A Ab, total, serum [address] [facility], [address] [place], [address], 5 15:37:32 HBsAg (hepatiti s B surface Ag), serum [address] [facility], [address] [place], [address], 5 15:37:32 CBC w/ auto diff 2024 025 [facility], [address] [place], [address], 5 14:59:36 CMP, serum or plasma 2024 025 [facility], [address] [place], [address], 5 15:02:51 ESR (erythroc yte sedimenta tion rate), blood [address] [facility], [address] [place], [address], 5 15:37:32 C-reactiv e protein, quantitat wolf, serum or plasma [address] [facility], [address] , [place], [address], 5 15:37:32 vitamin B12, serum 2024 025 [email or web address] 2 [facility], [address] , [place], [address], 5 15:37:32 Referral None recorded. Procedures medial branch block, cervical (PROC) - 10535, 20060 bilateral C2-C4 2022 023 [email or web address] Not available 11:49:09 Surgeries None recorded. Imaging None recorded. Medication Orders diclofena c sodium 75 mg tablet,de layed release 2022 023 [facility], [address] [place] [address], [id number], 3 15:03:21 Patient TargetsNo targets recorded. Patient InstructionsNo instructions recorded. Reason for Referral None Reported. Results Created Date Observation Date Name Description Value Unit Range Abnormal Flag Note LastModifiedBy Organization Detail LastModifiedTime 11/05/1911/04/2024 CBC AUTO W DIFF WBC 8.3 K/uL 4.0-10 .5 Not Available [facility] ([facility]) [address] , [place], [address], 11/04/2024 14:59:36 11/05/19 25 11/04/2024 CBC AUTO W DIFF RBC 5.6 M/mm3 4.7-6. 1 Not Available [facility] ([facility]) [address] , [place], [address], 11/04/2024 14:59:36 11/05/19 25 11/04/2024 CBC AUTO W DIFF HGB 15.2 gm/dL 13.5-1 8.0 Not Available [facility] ([facility]) [address] , [place], [address], 11/04/2024 14:59:36 11/05/19 25 11/04/2024 CBC AUTO W DIFF HCT 47.0 % 42.0-5 2.0 Not Available [facility] ([facility]) [address] , [place], [address], 11/04/2024 14:59:36 11/05/19 25 11/04/2024 CBC AUTO W DIFF MCV 84.2 fL 78-100 Not Available [facility] ([facility]) [address] , [place], [address], 11/04/2024 14:59:36 11/05/19 25 11/04/2024 CBC AUTO W DIFF MCH 27.2 pg 27-31 Not Available [facility] ([facility]) [address] , [place], [address], 11/04/2024 14:59:36 11/05/19 25 11/04/2024 CBC AUTO W DIFF MCHC 32.3 g/dL 32-36 Not Available [facility] ([facility]) [address] , [place], [address], 11/04/2024 14:59:36 11/05/19 25 11/04/2024 CBC AUTO W DIFF RDW 12.9 % 11.5-1 4.0 Not Available [facility] ([facility]) [address] [place], [address], 11/04/2024 14:59:36 11/05/19 25 11/04/2024 CBC AUTO W DIFF platelet count 291 K/uL 150-45 0 Not Available [facility] ([facility]) [address] [place], [address], 11/04/2024 14:59:36 11/05/19 25 11/04/2024 CBC AUTO W DIFF MPV 9.6 fL 6-9.5 high Not Available [facility] ([facility]) [address] [place], [address], 11/04/2024 14:59:36 11/05/19 25 11/04/2024 CBC AUTO W DIFF neutrophil% 70.7 % 43-65 high Not Available [facility] ([facility]) [address] [place], [address], 11/04/2024 14:59:36 11/05/19 25 11/04/2024 CBC AUTO W DIFF lymphocyte% 22.0 % 20.5-4 5.5 Not Available [facility] ([facility]) [address] [place], [address], 11/04/2024 14:59:36 11/05/19 25 11/04/2024 CBC AUTO W DIFF monocyte% 5.8 % 5.5-11 .7 Not Available [facility] ([facility]) [address] [place], [address], 11/04/2024 14:59:36 11/05/19 25 11/04/2024 CBC AUTO W DIFF eosinophil% 0.7 % 0.9-2. 9 low Not Available [facility] ([facility]) [address] [place], [address], 11/04/2024 14:59:36 11/05/19 25 11/04/2024 CBC AUTO W DIFF basophil% 0.4 % 0.2-1. 0 Not Available [facility] ([facility]) [address] [place], [address], 11/04/2024 14:59:36 11/05/19 25 11/04/2024 CBC AUTO W DIFF immature granulocytes % 0.4 % 0.0-0. 8 Not Available [facility] ([facility]) [address] [facility], [place], [address], 11/04/2024 14:59:36 11/05/19 25 11/04/2024 CBC AUTO W DIFF nucleated red blood cells % 0.0 % Not Available [facility] ([facility]) [address] [facility], [place], [address], 11/04/2024 14:59:36 11/05/19 25 11/04/2024 CBC AUTO W DIFF neutrophil# 5.8 K/uL 2.2-4. 8 high Not Available [facility] ([facility]) [address] [facility], [place], [address], 11/04/2024 14:59:36 11/05/19 25 11/04/2024 CBC AUTO W DIFF lymphocyte# 1.8 cell/ mcL 1.3-2. 9 Not Available [facility] ([facility]) [address] [facility], [place], [address], 11/04/2024 14:59:36 11/05/19 25 11/04/2024 CBC AUTO W DIFF monocyte# 0.5 cell/ mcL 0.3-0. 8 Not Available [facility] ([facility]) [address] [place], [address], 11/04/2024 14:59:36 11/05/19 25 11/04/2024 CBC AUTO W DIFF eosinophil# 0.1 cell/ mcL 0-0.2 Not Available [facility] ([facility]) [address] [place], [address], 11/04/2024 14:59:36 11/05/19 25 11/04/2024 CBC AUTO W DIFF basophil# 0.0 cell/ mcL 0.0-1. 0 Not Available [facility] ([facility]) [address] [place], [address], 11/04/2024 14:59:36 11/05/19 25 11/04/2024 CBC AUTO W DIFF immature gramulocytes # 0.03 K/uL Not Available [facility] ([facility]) [address] , [place], [address], 11/04/2024 14:59:36 11/05/19 25 11/04/2024 CBC AUTO W DIFF nucleated red blood cells # 0.00 K/uL Not Available [facility] ([facility]) [address] , [place], [address], 11/04/2024 14:59:36 11/05/19 25 11/04/2024 CBC AUTO W DIFF manual differential NO Not Available [facility] ([facility]) [address], [place], [address], 11/04/2024 14:59:36 11/05/19 25 11/04/2024 COMP METAB OLIC PANEL sodium 142 mmol/ L 136-14 5 Not Available [facility] ([facility]) [address] [place], [address], 11/04/2024 15:02:51 11/05/19 25 11/04/2024 COMP METAB OLIC PANEL potassium 4.0 mmol/ L 3.6-5. 0 Not Available [facility] ([facility]) [address] [place], [address], 11/04/2024 15:02:51 11/05/19 25 11/04/2024 COMP METAB OLIC PANEL chloride 103 mmol/ L 98-107 Not Available [facility] ([facility]) [address], [place], [address], 11/04/2024 15:02:51 11/05/19 25 11/04/2024 COMP METAB OLIC PANEL carbon dioxide 29.1 mmol/ L 21.0-3 2.0 Not Available [facility] ([facility]) [address], [place], [address], 11/04/2024 15:02:51 11/05/19 25 11/04/2024 COMP METAB OLIC PANEL anion gap 13.9 Not Available [facility] ([facility]) [address], [place], [address], 11/04/2024 15:02:51 11/05/19 25 11/04/2024 COMP METAB OLIC PANEL glucose 92 mg/dL 70-120 Not Available [facility] ([facility]) [address], [place], [address], 11/04/2024 15:02:51 11/05/19 25 11/04/2024 COMP METAB OLIC PANEL BUN 12 mg/dL 7-18 Not Available [facility] ([facility]) [address], [place], [address], 11/04/2024 15:02:51 11/05/19 25 11/04/2024 COMP METAB OLIC PANEL creatinine 1.1 mg/dL 0.6-1. 3 Not Available [facility] ([facility]) [address], [place], [address], 11/04/2024 15:02:51 11/05/19 25 11/04/2024 COMP METAB OLIC PANEL glomerular filtration rate 91 mlper min 60- GFR LIMIT ATION : The eGFR equat ion CKD-E PI 2020 is not appli cable for pedia tric patie nts or great er than 90 years of age. The follo wing condi tions may alter the GFR resul t: extre mes in body size, malnu triti on or obesi ty, skele casandra muscl e disea se, parap legia or quadr ipleg ia, veget aminah diet or rapid ly jacome ing kiney funct ion. Not Available [facility] ([facility]) [address], [place], [address], 11/04/2024 15:02:51 11/05/19 25 11/04/2024 COMP METAB OLIC PANEL osmolality (calculated) 295 mOsm/ kg 275-30 1 OSMOL ALITY IS A CALCU LATIO N UTILI ZING THE SERUM /PLAS MA SODIU M, GLUCO SE AND UREA NITRO GEN (BUN) LEVEL S. FOR THE MOST ACCUR ATE RESUL T A MEASU RED SERUM OSMOL ALITY IS EDNA SEXTOND. Not Available [facility] ([facility]) [address] [facility], [place], [address], 11/04/2024 15:02:51 11/05/19 25 11/04/2024 COMP METAB OLIC PANEL total protein 7.8 g/dL 6.4-8. 2 Not Available [facility] ([facility]) [address] [facility], [place], [address], 11/04/2024 15:02:51 11/05/19 25 11/04/2024 COMP METAB OLIC PANEL albumin 4.3 g/dL 3.4-5. 0 Not Available [facility] ([facility]) [address] [facility], [place], [address], 11/04/2024 15:02:51 11/05/19 25 11/04/2024 COMP METAB OLIC PANEL globulin 3.5 Not Available [facility] ([facility]) [address] [facility], [place], [address], 11/04/2024 15:02:51 11/05/19 25 11/04/2024 COMP METAB OLIC PANEL alb/glob ratio 1.2 0.7-2 Not Available [facility] ([facility]) [address] [place], [address], 11/04/2024 15:02:51 11/05/19 25 11/04/2024 COMP METAB OLIC PANEL calcium 9.2 mg/dL 8.5-10 .5 Not Available [facility] ([facility]) [address], [place], [address], 11/04/2024 15:02:51 11/05/19 25 11/04/2024 COMP METAB OLIC PANEL bilirubin total 0.50 mg/dL 0.10-1 .00 Not Available [facility] ([facility]) [address], [place], [address], 11/04/2024 15:02:51 11/05/19 25 11/04/2024 COMP METAB OLIC PANEL AST (SGOT) 23 U/L 0-37 Not Available [facility] ([facility]) [address] , [place], [address], 11/04/2024 15:02:51 11/05/19 25 11/04/2024 COMP METAB OLIC PANEL ALT (SGPT) 56 U/L 0-65 Not Available [facility] ([facility]) [address] , [place], [address], 11/04/2024 15:02:51 11/05/19 25 11/04/2024 COMP METAB OLIC PANEL alk phosphatase 132 U/L 46-116 high Not Available [facility] ([facility]) [address] , [place], [address], 11/04/2024 15:02:51 11/05/19 25 11/04/2024 C-EDDIE CTIVE PROTE IN (CRP) C-reactive protein, quant 0.5 mg/dL 0.05-0 .300 high Not Available [facility] ([facility]) [address] , [place], [address], 11/04/2024 15:02:53 11/05/19 25 11/04/2024 SED RATE sed rate auto 3 0-15 Not Available [facility] ([facility]) [address] , [place], [address], 11/04/2024 15:11:44 11/05/19 25 11/04/2024 VITAM IN D, 25-HY DROXY vitamin D, 25-hydroxy 30.4 NG/mL 30.0-1 00.0 Not Available [facility] ([facility]) [address], [place], [address], 11/04/2024 15:59:30 11/05/19 25 11/04/2024 VITAM IN B12 vitamin B12 406 pg/mL 193-98 6 *Note : Refer ence Erasmo freeman New Test Metho d in use. Not Available [facility] ([facility]) [address], [place], [address], 11/04/2024 15:59:31 11/05/19 25 11/05/2024 RPR QUAL RPR NON REACTI VE non reacti ve Perfo rmed at: [facility] n [address] [facility] [place], [place] [id number] Lab Direc tor: Song metz PhD, Phone : [phone] Not Available [facility] ([facility]) [address] [facility], [place], [address], 11/05/2024 08:13:56 11/05/19 25 11/05/2024 HIV AB/P2 4 AG WITH REFLE X HIV screen 4TH generation wrfx Non Reacti ve non reacti ve HIV-1 /HIV- 2 antib odies and HIV-1 p24 antig en were NOT detec fidel. There is no labor atory evide nce of HIV infec tion. HIV Negat wolf Perfo rmed at: [facility] [address] [facility], [place], [place] [id number] Lab Direc tor: Song metz PhD, Phone : [phone] Not Available [facility] ([facility]) [address], [place], [address], 11/05/2024 08:13:57 11/05/19 25 11/05/2024 HEPAT ITIS B SURFA CE AG EIA HBsAg screen Negati ve negati ve Perfo rmed at: [facility] n [address] [place], [place] [id number] Lab Direc tor: Song metz PhD, Phone : [phone] Not Available [facility] ([facility]) [address], [place], [address], 11/05/2024 09:13:06 11/05/1911/05/2024 HEP A AB, TOTAL hep A Ab, total Negati ve negati ve Comme nt: The HAV total antib michelle assay detec ts both IgG and IgM but does not diffe renti ate betwe en them. A negat wolf resul t sugge sts susce ptibi lity to infec tion. A posit wolf resul t could be due to vacci natio n, previ ously resol lilia infec tion or activ e infec tion. Testi ng for HAV IgM shoul d be perfo rmed if activ e HAV infec tion is suspe cted. [facility] rehab offer s profi les that will autom atica lly refle x posit wolf HAV total antib michelle resul ts to IgM (e.g. , panel #[id number] HAV Antib michelle w/ Rfx). Perfo rmed at: [facility] [address] [place] [address] Lab Direc tor: Song metz PhD, Phone : [phone] Not Available [facility] ([facility]) [address], [place], [address], 11/05/2024 09:13:07 11/05/19 25 11/05/2024 ACUTE HEPAT ITIS PANEL hep A Ab, IgM Negati ve negati ve A negat wolf anti- HAV IgM resul t sugge sts no recen t or curre nt HAV infec tion. Not Available [facility] ([facility]) [address], [place], [address], 11/05/2024 13:12:23 11/05/19 11/05/2024 ACUTE HEPAT ITIS PANEL HBsAg screen Negati ve negati ve Not Available [facility] ([facility]) [address], [place], [address], 11/05/2024 13:12:23 11/05/19 25 11/05/2024 ACUTE HEPAT ITIS PANEL hep B core Ab, IgM Negati ve negati ve Not Available [facility] ([facility]) [address] [facility], [place], [address], 11/05/2024 13:12:23 11/05/19 25 11/05/2024 ACUTE HEPAT ITIS PANEL HCV Ab Non Reacti ve non reacti ve [facility] [address] [id number] [facility] Lab Direc tor: Song metz PhD, Phone : [phone] Not Available [facility] ([facility]) [address] [facility], [place], [address], 11/05/2024 13:12:23 11/05/19 25 11/05/2024 ACUTE HEPAT ITIS PANEL hep A Ab, IgM Negati ve negati ve A negat wolf anti- HAV IgM resul t sugge sts no recen t or curre nt HAV infec tion. Not Available [facility] ([facility]) [address] [facility], [place], [address], 11/05/2024 13:12:24 11/05/19 25 11/05/2024 ACUTE HEPAT ITIS PANEL HBsAg screen Negati ve negati ve Not Available [facility] ([facility]) [address] [facility], [place], [address], 11/05/2024 13:12:24 11/05/19 25 11/05/2024 ACUTE HEPAT ITIS PANEL hep B core Ab, IgM Negati ve negati ve Not Available [facility] ([facility]) [address] [place], [address], 11/05/2024 13:12:24 11/05/19 25 11/05/2024 ACUTE HEPAT ITIS PANEL HCV Ab Non Reacti ve non reacti ve Perfo rmed at: [facility] [address] [place] [address] Lab Direc tor: Song mtez PhD, Phone : [phone] Not Available [facility] ([facility]) [address] [facility], [place], [address], 11/05/2024 13:12:24 11/05/19 25 11/05/2024 ACUTE HEPAT ITIS PANEL interpretati on: Commen t . Not infec fidel with HCV unles s early or acute infec tion is suspe cted (whic h may be delay ed in an immun ocomp romis ed indiv idual ), or other evide nce exist s to indic ate HCV infec tion. Perfo rmed at: [facility] [address] [place] [address] Lab Direc tor: Song metz PhD, Phone : [phone] Not Available [facility] ([facility]) [address] [facility], [place], [address], 11/05/2024 13:12:24 11/05/19 25 11/05/2024 EBV(E PSTEI N-BAR R VIRUS )AB PRO ebv Ab vca, IgM 85.8 U/mL 0.0-35 .9 high Negat wolf <36.0 Equiv ocal 36.0 - 43.9 Posit wolf >43.9 Not Available [facility] ([facility]) [address] [facility], [place], [address], 11/05/2024 15:11:35 11/05/19 25 11/05/2024 EBV(E PSTEI N-BAR R VIRUS )AB PRO ebv Ab vca, IgG 199.0 U/mL 0.0-17 .9 high Negat wolf <18.0 Equiv ocal 18.0 - 21.9 Posit wolf >21.9 Not Available [facility] ([facility]) [address], [place], [address], 11/05/2024 15:11:35 11/05/19 25 11/05/2024 EBV(E PSTEI N-BAR R VIRUS )AB PRO ebv nuclear antigen Ab, IgG 195.0 U/mL 0.0-17 .9 high Negat wolf <18.0 Equiv ocal 18.0 - 21.9 Posit wolf >21.9 Not Available [facility] ([facility]) [address] [facility], [place], [address], 11/05/2024 15:11:35 11/05/1911/05/2024 EBV(E PSTEI N-BAR R VIRUS )AB PRO interpretati on: Commen t . EBV Inter preta tion Chart [place]: Antib michelle Prese nt + Antib michelle Absen t - Inter preta tion VCA-I gM VCA-I gG EBNA- IgG . No previ ous infec tion/ - - - Susce ptibl e Prima ry infec tion (new + + - or recen t) Past Infec tion +or- + + See comme nt below * + - - *Resu lts indic ate infec tion with EBV at some time howev er canno t predi ct the timin g of the infec tion since antib odies to EBNA usual ly devel op after prima ry infec tion or, alter nativ fili, appro ximat fili 5-10% of patie nts with EBV never devel op antib odies to EBNA. Perfo rmed at: - [facility] [address] [facility], [place] [address] [facility] Lab Direc tor: Song metz PhD, Phone : [phone] Not Available [facility] ([facility]) [address] , [place], [address], 11/05/2024 15:11:35 Result Notes None recorded. Problems Name Problem SNOMED Code Status Onset Date Resolution Date Notes Provider Name and Address Organization Details Recorded Time Radicular pain 40417373 Active 2022 Ana faulkner, SARAH - [facility] [place] 3 13:54:51 Myofascial pain 327454456 Active 2022 Ana [place] - [facility] [place] 3 13:54:59 Spinal stenosis in cervical region 78530782 Active 2022 Ana fa[place]ner, [place] - [facility] [place] 3 13:55:04 Cervical spondylosis 417338187 Active 2022 Ana faulkner, SARAH - [facility] [place] 3 13:55:05 Frequent headache 831826189 Active 2022 Ana faulkner, [place] - [facility] [place] 3 13:55:13 Problem Notes None recorded. Procedures Surgical History Date Name Laterality Status Provider Name and Address Organization Details Recorded Time Appendectomy completed Melania SMITH - [facility] [place] 08/21/2022 17:21:53 Imaging Results None recorded. Procedure [...] Insulin Syringe 0.5 mL 31 gauge x 5/16 USE DIRECTED active Not Available Not Available [...] blood by Pulse oximetry Heart rate Systolic And Diastolic Provider Name and Address Organization Details Last Updated DateTime 3 208095. 19 g 35.4 kg/m2 185.42 cm 97.8 [degF] 99 % 99 % 68 /min 130/80 mm[Hg] Melania Munoz [facility] & [place] 3 17:17:54 Date Recorded Heart rate Body height Oxygen saturation Oxygen saturation in Arterial blood by Pulse oximetry Body temperature Body mass index (BMI) Body weight Systolic And Diastolic Provider Name and Address Organization Details Last Updated DateTime 5 68 /min 185.42 cm 98 % 98 % 98.6 [degF] 34.8 kg/m2 945181. 23 g 128/77 mm[Hg] Sagrario Sloan [facility] & [place] 13:36:42 Date Recorded Body height Provider Name an d Address Organization Details Last Updated DateTime 11/12/2024 185.42 cm Paris Singh [facility] [place] & [place] 11/12/2024 11:34:21 Social History None recorded. Functional Status None recorded. Mental Status None recorded. Family History Nothing Reported. Medical History Condition Response Depression Y Anxiety Disorder Y Acid Reflux (GERD) Y Hypertension Y Past Encounters Encounter ID Performer Location Encounter Start Date Encounter Closed Date Diagnosis/Indication Diagnosis SNOMED-CT Code Diagnosis ICD10 Code Diagnosis IMO Codes Diagnosis Note [id number] Chalo Mauricio MD [facility] [address] [facility] [place] [address] 08/21/2022 12:49:01 08/21/2022 15:10:43 Cervical spondylosis 618862040 M47.812 Spinal marcelo nosis in cervical region 34933352 M99.51 Myofascial pain 27556409 9 M79.10 Radicular pain 99559088 M54.10 Frequent headache 227636 003 R51.9 [id number] [facility] [address] [facility] [address] [place] [address] 11/04/2024 13:27:11 11/04/2024 13:57:32 Vitamin D deficiency 34794016 E55.9 [id number] will check labs. Currently on replacemen t. Cobalamin deficiency 190 533788 E53.8 [id number] will check labs. Currently on replacemen t. Fatigue 91459779 R53.83 [id number] Will check lab work. Discussed likelihood that sleep apnea is a diagnosis. Will see patient back in 1 week telehealth to discuss lab work. Follow with PCP as scheduled. 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 Discussed optimal range levels with patient. Patient requests to follow up with PCP for replacemen t and monitoring . Cobalamin deficiency 190 419948 E53.8 07222 Vitamin B12 level is the lower end of normal. Discussed optimal range levels with patient. Patient requests to follow up with PCP for replacemen t and monitoring . Fatigue 97483004 R53.83 [id number] Patient is awaiting sleep study results. Likely related to undiagnose d/treated sleep apnea. Vitamin D and B12 levels are also low. Counseled on importance of replacemen t. Yonathan-Ba rr virus disease [id number] B27.90 745847 IGG levels are positive and discussed potential [...] PRN. Requires v accination against viral hepatitis [id number] [id number] Patient does not have immunity against Hepatitis [...] Member ID Segura Member ID Guarantor Name 11/18/[address] [facility] [id number] Julio Cesar Orellana [id number] Juli oCesar Orellana 11/04/2024 1 [place] [id number] Julio Cesar Orellana [id number] Julio Cesar Orellana 11/04/[address] [facility] (O) Julio Cesar Orellana [id number] Julio Cesar Orellana Notes Date Note Type [...] movements. 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 - [place] & [place] 08/22/2022 15:03:32 5 text/html ROS as noted in the HPI Patient presents to clinic for recurrent mononucleosis. [...] has been treated in the past with antivirals. Brenna Mendoza APRN [address], [place], [address], [place] - [facility] & [place] 11/04/2024 15:00:22 5 text/html ROS as noted in the HPI patient presents via telehealth for follow up. Video and audio visit performed via [employer]. Patient and provider present on the call and both in the state [facility]. Patient consents to video. Patient denies any [...] treated in the past with antiviral. Brenna Mendoza APRN [address], [place], [address], [place] [facility] - [place] 11/12/2024 11:46:14
--- OUTSIDE RECORDS SUMMARY | 2025-02-26 11:14 | XMS_ITS | Encounter Summary ---
Author Organization [employer] ([place], [place], [place], [place]) Address [address] [place] [address] Care Team Providers Care Gut Snatcher Name Role Phone GabrielLilian hardy KARIS Primary Care Provider [phone] Reason for Visit * Reason Onset Date Comments Medication Problem 02/03/2025 Encounter Details Date Type Department Care Team (Late st Contact Info) Description 02/03/2025 Telephone [facility] Gastroenterology [address] [place] [address] [address] Hanna Corona MD [address] [id number] Medication Problem Social History Tobacco Use Types Packs/Day Years Used Date Smoking Tobacco: Never Smokeless Tobacco: Never Alcohol Use Standard Drinks/Week Comments Never 0 [...] Date Antonio rded Speak language other than [place] at home Not on file 10/16/2023 Want [...] Orientation Straight 09/13/2023 2: 06 PM CDT documented as of this encounter Miscellaneous Notes * Telephone Encounter - Baylee Delgado - 02/03/2025 9:38 AM EDT Resent * Telephone Encounter - Felicity Muñiz - 02/03/2025 8:59 AM EDT Pt is calling stating pharmacy told pt they have sent over a paper via fax stating there is something missing like a checked box on the prescription from yesterday documented in this encounter Plan of Treatment Not on file documented as of this encounter Visit Diagnoses Not on filedocumented in this encounter Care Teams Gut Snatcher Relationship Specialty Start Date End Date Lilian Gabriel, KARIS [address] [address] PCP - General Nurse Practitioner 10/11/23 documented as of this encounter
--- OUTSIDE RECORDS SUMMARY | 2025-02-26 11:15 | XMS_ITS | Clinical Summary ---
Author Organization [employer] ([place], [place], [place], [place]) Address [address] [place] [address] Care Team Providers Care Histology Specialist Name Role Phone GabrielLilian NIP WRAPPER Primary Care Provider Allergies No known active [...] total) by mouth daily. 09/07/2023 Active omega 9-gjh-rrt-fish oil capsule Take 1 capsule (1,000 mg [...] He was evaluated in the ER in [place]. He was told to f/u w/ cardiology. Resolved Problems Problem Noted Date Diagnosed Date Resolved Date Colon cancer screening 09/17/202312/10 Encounters Date Type Department Care Team Description 02/03/2025 Telephone [facility] Gastroenterology [address] [place] [address] [address] [place] [address] Hanna Corona MD Medication Problem 02/02/2025 Telephone [facility]enterology [address] [place] [address] [address] [place] [address] Hanna Corona MD Medication Refill (Tirzepatide compounded.) 02/02/2025 Telephone [facility] Gastroenterology [address] [place] [address] [address] Hanna Corona MD Medication Refill from Last 3 Months Family History Medical History Relation Name Comments [...] Date Antonio rded Speak language other than [place] at home Not on file 10/16/2023 Want [...] Hepatitis C Screening 08/25/2009 Lipid Panel 2011 Tobacco Cessation Counseling and Screening (12+) 12/19/2024 12/20/2023 COVID-19 VACCINE (3 - 2024-2 6 season) 2025 12/22/2020, 12/01/2020 Influenza Vaccine (#1) 2025 DTAP/TDAP/TD VACCINES (3 - T d or Tdap) 07/25/2028 07/25/2018, 08/27/1995 Pneumococcal Vaccine: 0-49 Years Aged Out No longer eligible b ased on patient's age to complete this topic Insurance [facility] CHOICE PLUS Advance Directives For more information, please contact: [phone] * Full Code (Latest Code Status on File) Date Activated Date Inactivated Comments 12/11/2023 9:46 AM 12/11/2023 6:29 PM Care Teams Histology Specialist Relationship Specialty Start Date End Date Lilian Gabriel, NIP WRAPPER [address] [address] PCP - General Nurse Practitioner 10/11/23
--- OUTSIDE RECORDS SUMMARY | 2025-02-26 11:15 | XMS_ITS | Referral Summary ---
Author Organization [employer] ([place], [place], [place], [place]) Address [address] [place] [address] Care Team Providers Care Service Cleaner Name Role Phone Gabriel Lilian KARIS Primary Care Provider Encounters Date Type Department Care Team Description 02/03/2025 Telephone [facility] Gastroenterology [address] [place] [address] [address] [place], [place] [address] Hanna Corona MD Medication Problem 02/02/2025 Telephone [facility] Gastroenterology [address] [place] [address] [address] [place] [address] Hanna Corona MD Medication Refill (Tirzepatide compounded.) 02/02/2025 Telephone [facility] Gastroenterology [address] [place] [address] [address] [place] [address] Hanna Corona MD Medication Refill from Last 3 Months Allergies No known active allergies Medications levothyroxine [...] total) by mouth daily. 09/07/2023 Active omega 3-ult-dbv-fish oil capsule Take 1 capsule (1,000 mg [...] He was evaluated in the ER in [place]. He was told to f/u w/ cardiology. [...] Date Antonio rded Speak language other than Korean at home Not on file 10/16/2023 Want [...] Plan of Treatment Not on file Insurance [facility] CHOICE PLUS Advance Directives For more information, please contact: [phone] * Full Code (Latest Code Status on File) Date Activated Date Inactivated Comments 12/11/2023 9:46 AM 12/11/2023 6:29 PM Care Teams Service Cleaner Relationship Specialty Start Date End Date Lilian Gabriel APRN [address] [address] PCP - General Nurse Practitioner 10/11/23
--- OUTSIDE RECORDS SUMMARY | 2025-02-26 11:15 | XMS_ITS | Continuity of Care Document ---
Author Organization [facility] Address [address] [place] [address] Phone Care Team Providers Care Gas Operations Superintendent Name Role Phone Unavailable Primary Care Provider Unavailabl e Encounters Date Type Department Care Team Description 11/05/2018 9:15 AM EDT Office Visit [facility] Sleep Medicine [address] [address] Willie Ascencio MD Primary snoring; Obstructive sleep apnea 10/03/[address] [address] Osman Méndez MD Medication Refill (one script ) 09/09/2018 9:15 AM EDT - 09/09/2018 11:59 PM EDT Hospital Encounter [facility] Sleep Disorder Center [address] [place], [place] [id number] Obstructive sleep apnea (Primary Dx) Discharge Disposition: Home or Self Care 09/09/2018 9:00 AM EDT Office Visit [facility] Sleep Medicine [address] [address] Willie Ascencio MD Excessive sleepiness; Primary snoring; Obstructive sleep apnea 09/04/2018 12:07 AM EDT - 09/04/2018 11:59 PM EDT Hospital Encounter [facility] Sleep Disorder Center [address] [place] [phone] [place] [place] Sleep Discharge Disposition: Home or Self Care 09/03/2018 6:45 PM EDT - 09/03/2018 11:59 PM EDT Hospital Encounter [facility] Sleep Disorder Center [place] [address] [place] [address] [place] [place] Sleep Obstructive sleep apnea (Primary Dx) Discharge Disposition: Home or Self Care 2018 Refill [facility] [address] [place] [address] Osman Méndez MD Medication Refill 08/23/2018 Orders Only [facility] Sleep Disorder Center [place] [address] [facility] [address] [place] [address] Willie Ascencio MD Obstructive sleep apnea (Primary Dx) 08/19/2018 8:30 AM EDT Office Visit [facility] Sleep Medicine [facility] [address] [facility] [address] [place] [address] Willie Ascencio MD Restless legs syndrome (Primary Dx); Excessive sleepiness; Primary snoring; Obstructive sleep apnea 07/31/2018 Telephone [facility] [address] [place] [address] Ender Salvador MD No Show 07/25/2018 8:20 AM EDT Office Visit [facility] [address] [place] [address] Osman Méndez MD Abrasion of finger, initial encounter (Primary Dx); Need for Tdap vaccination; Gastroesophageal reflux disease, esophagitis presence not specified; Atypical chest pain; Excessive daytime sleepiness 06/10/2018 8:49 AM EST - 06/10/2018 11:59 PM EST Hospital Encounter [facility] [address] [place] [address] Anxiety; Panic attacks Discharge Disposition: Home or Self Care 06/10/2018 8:00 AM EST Office Visit [facility] [address] [place] [address] Osman Méndez MD Anxiety (Primary [...] He was evaluated in the ER in [place]. He was told to f/u w/ cardiology. [...] Grandmother Social History Smoking Status as of 02/26/2025 Tobacco Use Types Packs/Day Years Used Date [...] 06/10/2018 3:17 PM EST [facility] Blood VENOUS BLOOD / Unknown Venipuncture / Unknown 06/10/2018 8:50 AM EST 06/10/2018 8:50 AM EST Narrative [facility] - 06/10/2018 3:17 PM EST Ingestion of dwain doses of biotin (>5 mg/day) taken within 8 hours of drawing blood sample can interfere with this immunoassay test. us Osman Méndez MD CHEMISTRY ORDERABLES Final Res ult [facility] [address] [facility] , [place] [address] * CBC (06/10/2018 8:50 AM EST) WBC [...] sult [facility] [address] [facility] , [address] [place] [id number] * COMPREHENSIVE METABOLIC PANEL (06/10/2018 8:50 AM [...] mL/min/1.7 3 m2 06/10/2018 3:17 PM EST [facility] GFR Non Afr Am 116 >=60 mL/min/1.7 3 m2 06/10/2018 3:17 PM EST [facility] Comment: This estimated GFR [...] ORDERABLES Final Res ult Performing Organization Address City/State/[facility] Co de Phone Number [facility] [address] [facility] , [place] [address] [facility] [address] [place] [address] Visit Diagnoses Diagnosis Start Date Anxiety Anxiety state, unspecified 06/10/2018 Panic attacks Panic disorder without agoraphobia 06/10/2018 Anxiety Anxiety state, unspecified 06/10/2018 Panic attacks Panic disorder without agoraphobia 06/10/2018 Abrasion of finger, initial encounter 07/25/2018 Need for Tdap vaccination Need for prophylactic vaccination with combined zjymirkmns-kgaznrw-kdfierxuh (DTP) vaccine 07/25/2018 Gastroesophageal reflux disease, esophagitis [...]
--- OUTSIDE RECORDS SUMMARY | 2025-02-26 11:15 | XMS_ITS | Encounter Summary ---
Author Organization [employer] ([place], [place], [place], [place]) Address [address] [place] [address] Care Team Providers Care Machine Brusher Name Role Phone GabrielLilian hardy PATIENT ADVOCATE Primary Care Provider [phone] Reason for Visit * Reason Onset Date Comments Medication Refill 02/02/2025 Tirzepatide co mpounded. Encounter Details Date Type Department Care Team (Late st Contact Info) Description 02/02/2025 Telephone [facility] Gastroenterology [address] [place] [address] [address] Hanna Corona MD [address] [phone] Medication Refill (Tirzepatide compounded.) Social History Tobacco Use Types Packs/Day Years [...] Date Antonio rded Speak language other than Slovak at home Not on file 10/16/2023 Want [...] encounter Miscellaneous Notes * Telephone Encounter - Hanna Corona MD - 02/02/2025 4:17 PM EDT Patient had done well with compounded tirzepatide. He underwent cholecystectomy. He currently has run out of tirzepatide and is experiencing fatigue as well. I will send in the compounded B12 with tirzepatide 4.4 mg weekly. documented in this encounter Plan of Treatment Not on file documented as of this encounter Visit Diagnoses Not on filedocumented in this encounter Care Teams Machine Brusher Relationship Specialty Start Date End Date Lilian Gabriel, KARIS [address] [place] [address] PCP - General Nurse Practitioner 10/11/23 documented as of this encounter
--- OUTSIDE RECORDS SUMMARY | 2025-02-26 11:15 | XMS_ITS | Data Portability ---
Author Organization [facility] Tony flood, [facility] Address [address] [facility] [address] [place] [address] Care Team Providers Care Pile Driver Operator Name Role Phone GAURANG BARTHOLOMEW Referring Provider [phone] EDMUNDO JULIO Primary Care Provider Assessment Encounter [...] Modified Time Details Appointments None recorded. Lab H pylori urea breath test, co2 infrared 2021 022 [facility], [address] [place] [address], [phone], 16:00:17 Referral None recorded. Procedures None recorded. Surgeries None recorded. Imaging None recorded. Medication Orders famotidine 40 mg tablet 2021 [facility], [address] [place] [address] E [facility] [place], [place], [id number], 14:11:17 Patient TargetsNo targets recorded. Patient InstructionsNo [...] PERFO RMED AT: [facility] [address] [place] [address] ROBIN Figueroa MD Not Available [facility] [address] [place] [address], [phone], 08/20/2021 16:00:17 10/02/19 25 09/26/2024 MRI, cervi norma spine , w/o contr ast No observ ation record ed. BARCODE Not Available 2024 15:57:00 Result Notes None recorded. Procedures Surgical History Date Name Laterality Status Provider Name and Address Organization Details Recorded Time 08/18/2021 UREA Breath Test completed Wayne Warner [facility] 08/18/2021 15:24:21 Imaging Results None recorded. [...] height Body mass index (BMI) Body weight Pain severity - 0-10 verbal numeric rating [Score] - Reported Provider Name and Address Organization Details Last Updated DateTime 05/16/2022 185.42 cm 33.5 kg/m2 149842.46 g 0 Alfa Jones [facility] 05/16/2022 16:23:19 Date Recorded Body height Body mass index (BMI) Body weight Heart rate Respiratory rate Systolic And Diastolic Provider Name and Address Organization Details Last Updated DateTime 2 185.42 cm 33.5 kg/m2 498669. 46 g 101 /min 16 /min 161/96 mm[Hg] Karin King [facility] 2 14:40:05 Date Recorded Body height Body mass index (BMI) Body weight Heart rate Respiratory rate Systolic And Diastolic Provider Name and Address Organization Details Last Updated DateTime 2 185.42 cm 33.5 kg/m2 091838. 46 g 71 /min 16 /min 130/78 mm[Hg] Wayne Warner [facility] 2 13:45:41 Social History Question Answer Notes LastModified by Organizat ion Details LastModified Time Tobacco Smoking Status Never Smoker Karindanae King [facility] 08/18/2021 14:42:08 What Is Your Relationship [...] NSAID Use N Osteoporosis/Osteopenia N Heart Attack ([place]) N Mental Illness N Diabetes N Bleeding [...] ICD10 Code Diagnosis IMO Codes Diagnosis Note [id number] RONAL KOCH MD [address]STR[address] [place] [address] 08/18/2021 14:01:47 09/21/2021 07:49:02 Nonulcer dyspepsia 7650948 K30 h pylori breath testif neg 8 weeks ppi therapyrtc 8 weeksconsi piotr egd if persists [id number] RONAL KOCH MD [address]STR[address] [place] [address] 08/18/2021 15:23:32 08/19/2021 11:14:06 Nonulcer dyspepsia 8799066 K30 [id number] [place] [address] [place] [address] 10/25/2021 13:24:58 10/25/2021 14:48:25 Gastroesophageal reflux disease without esophagitis 773952664 K21.9 [id number] LENNY MARTINEZ MD [facility] [address] [place] [address] 05/16/2022 15:59:00 05/16/2022 16:58:57 Impingement syndrome of right shoulder region 8843686795 08667 M75.41 Tendinitis of long head of biceps brachii of right shoulder 484973490 M75.21 [id number] HEBERT BRANDON MD NEUROSURG [facility] [address] [place] [address] 10/09/2024 09:27:48 10/10/2024 04:30:43 Cervical spondylosis 105663760 M47.812 37718 Health Concerns Section Related Observation LastModified by Organization Detai ls LastModified Time None Recorded Concern Status LastModified by Organization Details LastModified Time None Recorded Advance Directives Directive None Recorded Payers Insurance Date Sequence Insurance Name Policy Number Policy Segura Covered Member ID Segura Member ID Guarantor Name 10/01/2024 1 BCBS-[place]: [place] BCBS [facility] [id number] Melody Orellana [id number] Julio Cesar Orellana 12/27/2024 1 [facility] [id number] Julio Cesar Orellana [id number] Julio Cesar Orellana Notes Date Note Type Note Provider Name and Address Organization Details Recorded Time 08/18/2021 text/html burning stomach sxsdyspepsiano current therapy RONAL KOCH MD [address] [place] [address], [address] [place] [address] 09/19/2021 22:46:58 10/25/2021 text/html Feels Much better on ppiLast egd many years ago -- 3 yrs agoPantop 40 mg qdPepcid 20 RONAL KOCH MD [address] [place] [address], [address] [place] [address] 10/25/2021 14:00:59 05/16/2022 text/html 1.3.22PCP: [place]win FOR CONSULTATION AT THE REQUEST OF:Gaurang Bartholomew [...] /10 PT: naNSAIDS:naINJECTION :na LENNY MARTINEZ MD [address] [place] [address], [phone], [facility] 05/17/2022 09:26:29 10/09/2024 text/html I saw Mr. Orellana. He is 34 years old. He reports [...] Lyrica which has helped. HEBERT BRANDON MD [address] [place] [address], [address], [facility] 10/09/2024 10:42:35
--- OUTSIDE RECORDS SUMMARY | 2025-02-26 11:15 | XMS_ITS | Encounter Summary ---
Author Organization [employer] ([place], [place], [place], [place]) Address [address] [place] [address] Care Team Providers Care Key Operator Name Role Phone Gabriel Lilian KARIS Primary Care Provider Reason for Visit * Reason Onset Date Comments Medication Refill 02/02/2025 Encounter Details Date Type Department Care Team (Late st Contact Info) Description 02/02/2025 Telephone [facility] Gastroenterology [address] [place] [address] [address] Hanna Corona MD [address] [phone] Medication Refill Social History Tobacco Use Types Packs/Day Years [...] Date Antonio rded Speak language other than Chadian at home Not on file 10/16/2023 Want [...] * Telephone Encounter - Baylee Delgado - 02/02/2025 3:[address] Corona is going to send in. * Telephone Encounter - Felicity Muñiz - 02/02/2025 1:17 PM EDT Pt is calling about prescription that was sent to [facility] for tirzepatide shot with b12, pt was calling stating pharmacy sent over the paperwork for a change to it and wanted to make sure we rec'd it,. Please call pt with any question. documented in this encounter Plan of Treatment Not on file documented as of this encounter Visit Diagnoses Not on filedocumented in this encounter Care Teams Key Operator Relationship Specialty Start Date End Date Lilian Gabriel, KARIS [address] [address] PCP - General Nurse Practitioner 10/11/23 documented as of this encounter
--- OUTSIDE RECORDS SUMMARY | 2025-02-26 11:15 | XMS_ITS | Clinical Summary ---
Author Organization [facility] Address [address] [facility], [address] [place] [address] Care Team Providers Care Slotter Operator Helper Name Role Phone Berto Frazier MD Primary Care Provider [phone] Allergies No known active allergies Medications Sertraline [...] Plan of Treatment Not on file Insurance [facility] Advance Directives * Full Code (Latest Code Status on File) Date Activated Date Inactivated Comments 08/27/2018 5:13 PM 08/28/2018 8:15 PM Care Teams Slotter Operator Helper Relationship Specialty Start Date End Date Berto Frazier MD [address] [facility] [address] [place] [address] PCP - General Family Medicine 08/12/18
--- OUTSIDE RECORDS SUMMARY | 2025-02-26 11:15 | XMS_ITS | Clinical Summary ---
[facility] Organization [facility] Address [address] [place] [address] Care Team Providers Care Manager Psychiatry Name Role Phone Lilian Gabriel APRN Primary Care Provider [phone] Allergies No known active allergies Medications losartan [...] at night. In lab sleep study at [facility] for further evaluation. Excessive daytime [...] - 200 mg/dL 10/30/2016 11:40 AM EDT [facility] Triglycerides 64 0 - 150 mg/dL 10/30/2016 11:40 AM EDT [facility] HDL Cholesterol 43 40 - 60 mg/dL 10/30/2016 11:40 AM EDT [facility] LDL Cholesterol 128 0 - 130 mg/dL 10/30/2016 11:40 AM EDT [facility] Blood Venipuncture / Unknown 10/30/2016 10:57 AM EDT 10/30/2016 10:57 AM EDT Narrative [facility] - 10/30/2016 11:40 AM EDT [...] Perez APRN LAB BLOOD ORDERABLES Final Result [facility]
[address] [place] [address], from Last 3 Months or Most Recently Relevant to Health Maintenance Insurance [address] Care Teams Manager Psychiatry Relationship Specialty Start Date End Date Lilian Gabriel APRN PCP - General Internal Medicine 06/21/20
== END 2025-02-25 23:59 ==
LOC: LAB.DROPOF 02-26 11:10
PROVIDERS: PCP Nurse Practitioner Family; Visit Provider Nurse Practitioner Family
DX: R68.89 Other general symptoms and signs (principal)
CPT/HCPCS: 87631

== ENCOUNTER 2025-03-01 14:08 | Emergency (ER) | payer OTHER, SELFPAY ==
[2025-03-01 14:13] VITALS: BP 165/79; PULSE 70; RESP 18; TEMP 36.8; O2SAT 99; BMI 36.6
--- OUTSIDE RECORDS SUMMARY | 2025-03-01 14:23 | XMS_ITS | Data Portability ---
Author Organization [place] - [facility] [place] [facility] [place] Address [address] [place] [id number] Assessment Encounter Date Assessment Date Assessment LastModified [...] __ __ __ __ _ JOSE L: [id number] I have reviewed patient's JOSE L report prior to prescribing Schedule II, III, and IV medications that require review by law. beatriz Not available 08/22/2022 07:36:41 Plan of Treatment Reminders Order Date Submit Date Provider Last Modified By Organization Details Last Modified Time Details Appointments None recorded. Lab yonathan-b arr virus (ebv) DNA, qualitati ve 2024 025 [facility], [address] , [place], [address], 5 15:42:44 vitamin D, 25-hydrox y, total, serum [address] Lab, [address] , [place], [address], 5 15:37:31 HIV 1 2 Ab, panel, rapid IA, serum, plasma or blood 2024 025 [email or web address] 2 [facility], [address] [place], [address], 5 15:37:32 RPR (rapid plasma reagin), serum 2024 025 [facility], [address] [place], [address], 5 08:13:56 hepatitis (A+B+C) panel, serum 2024 025 [facility], [address] [place], [address], 5 14:01:40 hepatitis A Ab, total, serum [address] Lab, [address] [place], [address], 5 15:37:32 HBsAg (hepatiti s B surface Ag), serum [address] Lab, [address] [place], [address], 5 15:37:32 CBC w/ auto diff 2024 025 [facility], [address] [place], [address], 5 14:59:36 CMP, serum or plasma 2024 025 [facility], [address] [place], [address], 5 15:02:51 ESR (erythroc yte sedimenta tion rate), blood [address] Lab, [address] [place], [address], 5 15:37:32 C-reactiv e protein, quantitat wolf, serum or plasma [address] Lab, [address] , [place], [address], 5 15:37:32 vitamin B12, serum 2024 025 [email or web address] [id number] 2 [facility], [address] , [place], [address], 5 15:37:32 Referral None recorded. Procedures medial branch block, cervical (PROC) - 41246, 34[address] bilateral C2-C4 2022 023 [email or web address] Not available 11:49:09 Surgeries None recorded. Imaging None recorded. Medication Orders diclofena c sodium 75 mg tablet,de layed release 2022 023 [facility], [address] [place] [address], [id number], 3 15:03:21 Patient TargetsNo targets recorded. Patient InstructionsNo instructions recorded. Reason for Referral None Reported. Results Created Date Observation Date Name Description Value Unit Range Abnormal Flag Note LastModifiedBy Organization Detail LastModifiedTime 11/05/1911/04/2024 CBC AUTO W DIFF WBC 8.3 K/uL 4.0-10 .5 Not Available [facility] ([facility]) [address] , [place], [address], 11/04/2024 14:59:36 11/05/19 25 11/04/2024 CBC AUTO W DIFF RBC 5.6 M/mm3 4.7-6. 1 Not Available [facility] ([facility]) [address] , [place], [address], 11/04/2024 14:59:36 11/05/19 25 11/04/2024 CBC AUTO W DIFF HGB 15.2 gm/dL 13.5-1 8.0 Not Available [facility] ([facility]) [address] , [place], [address], 11/04/2024 14:59:36 11/05/19 25 11/04/2024 CBC AUTO W DIFF HCT 47.0 % 42.0-5 2.0 Not Available [facility] ([facility]) [address] , [place], [address], 11/04/2024 14:59:36 11/05/19 25 11/04/2024 CBC AUTO W DIFF MCV 84.2 fL 78-100 Not Available [facility] ([facility]) [address] , [place], [address], 11/04/2024 14:59:36 11/05/19 25 11/04/2024 CBC AUTO W DIFF MCH 27.2 pg 27-31 Not Available [facility] ([facility]) [address] , [place], [address], 11/04/2024 14:59:36 11/05/19 25 11/04/2024 CBC AUTO W DIFF MCHC 32.3 g/dL 32-36 Not Available [facility] ([facility]) [address] , [place], [address], 11/04/2024 14:59:36 11/05/19 25 11/04/2024 CBC AUTO W DIFF RDW 12.9 % 11.5-1 4.0 Not Available [facility] ([facility]) [address] [place], [address], 11/04/2024 14:59:36 11/05/19 25 11/04/2024 CBC AUTO W DIFF platelet count 291 K/uL 150-45 0 Not Available [facility] ([facility]) [address] [place], [address], 11/04/2024 14:59:36 11/05/19 25 11/04/2024 CBC AUTO W DIFF MPV 9.6 fL 6-9.5 high Not Available [facility] ([facility]) [address] [place], [address], 11/04/2024 14:59:36 11/05/19 25 11/04/2024 CBC AUTO W DIFF neutrophil% 70.7 % 43-65 high Not Available [facility] ([facility] [address] [place], [address], 11/04/2024 14:59:36 11/05/19 25 11/04/2024 CBC AUTO W DIFF lymphocyte% 22.0 % 20.5-4 5.5 Not Available [facility] ([facility]) [address] [place], [address], 11/04/2024 14:59:36 11/05/19 25 11/04/2024 CBC AUTO W DIFF monocyte% 5.8 % 5.5-11 .7 Not Available [facility] ([facility]) [address] [place], [address], 11/04/2024 14:59:36 11/05/19 25 11/04/2024 CBC AUTO W DIFF eosinophil% 0.7 % 0.9-2. 9 low Not Available [facility] ([facility]) [address] [place], [address], 11/04/2024 14:59:36 11/05/19 25 11/04/2024 CBC AUTO W DIFF basophil% 0.4 % 0.2-1. 0 Not Available [facility] ([facility]) [address] [place], [address], 11/04/2024 14:59:36 11/05/19 25 11/04/2024 CBC AUTO W DIFF immature granulocytes % 0.4 % 0.0-0. 8 Not Available [facility] ([facility]) [address] [facility], [place], [address], 11/04/2024 14:59:36 11/05/19 25 11/04/2024 CBC AUTO W DIFF nucleated red blood cells % 0.0 % Not Available [facility] ([facility]) [address] [facility], [place], [address], 11/04/2024 14:59:36 11/05/19 25 11/04/2024 CBC AUTO W DIFF neutrophil# 5.8 K/uL 2.2-4. 8 high Not Available [facility] ([facility]) [address] [facility], [place], [address], 11/04/2024 14:59:36 11/05/19 25 11/04/2024 CBC AUTO W DIFF lymphocyte# 1.8 cell/ mcL 1.3-2. 9 Not Available [facility] ([facility]) [address] [facility], [place], [address], 11/04/2024 14:59:36 11/05/19 25 11/04/2024 CBC AUTO W DIFF monocyte# 0.5 cell/ mcL 0.3-0. 8 Not Available [facility] ([facility]) [address] [place], [address], 11/04/2024 14:59:36 11/05/19 25 11/04/2024 CBC AUTO W DIFF eosinophil# 0.1 cell/ mcL 0-0.2 Not Available [facility] ([facility]) [address] [place], [address], 11/04/2024 14:59:36 11/05/19 25 11/04/2024 CBC AUTO W DIFF basophil# 0.0 cell/ mcL 0.0-1. 0 Not Available [facility] ([facility]) [address] [place], [address], 11/04/2024 14:59:36 11/05/19 25 11/04/2024 CBC AUTO W DIFF immature gramulocytes # 0.03 K/uL Not Available [facility] ([facility]) [address] , [place], [address], 11/04/2024 14:59:36 11/05/19 25 11/04/2024 CBC AUTO W DIFF nucleated red blood cells # 0.00 K/uL Not Available [facility] ([facility]) [address] , [place], [address], 11/04/2024 14:59:36 11/05/19 25 11/04/2024 CBC AUTO W DIFF manual differential NO Not Available [facility] ([facility]) [address], [place], [address], 11/04/2024 14:59:36 11/05/19 25 11/04/2024 COMP METAB OLIC PANEL sodium 142 mmol/ L 136-14 5 Not Available [facility] ([facility]) [address] [place], [address], 11/04/2024 15:02:51 11/05/19 25 11/04/2024 COMP METAB OLIC PANEL potassium 4.0 mmol/ L 3.6-5. 0 Not Available [facility] ([facility]) [address] [place], [address], 11/04/2024 15:02:51 11/05/19 25 11/04/2024 COMP METAB OLIC PANEL chloride 103 mmol/ L 98-107 Not Available [facility] ([facility]) [address], [place], [address], 11/04/2024 15:02:51 11/05/19 25 11/04/2024 COMP METAB OLIC PANEL carbon dioxide 29.1 mmol/ L 21.0-3 2.0 Not Available [facility] ([facility]) [address], [place], [address], 11/04/2024 15:02:51 11/05/19 25 11/04/2024 COMP METAB OLIC PANEL anion gap 13.9 Not Available [facility] ([facility]) [address], [place], [address], 11/04/2024 15:02:51 11/05/19 25 11/04/2024 COMP METAB OLIC PANEL glucose 92 mg/dL 70-120 Not Available [facility] ([facility]) [address], [place], [address], 11/04/2024 15:02:51 11/05/19 25 11/04/2024 COMP METAB OLIC PANEL BUN 12 mg/dL 7-18 Not Available [facility] ([facility]) [address], [place], [address], 11/04/2024 15:02:51 11/05/19 25 11/04/2024 COMP METAB OLIC PANEL creatinine 1.1 mg/dL 0.6-1. 3 Not Available [facility] ([facility]) [address], [place], [address], 11/04/2024 15:02:51 11/05/19 25 11/04/2024 COMP METAB [...] jacome ing kiney funct ion. Not Available [facility] ([facility]) [address], [place], [address], 11/04/2024 15:02:51 11/05/19 25 11/04/2024 COMP METAB OLIC PANEL osmolality (calculated) 295 mOsm/ kg 275-30 1 OSMOL ALITY IS A CALCU LATIO N UTILI ZING THE SERUM /PLAS MA SODIU M, GLUCO SE AND UREA NITRO GEN (BUN) LEVEL S. FOR THE MOST ACCUR ATE RESUL T A MEASU RED SERUM OSMOL ALITY IS EDNA SEXTOND. Not Available [facility] ([facility]) [address] [facility], [place], [address], 11/04/2024 15:02:51 11/05/19 25 11/04/2024 COMP METAB OLIC PANEL total protein 7.8 g/dL 6.4-8. 2 Not Available [facility] ([facility]) [address] [facility], [place], [address], 11/04/2024 15:02:51 11/05/19 25 11/04/2024 COMP METAB OLIC PANEL albumin 4.3 g/dL 3.4-5. 0 Not Available [facility] ([facility]) [address] [facility], [place], [address], 11/04/2024 15:02:51 11/05/19 25 11/04/2024 COMP METAB OLIC PANEL globulin 3.5 Not Available [facility] ([facility]) [address] [facility], [place], [address], 11/04/2024 15:02:51 11/05/19 25 11/04/2024 COMP METAB OLIC PANEL alb/glob ratio 1.2 0.7-2 Not Available [facility] ([facility]) [address] [place], [address], 11/04/2024 15:02:51 11/05/19 25 11/04/2024 COMP METAB OLIC PANEL calcium 9.2 mg/dL 8.5-10 .5 Not Available [facility] ([facility]) [address], [place], [address], 11/04/2024 15:02:51 11/05/19 25 11/04/2024 COMP METAB OLIC PANEL bilirubin total 0.50 mg/dL 0.10-1 .00 Not Available [facility] ([facility]) [address], [place], [address], 11/04/2024 15:02:51 11/05/19 25 11/04/2024 COMP METAB OLIC PANEL AST (SGOT) 23 U/L 0-37 Not Available [facility] ([facility]) [address] , [place], [address], 11/04/2024 15:02:51 11/05/19 25 11/04/2024 COMP METAB OLIC PANEL ALT (SGPT) 56 U/L 0-65 Not Available [facility] ([facility]) [address] , [place], [address], 11/04/2024 15:02:51 11/05/19 25 11/04/2024 COMP METAB OLIC PANEL alk phosphatase 132 U/L 46-116 high Not Available [facility] ([facility]) [address] , [place], [address], 11/04/2024 15:02:51 11/05/19 25 11/04/2024 C-EDDIE CTIVE PROTE IN (CRP) C-reactive protein, quant 0.5 mg/dL 0.05-0 .300 high Not Available [facility] ([facility]) [address] , [place], [address], 11/04/2024 15:02:53 11/05/19 25 11/04/2024 SED RATE sed rate auto 3 0-15 Not Available [facility] ([facility]) [address] , [place], [address], 11/04/2024 15:11:44 11/05/19 25 11/04/2024 VITAM IN D, 25-HY DROXY vitamin D, 25-hydroxy 30.4 NG/mL 30.0-1 00.0 Not Available [facility] ([facility]) [address], [place], [address], 11/04/2024 15:59:30 11/05/19 25 11/04/2024 VITAM IN B12 vitamin B12 406 pg/mL 193-98 6 *Note : Refer ence Erasmo freeman New Test Metho d in use. Not Available [facility] ([facility]) [address], [place], [address], 11/04/2024 15:59:31 11/05/19 25 11/05/2024 RPR QUAL RPR NON REACTI VE non reacti ve Perfo rmed at: [facility] n [address] [place], [place] [id number] Lab Direc tor: Song metz PhD, Phone : [phone] Not Available [facility] ([facility]) [address] [facility], [place], [address], 11/05/2024 08:13:56 11/05/19 25 11/05/2024 HIV AB/P2 4 AG WITH REFLE X HIV screen 4TH generation wrfx Non Reacti ve non reacti ve HIV-1 /HIV- 2 antib odies and HIV-1 p24 antig en were NOT detec fidel. There is no labor atory evide nce of HIV infec tion. HIV Negat wolf Perfo rmed at: [facility] Labor rp [place] n [address] [facility], [place], [place] [address] Lab Direc tor: Song metz PhD, Phone : [phone] Not Available [facility] ([facility]) [address], [place], [address], 11/05/2024 08:13:57 11/05/19 25 11/05/2024 HEPAT ITIS B SURFA CE AG EIA HBsAg screen Negati ve negati ve Perfo rmed at: [facility] [address] [place], [place] [id number] Lab Direc tor: Song metz PhD, Phone : [phone] Not Available [facility] ([facility]) [address], [place], [address], 11/05/2024 09:13:06 11/05/1911/05/2024 HEP A AB, TOTAL [...] e HAV infec tion is suspe cted. [facility] offer s profi les that will autom atica lly refle x posit wolf HAV total antib michelle resul ts to IgM (e.g. , panel #[id number] HAV Antib michelle w/ Rfx). Perfo rmed at: [facility] [address] [place] [address] Lab Direc tor: Song metz PhD, Phone : [phone] Not Available [facility] ([facility]) [address], [place], [address], 11/05/2024 09:13:07 11/05/19 25 11/05/2024 ACUTE HEPAT ITIS PANEL hep A Ab, IgM Negati ve negati ve A negat wolf anti- HAV IgM resul t sugge sts no recen t or curre nt HAV infec tion. Not Available [facility] ([facility]) [address], [place], [address], 11/05/2024 13:12:23 11/05/19 11/05/2024 ACUTE HEPAT ITIS PANEL HBsAg screen Negati ve negati ve Not Available [facility] ([facility]) [address], [place], [address], 11/05/2024 13:12:23 11/05/19 25 11/05/2024 ACUTE HEPAT ITIS PANEL hep B core Ab, IgM Negati ve negati ve Not Available [facility] ([facility]) [address] [facility], [place], [address], 11/05/2024 13:12:23 11/05/19 25 11/05/2024 ACUTE HEPAT ITIS PANEL HCV Ab Non Reacti ve non reacti ve [facility] [address] [id number] [facility], [facility] Lab Direc tor: Song metz PhD, Phone : [phone] Not Available [facility] ([facility]) [address] [facility], [place], [address], 11/05/2024 13:12:23 11/05/19 25 11/05/2024 ACUTE HEPAT ITIS PANEL hep A Ab, IgM Negati ve negati ve A negat wolf anti- HAV IgM resul t sugge sts no recen t or curre nt HAV infec tion. Not Available [facility] ([facility]) [address] [facility], [place], [address], 11/05/2024 13:12:24 11/05/19 25 11/05/2024 ACUTE HEPAT ITIS PANEL HBsAg screen Negati ve negati ve Not Available [facility] ([facility]) [address] [facility], [place], [address], 11/05/2024 13:12:24 11/05/19 25 11/05/2024 ACUTE HEPAT ITIS PANEL hep B core Ab, IgM Negati ve negati ve Not Available [facility] ([facility]) [address] [place], [address], 11/05/2024 13:12:24 11/05/19 25 11/05/2024 ACUTE HEPAT ITIS PANEL HCV Ab Non Reacti ve non reacti ve Perfo rmed at: [facility] [address] [place] [address] Lab Direc tor: Song metz PhD, Phone : [phone] Not Available [facility] ([facility]) [address] [facility], [place], [address], 11/05/2024 13:12:24 11/05/19 25 11/05/2024 ACUTE HEPAT ITIS PANEL interpretati on: Commen t . Not infec fidel with HCV unles s early or acute infec tion is suspe cted (whic h may be delay ed in an immun ocomp romis ed indiv idual ), or other evide nce exist s to indic ate HCV infec tion. Perfo rmed at: [facility] [address] [place] [address] Lab Direc tor: Song metz PhD, Phone : [phone] Not Available [facility] ([facility]) [address] [facility], [place], [address], 11/05/2024 13:12:24 11/05/19 25 11/05/2024 EBV(E PSTEI N-BAR R VIRUS )AB PRO ebv Ab vca, IgM 85.8 U/mL 0.0-35 .9 high Negat wolf <36.0 Equiv ocal 36.0 - 43.9 Posit wolf >43.9 Not Available [facility] ([facility]) [address] [facility], [place], [address], 11/05/2024 15:11:35 11/05/19 25 11/05/2024 EBV(E PSTEI N-BAR R VIRUS )AB PRO ebv Ab vca, IgG 199.0 U/mL 0.0-17 .9 high Negat wolf <18.0 Equiv ocal 18.0 - 21.9 Posit wolf >21.9 Not Available [facility] ([facility]) [address], [place], [address], 11/05/2024 15:11:35 11/05/19 25 11/05/2024 EBV(E PSTEI N-BAR R VIRUS )AB PRO ebv nuclear antigen Ab, IgG 195.0 U/mL 0.0-17 .9 high Negat wolf <18.0 Equiv ocal 18.0 - 21.9 Posit wolf >21.9 Not Available [facility] ([facility]) [address] [facility], [place], [address], 11/05/2024 15:11:35 11/05/1911/05/2024 EBV(E PSTEI N-BAR R [...] to EBNA. Perfo rmed at: - [facility] [address] [facility], [place] [address] [facility] Lab Direc tor: Song metz PhD, Phone : [phone] Not Available [facility] ([facility]) [address] , [place], [address], 11/05/2024 15:11:35 Result Notes None recorded. Problems Name Problem SNOMED Code Status Onset Date Resolution Date Notes Provider Name and Address Organization Details Recorded Time Radicular pain 26039904 Active 2022 Ana faulkner, SARAH - [facility] [place] [facility] [place] 3 13:54:51 Myofascial pain 814787140 Active 2022 [place]ner[place] - [facility] [place] 3 13:54:59 Spinal stenosis in cervical region 02460776 Active 2022 Ana [place]ulkner, [place] - [facility] [place] [facility] [place] 3 13:55:04 Cervical spondylosis 330202352 Active 2022 Ana faulkner, SARAH - [facility] - [place] [facility] [place] 3 13:55:05 Frequent headache 215586133 Active 2022 Ana faulkner, [place] - [facility] - [place] [facility] [place] 3 13:55:13 Problem Notes None recorded. Procedures Surgical History Date Name Laterality Status Provider Name and Address Organization Details Recorded Time Appendectomy completed Melania SMITH - [facility] - [place] [facility] [place] 08/21/2022 17:21:53 Imaging Results None recorded. Procedure [...] Address Organization Details Last Updated DateTime 3 797593. 19 g 35.4 kg/m2 185.42 cm 97.8 [degF] 99 % 99 % 68 /min 130/80 mm[Hg] Melania Munoz [facility] & [place] 3 17:17:54 Date Recorded Heart rate Body height Oxygen saturation Oxygen saturation in Arterial blood by Pulse oximetry Body temperature Body mass index (BMI) Body weight Systolic And Diastolic Provider Name and Address Organization Details Last Updated DateTime 5 68 /min 185.42 cm 98 % 98 % 98.6 [degF] 34.8 kg/m2 544730. 23 g 128/77 mm[Hg] Sagrario lSoan [facility] & [place] 13:36:42 Date Recorded Body height Provider Name an d Address Organization Details Last Updated DateTime 11/12/2024 185.42 cm Paris Singh [facility] [place] & [place] 11/12/2024 11:34:21 Social History None recorded. Functional Status None recorded. Mental Status None recorded. Family History Nothing Reported. Medical History Condition Response Anxiety Disorder Y Acid Reflux (GERD) Y Hypertension Y Depression Y Past Encounters Encounter ID Performer Location Encounter Start Date Encounter Closed Date Diagnosis/Indication Diagnosis SNOMED-CT Code Diagnosis ICD10 Code Diagnosis IMO Codes Diagnosis Note [id number] Chalo Mauricio MD [facility] [address] [facility] [place] [address] 08/21/2022 12:49:01 08/21/2022 15:10:43 Cervical spondylosis 163029453 M47.812 Spinal marcelo nosis in cervical region 07944562 M99.51 Myofascial pain 46760918 9 M79.10 Radicular pain 18653572 M54.10 Frequent headache 512348 003 R51.9 [id number] [facility] [address] [facility] [address] [place] [address] 11/04/2024 13:27:11 11/04/2024 13:57:32 Vitamin D deficiency 40683073 E55.9 93470 will check labs. Currently on replacemen t. Cobalamin deficiency 190 595479 E53.8 10731 will check labs. Currently on replacemen t. Fatigue 63659795 R53.83 [id number] Will check lab work. Discussed likelihood that sleep apnea is a diagnosis. Will see patient back in 1 week telehealth to discuss lab work. Follow with PCP as scheduled. HIV screening 724488675 Z11.4 [id number] Yonathan-Ba rr virus disease 381841559 B27.90 864113 [id number] Brenna Bean [facility] Infectiou s Disease -105 [address] [facility] [address] [place] [address] 11/12/2024 11:33:59 11/12/2024 12:58:55 Vitamin D deficiency 57510640 E55.9 02584 Vitamin D level is 30. Discussed optimal range levels with patient. Patient requests to follow up with PCP for replacemen t and monitoring . Cobalamin deficiency 190 042456 E53.8 74034 Vitamin B12 level is the lower end of normal. Discussed optimal range levels with patient. Patient requests to follow up with PCP for replacemen t and monitoring . Fatigue 00708174 R53.83 [id number] Patient is awaiting sleep study results. Likely related to undiagnose d/treated sleep apnea. Vitamin D and B12 levels are also low. Counseled on importance of replacemen t. Yonathan-Ba rr virus disease 426592641 B27.90 056597 IGG levels are positive and discussed potential [...] PRN. 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 Brenna Mendoza APRN [address], [place], [address], [place] - [facility] & [place] 11/04/2024 15:00:22 5 text/html ROS as noted in the HPI patient presents via telehealth for follow up. Video and audio visit performed via [employer]. Patient and provider present on the call and both in the state [facility]. Patient consents to video. Patient denies any [...] antiviral. Brenna Mendoza APRN [address], [place], [address], [place] - [place] - [place] & [place] 11/12/2024 11:46:14
--- OUTSIDE RECORDS SUMMARY | 2025-03-01 14:23 | XMS_ITS | Clinical Summary ---
Author Organization [facility] Address [address] [facility] [facility], [address] [place] [address] Care Team Providers Care Civil Engineer Land Development Name Role Phone Berto Frazier MD Primary Care Provider [phone] Allergies No known active allergies Medications Sertraline [...] Plan of Treatment Not on file Insurance [facility] Advance Directives * Full Code (Latest Code Status on File) Date Activated Date Inactivated Comments 08/27/2018 5:13 PM 08/28/2018 8:15 PM Care Teams Civil Engineer Land Development Relationship Specialty Start Date End Date Berto Frazier MD [address] [facility] [address] [place] [address] PCP - General Family Medicine 08/12/18
--- OUTSIDE RECORDS SUMMARY | 2025-03-01 14:23 | XMS_ITS | Continuity of Care Document ---
Author Organization [facility] Address [address] [place] [address] Phone Care Team Providers Care Flash Oven Operator Name Role Phone Unavailable Primary Care Provider Unavailabl e Encounters Date Type Department Care Team Description 11/05/2018 9:15 AM EDT Office Visit [facility] Sleep Medicine [address] [address] Willie Ascencio MD Primary snoring; Obstructive sleep apnea 10/03/[address] [address] Osman Méndez MD Medication Refill (one script ) 09/09/2018 9:15 AM EDT - 09/09/2018 11:59 PM EDT Hospital Encounter [facility] Sleep Disorder Center [address] [place], [place] [id number] Obstructive sleep apnea (Primary Dx) Discharge Disposition: Home or Self Care 09/09/2018 9:00 AM EDT Office Visit [facility] Sleep Medicine [address] [address] Willie Ascencio MD Excessive sleepiness; Primary snoring; Obstructive sleep apnea 09/04/2018 12:07 AM EDT - 09/04/2018 11:59 PM EDT Hospital Encounter [facility] Sleep Disorder Center [address] [place] [id number] [place] [place] Sleep Discharge Disposition: Home or Self Care 09/03/2018 6:45 PM EDT - 09/03/2018 11:59 PM EDT Hospital Encounter [facility] Sleep Disorder Center [place] [address] [place] [address] [place] [place] Sleep Obstructive sleep apnea (Primary Dx) Discharge Disposition: Home or Self Care 2018 Refill [facility] [address] [place] [address] Osman Méndez MD Medication Refill 08/23/2018 Orders Only [facility] Sleep Disorder [facility] [place] [address] [facility] [address] [place] [address] Willie Ascencio MD Obstructive sleep apnea (Primary Dx) 08/19/2018 8:30 AM EDT Office Visit [facility] Sleep Medicine [facility] [address] [facility] [address] [place] [address] Willie Ascencio MD Restless legs syndrome (Primary Dx); Excessive sleepiness; Primary snoring; Obstructive sleep apnea 07/31/2018 Telephone [facility] [address] [place] [address] Ender Salvador MD No Show 07/25/2018 8:20 AM EDT Office Visit [facility] [address] [place] [address] Osman Méndez MD Abrasion of finger, initial encounter (Primary Dx); Need for Tdap vaccination; Gastroesophageal reflux disease, esophagitis presence not specified; Atypical chest pain; Excessive daytime sleepiness 06/10/2018 8:49 AM EST - 06/10/2018 11:59 PM EST Hospital Encounter [facility] [address] [place] [address] Anxiety; Panic attacks Discharge Disposition: Home or Self Care 06/10/2018 8:00 AM EST Office Visit [facility] [address] [place] [address] Osman Méndez MD Anxiety (Primary [...] He was evaluated in the ER in [place]. He was told to f/u w/ cardiology. [...] Grandmother Social History Smoking Status as of 03/01/2025 Tobacco Use Types Packs/Day Years Used Date [...] 06/10/2018 3:17 PM EST [facility] Blood VENOUS BLOOD / Unknown Venipuncture / Unknown 06/10/2018 8:50 AM EST 06/10/2018 8:50 AM EST Narrative [facility] - 06/10/2018 3:17 PM EST Ingestion of dwain doses of biotin (>5 mg/day) taken within 8 hours of drawing blood sample can interfere with this immunoassay test. us Osman Méndez MD CHEMISTRY ORDERABLES Final Res ult [facility] [address] [facility] , [place] [address] * CBC (06/10/2018 8:50 AM EST) WBC [...] sult [facility] [address] [facility] , [address] [place] [id number] * COMPREHENSIVE METABOLIC PANEL (06/10/2018 8:50 AM [...] mL/min/1.7 3 m2 06/10/2018 3:17 PM EST [facility] GFR Non Afr Am 116 >=60 mL/min/1.7 3 m2 06/10/2018 3:17 PM EST [facility] Comment: This estimated GFR [...] ORDERABLES Final Res ult Performing Organization Address City/State/[facility] Co de Phone Number [facility] [address] [facility] , [place] [address] [facility] [address] [place] [address] Visit Diagnoses Diagnosis Start Date Anxiety Anxiety state, unspecified 06/10/2018 Panic attacks Panic disorder without agoraphobia 06/10/2018 Anxiety Anxiety state, unspecified 06/10/2018 Panic attacks Panic disorder without agoraphobia 06/10/2018 Abrasion of finger, initial encounter 07/25/2018 Need for Tdap vaccination Need for prophylactic vaccination with combined jswawbhqgo-gnsmhgn-sxhtdpjma (DTP) vaccine 07/25/2018 Gastroesophageal reflux disease, esophagitis [...]
--- OUTSIDE RECORDS SUMMARY | 2025-03-01 14:23 | XMS_ITS | Clinical Summary ---
Author Organization [employer] ([place], [place], [place], [place]) Address [address] [place] [address] Care Team Providers Care Nuclear Plant Construction Worker Name Role Phone GabrielLilian KARIS Primary Care [...] total) by mouth daily. 09/07/2023 Active omega 3-npd-iff-fish oil capsule Take 1 capsule (1,000 mg [...] He was evaluated in the ER in [place]. He was told to f/u w/ cardiology. Resolved Problems Problem Noted Date Diagnosed Date Resolved Date Colon cancer screening 09/17/202312/10 Encounters Date Type Department Care Team Description 02/03/2025 Telephone [facility] Gastroenterology [address] [place] [address] [address] [place] [address] Hanna Corona MD Medication Problem 02/02/2025 Telephone [facility] Gastroenterology [address] [place] [address] [place] [address] Hanna Corona MD Medication Refill (Tirzepatide compounded.) 02/02/2025 Telephone [facility] Gastroenterology [address] [place] [address] [address] Hanna Corona MD Medication Refill [...] Date Antonio rded Speak language other than Thai at home Not on file 10/16/2023 Want [...] patient's age to complete this topic Insurance [facility] Advance Directives For more information, please contact: [phone] * Full Code (Latest Code Status on File) Date Activated Date Inactivated Comments 12/11/2023 9:46 AM 12/11/2023 6:29 PM Care Teams Nuclear Plant Construction Worker Relationship Specialty Start Date End Date Lilian Gabriel, MANAGER COSMETIC [address] [address] PCP - General Nurse Practitioner 10/11/23
--- OUTSIDE RECORDS SUMMARY | 2025-03-01 14:23 | XMS_ITS | Referral Summary ---
Author Organization [employer] ([place], [place], [place], [place]) Address [address] [place] [address] Care Team Providers Care Machining Technician Name Role Phone Gabriel Lilian KARIS Primary Care Provider Encounters Date Type Department Care Team Description 02/03/2025 Telephone [facility] Gastroenterology [address] [place] [address] [address] [place], [place] [address] Hanna Corona MD Medication Problem 02/02/2025 Telephone [facility] Gastroenterology [address] [place] [address] [address] [place] [address] Hanna Corona MD Medication Refill (Tirzepatide compounded.) 02/02/2025 Telephone [facility] Gastroenterology [address] [place] [address] [address] [place] [address] Hanna Corona MD Medication Refill from [...] total) by mouth daily. 09/07/2023 Active omega 8-jih-ylc-fish oil capsule Take 1 capsule (1,000 mg [...] He was evaluated in the ER in [place]. He was told to f/u w/ cardiology. [...] Plan of Treatment Not on file Insurance [facility] Advance Directives For more information, please contact: [phone] * Full Code (Latest Code Status on File) Date Activated Date Inactivated Comments 12/11/2023 9:46 AM 12/11/2023 6:29 PM Care Teams Machining Technician Relationship Specialty Start Date End Date Lilian Gabriel APRN [address] [address] PCP - General Nurse Practitioner 10/11/23
--- OUTSIDE RECORDS SUMMARY | 2025-03-01 14:23 | XMS_ITS | Encounter Summary ---
Author Organization [employer] ([place], [place], [place], [place]) Address [address] [place] [address] Care Team Providers Care Band Bias Machine Operator Name Role Phone Gabriel Lilian KARIS Primary Care Provider Reason for Visit * Reason Onset Date Comments Medication Refill 02/02/2025 Encounter Details Date Type Department Care Team (Late st Contact Info) Description 02/02/2025 Telephone [facility] Gastroenterology [address] [place] [address] [address] Hanna Corona MD [address] [place] [phone] Medication Refill Social History Tobacco Use Types [...] Date Antonio rded Speak language other than Macanese at home Not on file 10/16/2023 Want [...] calling about prescription that was sent to [facility] pharmacy for tirzepatide shot with b12, pt was calling stating pharmacy sent over the paperwork for a change to it and wanted to make sure we rec'd it,. Please call pt with any question. documented in this encounter Plan of Treatment Not on file documented as of this encounter Visit Diagnoses Not on filedocumented in this encounter Care Teams Band Bias Machine Operator Relationship Specialty Start Date End Date Lilian Gabriel, KARIS [address] [address] PCP - General Nurse Practitioner 10/11/23 documented as of this encounter
--- OUTSIDE RECORDS SUMMARY | 2025-03-01 14:23 | XMS_ITS | Clinical Summary ---
Author Organization [facility] Address [address] [place] [address] Care Team Providers Care Electrician Supervisor Substation Name Role Phone Lilian Gabriel APRN Primary Care Provider [phone] Allergies No known active allergies Medications losartan [...] at night. In lab sleep study at [facility] for further evaluation. Excessive daytime sleepiness 08/28/2022 [...] - 200 mg/dL 10/30/2016 11:40 AM EDT [facility] Triglycerides 64 0 - 150 mg/dL 10/30/2016 11:40 AM EDT [facility] HDL Cholesterol 43 40 - 60 mg/dL 10/30/2016 11:40 AM EDT [facility] LDL Cholesterol 128 0 - 130 mg/dL 10/30/2016 11:40 AM EDT [facility] Blood Venipuncture / Unknown 10/30/2016 10:57 AM EDT 10/30/2016 10:57 AM EDT Narrative [facility] - 10/30/2016 11:40 AM EDT [...] Perez APRN LAB BLOOD ORDERABLES Final Result [facility]
[address] [place] [address], from Last 3 Months or Most Recently Relevant to Health Maintenance Insurance * Guarantor: Julio Cesar Orellana Account Type Relation to Patient Date of Phone Billing Address Personal/Family Self [address] Care Teams Electrician Supervisor Substation Relationship Specialty Start Date End Date Lilian Gabriel APRN PCP - General Internal Medicine 06/21/20
--- OUTSIDE RECORDS SUMMARY | 2025-03-01 14:23 | XMS_ITS | Encounter Summary ---
Author Organization [employer] ([place], [place], [place], [place]) Address [address] [place] [address] Care Team Providers Care Ict Help Desk Officer Name Role Phone GabrielLilian hardy MANAGER SWITCH Primary Care Provider Reason for Visit * Reason Onset Date Comments Medication Refill 02/02/2025 Tirzepatide co mpounded. Encounter Details Date Type Department Care Team (Late st Contact Info) Description 02/02/2025 Telephone [facility] Gastroenterology [address] [place] [address] [address] Hanna Corona MD [address] [place] [phone] Medication Refill (Tirzepatide compounded.) Social History Tobacco [...] Date Antonio rded Speak language other than Cambodian at home Not on file 10/16/2023 Want [...] on filedocumented in this encounter Care Teams Ict Help Desk Officer Relationship Specialty Start Date End Date Lilian Garbiel, KARIS [address] [place] [address] PCP - General Nurse Practitioner 10/11/23 documented as of this encounter
--- OUTSIDE RECORDS SUMMARY | 2025-03-01 14:23 | XMS_ITS | Encounter Summary ---
Author Organization [employer] ([place], [place], [place], [place]) Address [address] [place] [address] Care Team Providers Care Clinic Office Coordinator Name Role Phone GabrielLilian hardy KARIS Primary Care Provider [phone] Reason for Visit * Reason Onset Date Comments Medication Problem 02/03/2025 Encounter Details Date Type Department Care Team (Late st Contact Info) Description 02/03/2025 Telephone [facility] Gastroenterology [address] [place] [address] [address] Hanna Corona MD [address] [place] [phone] Medication Problem Social History Tobacco Use Types [...] Date Antonio rded Speak language other than Guinean at home Not on file 10/16/2023 Want [...] on filedocumented in this encounter Care Teams Clinic Office Coordinator Relationship Specialty Start Date End Date Lilian Gabriel, KARIS [address] [address] PCP - General Nurse Practitioner 10/11/23 documented as of this encounter
--- OUTSIDE RECORDS SUMMARY | 2025-03-01 14:24 | XMS_ITS | Data Portability ---
Author Organization [facility] Tony flood, DEBRAS [facility] CLOSED Address [address] [facility] [address] [place] [address] Care Team Providers Care Woodworking Bench Carpenter Name Role Phone GAURANG BARTHOLOMEW Referring Provider [phone] EDMUNDO JULIO Primary Care Provider [phone] Assessment Encounter Date Assessment Date Assessment LastModified [...] urea breath test, co2 infrared 2021 022 [facility], [address] [place] [address], [phone], 16:00:17 Referral None recorded. Procedures None recorded. Surgeries None recorded. Imaging None recorded. Medication Orders famotidine 40 mg tablet 2021 [facility], [address] [place] [address] [address] [facility] [place], [place], [id number], 14:11:17 Patient TargetsNo targets recorded. Patient InstructionsNo [...] PERFO RMED AT: [facility] [address] [place] [address] ROBIN Figueroa MD Not Available [facility] [address] [place] [address], [phone], 08/20/2021 16:00:17 10/02/19 25 09/26/2024 MRI, cervi norma spine , w/o contr ast No observ ation record ed. BARCODE Not Available 2024 15:57:00 Result Notes None recorded. Procedures Surgical History Date Name Laterality Status Provider Name and Address Organization Details Recorded Time 08/18/2021 UREA Breath Test completed Wayne Warner [facility] 08/18/2021 15:24:21 Imaging Results None recorded. Procedure [...] Updated DateTime 05/16/2022 185.42 cm 33.5 kg/m2 455868.46 g 0 Alfa Jones [facility] 05/16/2022 16:23:19 Date Recorded Body height Body mass index (BMI) Body weight Heart rate Respiratory rate Systolic And Diastolic Provider Name and Address Organization Details Last Updated DateTime 2 185.42 cm 33.5 kg/m2 732946. 46 g 101 /min 16 /min 161/96 mm[Hg] Karin King [facility] 2 14:40:05 Date Recorded Body height Body mass index (BMI) Body weight Heart rate Respiratory rate Systolic And Diastolic Provider Name and Address Organization Details Last Updated DateTime 2 185.42 cm 33.5 kg/m2 597264. 46 g 71 /min 16 /min 130/78 mm[Hg] Wayne Warner [facility] 2 13:45:41 Social History Question Answer Notes LastModified by Organizat ion Details LastModified Time Tobacco Smoking Status Never Smoker Karindanae King [facility] 08/18/2021 14:42:08 What Is Your [...] NSAID Use N Osteoporosis/Osteopenia N Heart Attack ([place]) N Mental Illness N Diabetes N Bleeding [...] ICD10 Code Diagnosis IMO Codes Diagnosis Note [id number] RONAL KOCH MD [facility] [address] [place] [address] 08/18/2021 14:01:47 09/21/2021 07:49:02 Nonulcer dyspepsia 7016426 K30 h pylori breath testif neg 8 weeks ppi therapyrtc 8 weeksconsi piotr egd if persists [id number] RONAL KOCH MD [address]STR[address] [place] [address] 08/18/2021 15:23:32 08/19/2021 11:14:06 Nonulcer dyspepsia 9781274 K30 [id number] [place] [address] [place] [address] 10/25/2021 13:24:58 10/25/2021 14:48:25 Gastroesophageal reflux disease without esophagitis [id number] K21.9 [id number] LENNY MARTINEZ MD [facility] [address] [place] [address] 05/16/2022 15:59:00 05/16/2022 16:58:57 Impingement syndrome of right shoulder region 0048695274 05277 M75.41 Tendinitis of long head of biceps brachii of right shoulder 982353668 M75.21 [id number] HEBERT BRANDON MD [facility] [address] [place] [address] 10/09/2024 09:27:48 10/10/2024 04:30:43 Cervical spondylosis 188640842 M47.812 95199 Health Concerns Section Related Observation LastModified by Organization Detai ls LastModified Time None Recorded Concern Status LastModified by Organization Details LastModified Time None Recorded Advance Directives Directive None Recorded Payers Insurance Date Sequence Insurance Name Policy Number Policy Segura Covered Member ID Segura Member ID Guarantor Name 10/01/2024 1 [place] [employer] [facility] [id number] Melody Orellana [id number] Julio Cesar Orellana 12/27/2024 1 [facility] [id number] Julio Cesar Orellana [id number] Julio Cesar Orellana Notes Date Note Type Note Provider Name and Address Organization Details Recorded Time 08/18/2021 text/html burning stomach sxsdyspepsiano current therapy RONAL KOCH MD [address] [place] [address], [address] [place] [address] 09/19/2021 22:46:58 10/25/2021 text/html Feels Much better on ppiLast egd many years ago -- 3 yrs agoPantop 40 mg qdPepcid 20 RONAL KOCH MD [address] [place] [address], [address] [place] [address] 10/25/2021 14:00:59 05/16/2022 text/html 1.3.22PCP: [place] FOR [...] /10 PT: naNSAIDS:naINJECTION :na LENNY MARTINEZ MD [address] [place] [address], [phone], [facility] 05/17/2022 09:26:29 10/09/2024 text/html I saw Mr. [...] Lyrica which has helped. HEBERT BRANDON MD [address] [place] [address], [phone], [facility] 10/09/2024 10:42:35
--- NOTE | 2025-03-01 14:28 | XR_ITS ---
PROCEDURE INFORMATION: Exam: XR Chest Exam date and time: 03/01/2025 2:36 PM Age: 34 years old Clinical indication: Cough and shortness of breath; Additional info: Shortness of air, productive cough TECHNIQUE: Imaging protocol: Radiologic exam of the chest. Views: 1 view. COMPARISON: CR XR CHEST 2V 02/04/2025 4:09 PM FINDINGS: Lungs: Unremarkable. No consolidation. Pleural spaces: Unremarkable. No pleural effusion. No pneumothorax. Heart/Mediastinum: Unremarkable. No cardiomegaly. Bones/joints: Unremarkable. IMPRESSION: No acute findings.
[2025-03-01 14:29] LABS: Adenovirus,PCR Not Detected (NotDetected); Chlamydophila Pneumoniae, PCR Not Detected (NotDetected); Coronavirus 19, PCR Not Detected (NotDetected); Coronovirus HKU1,PCR Not Detected (NotDetected); Influenza A, PCR Not Detected (NotDetected); Influenza AH1, 2009 Not Detected (NotDetected); Influenza AH1, PCR Not Detected (NotDetected); Influenza AH3,PCR Not Detected (NotDetected); Influenza B, PCR Not Detected (NotDetected); Mycoplasma Pneumoniae, PCR Not Detected (NotDetected); Parainfluenza 1, PCR Not Detected (NotDetected); Parainfluenza 2, PCR Not Detected (NotDetected); Parainfluenza 3, PCR Not Detected (NotDetected); Parainfluenza 4, PCR Not Detected (NotDetected)
[2025-03-01 14:35] VITALS: BP 129/71; PULSE 70; O2SAT 97
--- NOTE | 2025-03-01 14:38 | ED_ITS ---
<Statement entered by Chioma De Los Santos MD - 03/02/25 14:48> I was consulted by the AMA, and we discussed the complexity of the problems being addressed. I approved the treatment and management plan for this patient's care in the emergency department, thus performing a substantive portion of the medical decision making. Chioma De Los Santos MD, ERIKA, FACEP Discharge Plan Disposition Patient Disposition: Home, Self-Care Condition: Good Prescriptions Prescriptions: No Action tirzepatide 2.5 mg/0.5 mL pen injector 2.5 mg SQ WEEKLY Rx Instructions: for 4 weeks famotidine [Pepcid AC] 10 mg tablet 10 mg PO DAILY cholecalciferol (vitamin D3) 125 mcg (5,000 unit) capsule 125 mcg PO DAILY ferrous sulfate 27 mg iron tablet 27 mg PO DAILY coenzyme Q10 100 mg tablet 100 mg PO DAILY folic acid 1 mg tablet 1 mg PO DAILY losartan 50 mg tablet 50 mg PO DAILY albuterol sulfate [Ventolin HFA] 90 mcg/actuation HFA aerosol inhaler 2 puff inhalation Q4-6H PRN (Reason: shortness of breath or wheezing) Qty: 8.5 0RF cefdinir 300 mg capsule 300 mg PO BID Qty: 20 0RF promethazine 25 mg tablet 25 mg PO Q6H PRN (Reason: nausea and vomiting) Qty: 30 0RF desvenlafaxine succinate [Pristiq] 25 mg tablet extended release 24 hr 25 mg PO DAILY Qty: 30 0RF codeine-guaifenesin 10-100 mg/5 mL liquid 10 ml PO Q4-6H PRN (Reason: cough) Qty: 120 0RF pravastatin 20 mg tablet See Rx Instructions .ROUTE .COMPLEX Qty: 30 2RF Dose Instruction: TAKE ONE TABLET BY MOUTH EVERY DAY Rx Instructions: TAKE ONE TABLET BY MOUTH EVERY DAY levothyroxine 50 mcg tablet See Rx Instructions .ROUTE .COMPLEX Qty: 30 2RF Dose Instruction: TAKE ONE TABLET BY MOUTH EVERY DAY Rx Instructions: TAKE ONE TABLET BY MOUTH EVERY DAY pregabalin 25 mg capsule 25 mg PO BID Qty: 60 0RF Referrals Follow up/Referrals: Lilian Gabriel APRN [Primary Care Provider, Medical] - See instructions Activity Restrictions/Add. Instructions Additional Instructions/Restrictions: Please return to the emergency department with any worsening signs or symptoms. Please take all your at home medication as prescribed. Please utilize [id number] cold and flu medication as needed for symptomatic relief. Please follow-up with your PCP in the upcoming days/weeks. We will call you with any actionable results of your chest x-ray radiology report once available. No news is good news. Clinical Impressions Clinical Impression: Acute bronchitis due to Rhinovirus Instructions Patient Instructions: DI for Acute Bronchitis Print Language Print Language: Azeri Discharge ED Provider: Osmin Linda Adult HPI General Chief complaint: Upper Respiratory Infection Stated complaint: Soa, cough,B/A, Chills, Fever, dizziness Time Seen by Provider: 03/01/25 14:18 Mode of Arrival: Ambulatory Source of Information: Patient Description of Symptoms (Recalled from ER Triage Doc. by RN): Pt presents for evaluation of productive cough with increasing fatigue, bodyaches and chills. pt took ibuprofren, tylenol, and a nebulizer 1 hour prior to arrival History of Present Illness HPI narrative: 34-year-old male presents the emergency department accompanied by his for productive cough, subjective fever chills, fatigue, myalgias for 1 week, endorses some lightheadedness, and dyspnea for the last 2 days, patient was seen on 02/25/2025, by his PCP who prescribed him antitussives and other symptomatic relief medications, he did test positive for rhinovirus via PCR at that visit. He states that his symptomatology is gone worse , he denies any overt chest pain but has had some episodes of chest pain throughout the week, he denies any vertiginous type symptomatology, no headache, no presyncopal or syncopal event, nausea vomiting constipation diarrhea no abdominal pain, no urinary symptomatology, patient has any alcohol tobacco or drug use, other past medical history is consistent with vitamin B12 deficiency, MDD/ARTEM, hypertension, hyperlipidemia, GERD. Initial triage vitals are unremarkable. Of note patient tells me that he utilized his 's nebulizers , with little to no relief of her symptomatology. Please note that above description of symptoms, in this electronic medical record under categorization of recalled from ER triage doctor by RN are reflective of an initial nursing assessment, however, is not reflective of my full history and physical exam that was personally taken and clarified. Consequentially, this preceding description of symptoms, which may include the patient's categorized chief complaint in the EMR, do not reflect my personal clinical impression, and the ultimate description of history of present illness and patient stated complaints should be deferred to this section of the note. Unless stated otherwise or congruent with this section of the note, additional signs, symptoms, or incongruence should be interpreted as inaccurate with my clinical impression. Onset (ago): week(s) Related Data Home Medications ?Medication ?Instructions ?Recorded ?Confirmed tirzepatide 2.5 mg/0.5 mL 2.5 mg SQ WEEKLY 06/27/24 subcutaneous pen injector cholecalciferol (vitamin D3) 125 125 mcg PO DAILY 07/0802/25/25 mcg (5,000 unit) capsule coenzyme Q10 100 mg tablet 100 mg PO DAILY 09/12/24 famotidine 10 mg tablet (Pepcid AC) 10 mg PO DAILY 07/0802/25/25 ferrous sulfate 27 mg iron tablet 27 mg PO DAILY 09/1202/25/25 folic acid 1 mg tablet 1 mg PO DAILY 09/12/2402/25 losartan 50 mg tablet 50 mg PO DAILY 09/26/2402/11 Previous Rx's ?Medication ?Instructions ?Recorded pravastatin 20 mg tablet See Rx Instructions .Route 0 11/03/24 .COMPLEX #30 tabs levothyroxine 50 mcg tablet See Rx Instructions .Route 12/14/24 .COMPLEX #30 tabs pregabalin 25 mg capsule 25 mg PO BID #60 caps albuterol sulfate 90 mcg/actuation 2 puff inhalation Q 4-6H PRN 01/26/25 aerosol inhaler (Ventolin HFA) shortness of breath or wheezing #8.5 grams cefdinir 300 mg capsule 300 mg PO BID #20 caps 02/15 codeine 10 mg-guaifenesin 100 mg/5 10 ml PO Q4-6H PRN cough #120 mL 02/25/25 mL oral liquid desvenlafaxine succinate 25 mg 25 mg PO DAILY #30 tabs 02/25/25 tablet,extended release 24 hr (Pristiq) promethazine 25 mg tablet 25 mg PO Q6H PRN nausea and 02/25/25 vomiting #30 tabs Allergies Allergy/AdvReac Type Severity Reaction Status Date / Time No Known Allergies Allergy Verified 02/25/25 15:29 PFSH PFS Disclaimer: The information contained in this section may have been updated after the patient was seen, as this information can be updated by other users. Medical History Sinusitis Depression Anxiety Hyperlipidemia Hypertension Bipolar II disorder Surgical History Hx of cholecystectomy H/O hernia repair History of appendectomy Family History Father Cancer Other Coronary artery disease Heart attack Social History Smoking Status: Never smoker alcohol intake: never substance use type: denies use current occupational status: employed Travel in the last 8 weeks?: Inside the [place] number of children: 2 Have you lived/traveled outside [place] in past 30 days?: No Contact w/someone who lives/traveled outside [place] past 30 days?: No Exposure to someone with infectious disease in past 14 days?: No Do you have a fever (greater than 100.4 F or 38 C)?: No Have you tested positive for COVID-19?: No Exposed to someone with COVID-19 in past 14 days?: No Do you have a sore throat?: No Do you have a cough?: No Do you have any weakness?: No Do you have any diarrhea?: No Are you experiencing any unusual bleeding?: No Do you have any muscle aches/pain?: No Do you have any abdominal pain?: No Are you experiencing loss of taste or smell?: No Other Medical History Have you received the Flu Vaccine for this season: No Have you received the Pneumonia Vaccine: No ROS Obtained: Yes All systems reviewed & no additional complaints except as documented Physical Exam General General appearance: alert and in no apparent distress Head Head exam: atraumatic and normocephalic Eye Eye exam: Present PERRL and EOMI ENT ENT exam: Present mucous membranes moist Neck Neck exam: Present normal inspection Chest Chest inspection: Present normal inspection and symmetric chest wall rise Respiratory Respiratory exam: Present normal lung sounds bilaterally; Absent respiratory distress, wheezes or stridor Cardiovascular Cardiovascular exam: Present regular rate and normal rhythm Abdominal Exam Abdominal exam: Present soft; Absent tenderness, guarding, rebound or rigidity Extremities Exam Extremities exam: Present normal inspection Neurological Exam Neurological exam: Present alert and oriented X3 Psychiatric Psychiatric exam: Present normal affect Skin Skin exam: Present warm and dry Medical Decision Making Medical Records Medical records reviewed: Yes I reviewed the patient's medical records. Screening: Per USPSTF and CDC recommendations, given the prevalence of disease in our region, it is our hospital?s policy to screen for HIV and viral Hepatitis for all patients aged 18 and over and those with ongoing risk factors. Yordy Inquiry Pt receiving controlled substance: No Yordy was queried for this patient: No Vital Signs: 03/01/25 14:13 03/01/25 14:35 03/01/25 15:00 Temperature 98.2 F Temperature Source Oral Pulse Rate 70 62 Pulse Rate [Right] 70 Respiratory Rate 18 Blood Pressure 129/71 125/78 Blood Pressure [Right Arm] 165/79 H Blood Pressure Mean [Right Arm] 107 Blood Pressure Source [Right Arm] Automatic Cuff Blood Pressure Position [Right Arm] Sitting 02 Sat by Pulse Oximetry 99 97 97 Oxygen Delivery Method Room Air 03/01/25 15:30 Temperature Temperature Source Pulse Rate 62 Pulse Rate [Right] Respiratory Rate Blood Pressure 110/75 Blood Pressure [Right Arm] Blood Pressure Mean [Right Arm] Blood Pressure Source [Right Arm] Blood Pressure Position [Right Arm] 02 Sat by Pulse Oximetry 98 Oxygen Delivery Method Room Air Lab Data Lab results reviewed: Yes I reviewed the patient's lab results. Lab Results 03/01/25 14:12: Chlamy pneumoniae PCR Not detected, Adenovirus (PCR) Not detected, B. pertussis DNA (PCR) Not detected, Coronavirus OC43 (PCR) Not detected, Coronavirus HKU1 (PCR) Not detected, Coronavirus 229E (PCR) Not detected, SARS-CoV-2 (PCR) Not detected, Coronavirus NL63 (PCR) Not detected, Human Metapneumovir PCR Not detected, Influenza A (H1) PCR Not detected, Influ A (H1N1/09) PCR Not detected, Influenza A (H3) PCR Not detected, Influenza Type A (PCR) Not detected, Influenza Type B (PCR) Not detected, M. pneumoniae (PCR) Not detected, Parainfluenza 1 (PCR) Not detected, Parainfluenza 2 (PCR) Not detected, Parainfluenza 3 (PCR) Not detected, Parainfluenza 4 (PCR) Not detected, RSV (PCR) Not detected, Entero/Rhino (PCR) Detected A 03/01/25 14:35: WBC 8.7, RBC 5.19, Hgb 14.2, Hct 43.5, MCV 83.8, MCH 27.4, MCHC 32.6, RDW 13.4, Plt Count 258, MPV 10.2, Neut % (Auto) 70.0, Lymph % (Auto) 21.5, Brooke % (Auto) 6.7, Eos % (Auto) 1.0, Baso % (Auto) 0.5, Neut # (Auto) 6.1, Lymph # (Auto) 1.9, Brooke # (Auto) 0.6, Eos # (Auto) 0.1, Baso # (Auto) 0.0, Sodium 141, Potassium 3.8, Chloride 105, Carbon Dioxide 28, Anion Gap 11.8, BUN 14, Creatinine 0.90, Estimated Creat Clear 202, Estimated GFR 97, Est GFR ( Amer) 118, Glucose 100, Calcium 8.6, Magnesium 1.7, Total Bilirubin 0.3, AST 39, ALT 58, Alkaline Phosphatase 102, Troponin I < 0.01, NT-Pro-B Natriuret Pep 118, Total Protein 7.1, Albumin 4.1, Globulin 3.0, Albumin/Globulin Ratio 1.4 03/01/25 14:35 03/01/25 14:35 Orders (Tests/Meds): ED MEDICATIONS Discontinued Medications Generic Name Dose Route Start Last Admin Trade Name Freq PRN Reason Stop Dose Admin Lactated Ringer's 1,000 mls @ 999 mls/hr 03/01/25 14:28 03/01/25 14:47 Lactated Ringer's 1000 Ml Bag IV 03/01/25 15:28 999 mls/hr .Q1H1M ONE Administration ORDERS Category Date Time Status XR chest portable Stat Exams 03/01/25 14:28 Taken Complete Blood Count Auto Diff Stat Lab 03/01/25 14:35 Completed Comprehensive Metabolic Panel Stat Lab 03/01/25 14:35 Completed Full Resp Panel w/COVID ([facility]) Routine Lab 03/01/25 14:12 Completed Magnesium Stat Lab 03/01/25 14:35 Completed NT Pro Brain Natriuretic Pep. Stat Lab 10/19/25 14:35 Completed Troponin I Q3H Lab 03/01/25 17:30 Ordered Troponin I Q3H Lab 03/01/25 20:30 Ordered Troponin I Stat Lab 03/01/25 14:35 Completed Medical Decision Narrative: 34-year-old male presents to the emergency department with 1 week history of fatigue cough congestion, dyspnea, lightheadedness, differential diagnose include but not limited to viral URI, acute bronchitis, pneumonia, cardiac arrhythmia, electrolyte disturbance among others. I discussed this patient's case with the attending Dr. De Los Santos Will obtain EKG, chest x-ray, basic labs, magnesium level proBNP full respiratory panel, troponin will give 1 L LR IV. CBC is unremarkable CMP grossly unremarkable Troponin is less than 0.01 proBNP within normal limits Full respiratory panel is notable for rhinovirus via PCR. Otherwise negative. I discussed the results with the patient and family at bedside, I along with the attending physician Dr. Lambert, reviewed the patient's chest x-ray, no acute cardiopulmonary process, discussed this with the patient and family at bedside, discussed that full radiology report is not yet available for my direct interrogation, patient would like be discharged home to self-care as will not change director, will call patient any actionable results. Patient voiced understanding and agreement with current treatment plan/discharge plan. Strict ED return precautions given. Recommend [id number] cold flu medications as needed for symptomatic relief. Critical Care Critical Care Time Critical Care Time: No
[2025-03-01 14:43] LABS: Hematocrit 43.5 % (42.0-52.0); Hemoglobin 14.2 g/dL (14.1-18.0); Immature Granulocytes % 0.3 %; Mean Corpuscular HGB Conc 32.6 g/dL (31.8-35.4); Mean Corpuscular Hemoglobin 27.4 pg (27.0-31.2); Mean Corpuscular Volume 83.8 fl (80-94); Nucleated Red Blood Cells % 0 %; Platelet Count 258 K/mm3 (142-424); Red Blood Count 5.19 M/mm3 (4.60-6.20); Red Cell Distribution Width-SD 41.1 fL; White Blood Count 8.7 K/mm3 (4.8-10.8)
[2025-03-01] MEDS: LACTATED RINGERS 1000ML 1,000 ML 999 ML IV (14:47)
--- NOTE | 2025-03-01 14:52 | ECG_ITS ---
APPROVED REPORT Exam: Resting ECG HR:59 bpm ECG Measurements Heart Rate 59 AXES VA 138 P 65 QRSd 101 QRS 38 QT 417 T 38 QTc 416 Conclusion SINUS BRADYCARDIA POSSIBLE RIGHT VENTRICULAR CONDUCTION DELAY [RSR (QR) IN V1/V2] BORDERLINE ECG UNCONFIRMED REPORT Electronically signed by : RONALD VANEGAS, 03/03/2025 02:52:21
[2025-03-01 14:55] LABS: Albumin Level 4.1 g/dl (3.5-5.0); Chloride 105 mmol/L (98-107); Potassium 3.8 mmoL/L (3.5-5.1); Sodium 141 mmol/L (136-145)
[2025-03-01 14:57] LABS: Blood Urea Nitrogen 14 mg/dl (9-20); Creatinine Clearance Estimated 202 mL/min (50-200); Creatinine,Serum 0.90 mg/dl (0.66-1.25); Estimated Glomerular Filt Rate 97 ml/min (>60); GFR (African American) 118 ML/MIN (>60)
[2025-03-01 14:58] LABS: Alanine Aminotransferase 58 U/L (12-78); Albumin/Globulin Ratio 1.4 (1.1-1.8); Alkaline Phosphatase 102 U/L (38-126); Anion Gap 11.8 mEq/L (5-15); Aspartate Amino Transferase 39 U/L (17-59); Bilirubin,Total 0.3 mg/dl (0.2-1.3); Calcium 8.6 mg/dl (8.4-10.2); Carbon Dioxide 28 mmol/L (22.0-30.0); Globulin 3.0 g/dL (1.3-3.2); Glucose 100 mg/dl (74-100); Total Protein,Serum 7.1 g/dl (6.3-8.2)
[2025-03-01 14:59] LABS: Magnesium 1.7 mg/dl (1.6-2.3)
[2025-03-01 15:00] VITALS: BP 125/78; PULSE 62; O2SAT 97
[2025-03-01 15:13] LABS: Troponin I < 0.01 ng/ml (0.00-0.034)
[2025-03-01 15:17] LABS: NT Pro Brain Natriuretic Pep. 118 pg/mL (0-125)
[2025-03-01 15:30] VITALS: BP 110/75; PULSE 62; O2SAT 98
[2025-03-01 16:03] VITALS: BP 130/76; PULSE 62; RESP 16; TEMP 36.8; O2SAT 98
== END 2025-03-01 16:05 | disposition home or self-care (01) ==
PROVIDERS: Physician Assistant; Emergency Provider Student in an Organized Health Care Education/Training Program; PCP Nurse Practitioner Family
DX: J20.6 Acute bronchitis due to rhinovirus (principal); R06.02 Shortness of breath
CPT/HCPCS: 0223U; 71045; 80053; 83735; 83880; 84484; 85025; 93005; 96360; 99284; J7120

== ENCOUNTER 2025-03-24 17:42 | Emergency (ER) | payer OTHER, SELFPAY ==
--- NOTE | 2025-03-24 17:46 | ECG_ITS ---
APPROVED REPORT Exam: Resting ECG HR:73 bpm ECG Measurements Heart Rate 73 AXES NE 138 P 50 QRSd 93 QRS 33 QT 374 T 32 QTc 400 Conclusion SINUS RHYTHM WITH SINUS ARRHYTHMIA NORMAL ECG UNCONFIRMED REPORT Normal sinus rhythm. No ST elevation or depression. QTc 400 Electronically signed by : GRAYSON JAMESON, 03/28/2025 07:15:15
--- NOTE | 2025-03-24 17:46 | CT_ITS ---
PROCEDURE INFORMATION: Exam: CTA Abdomen and Pelvis With Contrast Exam date and time: 03/24/2025 6:38 PM Age: 34 years old Clinical indication: Abdominal pain; Epigastric; Additional info: Chest/epigastric pain TECHNIQUE: Imaging protocol: Computed tomographic angiography of the abdomen and pelvis with contrast. Exam focused on the arteries. 3D rendering (Not supervised by radiologist): MIP and/or 3D reconstructed images were created by the technologist. Radiation optimization: All CT scans at this facility use at least one of these dose optimization techniques: automated exposure control; mA and/or kV adjustment per patient size (includes targeted exams where dose is matched to clinical indication); or iterative reconstruction. Contrast material: ISOVUE; Contrast volume: 80 ml; Contrast route: INTRAVENOUS (IV); COMPARISON: CT ABDOMEN PELVIS WO CON 05/12/2021 5:02 PM FINDINGS: Aorta: No aneurysm of the aorta. No dissection of the aorta. 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 Renal arteries: No occlusion or significant stenosis. Right iliac arteries: No occlusion or significant stenosis. Left iliac arteries: No occlusion or significant stenosis. Liver: No mass. Gallbladder and biliary ducts: Cholecystectomy Pancreas: Unremarkable. No mass. No ductal dilation. Spleen: Unremarkable. No splenomegaly. Adrenal glands: Unremarkable. No mass. Kidneys and ureters: There is no evidence of renal or ureteral calcifications. Stomach and bowel: Unremarkable. No obstruction. No mucosal thickening. Appendix: Surgical clip in the cecum consistent with prior appendectomy Intraperitoneal space: Unremarkable. No free air. No significant fluid collection. Lymph nodes: Unremarkable. No enlarged lymph nodes. Urinary bladder: Unremarkable. No mass. Reproductive: Unremarkable as visualized. Bones/joints: No acute fracture. Soft tissues: Unremarkable. IMPRESSION: 1. No aneurysm of the aorta. 2. No dissection of the aorta. 3. 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
--- NOTE | 2025-03-24 17:46 | CT_ITS ---
PROCEDURE INFORMATION: Exam: CTA Chest With Contrast Exam date and time: 03/24/2025 6:38 PM Age: 34 years old Clinical indication: Pain; Chest pressure; Additional info: Cp through to his back TECHNIQUE: Imaging protocol: Computed tomographic angiography of the chest with contrast. Exam focused on the arteries. 3D rendering (Not supervised by radiologist): MIP and/or 3D reconstructed images were created by the technologist. Radiation optimization: All CT scans at this facility use at least one of these dose optimization techniques: automated exposure control; mA and/or kV adjustment per patient size (includes targeted exams where dose is matched to clinical indication); or iterative reconstruction. Contrast material: ISOVUE; Contrast volume: 80 ml; Contrast route: INTRAVENOUS (IV); COMPARISON: CT ANGIO CHEST PE PROTOCOL 08/29/2023 3:22 PM FINDINGS: Pulmonary arteries: No evidence of pulmonary embolus to the segmental level. Aorta: No aneurysm of the aorta. No dissection of the aorta. Lungs: Unremarkable. No consolidation. No masses. Pleural spaces: Unremarkable. No pneumothorax. No pleural effusion. Heart: Unremarkable. No cardiomegaly. No pericardial effusion. Lymph nodes: Unremarkable. No enlarged lymph nodes. Bones/joints: Unremarkable. No acute fracture. Soft tissues: Unremarkable. IMPRESSION: 1. No evidence of pulmonary embolus to the segmental level. 2. No aneurysm of the aorta. 3. No dissection of the aorta.
[2025-03-24 17:47] VITALS: BP 156/85; PULSE 85; RESP 20; TEMP 37; O2SAT 99; BMI 37.3
--- NOTE | 2025-03-24 17:49 | ED_ITS ---
<Statement entered by Osmin Linda MD - 03/25/25 02:21> I was consulted by the AMA, and we discussed the complexity of the problems being addressed. I approve the treatment and management plan for this patient's care in the emergency department, thus performing a substantive portion of the medical decision making. Osmin Linda MD Discharge Plan Disposition Chief Complaint: Chest Pain Prescriptions Prescriptions: No Action tirzepatide 2.5 mg/0.5 mL pen injector 2.5 mg SQ WEEKLY Rx Instructions: for 4 weeks famotidine [Pepcid AC] 10 mg tablet 10 mg PO DAILY cholecalciferol (vitamin D3) 125 mcg (5,000 unit) capsule 125 mcg PO DAILY coenzyme Q10 100 mg tablet 100 mg PO DAILY folic acid 1 mg tablet 1 mg PO DAILY losartan 50 mg tablet 50 mg PO DAILY albuterol sulfate [Ventolin HFA] 90 mcg/actuation HFA aerosol inhaler 2 puff inhalation Q4-6H PRN (Reason: shortness of breath or wheezing) Qty: 8.5 0RF desvenlafaxine succinate [Pristiq] 25 mg tablet extended release 24 hr 25 mg PO DAILY Qty: 30 0RF amoxicillin 500 mg tablet 500 mg PO BID Qty: 20 0RF pravastatin 20 mg tablet See Rx Instructions .ROUTE .COMPLEX Qty: 30 2RF Dose Instruction: TAKE ONE TABLET BY MOUTH EVERY DAY Rx Instructions: TAKE ONE TABLET BY MOUTH EVERY DAY levothyroxine 50 mcg tablet See Rx Instructions .ROUTE .COMPLEX Qty: 30 2RF Dose Instruction: TAKE ONE TABLET BY MOUTH EVERY DAY Rx Instructions: TAKE ONE TABLET BY MOUTH EVERY DAY pregabalin 25 mg capsule 25 mg PO BID Qty: 60 0RF Referrals Follow up/Referrals: Lilian Gabriel APRN [Primary Care Provider, Medical] - See instructions Print Language Print Language: Lithuanian Discharge ED Provider: Osmin Linda HPI General Chief Complaint: Chest Pain Stated Complaint: Chest Pain Time Seen by Provider: 03/24/25 17:45 History of Present Illness HPI narrative: This is a 34-year-old male who presents to the ED today with central chest pain that goes through to his back for the past 2 days. He says it does go around the left side of his body to his back as well. He says it is better with sitting, worse with exertion. No shortness of air, no nausea, no vomiting. He does take meds for hypertension, has history of headaches, fatty liver, dermatitis CAD, left systolic heart failure, H. pylori, GERD, hypothyroid, hyperlipidemia bipolar. Patient has had a cholecystectomy in the past and a hernia repair as well as an appendectomy. He has had no recent illness with the exception of strep throat on 03/10/2025 which he was seen at [facility] express care for this. Related Data Home Medications ?Medication ?Instructions ?Recorded ?Confirmed tirzepatide 2.5 mg/0.5 mL 2.5 mg SQ WEEKLY 06/27/24 subcutaneous pen injector cholecalciferol (vitamin D3) 125 125 mcg PO DAILY 07/0803/10/25 mcg (5,000 unit) capsule coenzyme Q10 100 mg tablet 100 mg PO DAILY 09/12/24 famotidine 10 mg tablet (Pepcid AC) 10 mg PO DAILY 07/0803/10/25 folic acid 1 mg tablet 1 mg PO DAILY 09/12/2403/10 losartan 50 mg tablet 50 mg PO DAILY 09/26/2402/12 Previous Rx's ?Medication ?Instructions ?Recorded pravastatin 20 mg tablet See Rx Instructions .Route 0 11/03/24 .COMPLEX #30 tabs levothyroxine 50 mcg tablet See Rx Instructions .Route 12/14/24 .COMPLEX #30 tabs albuterol sulfate 90 mcg/actuation 2 puff inhalation Q 4-6H PRN 01/26/25 aerosol inhaler (Ventolin HFA) shortness of breath or wheezing #8.5 grams desvenlafaxine succinate 25 mg 25 mg PO DAILY #30 tabs 02/25/25 tablet,extended release 24 hr (Pristiq) pregabalin 25 mg capsule 25 mg PO BID #60 caps amoxicillin 500 mg tablet 500 mg PO BID #20 tabs 03/10 Allergies Allergy/AdvReac Type Severity Reaction Status Date / Time No Known Allergies Allergy Verified 03/10/25 18:19 [facility] Disclaimer: The information contained in this section may have been updated after the patient was seen, as this information can be updated by other users. Medical History Sinusitis Depression Anxiety Hyperlipidemia Hypertension Bipolar II disorder Surgical History Hx of cholecystectomy H/O hernia repair History of appendectomy Family History Father Cancer Other Coronary artery disease Heart attack Social History Smoking Status: Never smoker alcohol intake: never substance use type: denies use current occupational status: employed Travel in the last 8 weeks?: Inside the [place] number of children: 2 Have you lived/traveled outside [place] in past 30 days?: No Contact w/someone who lives/traveled outside US past 30 days?: No Exposure to someone with infectious disease in past 14 days?: No Do you have a fever (greater than 100.4 F or 38 C)?: No Have you tested positive for COVID-19?: No Exposed to someone with COVID-19 in past 14 days?: No Do you have a sore throat?: No Do you have a cough?: No Do you have any weakness?: No Do you have any diarrhea?: No Are you experiencing any unusual bleeding?: No Do you have any muscle aches/pain?: No Do you have any abdominal pain?: No Are you experiencing loss of taste or smell?: No Other Medical History Have you received the Flu Vaccine for this season: No Have you received the Pneumonia Vaccine: No ROS Obtained: Yes Systems reviewed as appropriate & no additional complaints except as documented Constitutional Constitutional: Reports as per HPI Physical Exam General General appearance: alert Head Head exam: normocephalic Eye Eye exam: Present PERRL ENT ENT exam: Present mucous membranes moist Neck Neck exam: Present trachea midline Chest Chest inspection: Present symmetric chest wall rise Respiratory Respiratory exam: Present normal lung sounds bilaterally Cardiovascular Cardiovascular exam: Present regular rate, normal rhythm, normal heart sounds, +S1 and +S2 Abdominal Exam Abdominal exam: Present soft and normal bowel sounds Extremities Exam Extremities exam: Present normal inspection, full ROM and normal capillary refill Back Exam Back exam: Present full ROM Neurological Exam Neurological exam: Present alert and oriented X3 Psychiatric Psychiatric exam: Present normal affect and normal mood Skin Skin exam: Present warm and dry Lymphatic Lymphatic Findings: no adenopathy HEART Score HEART Score HEART Score assessment performed?: Yes History (anamnesis): Slightly suspicious ECG: Normal Age: <45 years Risk factors: 1-2 risk factors Troponin: </= normal limit HEART Score: 1 Critical Care Critical Care Time Critical Care Time: No Medical Decision Making Yordy Inquiry Pt receiving controlled substance: No Yordy was queried for this patient: No Vital Signs Vital Signs: 03/24/25 17:47 Temperature 98.6 F Temperature Source Oral Pulse Rate [Left Radial] 85 Respiratory Rate 20 Blood Pressure [Right Arm] 156/85 H Blood Pressure Mean [Right Arm] 108 02 Sat by Pulse Oximetry 99 Oxygen Delivery Method Room Air Lab Data Labs: Lab Results 03/24/25 17:51: WBC 10.0, RBC 5.57, Hgb 15.3, Hct 46.5, MCV 83.5, MCH 27.5, MCHC 32.9, RDW 13.8, Plt Count 296, MPV 9.5, Neut % (Auto) 63.9, Lymph % (Auto) 28.5, [place] % (Auto) 6.3, Eos % (Auto) 0.7, Baso % (Auto) 0.3, Neut # (Auto) 6.4, Lymph # (Auto) 2.9, [place] # (Auto) 0.6, Eos # (Auto) 0.1, Baso # (Auto) 0.0, PT 10.8, INR 0.97, APTT 27.6, Sodium 139, Potassium 3.7, Chloride 100, Carbon Dioxide 30, Anion Gap 12.7, BUN 15, Creatinine 1.10, Estimated Creat Clear 169, Estimated GFR 77, Est GFR ( Amer) 93, Glucose 95, Calcium 9.2, Magnesium 1.9, Total Bilirubin 0.8, AST 42, ALT 56, Alkaline Phosphatase 108, Troponin I < 0.01, NT-Pro-B Natriuret Pep 37.2, Total Protein 8.2, Albumin 4.9, Globulin 3.3 H, Albumin/Globulin Ratio 1.5, Lipase 49 03/24/25 17:52: SARS-CoV-2 (PCR) Not detected, Influenza A Untype (PCR) Not detected, Influenza Type B (PCR) Not detected 03/24/25 17:51 03/24/25 17:51 Response Orders (Tests/Meds): ED MEDICATIONS Generic Name Dose Route Start Last Admin Trade Name Ulicesq PRN Reason Stop Dose Admin Sodium Chloride 8 ml 03/24/25 17:47 Sodium Chloride 0.9% 10ml Vial IV 04/23/25 17:46 NEEDED PRN dilute pepcid Discontinued Medications Generic Name Dose Route Start Last Admin Trade Name Ulicesq PRN Reason Stop Dose Admin Famotidine 20 mg 03/24/25 17:47 03/24/25 18:02 Famotidine 20mg/2ml Vial IV 03/24/25 17:48 20 mg ONCE ONE Administration Iopamidol 80 ml 03/24/25 18:38 03/24/25 18:39 Iopamidol-370 (76%);100ml Bottle IV 03/24/25 18:39 80 ml ONCE ONE Administration Morphine Sulfate 4 mg 03/24/25 17:47 03/24/25 18:02 Morphine 4mg/Ml Syringe IV 03/24/25 17:48 4 mg ONCE ONE Administration Ondansetron HCl 4 mg 03/24/25 17:47 03/24/25 17:58 Ondansetron 4mg/2ml Vial IV 03/24/25 17:48 4 mg ONCE ONE Administration Sodium Chloride 10 ml 03/24/25 18:38 03/24/25 18:39 Sodium Chloride 0.9% 10ml Syr (Rad Only) IV 03/24/25 18:39 10 ml ONCE ONE Administration Sodium Chloride 50 ml 03/24/25 18:38 03/24/25 18:39 0.9 % Sodium Chloride 50 Ml Vial IV 03/24/25 18:39 50 ml ONCE ONE Administration ORDERS Category Date Time Status CT angio abdomen pelvis Stat Cat Scan 03/24/25 17:[address] angio chest - dissection Stat Cat Scan 03/24/25 17:46 Completed BNP [NT Pro Brain Natriuretic Pep.] Stat Lab 03/24/25 17:51 Completed CBC [Complete Blood Count Auto Diff] Stat Lab 03/24/25 17:51 Completed Comprehensive Metabolic Panel Stat Lab 03/24/25 17:51 Completed Lipase Stat Lab 03/24/25 17:51 Completed Magnesium Stat Lab 03/24/25 17:51 Completed PT INR [Prothrombin Time INR] Stat Lab 03/24/25 17:51 Completed PTT [Activated Partial Thrombo Time] Stat Lab 03/24/25 17:51 Completed Rapid PCR Covid and Flu A/B Stat Lab 03/24/25 17:52 Completed Trop I [Troponin I] Stat Lab 03/24/25 17:51 Completed Troponin I Q3H Lab 03/24/25 21:00 Ordered Troponin I Q3H Lab 03/25/25 00:00 Ordered MDM Narrative Medical Decision Narrative: patient is a 34-year-old male presenting to the emergency department for evaluation of chest pain that goes through to her back. Patient is[hemodynamically stable and nontoxic-appearing upon arrival, afebrile. Differential diagnosis includes aortic dissection, ACS, heart failure, CAD among other. Workup will be conducted with hematologic labs, specific imaging, provocative tests. Initial inventions include analgesics. Initial workup reviewed by me hematologic labs are remarkable for WBC count 10, H&H normal PT/INR normal electrolytes are all normal troponin less than 0.01. We do not need to do a second 1 as chest pain started 2 days ago. Patient COVID and flu not detected CTA of chest and abdomen were both negative for dissection and PE. I discussed these findings with patient and the patient is agreeable to follow-up with his PCP and cardiology. Patient is safe for discharge home.
--- OUTSIDE RECORDS SUMMARY | 2025-03-24 17:52 | XMS_ITS | Encounter Summary ---
Author Organization [employer] ([place], [place], [place], [place], [place]) Address [address] [place] [address] Care Team Providers Care Budget Assistant Name Role Phone GabrielLilian hardy KARIS Primary Care Provider Reason for Visit * Reason Onset Date Comments Medication Problem 02/03/2025 Encounter Details Date Type Department Care Team (Late st Contact Info) Description 02/03/2025 Telephone [facility] Gastroenterology [address] [facility] [address] [id number] Hanna Corona MD [address] [facility] [place], [place] [id number] Medication Problem Social History Tobacco Use Types [...] Date Antonio rded Speak language other than Moldovan at home Not on file 10/16/2023 Want [...] on filedocumented in this encounter Care Teams Budget Assistant Relationship Specialty Start Date End Date Lilian Gabriel, KARIS [address] [address] PCP - General Nurse Practitioner 10/11/23 documented as of this encounter
--- OUTSIDE RECORDS SUMMARY | 2025-03-24 17:52 | XMS_ITS | Data Portability ---
Author Organization [place] [facility] [place] [facility] [place] Address [address] [place] [id number] Assessment Encounter Date Assessment Date Assessment LastModified [...] __ __ __ __ _ JOSE L: [id number] I have reviewed patient's JOSE L report prior to prescribing Schedule II, III, and IV medications that require review by law. beatriz Not available 08/22/2022 07:36:41 Plan of Treatment Reminders Order Date Submit Date Provider Last Modified By Organization Details Last Modified Time Details Appointments None recorded. Lab yonathan-b arr virus (ebv) DNA, qualitati ve 2024 025 [facility], [address] , [place], [address], 5 15:42:44 vitamin D, 25-hydrox y, total, serum [address] [facility], [address] , [place], [address], 5 15:37:31 HIV 1 2 Ab, panel, rapid IA, serum, plasma or blood 2024 025 [email or web address] 2 [facility], [address] [place], [address], 5 15:37:32 RPR (rapid plasma reagin), serum 2024 025 [facility], [address] [place], [address], 5 08:13:56 hepatitis (A+B+C) panel, serum 2024 025 [facility], [address] [place], [address], 5 14:01:40 hepatitis A Ab, total, serum [address] Lab, [address] [place], [address], 5 15:37:32 HBsAg (hepatiti s B surface Ag), serum [address] Lab, [address] [place], [address], 5 15:37:32 CBC w/ auto diff 2024 025 [facility], [address] [place], [address], 5 14:59:36 CMP, serum or plasma 2024 025 [facility], [address] [place], [address], 5 15:02:51 ESR (erythroc yte sedimenta tion rate), blood [address] Lab, [address] [place], [address], 5 15:37:32 C-reactiv e protein, quantitat wolf, serum or plasma [address] Lab, [address] , [place], [address], 5 15:37:32 vitamin B12, serum 2024 025 [email or web address] 2 [facility], [address] , [place], [address], 5 15:37:32 Referral None recorded. Procedures medial branch block, cervical (PROC) - [address], [address] bilateral C2-C4 2022 023 [email or web address] Not available 11:49:09 Surgeries None recorded. Imaging None recorded. Medication Orders diclofena c sodium 75 mg tablet,de layed release 2022 023 [facility], [address] [place] [address], [id number], 3 15:03:21 Patient TargetsNo targets recorded. Patient InstructionsNo instructions recorded. Reason for Referral None Reported. Results Created Date Observation Date Name Description Value Unit Range Abnormal Flag Note LastModifiedBy Organization Detail LastModifiedTime 11/05/1911/04/2024 CBC AUTO W DIFF WBC 8.3 K/uL 4.0-10 .5 Not Available [facility] ([facility] [address] , [place], [address], 11/04/2024 14:59:36 11/05/19 25 11/04/2024 CBC AUTO W DIFF RBC 5.6 M/mm3 4.7-6. 1 Not Available [facility] ([facility]) [address] , [place], [address], 11/04/2024 14:59:36 11/05/19 25 11/04/2024 CBC AUTO W DIFF HGB 15.2 gm/dL 13.5-1 8.0 Not Available [facility] ([facility]) [address] , [place], [address], 11/04/2024 14:59:36 11/05/19 25 11/04/2024 CBC AUTO W DIFF HCT 47.0 % 42.0-5 2.0 Not Available [facility] ([facility]) [address] , [place], [address], 11/04/2024 14:59:36 11/05/19 25 11/04/2024 CBC AUTO W DIFF MCV 84.2 fL 78-100 Not Available [facility] ([facility]) [address] , [place], [address], 11/04/2024 14:59:36 11/05/19 25 11/04/2024 CBC AUTO W DIFF MCH 27.2 pg 27-31 Not Available [facility] ([facility]) [address] , [place], [address], 11/04/2024 14:59:36 11/05/19 25 11/04/2024 CBC AUTO W DIFF MCHC 32.3 g/dL 32-36 Not Available [facility] ([facility]) [address] , [place], [address], 11/04/2024 14:59:36 11/05/19 25 11/04/2024 CBC AUTO W DIFF RDW 12.9 % 11.5-1 4.0 Not Available [facility] ([facility]) [address] [place], [address], 11/04/2024 14:59:36 11/05/19 25 11/04/2024 CBC AUTO W DIFF platelet count 291 K/uL 150-45 0 Not Available [facility] ([facility]) [address] [place], [address], 11/04/2024 14:59:36 11/05/19 25 11/04/2024 CBC AUTO W DIFF MPV 9.6 fL 6-9.5 high Not Available [facility] ([facility]) [address] [place], [address], 11/04/2024 14:59:36 11/05/19 25 11/04/2024 CBC AUTO W DIFF neutrophil% 70.7 % 43-65 high Not Available [facility] ([facility] [address] [place], [address], 11/04/2024 14:59:36 11/05/19 25 11/04/2024 CBC AUTO W DIFF lymphocyte% 22.0 % 20.5-4 5.5 Not Available [facility] ([facility]) [address] [place], [address], 11/04/2024 14:59:36 11/05/19 25 11/04/2024 CBC AUTO W DIFF monocyte% 5.8 % 5.5-11 .7 Not Available [facility] ([facility]) [address] [place], [address], 11/04/2024 14:59:36 11/05/19 25 11/04/2024 CBC AUTO W DIFF eosinophil% 0.7 % 0.9-2. 9 low Not Available [facility] ([facility]) [address] [place], [address], 11/04/2024 14:59:36 11/05/19 25 11/04/2024 CBC AUTO W DIFF basophil% 0.4 % 0.2-1. 0 Not Available [facility] ([facility]) [address] [place], [address], 11/04/2024 14:59:36 11/05/19 25 11/04/2024 CBC AUTO W DIFF immature granulocytes % 0.4 % 0.0-0. 8 Not Available [facility] ([facility]) [address] [facility], [place], [address], 11/04/2024 14:59:36 11/05/19 25 11/04/2024 CBC AUTO W DIFF nucleated red blood cells % 0.0 % Not Available [facility] ([facility]) [address] [facility], [place], [address], 11/04/2024 14:59:36 11/05/19 25 11/04/2024 CBC AUTO W DIFF neutrophil# 5.8 K/uL 2.2-4. 8 high Not Available [facility] ([facility]) [address] [facility], [place], [address], 11/04/2024 14:59:36 11/05/19 25 11/04/2024 CBC AUTO W DIFF lymphocyte# 1.8 cell/ mcL 1.3-2. 9 Not Available [facility] ([facility]) [address] [facility], [place], [address], 11/04/2024 14:59:36 11/05/19 25 11/04/2024 CBC AUTO W DIFF monocyte# 0.5 cell/ mcL 0.3-0. 8 Not Available [facility] ([facility]) [address] [place], [address], 11/04/2024 14:59:36 11/05/19 25 11/04/2024 CBC AUTO W DIFF eosinophil# 0.1 cell/ mcL 0-0.2 Not Available [facility] ([facility]) [address] [place], [address], 11/04/2024 14:59:36 11/05/19 25 11/04/2024 CBC AUTO W DIFF basophil# 0.0 cell/ mcL 0.0-1. 0 Not Available [facility] ([facility]) [address] [place], [address], 11/04/2024 14:59:36 11/05/19 25 11/04/2024 CBC AUTO W DIFF immature gramulocytes # 0.03 K/uL Not Available [facility] ([facility]) [address] , [place], [address], 11/04/2024 14:59:36 11/05/19 25 11/04/2024 CBC AUTO W DIFF nucleated red blood cells # 0.00 K/uL Not Available [facility] ([facility]) [address] , [place], [address], 11/04/2024 14:59:36 11/05/19 25 11/04/2024 CBC AUTO W DIFF manual differential NO Not Available [facility] ([facility]) [address], [place], [address], 11/04/2024 14:59:36 11/05/19 25 11/04/2024 COMP METAB OLIC PANEL sodium 142 mmol/ L 136-14 5 Not Available [facility] ([facility]) [address] [place], [address], 11/04/2024 15:02:51 11/05/19 25 11/04/2024 COMP METAB OLIC PANEL potassium 4.0 mmol/ L 3.6-5. 0 Not Available [facility] ([facility]) [address] [place], [address], 11/04/2024 15:02:51 11/05/19 25 11/04/2024 COMP METAB OLIC PANEL chloride 103 mmol/ L 98-107 Not Available [facility] ([facility]) [address], [place], [address], 11/04/2024 15:02:51 11/05/19 25 11/04/2024 COMP METAB OLIC PANEL carbon dioxide 29.1 mmol/ L 21.0-3 2.0 Not Available [facility] ([facility]) [address], [place], [address], 11/04/2024 15:02:51 11/05/19 25 11/04/2024 COMP METAB OLIC PANEL anion gap 13.9 Not Available [facility] ([facility]) [address], [place], [address], 11/04/2024 15:02:51 11/05/19 25 11/04/2024 COMP METAB OLIC PANEL glucose 92 mg/dL 70-120 Not Available [facility] ([facility]) [address], [place], [address], 11/04/2024 15:02:51 11/05/19 25 11/04/2024 COMP METAB OLIC PANEL BUN 12 mg/dL 7-18 Not Available [facility] ([facility]) [address], [place], [address], 11/04/2024 15:02:51 11/05/19 25 11/04/2024 COMP METAB OLIC PANEL creatinine 1.1 mg/dL 0.6-1. 3 Not Available [facility] ([facility]) [address], [place], [address], 11/04/2024 15:02:51 11/05/19 25 11/04/2024 COMP METAB [...] jacome ing kiney funct ion. Not Available [facility] ([facility]) [address], [place], [address], 11/04/2024 15:02:51 11/05/19 25 11/04/2024 COMP METAB OLIC PANEL osmolality (calculated) 295 mOsm/ kg 275-30 1 OSMOL ALITY IS A CALCU LATIO N UTILI ZING THE SERUM /PLAS MA SODIU M, GLUCO SE AND UREA NITRO GEN (BUN) LEVEL S. FOR THE MOST ACCUR ATE RESUL T A MEASU RED SERUM OSMOL ALITY IS EDNA SEXTOND. Not Available [facility] ([facility]) [address] [facility], [place], [address], 11/04/2024 15:02:51 11/05/19 25 11/04/2024 COMP METAB OLIC PANEL total protein 7.8 g/dL 6.4-8. 2 Not Available [facility] ([facility]) [address] [facility], [place], [address], 11/04/2024 15:02:51 11/05/19 25 11/04/2024 COMP METAB OLIC PANEL albumin 4.3 g/dL 3.4-5. 0 Not Available [facility] ([facility]) [address] [facility], [place], [address], 11/04/2024 15:02:51 11/05/19 25 11/04/2024 COMP METAB OLIC PANEL globulin 3.5 Not Available [facility] ([facility]) [address] [facility], [place], [address], 11/04/2024 15:02:51 11/05/19 25 11/04/2024 COMP METAB OLIC PANEL alb/glob ratio 1.2 0.7-2 Not Available [facility] ([facility]) [address] [place], [address], 11/04/2024 15:02:51 11/05/19 25 11/04/2024 COMP METAB OLIC PANEL calcium 9.2 mg/dL 8.5-10 .5 Not Available [facility] ([facility]) [address], [place], [address], 11/04/2024 15:02:51 11/05/19 25 11/04/2024 COMP METAB OLIC PANEL bilirubin total 0.50 mg/dL 0.10-1 .00 Not Available [facility] ([facility]) [address], [place], [address], 11/04/2024 15:02:51 11/05/19 25 11/04/2024 COMP METAB OLIC PANEL AST (SGOT) 23 U/L 0-37 Not Available [facility] ([facility]) [address] , [place], [address], 11/04/2024 15:02:51 11/05/19 25 11/04/2024 COMP METAB OLIC PANEL ALT (SGPT) 56 U/L 0-65 Not Available [facility] ([facility]) [address] , [place], [address], 11/04/2024 15:02:51 11/05/19 25 11/04/2024 COMP METAB OLIC PANEL alk phosphatase 132 U/L 46-116 high Not Available [facility] ([facility]) [address] , [place], [address], 11/04/2024 15:02:51 11/05/19 25 11/04/2024 C-EDDIE CTIVE PROTE IN (CRP) C-reactive protein, quant 0.5 mg/dL 0.05-0 .300 high Not Available [facility] ([facility]) [address] , [place], [address], 11/04/2024 15:02:53 11/05/19 25 11/04/2024 SED RATE sed rate auto 3 0-15 Not Available [facility] ([facility]) [address] , [place], [address], 11/04/2024 15:11:44 11/05/19 25 11/04/2024 VITAM IN D, 25-HY DROXY vitamin D, 25-hydroxy 30.4 NG/mL 30.0-1 00.0 Not Available [facility] ([facility]) [address], [place], [address], 11/04/2024 15:59:30 11/05/19 25 11/04/2024 VITAM IN B12 vitamin B12 406 pg/mL 193-98 6 *Note : Refer ence Erasmo freeman New Test Metho d in use. Not Available [facility] ([facility]) [address], [place], [address], 11/04/2024 15:59:31 11/05/19 25 11/05/2024 RPR QUAL RPR NON REACTI VE non reacti ve Perfo rmed at: [facility] [address] [facility] [employer] [place], [place] [address] Lab Direc tor: Song metz PhD, Phone : [phone] Not Available [facility] ([facility]) [address] [facility], [place], [address], 11/05/2024 08:13:56 11/05/19 25 11/05/2024 HIV AB/P2 4 AG WITH REFLE X HIV screen 4TH generation wrfx Non Reacti ve non reacti ve HIV-1 /HIV- 2 antib odies and HIV-1 p24 antig en were NOT detec fidel. There is no labor atory evide nce of HIV infec tion. HIV Negat wolf Perfo rmed at: [facility] n [address], [place], [place] [address] Lab Direc tor: Song metz PhD, Phone : [phone] Not Available [facility] ([facility]) [address], [place], [address], 11/05/2024 08:13:57 11/05/19 25 11/05/2024 HEPAT ITIS B SURFA CE AG EIA HBsAg screen Negati ve negati ve Perfo rmed at: [facility] [address] [place], [place] [address] Lab Direc tor: Song metz PhD, Phone : [phone] Not Available [facility] ([facility]) [address], [place], [address], 11/05/2024 09:13:06 11/05/1911/05/2024 HEP A AB, TOTAL [...] e HAV infec tion is suspe cted. [facility] les that will autom atica lly refle x posit wolf HAV total antib michelle resul ts to IgM (e.g. , panel #[id number] HAV Antib michelle w/ Rfx). Perfo rmed at: [facility] [address] [place] [address] Lab Direc tor: Song metz PhD, Phone : [phone] Not Available [facility] ([facility]) [address], [place], [address], 11/05/2024 09:13:07 11/05/19 25 11/05/2024 ACUTE HEPAT ITIS PANEL hep A Ab, IgM Negati ve negati ve A negat wolf anti- HAV IgM resul t sugge sts no recen t or curre nt HAV infec tion. Not Available [facility] ([facility]) [address], [place], [address], 11/05/2024 13:12:23 11/05/19 11/05/2024 ACUTE HEPAT ITIS PANEL HBsAg screen Negati ve negati ve Not Available [facility] ([facility]) [address], [place], [address], 11/05/2024 13:12:23 11/05/19 25 11/05/2024 ACUTE HEPAT ITIS PANEL hep B core Ab, IgM Negati ve negati ve Not Available [facility] ([facility]) [address] [facility], [place], [address], 11/05/2024 13:12:23 11/05/19 25 11/05/2024 ACUTE HEPAT ITIS PANEL HCV Ab Non Reacti ve non reacti ve [facility]: [facility] [address] [id number] [facility] Lab Direc tor: Song metz PhD, Phone : [phone] Not Available [facility] ([facility]) [address] [facility], [place], [address], 11/05/2024 13:12:23 11/05/19 25 11/05/2024 ACUTE HEPAT ITIS PANEL hep A Ab, IgM Negati ve negati ve A negat wolf anti- HAV IgM resul t sugge sts no recen t or curre nt HAV infec tion. Not Available [facility] ([facility]) [address] [facility], [place], [address], 11/05/2024 13:12:24 11/05/19 25 11/05/2024 ACUTE HEPAT ITIS PANEL HBsAg screen Negati ve negati ve Not Available [facility] ([facility]) [address] [facility], [place], [address], 11/05/2024 13:12:24 11/05/19 25 11/05/2024 ACUTE HEPAT ITIS PANEL hep B core Ab, IgM Negati ve negati ve Not Available [facility] ([facility]) [address] [place], [address], 11/05/2024 13:12:24 11/05/19 25 11/05/2024 ACUTE HEPAT ITIS PANEL HCV Ab Non Reacti ve non reacti ve Perfo rmed at: [facility] [address] [place] [address] Lab Direc tor: Song metz PhD, Phone : [phone] Not Available [facility] ([facility]) [address] [facility], [place], [address], 11/05/2024 13:12:24 11/05/19 25 11/05/2024 ACUTE HEPAT ITIS PANEL interpretati on: Commen t . Not infec fidel with HCV unles s early or acute infec tion is suspe cted (whic h may be delay ed in an immun ocomp romis ed indiv idual ), or other evide nce exist s to indic ate HCV infec tion. Perfo rmed at: [facility] [address] [place] [address] Lab Direc tor: Song metz PhD, Phone : [phone] Not Available [facility] ([facility]) [address] [facility], [place], [address], 11/05/2024 13:12:24 11/05/19 25 11/05/2024 EBV(E PSTEI N-BAR R VIRUS )AB PRO ebv Ab vca, IgM 85.8 U/mL 0.0-35 .9 high Negat wolf <36.0 Equiv ocal 36.0 - 43.9 Posit wolf >43.9 Not Available [facility] ([facility]) [address] [facility], [place], [address], 11/05/2024 15:11:35 11/05/19 25 11/05/2024 EBV(E PSTEI N-BAR R VIRUS )AB PRO ebv Ab vca, IgG 199.0 U/mL 0.0-17 .9 high Negat wolf <18.0 Equiv ocal 18.0 - 21.9 Posit wolf >21.9 Not Available [facility] ([facility]) [address], [place], [address], 11/05/2024 15:11:35 11/05/19 25 11/05/2024 EBV(E PSTEI N-BAR R VIRUS )AB PRO ebv nuclear antigen Ab, IgG 195.0 U/mL 0.0-17 .9 high Negat wolf <18.0 Equiv ocal 18.0 - 21.9 Posit wolf >21.9 Not Available [facility] ([facility]) [address] [facility], [place], [address], 11/05/2024 15:11:35 11/05/1911/05/2024 EBV(E PSTEI N-BAR R [...] to EBNA. Perfo rmed at: - [facility] [address], [place] [address] [facility] Lab Direc tor: Song metz PhD, Phone : [phone] Not Available [facility] ([facility]) [address] , [place], [address], 11/05/2024 15:11:35 Result Notes None recorded. Problems Name Problem SNOMED Code Status Onset Date Resolution Date Notes Provider Name and Address Organization Details Recorded Time Radicular pain 87756440 Active 2022 Ana faulkner, SARAH - [facility] [place] 3 13:54:51 Myofascial pain 194428624 Active 2022 [place] [facility] [place] 3 13:54:59 Spinal stenosis in cervical region 03904112 Active 2022 Ana fa[place]ner, [place] - [facility] [place] 3 13:55:04 Cervical spondylosis 171687430 Active 2022 Ana faulkner, SARAH - [facility] [place] 3 13:55:05 Frequent headache 334204769 Active 2022 Ana faulkner, [place] - [facility] [place] 3 13:55:13 Problem Notes None recorded. Procedures Surgical History Date Name Laterality Status Provider Name and Address Organization Details Recorded Time Appendectomy completed Melania SMITH - [facility] [place] 08/21/2022 17:21:53 Imaging Results None recorded. Procedure [...] Address Organization Details Last Updated DateTime 3 612721. 19 g 35.4 kg/m2 185.42 cm 97.8 [degF] 99 % 99 % 68 /min 130/80 mm[Hg] Melania Munoz [facility] & [place] 3 17:17:54 Date Recorded Heart rate Body height Oxygen saturation Oxygen saturation in Arterial blood by Pulse oximetry Body temperature Body mass index (BMI) Body weight Systolic And Diastolic Provider Name and Address Organization Details Last Updated DateTime 5 68 /min 185.42 cm 98 % 98 % 98.6 [degF] 34.8 kg/m2 849935. 23 g 128/77 mm[Hg] Sagrario Sloan [facility] & [place] 13:36:42 Date Recorded Body height Provider Name an d Address Organization Details Last Updated DateTime 11/12/2024 185.42 cm Paris Singh [facility] & [place] 11/12/2024 11:34:21 Social History None recorded. Functional Status None recorded. Mental Status None recorded. Family History Nothing Reported. Medical History Condition Response Depression Y Anxiety Disorder Y Acid Reflux (GERD) Y Hypertension Y Past Encounters Encounter ID Performer Location Encounter Start Date Encounter Closed Date Diagnosis/Indication Diagnosis SNOMED-CT Code Diagnosis ICD10 Code Diagnosis IMO Codes Diagnosis Note [id number] Chalo Mauricio MD [facility] [address] [facility] [place] [address] 08/21/2022 12:49:01 08/21/2022 15:10:43 Cervical spondylosis 847879082 M47.812 Spinal marcelo nosis in cervical region 37028582 M99.51 Myofascial pain 58315619 9 M79.10 Radicular pain 65181439 M54.10 Frequent headache 667985 003 R51.9 [id number] [facility] [address] [facility] [address] [place] [address] 11/04/2024 13:27:11 11/04/2024 13:57:32 Vitamin D deficiency 30144416 E55.9 60103 will check labs. Currently on replacemen t. Cobalamin deficiency 190 881252 E53.8 00745 will check labs. Currently on replacemen t. Fatigue 09111368 R53.83 [id number] Will check lab work. Discussed likelihood that sleep apnea is a diagnosis. Will see patient back in 1 week telehealth to discuss lab work. Follow with PCP as scheduled. HIV screening 205980385 Z11.4 [id number] Yonathan-Ba rr virus disease 972753395 B27.90 934557 [id number] Brenna Bean [facility] Infectiou s Disease -105 [address] [facility] [address] [place] [address] 11/12/2024 11:33:59 11/12/2024 12:58:55 Vitamin D deficiency 19840983 E55.9 84420 Vitamin D level is 30. Discussed optimal range levels with patient. Patient requests to follow up with PCP for replacemen t and monitoring . Cobalamin deficiency 190 631776 E53.8 35108 Vitamin B12 level is the lower end of normal. Discussed optimal range levels with patient. Patient requests to follow up with PCP for replacemen t and monitoring . Fatigue 17135487 R53.83 [id number] Patient is awaiting sleep study results. Likely related to undiagnose d/treated sleep apnea. Vitamin D and B12 levels are also low. Counseled on importance of replacemen t. Yonathan-Ba rr virus disease 305083581 B27.90 [id number] IGG levels are positive and discussed potential [...] PRN. Requires v accination against viral hepatitis [id number] Z23 [id number] Patient does not have immunity against Hepatitis [...] Segura Member ID Guarantor Name 11/18/2024 1 [facility] [id number] Julio Cesar Orellana [id number] Julio Cesar Orellana 11/04/2024 1 [place] [id number] Julio Cesar Orellana [id number] Julio Cesar Orellana 11/04/2024 1 [facility] (O) Julio Cesar Orellana [id number] Julio Cesar Orellana Notes Date Note Type [...] movements. 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 Brenna Mendoza APRN [address], [place], [address], [place] - [facility] & [place] 11/04/2024 15:00:22 5 text/html ROS as noted in the HPI patient presents via telehealth for follow up. Video and audio visit performed via [facility]. Patient and provider present on the call and both in the state [facility]. Patient consents to video. Patient denies [...] antiviral. Brenna Mendoza APRN [address], [place], [address], [place] - [facility] - [place] 11/12/2024 11:46:14
--- OUTSIDE RECORDS SUMMARY | 2025-03-24 17:53 | XMS_ITS | Clinical Summary ---
Author Organization [employer] ([place], [place], [place], [place], [place]) Address [address] [place] [address] Care Team Providers Care Bonding Equipment Operator Name Role Phone GabrielLilian hardy KARIS Primary Care Provider [phone] Allergies No known active allergies Medications levothyroxine [...] total) by mouth daily. 09/07/2023 Active omega 1-uud-mfq-fish oil capsule Take 1 capsule (1,000 mg [...] He was evaluated in the ER in [place]. He was told to f/u w/ cardiology. Resolved Problems Problem Noted Date Diagnosed Date Resolved Date Colon cancer screening 09/17/202312/10 Encounters Date Type Department Care Team Description 02/03/2025 Telephone [facility] Gastroenterology [address] [place] [address] [address] [place] [address] Hanna Corona MD Medication Problem 02/02/2025 Telephone [facility] Gastroenterology [address] [place] [address] [address] [place] [address] Hanna Corona MD Medication Refill (Tirzepatide compounded.) 02/02/2025 Telephone [facility] Gastroenterology [address] [place] [address] [address] [place] [address] Hanna Corona MD Medication Refill from [...] Date Antonio rded Speak language other than Ethiopian at home Not on file 10/16/2023 Want [...] patient's age to complete this topic Insurance [facility] CHOICE PLUS Advance Directives For more information, please contact: [phone] * Full Code (Latest Code Status on File) Date Activated Date Inactivated Comments 12/11/2023 9:46 AM 12/11/2023 6:29 PM Care Teams Bonding Equipment Operator Relationship Specialty Start Date End Date Lilian Gabriel, REGISTRATION COORDINATOR [address] [place] [address] PCP - General Nurse Practitioner 10/11/23
--- OUTSIDE RECORDS SUMMARY | 2025-03-24 17:53 | XMS_ITS | Continuity of Care Document ---
Author Organization [facility] Address [address] [place] [address] Phone Care Team Providers Care Circuit Breaker Assembler Name Role Phone Unavailable Primary Care Provider Unavailabl e Encounters Date Type Department Care Team Description 11/05/2018 9:15 AM EDT Office Visit [facility] Sleep Medicine [address] [address] Willie Ascencio MD Primary snoring; Obstructive sleep apnea 10/03/[address] [address] Osman Méndez MD Medication Refill (one script ) 09/09/2018 9:15 AM EDT - 09/09/2018 11:59 PM EDT Hospital Encounter [facility] Sleep Disorder Center [address] [place], [place] [id number] Obstructive sleep apnea (Primary Dx) Discharge Disposition: Home or Self Care 09/09/2018 9:00 AM EDT Office Visit [facility] Sleep Medicine [address] [address] Willie Ascencio MD Excessive sleepiness; Primary snoring; Obstructive sleep apnea 09/04/2018 12:07 AM EDT - 09/04/2018 11:59 PM EDT Hospital Encounter [facility] Sleep Disorder Center [address] [place] [phone] [place] Sleep Discharge Disposition: Home or Self Care 09/03/2018 6:45 PM EDT - 09/03/2018 11:59 PM EDT Hospital Encounter [facility] Sleep Disorder Center [place] [address] [place] [address] [place] [place] Sleep Obstructive sleep apnea (Primary Dx) Discharge Disposition: Home or Self Care 2018 Refill [facility] [address] [place] [address] Osman Méndez MD Medication Refill 08/23/2018 Orders Only [facility] Sleep Disorder Center [place] [address] [facility] [address] [place] [address] Willie Ascencio MD Obstructive sleep apnea (Primary Dx) 08/19/2018 8:30 AM EDT Office Visit [facility] Sleep Medicine [facility] [address] [facility] [address] [place] [address] Willie Ascencio MD Restless legs syndrome (Primary Dx); Excessive sleepiness; Primary snoring; Obstructive sleep apnea 07/31/2018 Telephone [facility] [address] [place] [address] Ender Salvador MD No Show 07/25/2018 8:20 AM EDT Office Visit [facility] [address] [place] [address] Osman Méndez MD Abrasion of finger, initial encounter (Primary Dx); Need for Tdap vaccination; Gastroesophageal reflux disease, esophagitis presence not specified; Atypical chest pain; Excessive daytime sleepiness 06/10/2018 8:49 AM EST - 06/10/2018 11:59 PM EST Hospital Encounter [facility] [address] [place] [address] Anxiety; Panic attacks Discharge Disposition: Home or Self Care 06/10/2018 8:00 AM EST Office Visit [facility] [address] [place] [address] Osman Méndez MD Anxiety (Primary [...] He was evaluated in the ER in [place]. He was told to f/u w/ cardiology. [...] Grandmother Social History Smoking Status as of 03/24/2025 Tobacco Use Types Packs/Day Years Used Date [...] 06/10/2018 3:17 PM EST [facility] Blood VENOUS BLOOD / Unknown Venipuncture / Unknown 06/10/2018 8:50 AM EST 06/10/2018 8:50 AM EST Narrative [facility] - 06/10/2018 3:17 PM EST Ingestion of dwain doses of biotin (>5 mg/day) taken within 8 hours of drawing blood sample can interfere with this immunoassay test. us Osamn Méndez MD CHEMISTRY ORDERABLES Final Res ult [facility] [address] [facility] , [place] [address] * CBC (06/10/2018 8:50 AM EST) WBC [...] EST 06/10/2018 8:50 AM EST us Osman Médnez MD HEMATOLOGY ORDERABLES Final Re sult [facility] [address] [facility] , [address] [place] [id number] * COMPREHENSIVE METABOLIC PANEL (06/10/2018 8:50 AM [...] mL/min/1.7 3 m2 06/10/2018 3:17 PM EST [facility] GFR Non Afr Am 116 >=60 mL/min/1.7 3 m2 06/10/2018 3:17 PM EST [facility] Comment: This estimated GFR was [...] ORDERABLES Final Res ult Performing Organization Address City/State/[facility] Co de Phone Number [email or web address] [address] [facility] , [place] [address] [facility] [address] [place] [address] Visit Diagnoses Diagnosis Start Date Anxiety Anxiety state, unspecified 06/10/2018 Panic attacks Panic disorder without agoraphobia 06/10/2018 Anxiety Anxiety state, unspecified 06/10/2018 Panic attacks Panic disorder without agoraphobia 06/10/2018 Abrasion of finger, initial encounter 07/25/2018 Need for Tdap vaccination Need for prophylactic vaccination with combined ziubdlwdxp-naqqjwf-leaxzendr (DTP) vaccine 07/25/2018 Gastroesophageal reflux disease, esophagitis [...]
--- OUTSIDE RECORDS SUMMARY | 2025-03-24 17:53 | XMS_ITS | Referral Summary ---
Author Organization [facility] ([place], [place], [place], [place], [place]) Address [address] [place] [address] Care Team Providers Care Radarman Name Role Phone Harvey Lilian KARIS Primary Care Provider Encounters Date Type Department Care Team Description 02/03/2025 Telephone [facility] Gastroenterology [address] [place] [address] [address] [place] [address] Hanna Corona MD Medication Problem 02/02/2025 Telephone [facility] Gastroenterology [address] [place] [address] [address] [place] [address] Hanna Corona MD Medication Refill (Tirzepatide compounded.) 02/02/2025 Telephone [facility] Gastroenterology [address] [place] [address] [address] [place] [address] Hanna Corona MD Medication Refill from [...] total) by mouth daily. 09/07/2023 Active omega 6-qvc-tne-fish oil capsule Take 1 capsule (1,000 mg [...] He was evaluated in the ER in [place]. He was told to f/u w/ cardiology. [...] Date Antonio rded Speak language other than Tongan at home Not on file 10/16/2023 Want [...] Plan of Treatment Not on file Insurance [address] [place] [id number] [facility] CHOICE PLUS Advance Directives For more information, please contact: [phone] * Full Code (Latest Code Status on File) Date Activated Date Inactivated Comments 12/11/2023 9:46 AM 12/11/2023 6:29 PM Care Teams Radarman Relationship Specialty Start Date End Date Lilian Gabriel APRN [address] [address] PCP - General Nurse Practitioner 10/11/23
--- OUTSIDE RECORDS SUMMARY | 2025-03-24 17:53 | XMS_ITS | Encounter Summary ---
Author Organization [employer] ([place], [place], [place], [place], [place]) Address [address] [place] [address] Care Team Providers Care Mechanical Design Technician Name Role Phone Lilian Gabriel APRN Primary Care Provider [phone] Reason for Visit * Reason Onset Date Comments Medication Refill 02/02/2025 Tirzepatide co mpounded. Encounter Details Date Type Department Care Team (Late st Contact Info) Description 02/02/2025 Telephone [facility] Gastroenterology [address] [place] [address] [address] Hanna Corona MD [address] [place] [phone] Medication Refill (Tirzepatide compounded.) Social History Tobacco [...] Date Antonio rded Speak language other than Haitian at home Not on file 10/16/2023 Want [...] on filedocumented in this encounter Care Teams Mechanical Design Technician Relationship Specialty Start Date End Date Lilian Gabriel, ARCHAEOLOGY PROFESSOR [address] [place] [phone] PCP - General Nurse Practitioner 10/11/23 documented as of this encounter
--- OUTSIDE RECORDS SUMMARY | 2025-03-24 17:53 | XMS_ITS | Data Portability ---
Author Organization [facility] Tony flood, DEBRAS FARMINGTON CLOSED Address [address] [facility] [address] [place] [address] Care Team Providers Care Sales Product Manager Name Role Phone GAURANG BARTHOLOMEW Referring Provider [phone] EDMUNDO JULIO Primary Care Provider [phone] Assessment Encounter Date Assessment Date Assessment LastModified [...] urea breath test, co2 infrared 2021 022 [facility], [address] [place] [address], [phone], 16:00:17 Referral None recorded. Procedures None recorded. Surgeries None recorded. Imaging None recorded. Medication Orders famotidine 40 mg tablet 2021 [facility], [address] [place] [address] [address] [facility] [address] [place], [id number], 14:11:17 Patient TargetsNo targets recorded. Patient InstructionsNo [...] PERFO RMED AT: [facility] [address] [place] [address] ROBIN Figueroa MD Not Available [facility] [address] [place] [address], [phone], 08/20/2021 16:00:17 10/02/19 25 09/26/2024 MRI, cervi norma spine , w/o contr ast No observ ation record ed. BARCODE Not Available 2024 15:57:00 Result Notes None recorded. Procedures Surgical History Date Name Laterality Status Provider Name and Address Organization Details Recorded Time 08/18/2021 UREA Breath Test completed Wayne Warner [facility] 08/18/2021 15:24:21 Imaging Results None recorded. [...] Updated DateTime 05/16/2022 185.42 cm 33.5 kg/m2 914556.46 g 0 Alfa Jones [facility] 05/16/2022 16:23:19 Date Recorded Body height Body mass index (BMI) Body weight Heart rate Respiratory rate Systolic And Diastolic Provider Name and Address Organization Details Last Updated DateTime 2 185.42 cm 33.5 kg/m2 460396. 46 g 101 /min 16 /min 161/96 mm[Hg] Karin King [facility] 2 14:40:05 Date Recorded Body height Body mass index (BMI) Body weight Heart rate Respiratory rate Systolic And Diastolic Provider Name and Address Organization Details Last Updated DateTime 2 185.42 cm 33.5 kg/m2 208898. 46 g 71 /min 16 /min 130/78 mm[Hg] Wayne Warner [facility] 2 13:45:41 Social History Question Answer Notes LastModified by Organizat ion Details LastModified Time Tobacco Smoking Status Never Smoker Karindanae King [facility] 08/18/2021 14:42:08 What Is Your Relationship [...] NSAID Use N Osteoporosis/Osteopenia N Heart Attack ([place]) N Mental Illness N Diabetes N Bleeding [...] ICD10 Code Diagnosis IMO Codes Diagnosis Note [id number] RONAL KOCH MD [address]STR[address] [place] [address] 08/18/2021 14:01:47 09/21/2021 07:49:02 Nonulcer dyspepsia 5282767 K30 h pylori breath testif neg 8 weeks ppi therapyrtc 8 weeksconsi piotr egd if persists [id number] RONAL KOCH MD [address]STR[address] [place] [address] 08/18/2021 15:23:32 08/19/2021 11:14:06 Nonulcer dyspepsia 1303883 K30 [id number] [place] [address] [place], [place] [address] 1 10/25/2021 13:24:58 10/25/2021 14:48:25 Gastroesophageal reflux disease without esophagitis 013207612 K21.9 [id number] LENNY MARTINEZ MD [facility]EDI CS [facility] [address] [place] [address] 05/16/2022 15:59:00 05/16/2022 16:58:57 Impingement syndrome of right shoulder region 0775597760 50900 M75.41 Tendinitis of long head of biceps brachii of right shoulder 912004223 M75.21 [id number] HEBERT BRANDON MD NEUROSURG [facility] [address] [place] [address] 10/09/2024 09:27:48 10/10/2024 04:30:43 Cervical spondylosis 514277929 M47.812 [address] Health Concerns Section Related Observation LastModified by Organization Detai ls LastModified Time None Recorded Concern Status LastModified by Organization Details LastModified Time None Recorded Advance Directives Directive None Recorded Payers Insurance Date Sequence Insurance Name Policy Number Policy Segura Covered Member ID Segura Member ID Guarantor Name 10/01/2024 1 [place] [employer] [facility] [id number] Melody Orellana [id number] Julio Cesar Orellana 12/27/2024 1 [facility] [id number] Julio Cesar Orellana [id number] Juilo Cesar Orellana Notes Date Note Type Note Provider Name and Address Organization Details Recorded Time 08/18/2021 text/html burning stomach sxsdyspepsiano current therapy RONAL KOCH MD [address] [place] [address], [address] [place] [address] 09/19/2021 22:46:58 10/25/2021 text/html Feels Much better on ppiLast egd many years ago -- 3 yrs agoPantop 40 mg qdPepcid 20 RONAL KOCH MD [address] [place] [address], [address] [place] [address] 10/25/2021 14:00:59 05/16/2022 text/html 1.3.22PCP: [place] FOR [...] /10 PT: naNSAIDS:naINJECTION :na LENNY MARTINEZ MD [address] [place] [address], [phone], [facility] 05/17/2022 09:26:29 10/09/2024 text/html I saw [...] Lyrica which has helped. HEBERT BRANDON MD [address] [place] [address], [phone], [facility] 10/09/2024 10:42:35
--- OUTSIDE RECORDS SUMMARY | 2025-03-24 17:53 | XMS_ITS | Encounter Summary ---
Author Organization [employer] ([place], [place], [place], [place], [place]) Address [address] [place] [address] Care Team Providers Care Curtain Hemmer Automatic Name Role Phone GabrielLilian KARIS Primary Care Provider Reason for Visit * Reason Onset Date Comments Medication Refill 02/02/2025 Encounter Details Date Type Department Care Team (Late st Contact Info) Description 02/02/2025 Telephone [facility] Gastroenterology [address] [facility] [address] [address] Hanna Corona MD [address] [facility] [place], [place] [phone] Medication Refill Social History Tobacco Use Types [...] Date Antonio rded Speak language other than Paraguayan at home Not on file 10/16/2023 Want [...] prescription that was sent to [facility] pharmacy for tirzepatide shot with b12, pt was calling stating pharmacy sent over the paperwork for a change to it and wanted to make sure we rec'd it,. Please call pt with any question. documented in this encounter Plan of Treatment Not on file documented as of this encounter Visit Diagnoses Not on filedocumented in this encounter Care Teams Curtain Hemmer Automatic Relationship Specialty Start Date End Date Harvey Lilian, TUNNEL INSPECTOR [address] [address] PCP - General Nurse Practitioner 10/11/23 documented as of this encounter
--- OUTSIDE RECORDS SUMMARY | 2025-03-24 17:53 | XMS_ITS | Clinical Summary ---
Author Organization [facility] Address [address] [facility], [address] [place] [address] Care Team Providers Care Crushed Stone Grader Name Role Phone Berto Frazier MD Primary Care Provider [phone] Allergies No known active allergies Medications Sertraline [...] of Treatment Not on file Insurance [facility] Advance Directives * Full Code (Latest Code Status on File) Date Activated Date Inactivated Comments 08/27/2018 5:13 PM 08/28/2018 8:15 PM Care Teams Crushed Stone Grader Relationship Specialty Start Date End Date Berto Frazier MD [address] [facility] [address] [place] [address] PCP - General Family Medicine 08/12/18
--- OUTSIDE RECORDS SUMMARY | 2025-03-24 17:53 | XMS_ITS | Clinical Summary ---
Author Organization [facility] Address [address] [place] [address] Care Team Providers Care Practical Nurse Name Role Phone Lilian Gabriel APRN Primary [...] at night. In lab sleep study at [facility] for further evaluation. Excessive daytime sleepiness [...] - 200 mg/dL 10/30/2016 11:40 AM EDT [facility] Triglycerides 64 0 - 150 mg/dL 10/30/2016 11:40 AM EDT [facility] HDL Cholesterol 43 40 - 60 mg/dL 10/30/2016 11:40 AM EDT [facility] LDL Cholesterol 128 0 - 130 mg/dL 10/30/2016 11:40 AM EDT [facility] Blood Venipuncture / Unknown 10/30/2016 10:57 AM EDT 10/30/2016 10:57 AM EDT Narrative [facility] - 10/30/2016 11:40 AM EDT [...] Perez APRN LAB BLOOD ORDERABLES Final Result [facility]
[address] [place] [address], from Last 3 Months or Most Recently Relevant to Health Maintenance Insurance [address] Care Teams Practical Nurse Relationship Specialty Start Date End Date Lilian Gabriel APRN PCP - General Internal Medicine 06/21/20
[2025-03-24] MEDS: ONDANSETRON 4MG/2ML VIAL 4 MG IV (17:58)
[2025-03-24 18:02] LABS: Hematocrit 46.5 % (42.0-52.0); Hemoglobin 15.3 g/dL (14.1-18.0); Immature Granulocytes % 0.3 %; Mean Corpuscular HGB Conc 32.9 g/dL (31.8-35.4); Mean Corpuscular Hemoglobin 27.5 pg (27.0-31.2); Mean Corpuscular Volume 83.5 fl (80-94); Nucleated Red Blood Cells % 0 %; Platelet Count 296 K/mm3 (142-424); Red Blood Count 5.57 M/mm3 (4.60-6.20); Red Cell Distribution Width-SD 41.1 fL; White Blood Count 10.0 K/mm3 (4.8-10.8)
[2025-03-24] MEDS: MORPHINE 4MG/ML SYRINGE 4 MG IV (18:02)
[2025-03-24] MEDS: FAMOTIDINE 20MG/2ML VIAL 20 MG IV (18:02)
[2025-03-24 18:03] LABS: Coronavirus 19, PCR Not Detected (NotDetected); Influenza A, PCR Not Detected (NotDetected); Influenza B, PCR Not Detected (NotDetected)
[2025-03-24 18:14] LABS: Activated Partial Thrombo Time 27.6 seconds (22.8-30.6); INR 0.97 (0.9-1.1); Prothrombin Time 10.8 seconds (10.1-12.5)
[2025-03-24 18:21] LABS: Alanine Aminotransferase 56 U/L (12-78); Albumin Level 4.9 g/dl (3.5-5.0); Albumin/Globulin Ratio 1.5 (1.1-1.8); Alkaline Phosphatase 108 U/L (38-126); Anion Gap 12.7 mEq/L (5-15); Aspartate Amino Transferase 42 U/L (17-59); Bilirubin,Total 0.8 mg/dl (0.2-1.3); Blood Urea Nitrogen 15 mg/dl (9-20); Calcium 9.2 mg/dl (8.4-10.2); Carbon Dioxide 30 mmol/L (22.0-30.0); Chloride 100 mmol/L (98-107); Creatinine Clearance Estimated 169 mL/min (50-200); Creatinine,Serum 1.10 mg/dl (0.66-1.25); Estimated Glomerular Filt Rate 77 ml/min (>60); GFR (African American) 93 ML/MIN (>60); Globulin 3.3 g/dL (1.3-3.2); Glucose 95 mg/dl (74-100); Lipase 49 U/L (23-300); Magnesium 1.9 mg/dl (1.6-2.3); Potassium 3.7 mmoL/L (3.5-5.1); Sodium 139 mmol/L (136-145); Total Protein,Serum 8.2 g/dl (6.3-8.2)
[2025-03-24 18:30] LABS: NT Pro Brain Natriuretic Pep. 37.2 pg/mL (0-125)
[2025-03-24 18:32] LABS: Troponin I < 0.01 ng/ml (0.00-0.034)
[2025-03-24] MEDS: IOPAMIDOL-370 (76%);100ML BOTTLE 80 ML IV (18:39)
[2025-03-24] MEDS: 0.9 % SODIUM CHLORIDE 50 ML VIAL IV (18:39)
[2025-03-24] MEDS: SODIUM CHLORIDE 0.9% 10ML SYR (RAD ONLY) 10 ML IV (18:39)
--- NOTE | 2025-03-24 19:10 | PC.NURSE ---
Report received from Marc RN Pt awake alert and oreinted Skin pink warm and dry Resp full and easy Speech clear and appropriate. IV site without redness or edema. Call light in reach
[2025-03-24 19:38] VITALS: BP 125/68; PULSE 68; RESP 20; TEMP 36.8; O2SAT 97
== END 2025-03-24 19:45 | disposition home or self-care (01) ==
PROVIDERS: Nurse Practitioner; Emergency Provider Student in an Organized Health Care Education/Training Program; PCP Nurse Practitioner Family
DX: R07.9 Chest pain, unspecified (principal); F32.A Depression, unspecified; I10 Essential (primary) hypertension; E78.5 Hyperlipidemia, unspecified
CPT/HCPCS: 71275; 74174; 80053; 83690; 83735; 83880; 84484; 85025; 85610; 85730; 87636; 93005; 96374; 96375; 99285; J1308; J2270; J2405; Q9967

== ENCOUNTER 2025-04-02 15:32 | Outpatient (CLI) | payer OTHER, SELFPAY ==
--- NOTE | 2025-04-02 15:35 | XR_ITS ---
FINAL REPORT CLINICAL HISTORY: thoracic back pain COMPARISON: None FINDINGS: Three views of the thoracic spine were obtained. There is no fracture present. There is no malalignment. There are no significant degenerative changes. IMPRESSION: No acute process. Reviewed, Interpreted and Dictated by Alan Oscar MD Transcribed by Cherelle Perez Authenticated and [facility]
--- OUTSIDE RECORDS SUMMARY | 2025-04-02 17:23 | XMS_ITS | Data Portability ---
Author Organization [facility] Tony flood, DEBRAS WELLINGTON CLOSED Address [address] [facility] [address] [place] [address] Care Team Providers Care Seater Assembler Name Role Phone GAURANG BARTHOLOMEW Referring Provider [...] urea breath test, co2 infrared 2021 022 [facility], [address] [place] [address], [phone], 16:00:17 Referral None recorded. Procedures None recorded. Surgeries None recorded. Imaging None recorded. Medication Orders famotidine 40 mg tablet 2021 [facility], [address] [place] [address] [address] [facility] [address] [place], [place], [phone], 14:11:17 Patient TargetsNo targets recorded. Patient InstructionsNo [...] PERFO RMED AT: [facility] [address] [place] [address] ROBIN Figueroa MD Not Available [facility] [address] [place] [address], [phone], 08/20/2021 16:00:17 10/02/19 25 09/26/2024 MRI, cervi norma spine , w/o contr ast No observ ation record ed. BARCODE Not Available 2024 15:57:00 Result Notes None recorded. Procedures Surgical History Date Name Laterality Status Provider Name and Address Organization Details Recorded Time 08/18/2021 UREA Breath Test completed Wayne Warner [facility] 08/18/2021 15:24:21 Imaging Results None recorded. Procedure [...] Updated DateTime 05/16/2022 185.42 cm 33.5 kg/m2 780255.46 g 0 Alfa Jones [facility] 05/16/2022 16:23:19 Date Recorded Body height Body mass index (BMI) Body weight Heart rate Respiratory rate Systolic And Diastolic Provider Name and Address Organization Details Last Updated DateTime 2 185.42 cm 33.5 kg/m2 210211. 46 g 101 /min 16 /min 161/96 mm[Hg] Karin King [facility] 2 14:40:05 Date Recorded Body height Body mass index (BMI) Body weight Heart rate Respiratory rate Systolic And Diastolic Provider Name and Address Organization Details Last Updated DateTime 2 185.42 cm 33.5 kg/m2 414106. 46 g 71 /min 16 /min 130/78 mm[Hg] Wayne Warner [facility] 2 13:45:41 Social History Question Answer Notes LastModified by Organizat ion Details LastModified Time Tobacco Smoking Status Never Smoker Karindanae King [facility] 08/18/2021 14:42:08 What Is Your Relationship [...] NSAID Use N Osteoporosis/Osteopenia N Heart Attack ([place]) N Mental Illness N Diabetes N Bleeding [...] ICD10 Code Diagnosis IMO Codes Diagnosis Note [id number] RONAL KOCH MD [address]STRO [address] [place] [address] 08/18/2021 14:01:47 09/21/2021 07:49:02 Nonulcer dyspepsia 0392293 K30 h pylori breath testif neg 8 weeks ppi therapyrtc 8 weeksconsi piotr egd if persists [id number] RONAL KOCH MD GASTRO [address] [place] [address] 08/18/2021 15:23:32 08/19/2021 11:14:06 Nonulcer dyspepsia 2486067 K30 [id number] [place] [address] [place], [place] [address] 1 10/25/2021 13:24:58 10/25/2021 14:48:25 Gastroesophageal reflux disease without esophagitis 778167700 K21.9 [id number] LENNY MARTINEZ MD ORTHOPEDI CS [facility] [address] [place] [address] 05/16/2022 15:59:00 05/16/2022 16:58:57 Impingement syndrome of right shoulder region 3585741708 32635 M75.41 Tendinitis of long head of biceps brachii of right shoulder 247975673 M75.21 [id number] HEBERT BRANDON MD NEUROSURG [facility] [address] [place] [address] 10/09/2024 09:27:48 10/10/2024 04:30:43 Cervical spondylosis 465100152 M47.812 512[address] Health Concerns Section Related Observation LastModified by Organization Detai ls LastModified Time None Recorded Concern Status LastModified by Organization Details LastModified Time None Recorded Advance Directives Directive None Recorded Payers Insurance Date Sequence Insurance Name Policy Number Policy Segura Covered Member ID Segura Member ID Guarantor Name 10/01/2024 1 [place] [employer]BS [facility] [id number] Melody Orellana [id number] Julio Cesar Orellana 12/27/2024 1 [facility] [id number] Julio Cesar Orellana [id number] Julio Cesar Orellana Notes Date Note Type Note Provider Name and Address Organization Details Recorded Time 08/18/2021 text/html burning stomach sxsdyspepsiano current therapy RONAL KOCH MD [address] [place] [address], [address] [place] [address] 09/19/2021 22:46:58 10/25/2021 text/html Feels Much better on ppiLast egd many years ago -- 3 yrs agoPantop 40 mg qdPepcid 20 RONAL KOCH MD [address] [place] [address], [address] [place] [address] 10/25/2021 14:00:59 05/16/2022 text/html 1.3.22PCP: Ludwin FOR [...] /10 PT: naNSAIDS:naINJECTION :na LENNY MARTINEZ MD [address] [place] [address], [phone], [facility] 05/17/2022 09:26:29 10/09/2024 text/html I [...] Lyrica which has helped. HEBERT BRANDON MD [address] [place] [address], [phone], [facility] 10/09/2024 10:42:35
--- OUTSIDE RECORDS SUMMARY | 2025-04-02 17:24 | XMS_ITS | Encounter Summary ---
Author Organization [employer] ([place], [place], [place], [place], [place]) Address [address] [place] [address] Care Team Providers Care Finance Manager Name Role Phone Lilian Gabriel APRN Primary Care Provider Reason for Visit * Reason Onset Date Comments Medication Refill 02/02/2025 Tirzepatide co mpounded. Encounter Details Date Type Department Care Team (Late st Contact Info) Description 02/02/2025 Telephone [facility] Gastroenterology [address] [place] [address] [address] Hanna Corona MD [address] [id number] Medication Refill (Tirzepatide compounded.) Social History Tobacco [...] Date Antonio rded Speak language other than Croatian at home Not on file 10/16/2023 Want [...] on filedocumented in this encounter Care Teams Finance Manager Relationship Specialty Start Date End Date Lilian Gabriel, PRECAST CONCRETE IRONWORKER [address] [phone] PCP - General Nurse Practitioner 10/11/23 documented as of this encounter
--- OUTSIDE RECORDS SUMMARY | 2025-04-02 17:24 | XMS_ITS | Clinical Summary ---
Author Organization [employer] ([place], [place], [place], [place], [place]) Address [address] [place] [address] Care Team Providers Care Sticker Operator Name Role Phone GabrielLilian hardy UPHOLSTERER HELPER Primary Care Provider Allergies No known active [...] total) by mouth daily. 09/07/2023 Active omega 2-yjt-ovl-fish oil capsule Take 1 capsule (1,000 mg [...] was evaluated in the ER in [place]. He was told to f/u w/ cardiology. Resolved Problems Problem Noted Date Diagnosed Date Resolved Date Colon cancer screening 09/17/202312/10 Encounters Date Type Department Care Team Description 02/03/2025 Telephone [facility] Gastroenterology [address] [place] [address] [address] [place] [address] Hanna Corona MD Medication Problem 02/02/2025 Telephone [facility] Gastroenterology [address] [place] [address] [address] [place] [address] Hanna Corona MD Medication Refill (Tirzepatide compounded.) 02/02/2025 Telephone [facility] Gastroenterology [address] [place] [address] [address] [place] [address] Hanna Corona MD Medication Refill [...] Date Antonio rded Speak language other than Cape Verdean at home Not on file 10/16/2023 Want [...] patient's age to complete this topic Insurance [facility] CHOICE PLUS Advance Directives For more information, please contact: [phone] * Full Code (Latest Code Status on File) Date Activated Date Inactivated Comments 12/11/2023 9:46 AM 12/11/2023 6:29 PM Care Teams Sticker Operator Relationship Specialty Start Date End Date Lilian Gabriel, UPHOLSTERER HELPER [address] [place] [address] PCP - General Nurse Practitioner 10/11/23
--- OUTSIDE RECORDS SUMMARY | 2025-04-02 17:24 | XMS_ITS | Encounter Summary ---
Author Organization [employer] ([place], [place], [place], [place], [place]) Address [address] [place] [address] Care Team Providers Care Clinical Rehab Specialist Name Role Phone GabrielLilian hardy KARIS Primary Care Provider Reason for Visit * Reason Onset Date Comments Medication Problem 02/03/2025 Encounter Details Date Type Department Care Team (Late st Contact Info) Description 02/03/2025 Telephone [facility] Gastroenterology 14[address] [facility] [address] [address] Hanna Corona MD 1401 [facility] [place], [place] [phone] Medication Problem Social History Tobacco Use Types [...] Date Antonio rded Speak language other than French at home Not on file 10/16/2023 Want [...] on filedocumented in this encounter Care Teams Clinical Rehab Specialist Relationship Specialty Start Date End Date Lilian Gabriel, KARIS [address] [address] PCP - General Nurse Practitioner 10/11/23 documented as of this encounter
--- OUTSIDE RECORDS SUMMARY | 2025-04-02 17:24 | XMS_ITS | Encounter Summary ---
Author Organization [employer] ([place], [place], [place], [place], [place]) Address [address] [place] [address] Care Team Providers Care Noise Tester Name Role Phone GabrielLilian KARIS Primary Care Provider Reason for Visit * Reason Onset Date Comments Medication Refill 02/02/2025 Encounter Details Date Type Department Care Team (Late st Contact Info) Description 02/02/2025 Telephone [facility] Gastroenterology 1401 [facility] [address] [address] Hanna Corona MD 1401 [facility] [place], [place] [id number] Medication Refill Social History Tobacco Use Types [...] Date Antonio rded Speak language other than Mauritanian at home Not on file 10/16/2023 Want [...] calling about prescription that was sent to [facility] for tirzepatide shot with b12, pt was calling stating pharmacy sent over the paperwork for a change to it and wanted to make sure we rec'd it,. Please call pt with any question. documented in this encounter Plan of Treatment Not on file documented as of this encounter Visit Diagnoses Not on filedocumented in this encounter Care Teams Noise Tester Relationship Specialty Start Date End Date Harvey Lilian, MANAGER GENERATION [address] [address] PCP - General Nurse Practitioner 10/11/23 documented as of this encounter
--- OUTSIDE RECORDS SUMMARY | 2025-04-02 17:24 | XMS_ITS | Referral Summary ---
Author Organization [employer] ([place], [place], [place], [place], [place]) Address [address] [place] [address] Care Team Providers Care Boatbuilder Apprentice Wood Name Role Phone Harvey Lilian KARIS Primary Care Provider Encounters Date Type Department Care Team Description 02/03/2025 Telephone [facility] Gastroenterology [address] [place] [address] [address] [place] [address] Hanna Corona MD Medication Problem 02/02/2025 Telephone [facility] Gastroenterology [address] [place] [address] [address] [place] [address] Hanna Corona MD Medication Refill (Tirzepatide compounded.) 02/02/2025 Telephone [facility] Gastroenterology [address] [place] [address] [address] [place] [address] Hanna Corona MD Medication Refill from [...] total) by mouth daily. 09/07/2023 Active omega 6-uex-pyr-fish oil capsule Take 1 capsule (1,000 mg [...] He was evaluated in the ER in [place]. He was told to f/u w/ cardiology. [...] Not on file Insurance [address] [id number] [facility] CHOICE PLUS Advance Directives For more information, please contact: [phone] * Full Code (Latest Code Status on File) Date Activated Date Inactivated Comments 12/11/2023 9:46 AM 12/11/2023 6:29 PM Care Teams Boatbuilder Apprentice Wood Relationship Specialty Start Date End Date Lilian Gabriel APRN [address] [address] PCP - General Nurse Practitioner 10/11/23
--- OUTSIDE RECORDS SUMMARY | 2025-04-02 17:24 | XMS_ITS | Continuity of Care Document ---
Author Organization [facility] Address [address] [place] [phone] Phone Care Team Providers Care Quality Assurance Intern Name Role Phone Unavailable Primary Care Provider Unavailabl e Encounters Date Type Department Care Team Description 11/05/2018 9:15 AM EDT Office [place] [facility] [place] [address] [address] Willie Ascencio MD Primary snoring; Obstructive sleep apnea 10/03/[address] [address] Osman Méndez MD Medication Refill (one script ) 09/09/2018 9:15 AM EDT - 09/09/2018 11:59 PM EDT Hospital Encounter [facility] Sleep Disorder Center [address] [place], [place] [phone] Obstructive sleep apnea (Primary Dx) Discharge Disposition: Home or Self Care 09/09/2018 9:00 AM EDT Office Visit [facility] [place] Medicine [address] [address] Willie Ascencio MD Excessive sleepiness; Primary snoring; Obstructive sleep apnea 09/04/2018 12:07 AM EDT - 09/04/2018 11:59 PM EDT Hospital Encounter [facility] Sleep Disorder Center [address] [place] [phone] [place] Sleep Discharge Disposition: Home or Self Care 09/03/2018 6:45 PM EDT - 09/03/2018 11:59 PM EDT Hospital Encounter [facility] Sleep Disorder Center [place] [address] [place] [address] [place] Sleep Obstructive sleep apnea (Primary Dx) Discharge Disposition: Home or Self Care 2018 Refill [facility] [address] [place] [address] Osman Méndez MD Medication Refill 08/23/2018 Orders Only [facility] Sleep Disorder Center [place] [address] [facility] [address] [place] [address] Willie Ascencio MD Obstructive sleep apnea (Primary Dx) 08/19/2018 8:30 AM EDT Office Visit [facility] [place] [facility] [address] [facility] [address] [place] [address] Willie Ascencio MD Restless legs syndrome (Primary Dx); Excessive sleepiness; Primary snoring; Obstructive sleep apnea 07/31/2018 Telephone [facility] [address] [place] [address] Ender Salvador MD No Show 07/25/2018 8:20 AM EDT Office Visit [facility] [address] [place] [address] Osman Méndez MD Abrasion of finger, initial encounter (Primary Dx); Need for Tdap vaccination; Gastroesophageal reflux disease, esophagitis presence not specified; Atypical chest pain; Excessive daytime sleepiness 06/10/2018 8:49 AM EST - 06/10/2018 11:59 PM EST Hospital Encounter [facility] [address] [place] [address] Anxiety; Panic attacks Discharge Disposition: Home or Self Care 06/10/2018 8:00 AM EST Office Visit [facility] [address] [place] [address] Osman Méndez MD Anxiety (Primary [...] He was evaluated in the ER in [place]. He was told to f/u w/ cardiology. [...] Grandmother Social History Smoking Status as of 04/02/2025 Tobacco Use Types Packs/Day Years Used Date [...] 06/10/2018 3:17 PM EST [facility] Blood VENOUS BLOOD / Unknown Venipuncture / Unknown 06/10/2018 8:50 AM EST 06/10/2018 8:50 AM EST Narrative [facility] - 06/10/2018 3:17 PM EST Ingestion of dwain doses of biotin (>5 mg/day) taken within 8 hours of drawing blood sample can interfere with this immunoassay test. us Osman Méndez MD CHEMISTRY ORDERABLES Final Res ult [facility] [address] [facility] , [place] [address] * CBC (06/10/2018 8:50 AM EST) WBC [...] sult [facility] [address] [facility] , [address] [place] [id number] * COMPREHENSIVE METABOLIC PANEL (06/10/2018 8:50 AM [...] mL/min/1.7 3 m2 06/10/2018 3:17 PM EST [facility] GFR Non Afr Am 116 >=60 mL/min/1.7 3 m2 06/10/2018 3:17 PM EST [facility] Comment: This estimated GFR was [...] ORDERABLES Final Res ult Performing Organization Address City/State/[facility] Co de Phone Number [facility] [address] [facility] , [place] [address] [facility] [address] [place] [address] Visit Diagnoses Diagnosis Start Date Anxiety Anxiety state, unspecified 06/10/2018 Panic attacks Panic disorder without agoraphobia 06/10/2018 Anxiety Anxiety state, unspecified 06/10/2018 Panic attacks Panic disorder without agoraphobia 06/10/2018 Abrasion of finger, initial encounter 07/25/2018 Need for Tdap vaccination Need for prophylactic vaccination with combined ptjpprzmet-nkqnkhr-ylibkkrgy (DTP) vaccine 07/25/2018 Gastroesophageal reflux disease, esophagitis [...]
--- OUTSIDE RECORDS SUMMARY | 2025-04-02 17:24 | XMS_ITS | Clinical Summary ---
[facility] Organization [facility] Address [address] [place] [address] Care Team Providers Care Certified Medicine Aide Name Role Phone Lilian Gabriel APRN Primary [...] at night. In lab sleep study at [facility] for further evaluation. Excessive daytime [...] - 200 mg/dL 10/30/2016 11:40 AM EDT [facility] Triglycerides 64 0 - 150 mg/dL 10/30/2016 11:40 AM EDT [facility] HDL Cholesterol 43 40 - 60 mg/dL 10/30/2016 11:40 AM EDT [facility] LDL Cholesterol 128 0 - 130 mg/dL 10/30/2016 11:40 AM EDT [facility] Blood Venipuncture / Unknown 10/30/2016 10:57 AM EDT 10/30/2016 10:57 AM EDT Narrative [facility] - 10/30/2016 11:40 AM [...] Perez APRN LAB BLOOD ORDERABLES Final Result [facility]
[address] [place] [address], from Last 3 Months or Most Recently Relevant to Health Maintenance Insurance [address] Care Teams Certified Medicine Aide Relationship Specialty Start Date End Date Lilian Gabriel APRN PCP - General Internal Medicine 06/21/20
== END 2025-04-02 23:59 | disposition home or self-care (01) ==
LOC: RAD 15:32
PROVIDERS: PCP Nurse Practitioner Family; Visit Provider Nurse Practitioner Family
DX: M54.6 Pain in thoracic spine (principal)
CPT/HCPCS: 72072

== ENCOUNTER 2025-04-03 10:54 | Outpatient (CLI) | payer OTHER, SELFPAY ==
[2025-04-03 15:24] LABS: Coronavirus 19, PCR Not Detected (NotDetected); Influenza A, PCR Not Detected (NotDetected); Influenza B, PCR Not Detected (NotDetected)
--- OUTSIDE RECORDS SUMMARY | 2025-04-06 11:23 | XMS_ITS | Clinical Summary ---
Author Organization [employer] ([place], [place], [place], [place], [place]) Address [address] [place] [address] Care Team Providers Care Roll Press Operator Name Role Phone GabrielLilian hardy SUPERVISOR PRODUCTION MANAGING Primary Care Provider Allergies No known active [...] total) by mouth daily. 09/07/2023 Active omega 4-dlx-htg-fish oil capsule Take 1 capsule (1,000 mg [...] He was evaluated in the ER in [place]. He was told to f/u w/ cardiology. Resolved Problems Problem Noted Date Diagnosed Date Resolved Date Colon cancer screening 09/17/202312/10 Encounters Date Type Department Care Team Description 02/03/2025 Telephone [facility] Gastroenterology [address] [place] [address] [address] [place] [address] Hanna Corona MD Medication Problem 02/02/2025 Telephone [facility] Gastroenterology [address] [place] [address] [address] [place] [address] Hanna Corona MD Medication Refill (Tirzepatide compounded.) 02/02/2025 Telephone [facility] Gastroenterology [address] [place] [address] [address] [place] [address] Hanna Corona MD Medication Refill [...] Date Antonio rded Speak language other than Gambian at home Not on file 10/16/2023 Want [...] Advance Directives For more information, please contact: [phone] * Full Code (Latest Code Status on File) Date Activated Date Inactivated Comments 12/11/2023 9:46 AM 12/11/2023 6:29 PM Care Teams Roll Press Operator Relationship Specialty Start Date End Date Lilian Gabriel, SUPERVISOR PRODUCTION MANAGING [address] [place] [address] PCP - General Nurse Practitioner 10/11/23
--- OUTSIDE RECORDS SUMMARY | 2025-04-06 11:23 | XMS_ITS | Continuity of Care Document ---
Author Organization [facility] Address [address] [place] [phone] Phone Care Team Providers Care Wine Blender Name Role Phone Unavailable Primary Care Provider Unavailabl e Encounters Date Type Department Care Team Description 11/05/2018 9:15 AM EDT Office Visit [facility] [place] [address] [address] Willie Ascencio MD Primary snoring; Obstructive sleep apnea 10/03/[address] [address] Osman Méndez MD Medication Refill (one script ) 09/09/2018 9:15 AM EDT - 09/09/2018 11:59 PM EDT Hospital Encounter [facility] Sleep Disorder Center [address] [place], [place] [id number] Obstructive sleep apnea (Primary Dx) Discharge Disposition: Home or Self Care 09/09/2018 9:00 AM EDT Office Visit [facility] [place] [address] [address] Willie Ascencio MD Excessive sleepiness; Primary snoring; Obstructive sleep apnea 09/04/2018 12:07 AM EDT - 09/04/2018 11:59 PM EDT Hospital Encounter [facility] Sleep Disorder Center [address] [place] [phone] [place] Sleep Discharge Disposition: Home or Self Care 09/03/2018 6:45 PM EDT - 09/03/2018 11:59 PM EDT Hospital Encounter [facility] Sleep Disorder Center [place] [address] [place] [address] [place] Sleep Obstructive sleep apnea (Primary Dx) Discharge Disposition: Home or Self Care 2018 Refill [facility] [address] [place] [address] Osman Méndez MD Medication Refill 08/23/2018 Orders Only [facility] Sleep Disorder Center [place] [address] [facility] [address] [place] [address] Willie Ascencio MD Obstructive sleep apnea (Primary Dx) 08/19/2018 8:30 AM EDT Office Visit [facility] [address] [facility] [address] [place] [address] Willie Ascencio MD Restless legs syndrome (Primary Dx); Excessive sleepiness; Primary snoring; Obstructive sleep apnea 07/31/2018 Telephone [facility] [address] [place] [address] Enedr Salvador MD No Show 07/25/2018 8:20 AM EDT Office Visit [facility] [address] [place] [address] Osman Méndez MD Abrasion of finger, initial encounter (Primary Dx); Need for Tdap vaccination; Gastroesophageal reflux disease, esophagitis presence not specified; Atypical chest pain; Excessive daytime sleepiness 06/10/2018 8:49 AM EST - 06/10/2018 11:59 PM EST Hospital Encounter [facility] [address] [place] [address] Anxiety; Panic attacks Discharge Disposition: Home or Self Care 06/10/2018 8:00 AM EST Office Visit [facility] [address] [place] [address] Osman Méndez MD Anxiety (Primary [...] He was evaluated in the ER in [place]. He was told to f/u w/ cardiology. [...] Grandmother Social History Smoking Status as of 04/06/2025 Tobacco Use Types Packs/Day Years Used Date [...] 06/10/2018 3:17 PM EST [facility] Blood VENOUS BLOOD / Unknown Venipuncture / Unknown 06/10/2018 8:50 AM EST 06/10/2018 8:50 AM EST Narrative [facility] - 06/10/2018 3:17 PM EST Ingestion of dwain doses of biotin (>5 mg/day) taken within 8 hours of drawing blood sample can interfere with this immunoassay test. us Osman Méndez MD CHEMISTRY ORDERABLES Final Res ult [facility] [address] [facility] , [place] [address] * CBC (06/10/2018 8:50 AM EST) WBC [...] [facility] [address] [facility] , [address] [place] [phone] * COMPREHENSIVE METABOLIC PANEL (06/10/2018 8:50 AM [...] mL/min/1.7 3 m2 06/10/2018 3:17 PM EST [facility] GFR Non Afr Am 116 >=60 mL/min/1.7 3 m2 06/10/2018 3:17 PM EST [facility] Comment: This estimated GFR was [...] ORDERABLES Final Res ult Performing Organization Address City/State/[facility] Co de Phone Number [facility] [address] [facility] , [place] [address] [facility] [address] [place] [address] Visit Diagnoses Diagnosis Start Date Anxiety Anxiety state, unspecified 06/10/2018 Panic attacks Panic disorder without agoraphobia 06/10/2018 Anxiety Anxiety state, unspecified 06/10/2018 Panic attacks Panic disorder without agoraphobia 06/10/2018 Abrasion of finger, initial encounter 07/25/2018 Need for Tdap vaccination Need for prophylactic vaccination with combined xsazedzvfj-wjxgtyt-byswxrxck (DTP) vaccine 07/25/2018 Gastroesophageal reflux disease, esophagitis [...]
--- OUTSIDE RECORDS SUMMARY | 2025-04-06 11:23 | XMS_ITS | Clinical Summary ---
Author Organization [facility] Address [address] [place] [address] Care Team Providers Care Shipping Services Sales Representative Name Role Phone Lilian Gabriel APRN Primary [...] at night. In lab sleep study at [facility] for further evaluation. Excessive daytime sleepiness [...] - 200 mg/dL 10/30/2016 11:40 AM EDT [facility] Triglycerides 64 0 - 150 mg/dL 10/30/2016 11:40 AM EDT [facility] HDL Cholesterol 43 40 - 60 mg/dL 10/30/2016 11:40 AM EDT [facility] LDL Cholesterol 128 0 - 130 mg/dL 10/30/2016 11:40 AM EDT [facility] Blood Venipuncture / Unknown 10/30/2016 10:57 AM EDT 10/30/2016 10:57 AM EDT Narrative [facility] - 10/30/2016 11:40 AM EDT [...] Perez APRN LAB BLOOD ORDERABLES Final Result [facility]
[address] [place] [address], from Last 3 Months or Most Recently Relevant to Health Maintenance Insurance [address] Care Teams Shipping Services Sales Representative Relationship Specialty Start Date End Date Lilian Gabriel APRN PCP - General Internal Medicine 06/21/20
--- OUTSIDE RECORDS SUMMARY | 2025-04-06 11:23 | XMS_ITS | Referral Summary ---
Author Organization [employer] ([place], [place], [place], [place], [place]) Address [address] [place] [address] Care Team Providers Care Hog Operator Name Role Phone Harvey Lilian KARIS Primary Care Provider [phone] Encounters Date Type Department Care Team Description 02/03/2025 Telephone [facility] Gastroenterology [address] [place] [address] [address] [place] [address] Hanna Corona MD Medication Problem 02/02/2025 Telephone [facility] Gastroenterology [address] [place] [address] [address] [place] [address] Hanna Corona MD Medication Refill (Tirzepatide compounded.) 02/02/2025 Telephone [facility] Gastroenterology [address] [place] [address] [address] [place] [address] Hanna Corona MD Medication Refill from [...] total) by mouth daily. 09/07/2023 Active omega 3-zoz-idq-fish oil capsule Take 1 capsule (1,000 mg [...] He was evaluated in the ER in [place]. He was told to f/u w/ cardiology. [...] Date Antonio rded Speak language other than Bahraini at home Not on file 10/16/2023 Want [...] Not on file [place] [address] [id number] [facility] CHOICE PLUS Advance Directives For more information, please contact: [phone] * Full Code (Latest Code Status on File) Date Activated Date Inactivated Comments 12/11/2023 9:46 AM 12/11/2023 6:29 PM Care Teams Hog Operator Relationship Specialty Start Date End Date Lilian Gabriel APRN [address] [address] PCP - General Nurse Practitioner 10/11/23
--- OUTSIDE RECORDS SUMMARY | 2025-04-06 11:23 | XMS_ITS | Clinical Summary ---
Author Organization [facility] Address [address] [facility], [address] [place] [address] Care Team Providers Care Shop Technician Name Role Phone Berto Frazier MD Primary Care Provider + [phone] Allergies No known active allergies Medications Sertraline [...] Plan of Treatment Not on file Insurance [facility] Advance Directives * Full Code (Latest Code Status on File) Date Activated Date Inactivated Comments 08/27/2018 5:13 PM 08/28/2018 8:15 PM Care Teams Shop Technician Relationship Specialty Start Date End Date Berto Frazier MD [address] [facility] [address] [place] [address] PCP - General Family Medicine 08/12/18
== END 2025-04-03 23:59 ==
LOC: LAB.DROPOF 04-06 10:56
PROVIDERS: PCP Nurse Practitioner Family; Visit Provider Nurse Practitioner Family
DX: R68.89 Other general symptoms and signs (principal)
CPT/HCPCS: 87631